=== PATIENT | female | born 1960 | race Caucasian/White ===

== ENCOUNTER 2020-06-19 17:15 | Inpatient (IN) | payer MEDICARE, MEDICAID, SELFPAY ==
[2020-06-19] VITALS (10 sets, daily range): BP systolic 106–139; BP diastolic 81–97; PULSE 94–121; RESP 14–32; TEMP 36.6–36.9; O2SAT 96–100; BMI 25.1
--- NOTE | 2020-06-19 17:27 | XR_ITS ---
WS: [id number] Portable AP upright chest, 06/19/2020 Clinical Data: sob Comparison: Portable chest, 05/18/2018. Findings: No nodules, masses or effusions are seen. The heart is normal. The pulmonary vascularity is not increased. No pneumonia or pneumothorax is seen. The diaphragms are flattened. There are monitor leads on the chest wall. XR/XR chest 1V portable 24040 Impression: Hyperinflation.
--- NOTE | 2020-06-19 17:27 | ECG_ITS ---
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 Measurements Intervals [place] Rate: 121 P: 87 DE: 108 QRS: 75 QRSD: 74 T: 73 QT: 271 QTc: 386 Interpretive Statements SINUS TACHYCARDIA WITH SHORT DE INTERVAL ABNORMAL RHYTHM ECG Compared to ECG 05/18/2018 16:02:32 Short DE interval now present Sinus rhythm no longer present Electronically Signed On 06-20-2020 11:33:59 CDT by Desi Aguirre M.D. [id number] f
--- NOTE | 2020-06-19 17:29 | ED_ITS ---
Documented by User: VARGAS [place] 06/19/20 18:56 HPI - SOB/Dyspnea General: Chief Complaint: Shortness of Breath/Dyspnea Stated Complaint: SOB Time Seen by Provider: 06/19/20 17:17 History of Present Illness: HPI Narrative: Patient is a 59-year-old female comes to the ED with shortness of breath. Patient has a past medical history of COPD and is on 3 L of O2 at home and has inhalers at home for treatment. Patient says symptoms started suddenly approximately 2 to 3 hours ago. She tried using some of her inhalers at home and that did not provide any relief. Denies any recent illness or upper respiratory infection symptoms. Patient denies any increased coughing, fever, chills, chest pain, nausea/vomiting, abdominal pain, diarrhea, constipation, dysuria or hematuria. Associated symptoms: Deny abdominal pain, chest pain, fever(s), nausea, orthopnea, palpitations or vomiting Review of Systems Const: Denies: fever(s), chills or fatigue Eyes: Denies: change in vision or eye discomfort ENMT: Denies: throat pain, odynophagia, nasal discharge or nasal congestion Card: Denies: chest pain, palpitations, edema, swelling of feet/ankles, dyspnea on exertion or orthopnea Resp: Reports: dyspnea and non-productive cough (chronic- unchanged); Denies: productive cough GI: Denies: abdominal pain, nausea, vomiting, diarrhea, constipation or hematochezia : Denies: flank pain, dysuria or hematuria Musc: Denies: neck pain, back pain or extremity swelling Skin/Breast: Denies: rash or new lesions Neuro: Denies: headache(s), numbness in extremities or weakness in extremities PFSH ED PFSH: Medical History (Updated 06/19/20 @ 21:25 by lAie Infante) Asthma COPD (chronic obstructive pulmonary disease) Oxygen dependent Surgical History (Updated 06/19/20 @ 21:09 by Dimple Nunez MD) No pertinent past surgical history Family History (Updated 06/19/20 @ 21:11 by Dimple Nunez MD) Mother Rheumatoid arthritis Father Cancer lung cancer Other CAD (coronary artery disease) Social History (Updated 06/19/20 @ 21:13 by Dimple Nunez MD) Smoking and tobacco status: current every day smoker Alcohol intake: never Substance/Drug Use: never Lives independently: Yes Housing: House Marital status: / Physical Exam Const: COMMON NORMALS: patient oriented x3 and alert GENERAL APPEARANCE: cooperative, comfortable and in distress (tachypnea) HENMT: COMMON NORMALS: normocephalic HEAD & SCALP: normocephalic MOUTH: Normal oral and palatal mucosa present THROAT: posterior oropharynx normal and uvula midline Eye: COMMON NORMALS: Equal, round and reactive pupils present PUPIL: Yes Equal, round and reactive pupils present Neck/C-Spine: COMMON NORMALS: supple GENERAL: Yes normal visual inspection Resp: COMMON NORMALS: normal respiratory effort, No retractions and No use of accessory muscles EFFORT & INSPECTION: Yes tachypneic, Yes respiratory distress, Yes labored and Yes uses accessory muscles AUSCULTATION: wheezes expiratory wheezes and throughout and diminished lung sounds diffuse Cardio: COMMON NORMALS: regular rhythm, S1 normal heart sound present, S2 normal heart sound present, No gallops present (Cardio), No clicks present (Cardio), No murmurs present (Cardio) and Peripheral pulses 2+ throughout RATE: tachycardic RHYTHM: regular rhythm HEART SOUNDS: S1 normal heart sound present and S2 normal heart sound present PERIPHERAL PULSES: Peripheral pulses 2+ throughout GI: COMMON NORMALS: Normal to inspection, nondistended, normoactive bowel sounds present, Soft to palpation, non-tender and no masses PALPATION: Yes Soft to palpation : COMMON NORMALS: Yes no CVA tenderness BLADDER/KIDNEY EXAM: Yes no CVA tenderness Back/Pelvis: COMMON NORMALS: no CVA tenderness Extremity: COMMON NORMALS: normal to inspection and no pedal edema Neuro: COMMON NORMALS: patient oriented x3 and moves all extremities SENSORIUM/ORIENTATION: Yes alert Skin: COMMON NORMALS: no rashes or lesions noted GENERAL SKIN EXAM: no rashes or lesions noted and dry skin Course Vital Signs: Vital signs: Vital Signs Temperature 98.5 F 06/19/20 17:16 Pulse Rate 94 06/19/20 20:22 Respiratory Rate 20 H 06/19/20 20:22 Blood Pressure 106/82 06/19/20 20:22 Pulse Oximetry 98 06/19/20 20:22 MDM - SOB/Dyspnea MDM Narrative: Medical decision making narrative: Patient is a 59 year-old female comes to the ED with shortness of breath. She has a past medical history of COPD and is on 3 L of O2 at home. I performed the initial history and physical exam and lab work-up of patient. Physical exam showed a patient that is tachypnea and lung sounds were diminished throughout and there were also some expiratory wheezing throughout lungs. ABG- ph 7.31 PCO2 62.2, O2 sat 91.8%. I ordered multiple DuoNeb breathing treatments for patient and 125 mg Solu-Medrol. I went and spoke with Dr. Infante about patient and due to severity of patient's illness and likely admission Dr. Lan will be taking over care. Lab Data: Attestation: I reviewed the patient's lab results. Labs: Lab Results 06/19/20 06/19/20 06/19/20 Range/Units 18:22 18:22 18:22 WBC 15.7 H (4.0-10.0) 10^3/ uL RBC 4.58 (4.1-5.3) 10^6/u L Hgb 13.6 (11.5-15.3) g/dL Hct 45.1 (37.0-47.0) % MCV 98.5 (81-99) fL MCH 29.7 (28.0-34.0) pg MCHC 30.2 (30.0-36.0) g/dL RDW 12.9 (12.1-15.1) % Plt Count 206 (130-400) 10^3/c mm MPV 10.7 H (7.4-10.4) fL Neut % (Auto) 85.6 % Lymph % (Auto) 7.8 % [place] % (Auto) 5.7 % Eos % (Auto) 0.3 % Baso % (Auto) 0.3 % Neut # (Auto) 13.48 H (1.8-7.7) 10^3/u L Lymph # (Auto) 1.2 (0.8-4.8) 10^3/u L [place] # (Auto) 0.9 (0.2-0.9) 10^3/u L Eos # (Auto) 0.0 (0.0-0.8) 10^3/u L Baso # (Auto) 0.1 (0.0-0.1) 10^3/u L Nucleated RBC % (a uto) 0 % Nucleated RBCs # 0.0 /100WBC D-Dimer 0.33 (0-0.59) ug/mIFE U Specimen Type Sample Site ABG pH (7.35-7.45) ABG pCO2 (35-45) mmHg ABG pO2 (80.0-100.0) mmH g ABG HCO3 (22-26) mmol/L ABG O2 Saturation ABG Base Excess (-2.0-2.0) mmol/ L Sohail Test A-a O2 Gradient (5-10) mmHg Hematocrit (37-47) % Hgb O2 Saturation (95-100) % Carboxyhemoglobin (0.4-20.1) %THgb Methemoglobin (0.4-1.5) % Total Hemoglobin (12-16) g/dL Ionized Calcium (1.1-1.4) mmol/L O2 Delivery Device O2 Liters/Min % FiO2 % Demolition Expert ID Sodium 138 (136-145) mmol/L Potassium 4.2 (3.5-5.1) mmol/L Chloride 99 (98-107) mmol/L Carbon Dioxide 32 H (22-29) mmol/L Anion Gap 11.2 (5-19) BUN 13 (6-20) mg/dL Creatinine 0.5 (0.5-0.9) mg/dL GFR Calculation 126.7 (90-130) mL/min Glucose 120 H (65-115) mg/dL Calculated Osmolal ity 283 L (285-295) mOsm/k g Lactic Acid (0.5-2.2) mmol/L Calcium 9.7 (8.5-10.5) mg/dL Magnesium 2.1 (1.7-2.3) mg/dL Total Bilirubin 0.3 (0.15-1.2) mg/dL AST 32 (0-32) U/L ALT 20 (0-33) U/L Alkaline Phosphata se 92 (35-105) IU/L Troponin T Baselin e (0-10) ng/L NT-Pro-B Natriuret Pep 27 (0-125) pg/mL Total Protein 7.3 (6.6-8.7) g/dL Albumin 4.4 (3.5-5.2) g/dL Globulin 2.9 (1.3-4.6) g/dL SARS-CoV-2 Ag (Rap id) (Negative) 06/19/20 06/19/20 06/19/20 Range/Units 18:22 18:22 18:27 WBC (4.0-10.0) 10^3/ uL RBC (4.1-5.3) 10^6/u L Hgb (11.5-15.3) g/dL Hct (37.0-47.0) % MCV (81-99) fL MCH (28.0-34.0) pg MCHC (30.0-36.0) g/dL RDW (12.1-15.1) % Plt Count (130-400) 10^3/c mm MPV (7.4-10.4) fL Neut % (Auto) % Lymph % (Auto) % [place] % (Auto) % Eos % (Auto) % Baso % (Auto) % Neut # (Auto) (1.8-7.7) 10^3/u L Lymph # (Auto) (0.8-4.8) 10^3/u L [place] # (Auto) (0.2-0.9) 10^3/u L Eos # (Auto) (0.0-0.8) 10^3/u L Baso # (Auto) (0.0-0.1) 10^3/u L Nucleated RBC % (a uto) % Nucleated RBCs # /100WBC D-Dimer (0-0.59) ug/mIFE U Specimen Type Arterial Sample Site Radial, right ABG pH 7.31 L (7.35-7.45) ABG pCO2 62.2 H* (35-45) mmHg ABG pO2 96.4 (80.0-100.0) mmH g ABG HCO3 31.3 H (22-26) mmol/L ABG O2 Saturation 98.2 ABG Base Excess 3.2 H (-2.0-2.0) mmol/ L Sohail Test Pos A-a O2 Gradient 7.1 (5-10) mmHg Hematocrit 43.5 (37-47) % Hgb O2 Saturation 91.8 L (95-100) % Carboxyhemoglobin 5.6 (0.4-20.1) %THgb Methemoglobin 0.9 (0.4-1.5) % Total Hemoglobin 14.2 (12-16) g/dL Ionized Calcium 1.3 (1.1-1.4) mmol/L O2 Delivery Device Nc O2 Liters/Min 3.0 % FiO2 32.0 % Demolition Expert ID Ed Sodium 142.0 (136-145) mmol/L Potassium 4.3 (3.5-5.1) mmol/L Chloride (98-107) mmol/L Carbon Dioxide (22-29) mmol/L Anion Gap (5-19) BUN (6-20) mg/dL Creatinine (0.5-0.9) mg/dL GFR Calculation (90-130) mL/min Glucose 123.0 H (65-115) mg/dL Calculated Osmolal ity (285-295) mOsm/k g Lactic Acid 1.0 (0.5-2.2) mmol/L Calcium (8.5-10.5) mg/dL Magnesium (1.7-2.3) mg/dL Total Bilirubin (0.15-1.2) mg/dL AST (0-32) U/L ALT (0-33) U/L Alkaline Phosphata se (35-105) IU/L Troponin T Baselin e 407 H* (0-10) ng/L NT-Pro-B Natriuret Pep (0-125) pg/mL Total Protein (6.6-8.7) g/dL Albumin (3.5-5.2) g/dL Globulin (1.3-4.6) g/dL SARS-CoV-2 Ag (Rap id) (Negative) 06/19/20 06/19/20 Range/Units 19:31 20:25 WBC (4.0-10.0) 10^3/ uL RBC (4.1-5.3) 10^6/u L Hgb (11.5-15.3) g/dL Hct (37.0-47.0) % MCV (81-99) fL MCH (28.0-34.0) pg MCHC (30.0-36.0) g/dL RDW (12.1-15.1) % Plt Count (130-400) 10^3/c mm MPV (7.4-10.4) fL Neut % (Auto) % Lymph % (Auto) % [place] % (Auto) % Eos % (Auto) % Baso % (Auto) % Neut # (Auto) (1.8-7.7) 10^3/u L Lymph # (Auto) (0.8-4.8) 10^3/u L [place] # (Auto) (0.2-0.9) 10^3/u L Eos # (Auto) (0.0-0.8) 10^3/u L Baso # (Auto) (0.0-0.1) 10^3/u L Nucleated RBC % (a uto) % Nucleated RBCs # /100WBC D-Dimer (0-0.59) ug/mIFE U Specimen Type Arterial Sample Site Radial, left ABG pH 7.44 (7.35-7.45) ABG pCO2 43.4 (35-45) mmHg ABG pO2 92.3 (80.0-100.0) mmH g ABG HCO3 29.2 H (22-26) mmol/L ABG O2 Saturation ABG Base Excess 4.3 H (-2.0-2.0) mmol/ L S[place]ail Test Pos A-a O2 Gradient (5-10) mmHg Hematocrit 43.8 (37-47) % Hgb O2 Saturation (95-100) % Carboxyhemoglobin (0.4-20.1) %THgb Methemoglobin (0.4-1.5) % Total Hemoglobin (12-16) g/dL Ionized Calcium (1.1-1.4) mmol/L O2 Delivery Device Bipap O2 Liters/Min % FiO2 30.0 % Demolition Expert ID [id number] Sodium (136-145) mmol/L Potassium (3.5-5.1) mmol/L Chloride (98-107) mmol/L Carbon Dioxide (22-29) mmol/L Anion Gap (5-19) BUN (6-20) mg/dL Creatinine (0.5-0.9) mg/dL GFR Calculation (90-130) mL/min Glucose (65-115) mg/dL Calculated Osmolal ity (285-295) mOsm/k g Lactic Acid (0.5-2.2) mmol/L Calcium (8.5-10.5) mg/dL Magnesium (1.7-2.3) mg/dL Total Bilirubin (0.15-1.2) mg/dL AST (0-32) U/L ALT (0-33) U/L Alkaline Phosphata se (35-105) IU/L Troponin T Baselin e (0-10) ng/L NT-Pro-B Natriuret Pep (0-125) pg/mL Total Protein (6.6-8.7) g/dL Albumin (3.5-5.2) g/dL Globulin (1.3-4.6) g/dL SARS-CoV-2 Ag (Rap id) Negative (Negative) Imaging Data^: CXR: Attestation: I personally reviewed and interpreted this imaging study as follows: My impression: Chest x-ray showed hyperinflated lungs which is consistent with her COPD diagnosis. No other infiltrates or acute lung findings. EKG Data^: EKG 1: Attestation: I personally reviewed and interpreted this EKG as follows: EKG Interpretation Date: 06/19/20 Interpretation: Sinus tachycardia, 121 bpm, no ST segment elevation or depression seen. Discharge Plan Discharge Patient Disposition: Placed in Observation Clinical Impression: NSTEMI (non-ST elevated myocardial infarction), Acute hypercapnic respiratory failure Condition: Stable Prescriptions: No Action bupropion HCl 150 mg tablet sustained-release 12 hr See Rx Instructions .ROUTE .COMPLEX RF: 0 ipratropium-albuterol 0.5 mg-3 mg(2.5 mg base)/3 mL solution for nebulization See Rx Instructions .ROUTE .COMPLEX RF: 0 pantoprazole 40 mg tablet,delayed release (DR/EC) 40 mg PO DAILY RF: 0 albuterol sulfate 90 mcg/actuation HFA aerosol inhaler See Rx Instructions .ROUTE .COMPLEX RF: 0 Bevespi Aerosphere 9-4.8 mcg HFA aerosol inhaler See Rx Instructions .ROUTE .COMPLEX RF: 0 Referrals: Mery Durham DO [Primary Care Provider] - Sign Out Sign Out Data: Patient Sign Out occurred on 06/19/20 at 18:48. Patient's care was discussed, and care was transferred from to Alie Infante. 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 Exam Comprehensive Documented by User: Alie Infante 06/19/20 21:25 HPI - SOB/Dyspnea General: Chief Complaint: Shortness of Breath/Dyspnea Stated Complaint: SOB Time Seen by Provider: 06/19/20 17:17 [facility] ED PFSH: Medical History (Updated 06/19/20 @ 21:25 by Alie Infante) Asthma COPD (chronic obstructive pulmonary disease) Oxygen dependent Surgical History (Updated 06/19/20 @ 21:09 by Dimple Nunez MD) No pertinent past surgical history Family History (Updated 06/19/20 @ 21:11 by Dimple Nunez MD) Mother Rheumatoid arthritis Father Cancer lung cancer Other CAD (coronary artery disease) Social History (Updated 06/19/20 @ 21:13 by Dimple Nunez MD) Smoking and tobacco status: current every day smoker Alcohol intake: never Substance/Drug Use: never Lives independently: Yes Housing: House Marital status: / Course Vital Signs: Vital signs: Vital Signs Temperature 98.5 F 06/19/20 17:16 Pulse Rate 94 06/19/20 20:22 Respiratory Rate 20 H 06/19/20 20:22 Blood Pressure 106/82 06/19/20 20:22 Pulse Oximetry 98 06/19/20 20:22 MDM - SOB/Dyspnea MDM Narrative: Medical decision making narrative: Case inherited by me from VARGAS [place]. Patient is on BiPAP and stable. She is having no chest pain. 2 EKGs are normal but her first troponin was abnormal. She was treated with Lovenox and aspirin. The patient's repeat ABG is improved. I reviewed the case in full with Dr. Nunez and he agrees to admit for further evaluation and care. Lab Data: Attestation: I reviewed the patient's lab results. Labs: Lab Results 06/19/20 06/19/20 06/19/20 Range/Units 18:22 18:22 18:22 WBC 15.7 H (4.0-10.0) 10^3/ uL RBC 4.58 (4.1-5.3) 10^6/u L Hgb 13.6 (11.5-15.3) g/dL Hct 45.1 (37.0-47.0) % MCV 98.5 (81-99) fL MCH 29.7 (28.0-34.0) pg MCHC 30.2 (30.0-36.0) g/dL RDW 12.9 (12.1-15.1) % Plt Count 206 (130-400) 10^3/c mm MPV 10.7 H (7.4-10.4) fL Neut % (Auto) 85.6 % Lymph % (Auto) 7.8 % [place] % (Auto) 5.7 % Eos % (Auto) 0.3 % Baso % (Auto) 0.3 % Neut # (Auto) 13.48 H (1.8-7.7) 10^3/u L Lymph # (Auto) 1.2 (0.8-4.8) 10^3/u L [place] # (Auto) 0.9 (0.2-0.9) 10^3/u L Eos # (Auto) 0.0 (0.0-0.8) 10^3/u L Baso # (Auto) 0.1 (0.0-0.1) 10^3/u L Nucleated RBC % (a uto) 0 % Nucleated RBCs # 0.0 /100WBC D-Dimer 0.33 (0-0.59) ug/mIFE U Specimen Type Sample Site ABG pH (7.35-7.45) ABG pCO2 (35-45) mmHg ABG pO2 (80.0-100.0) mmH g ABG HCO3 (22-26) mmol/L ABG O2 Saturation ABG Base Excess (-2.0-2.0) mmol/ L S[place]ail Test A-a O2 Gradient (5-10) mmHg Hematocrit (37-47) % Hgb O2 Saturation (95-100) % Carboxyhemoglobin (0.4-20.1) %THgb Methemoglobin (0.4-1.5) % Total Hemoglobin (12-16) g/dL Ionized Calcium (1.1-1.4) mmol/L O2 Delivery Device O2 Liters/Min % FiO2 % Demolition Expert ID Sodium 138 (136-145) mmol/L Potassium 4.2 (3.5-5.1) mmol/L Chloride 99 (98-107) mmol/L Carbon Dioxide 32 H (22-29) mmol/L Anion Gap 11.2 (5-19) BUN 13 (6-20) mg/dL Creatinine 0.5 (0.5-0.9) mg/dL GFR Calculation 126.7 (90-130) mL/min Glucose 120 H (65-115) mg/dL Calculated Osmolal ity 283 L (285-295) mOsm/k g Lactic Acid (0.5-2.2) mmol/L Calcium 9.7 (8.5-10.5) mg/dL Magnesium 2.1 (1.7-2.3) mg/dL Total Bilirubin 0.3 (0.15-1.2) mg/dL AST 32 (0-32) U/L ALT 20 (0-33) U/L Alkaline Phosphata se 92 (35-105) IU/L Troponin T Baselin e (0-10) ng/L NT-Pro-B Natriuret Pep 27 (0-125) pg/mL Total Protein 7.3 (6.6-8.7) g/dL Albumin 4.4 (3.5-5.2) g/dL Globulin 2.9 (1.3-4.6) g/dL SARS-CoV-2 Ag (Rap id) (Negative) 06/19/20 06/19/20 06/19/20 Range/Units 18:22 18:22 18:27 WBC (4.0-10.0) 10^3/ uL RBC (4.1-5.3) 10^6/u L Hgb (11.5-15.3) g/dL Hct (37.0-47.0) % MCV (81-99) fL MCH (28.0-34.0) pg MCHC (30.0-36.0) g/dL RDW (12.1-15.1) % Plt Count (130-400) 10^3/c mm MPV (7.4-10.4) fL Neut % (Auto) % Lymph % (Auto) % [place] % (Auto) % Eos % (Auto) % Baso % (Auto) % Neut # (Auto) (1.8-7.7) 10^3/u L Lymph # (Auto) (0.8-4.8) 10^3/u L [place] # (Auto) (0.2-0.9) 10^3/u L Eos # (Auto) (0.0-0.8) 10^3/u L Baso # (Auto) (0.0-0.1) 10^3/u L Nucleated RBC % (a uto) % Nucleated RBCs # /100WBC D-Dimer (0-0.59) ug/mIFE U Specimen Type Arterial Sample Site Radial, right ABG pH 7.31 L (7.35-7.45) ABG pCO2 62.2 H* (35-45) mmHg ABG pO2 96.4 (80.0-100.0) mmH g ABG HCO3 31.3 H (22-26) mmol/L ABG O2 Saturation 98.2 ABG Base Excess 3.2 H (-2.0-2.0) mmol/ L S[place]ail Test Pos A-a O2 Gradient 7.1 (5-10) mmHg Hematocrit 43.5 (37-47) % Hgb O2 Saturation 91.8 L (95-100) % Carboxyhemoglobin 5.6 (0.4-20.1) %THgb Methemoglobin 0.9 (0.4-1.5) % Total Hemoglobin 14.2 (12-16) g/dL Ionized Calcium 1.3 (1.1-1.4) mmol/L O2 Delivery Device Nc O2 Liters/Min 3.0 % FiO2 32.0 % Demolition Expert ID Ed Sodium 142.0 (136-145) mmol/L Potassium 4.3 (3.5-5.1) mmol/L Chloride (98-107) mmol/L Carbon Dioxide (22-29) mmol/L Anion Gap (5-19) BUN (6-20) mg/dL Creatinine (0.5-0.9) mg/dL GFR Calculation (90-130) mL/min Glucose 123.0 H (65-115) mg/dL Calculated Osmolal ity (285-295) mOsm/k g Lactic Acid 1.0 (0.5-2.2) mmol/L Calcium (8.5-10.5) mg/dL Magnesium (1.7-2.3) mg/dL Total Bilirubin (0.15-1.2) mg/dL AST (0-32) U/L ALT (0-33) U/L Alkaline Phosphata se (35-105) IU/L Troponin T Baselin e 407 H* (0-10) ng/L NT-Pro-B Natriuret Pep (0-125) pg/mL Total Protein (6.6-8.7) g/dL Albumin (3.5-5.2) g/dL Globulin (1.3-4.6) g/dL SARS-CoV-2 Ag (Rap id) (Negative) 06/19/20 06/19/20 Range/Units 19:31 20:25 WBC (4.0-10.0) 10^3/ uL RBC (4.1-5.3) 10^6/u L Hgb (11.5-15.3) g/dL Hct (37.0-47.0) % MCV (81-99) fL MCH (28.0-34.0) pg MCHC (30.0-36.0) g/dL RDW (12.1-15.1) % Plt Count (130-400) 10^3/c mm MPV (7.4-10.4) fL Neut % (Auto) % Lymph % (Auto) % [place] % (Auto) % Eos % (Auto) % Baso % (Auto) % Neut # (Auto) (1.8-7.7) 10^3/u L Lymph # (Auto) (0.8-4.8) 10^3/u L [place] # (Auto) (0.2-0.9) 10^3/u L Eos # (Auto) (0.0-0.8) 10^3/u L Baso # (Auto) (0.0-0.1) 10^3/u L Nucleated RBC % (a uto) % Nucleated RBCs # /100WBC D-Dimer (0-0.59) ug/mIFE U Specimen Type Arterial Sample Site Radial, left ABG pH 7.44 (7.35-7.45) ABG pCO2 43.4 (35-45) mmHg ABG pO2 92.3 (80.0-100.0) mmH g ABG HCO3 29.2 H (22-26) mmol/L ABG O2 Saturation ABG Base Excess 4.3 H (-2.0-2.0) mmol/ L Sohail Test Pos A-a O2 Gradient (5-10) mmHg Hematocrit 43.8 (37-47) % Hgb O2 Saturation (95-100) % Carboxyhemoglobin (0.4-20.1) %THgb Methemoglobin (0.4-1.5) % Total Hemoglobin (12-16) g/dL Ionized Calcium (1.1-1.4) mmol/L O2 Delivery Device Bipap O2 Liters/Min % FiO2 30.0 % Demolition Expert ID [id number] Sodium (136-145) mmol/L Potassium (3.5-5.1) mmol/L Chloride (98-107) mmol/L Carbon Dioxide (22-29) mmol/L Anion Gap (5-19) BUN (6-20) mg/dL Creatinine (0.5-0.9) mg/dL GFR Calculation (90-130) mL/min Glucose (65-115) mg/dL Calculated Osmolal ity (285-295) mOsm/k g Lactic Acid (0.5-2.2) mmol/L Calcium (8.5-10.5) mg/dL Magnesium (1.7-2.3) mg/dL Total Bilirubin (0.15-1.2) mg/dL AST (0-32) U/L ALT (0-33) U/L Alkaline Phosphata se (35-105) IU/L Troponin T Baselin e (0-10) ng/L NT-Pro-B Natriuret Pep (0-125) pg/mL Total Protein (6.6-8.7) g/dL Albumin (3.5-5.2) g/dL Globulin (1.3-4.6) g/dL SARS-CoV-2 Ag (Rap id) Negative (Negative) EKG Data^: EKG 1: Attestation: I personally reviewed and interpreted this EKG as follows: EKG Interpretation Date: 06/19/20 EKG interpretation time: 17:21 Interpretation: Normal sinus rhythm at 121 beats a minute, significant baseline artifact present, normal axis, probable T wave inversions in aVL, otherwise no acute findings. Confirmed with Dr. Timothy WOLFG 2: Attestation: I personally reviewed and interpreted this EKG as follows: EKG Interpretation Date: 06/19/20 EKG interpretation time: 19:11 Interpretation: Sinus tachycardia at 112 beats a minute, T wave inversions aVL, no with acute ST-T wave changes. Confirm with Dr. Aguirre. Discharge Plan Discharge Patient Disposition: Placed in Observation Clinical Impression: NSTEMI (non-ST elevated myocardial infarction), Acute hypercapnic respiratory failure Condition: Stable Prescriptions: No Action bupropion HCl 150 mg tablet sustained-release 12 hr See Rx Instructions .ROUTE .COMPLEX RF: 0 ipratropium-albuterol 0.5 mg-3 mg(2.5 mg base)/3 mL solution for nebulization See Rx Instructions .ROUTE .COMPLEX RF: 0 pantoprazole 40 mg tablet,delayed release (DR/EC) 40 mg PO DAILY RF: 0 albuterol sulfate 90 mcg/actuation HFA aerosol inhaler See Rx Instructions .ROUTE .COMPLEX RF: 0 Bevespi Aerosphere 9-4.8 mcg HFA aerosol inhaler See Rx Instructions .ROUTE .COMPLEX RF: 0 Referrals: Mery Durham DO [Primary Care Provider] - Sign Out Sign Out Data: Patient Sign Out occurred on 06/19/20 at 18:48. Patient's care was discussed, and care was transferred from to Alie Cecil [facility]. Coding Level of Care Code ED [employer] for Meryl Bradley Exam Comprehensive
[2020-06-19] MEDS: ipratropium-albuterol 3 mL Neb 6 ML INHALATION (18:16)
[2020-06-19 18:37] LABS: ABG PH Result 7.31 (7.35-7.45); Alveolar-Arterial Oxygen Gradi 7.1 mmHg (5-10); Arterial Blood Gas Hematocrit 43.5 % (37-47); Base Excess ABG 3.2 mmol/L (-2.0-2.0); Blood Gas Allen Test Pos; Blood Gas Operator Identificat ED; Blood Gas Sample Site Radial, right; Blood Gas Sample Type Arterial; Carboxyhemoglobin 5.6 %THgb (0.4-20.1); HCO3 ABG 31.3 mmol/L (22-26); HGB O2 Sat 91.8 % (95-100); Ionized Calcium Level - ABG 1.3 mmol/L (1.1-1.4); Methemoglobin 0.9 % (0.4-1.5); Oxygen Device NC; Oxygen Saturation ABG 98.2; PO2 ABG 96.4 mmHg (80.0-100.0); Potassium Level - ABG 4.3 mmol/L (3.5-5.0); Total Hemoglobin 14.2 g/dL (12-16)
[2020-06-19 18:37] LABS: Basophils # 0.1 10^3/uL (0.0-0.1); Basophils % 0.3 %; Eosinophils % 0.3 %; Hematocrit 45.1 % (37.0-47.0); Hemoglobin 13.6 g/dL (11.5-15.3); Lymphocytes # 1.2 10^3/uL (0.8-4.8); Lymphocytes % 7.8 %; Mean Corpuscular HGB Conc 30.2 g/dL (30.0-36.0); Mean Corpuscular Hemoglobin 29.7 pg (28.0-34.0); Mean Corpuscular Volume 98.5 fL (81-99); Mean Platelet Volume 10.7 fL (7.4-10.4); Monocytes # 0.9 10^3/uL (0.2-0.9); Monocytes % 5.7 %; Neutrophils # 13.48 10^3/uL (1.8-7.7); Neutrophils % 85.6 %; Nucleated Red Blood Cells % 0 %; Platelet Count 206 10^3/cmm (130-400); Red Blood Count 4.58 10^6/uL (4.1-5.3); Red Cell Distribution Width 12.9 % (12.1-15.1); White Blood Count 15.7 10^3/uL (4.0-10.0)
[2020-06-19 18:38] LABS: ABG PCO2 62.2 mmHg (35-45)
[2020-06-19 18:51] LABS: D Dimer 0.33 ug/mIFEU (0-0.59)
[2020-06-19] MEDS: ipratropium-albuterol 3 mL Neb INHALATION (18:59)
[2020-06-19 19:05] LABS: Alanine Aminotransferase 20 U/L (0-33); Albumin Level 4.4 g/dL (3.5-5.2); Alkaline Phosphatase 92 IU/L (35-105); Anion Gap 11.2 (5-19); Aspartate Amino Transferase 32 U/L (0-32); Blood Urea Nitrogen 13 mg/dL (6-20); Calcium 9.7 mg/dL (8.5-10.5); Carbon Dioxide 32 mmol/L (22-29); Chloride 99 mmol/L (98-107); Globulin 2.9 g/dL (1.3-4.6); Glomerular Filtration Rate 126.7 mL/min (90-130); Glucose 120 mg/dL (65-115); Magnesium 2.1 mg/dL (1.7-2.3); NT Pro B Type Natriuretic Pept 27 pg/mL (0-125); Osmolality Calculated 283 mOsm/kg (285-295); Potassium 4.2 mmol/L (3.5-5.1); Sodium 138 mmol/L (136-145); Total Bilirubin 0.3 mg/dL (0.15-1.2); Total Protein 7.3 g/dL (6.6-8.7)
[2020-06-19 19:06] LABS: Troponin(5th) Baseline 407 ng/L (0-10)
--- NOTE | 2020-06-19 19:27 | ECG_ITS ---
[facility] Test Date: 2020-06-19 Pat Name: Dahlia Shah Department: Room: Gender: Female Clinical Research Nurse: : 1960 Requested By: Timothy Castaneda Order Number: [id number] Limon MD: Desi Aguirre M.D. Measurements Intervals [place] Rate: 112 P: 87 NV: 127 QRS: 73 QRSD: 87 T: 82 QT: 305 QTc: 416 Interpretive Statements SINUS TACHYCARDIA RIGHT ATRIAL ENLARGEMENT [0.3mV P WAVE] Compared to ECG 05/18/2018 16:02:32 Atrial abnormality now present Sinus rhythm no longer present Electronically Signed On 06-20-2020 20:54:19 CDT by Desi Aguirre M.D. [email or web address]
[2020-06-19 20:32] LABS: ABG PCO2 43.4 mmHg (35-45); ABG PH Result 7.44 (7.35-7.45); Arterial Blood Gas Hematocrit 43.8 % (37-47); Base Excess ABG 4.3 mmol/L (-2.0-2.0); Blood Gas Allen Test Pos; Blood Gas Sample Site Radial, left; Blood Gas Sample Type Arterial; HCO3 ABG 29.2 mmol/L (22-26); Oxygen Device BIPAP; PO2 ABG 92.3 mmHg (80.0-100.0)
[2020-06-19 20:42] LABS: SARS Covid-2 Antigen Negative (Negative)
--- NOTE | 2020-06-19 21:02 | PM.HP ---
Providers/Chief Complaint Primary Care Provider: Mery Durham DO Chief Complaint: SOB History of Present Illness Dahlia Shah is a 59 year old female who carries history of oxygen dependent COPD, uses trelogy at night, active smoker came in with chief complaint of worsening shortness of breath. Patient is stating that at baseline she is not very active, slightest bit of activities such as carrying basket to her laundry would make her experience chest pain, mostly at rest would relieve her pain, she is denying previous history of UT, stroke, heart disease. Today she went to her mother's home to spend some time with her, her home conditions were really humid she started experiencing worsening of her shortness of breath, she did not experience any chest pain, nausea, vomiting, fever, productive cough, diarrhea or dysuria. Her shortness of breath was getting worse hence decided to come to the hospital for further evaluation. No recent sick contacts. She is smoking 3 cigarettes a day. Diagnostics in the ER revealed hypercarbic respiratory failure, improved with BiPAP, tachycardic, tachypneic, d-dimer not high, EKG is sinus rhythm without ischemic or infarctive changes, significant delta troponin, I asked ER physician to start N STEMI protocol. At the time of my evaluation patient was chest pain-free, she was experiencing pursed lip breathing. Chest ray is showing concerning changes in left lung base with vascular prominence, meet sepsis criteria with tachycardia, tachypnea, leukocytosis, I would go ahead and start her on p.o. Levaquin Review of Systems Const: Reports: body aches, change in appetite, fatigue and malaise; Denies: fever(s) or chills Eyes: Denies: change in vision ENMT: Denies: throat pain Card: Reports: chest pain and dyspnea on exertion; Denies: palpitations, irregular heart rhythm, syncope, pre-syncope or orthopnea Resp: Reports: dyspnea and non-productive cough GI: Denies: abdominal pain or nausea : Denies: flank pain Musc: Denies: neck pain Skin/Breast: Denies: rash Neuro: Denies: headache(s) Psych: Reports: anxiety Endo: Denies: polyuria Joshua/Lymph: Denies: easy bruising All/Imm: Denies: urticaria Medications/Allergies Home Medications Medication Instructions Recorded Confirmed Last Taken Type albuterol sulfate See Rx Instructions .ROUTE .COMPLEX 06/19/20 06/19/20 06/19/20 History bupropion HCl See Rx Instructions .ROUTE .COMPLEX 06/19/20 06/19/20 06/18/20 History glycopyrrolate-formoterol [Bevespi See Rx Instructions .ROUTE .COMPLEX 06/19/20 06/19/20 06/19/20 History Aerosphere] ipratropium-albuterol See Rx Instructions .ROUTE .COMPLEX 06/19/20 06/19/20 06/19/20 History pantoprazole 40 mg PO DAILY 06/19/20 06/19/20 06/17/20 History Allergies Allergy/AdvReac Type Severity Reaction Status Date / Time codeine Allergy Unknown Unknown Verified 06/19/20 18:12 PFSH Acute PFSH: Medical History (Updated 06/19/20 @ 23:12 by Dimple Nunez MD) Asthma COPD (chronic obstructive pulmonary disease) Oxygen dependent Surgical History (Updated 06/19/20 @ 21:09 by Dimple Nunez MD) No pertinent past surgical history Family History (Updated 06/19/20 @ 21:11 by Dimple Nunez MD) Mother Rheumatoid arthritis Father Cancer lung cancer Other CAD (coronary artery disease) Social History (Updated 06/19/20 @ 21:13 by Dimple Nunez MD) Smoking and tobacco status: current every day smoker Alcohol intake: never Substance/Drug Use: never Lives independently: Yes Housing: House Marital status: / Vitals/I&O/Wt Last Vital Signs Temp 98.5 F 06/19/20 17:16 Pulse 94 06/19/20 20:22 Resp 20 H 06/19/20 20:22 BP 106/82 06/19/20 20:22 Pulse Ox 98 06/19/20 20:22 Weight last 48 hrs Weight 68.492 kg Physical Exam Narrative: EXAM NARRATIVE: Patient sitting in her bed with pursed lip breathing pattern Prolonged expiratory phase No lip cyanosis noticed Patient was put on BiPAP after taking HPI Diminished breath sounds with wheezing S1, S2 no murmur or signs of heart failure Abdomen soft nontender bowel sound present No lower extremity edema EOMI, PERRLA Appropriate mood and affect No lower extremity gangrene ulcer Multiple skin tattoos Data : 06/19/20 18:22 06/19/20 18:22 Micro: Microbiology 06/19/20 18:22 Blood Culture - Preliminary Blood SPECIMEN COLLECTED A&P Assessment and plan (1) NSTEMI (non-ST elevated myocardial infarction): Status: Acute (2) Community acquired pneumonia: Status: Acute (3) Sepsis: Status: Acute (4) Acute hypercapnic respiratory failure: Status: Acute Additional A&P Information Non-ST segment elevation UT Significant delta troponin without ischemic or infarctive changes, 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 Started Lovenox, loading dose of aspirin and Plavix given, started high-dose statin along lisinopril Echo in the morning, Patient is endorsing unstable angina symptoms, no previous history of UT or heart failure, her symptoms could very well be secondary to worsening of her COPD with underlying pneumonia but will like to rule out coronary etiology with stress test in the morning Left lower lobe pneumonia Prominent vascular markings BNP not high Most likely patient has pulmonary hypertension, follow-up on echo Started on Levaquin Urine antigens ordeered Sepsis criteria met due to tachypnea, tachycardia, leukocytosis, lactic acid normal, secondary to community-acquired pneumonia Acute on chronic hypercapnic respiratory failure Currently doing well on BiPAP, Continue BiPAP overnight settings 14 and 8, respiratory rate 10, FiO2 30% Blood gas in the PE ruled out Needs extensive counseling to quit smoking currently smoking 3 cigarettes a day Patient is full code Cardiac diet, n.p.o. after midnight for cardiac stress test in the morning DVT prophylaxis not needed as patient is currently on full dose Lovenox Attestations Medical Necessity Statement*: Anticipating stay in the hospital cross more than 2 midnights currently need management for NSTEMI and community-acquired pneumonia Time Spent in Patient Care: 50 minutes Coding Level of Care Code Acute Senior Dentist for [facility] Fwd Diagnoses NSTEMI (non-ST elevated myocardial infarction) I21.4 Community acquired pneumonia J18.9 Sepsis A41.9 Acute hypercapnic respiratory failure J96.02
[2020-06-19] MEDS: aspirin 325 mg Tablet PO (21:31)
[2020-06-19] MEDS: enoxaparin 80 mg/0.8 mL Syringe 68 MG SUBCUT (21:31)
[2020-06-19 21:38] LABS: Troponin 5 2HR 557.1 ng/L (0-10); Troponin 5 2HR Delta 150.1 ABS# (0-10)
--- NOTE | 2020-06-19 22:25 | PC.NURSE ---
Patient received to floor from ED via wheelchair. Patient ambulated to bathroom with noted increased SOB. Patient c/o chest pain 4/10 with deep inspiration. Patient reports having copd and using 3L nc Oxygen at home. Admission completed as documented.
[2020-06-19] MEDS: clopidogrel 300 mg Tablet PO (22:50)
--- NOTE | 2020-06-19 23:27 | ECG_ITS ---
[facility] Test Date: 2020-06-19 Pat Name: Dahlia Shah Department: Room: 102 Gender: Female Freight Separator: yovana ANNE: 1960 Requested By: Timothy Castaneda Order Number: [id number] Braxton MD: Desi Aguirre M.D. Measurements Intervals [place] Rate: 91 P: 83 AR: 132 QRS: 76 QRSD: 89 T: 75 QT: 348 QTc: 430 Interpretive Statements SINUS RHYTHM Compared to ECG 06/19/2020 19:11:42 Sinus tachycardia no longer present Atrial abnormality no longer present Electronically Signed On 06-20-2020 20:52:03 CDT by Desi Aguirre M.D. [id number]
[2020-06-20] VITALS (15 sets, daily range): BP systolic 92–138; BP diastolic 63–95; PULSE 84–110; RESP 16–24; TEMP 36.4–36.8; O2SAT 86–98
[2020-06-20] MEDS: ipratropium-albuterol 3 mL Neb INHALATION ×5 (00:06→20:02)
[2020-06-20] MEDS: levoFLOXacin 750 mg Tablet PO (00:18)
[2020-06-20 02:39] LABS: Basophils % 0.1 %; Hematocrit 41.7 % (37.0-47.0); Lymphocytes # 0.4 10^3/uL (0.8-4.8); Lymphocytes % 4.7 %; Mean Corpuscular HGB Conc 31.2 g/dL (30.0-36.0); Mean Corpuscular Volume 96.3 fL (81-99); Mean Platelet Volume 11.1 fL (7.4-10.4); Monocytes # 0.1 10^3/uL (0.2-0.9); Monocytes % 0.8 %; Neutrophils # 7.27 10^3/uL (1.8-7.7); Neutrophils % 94.1 %; Nucleated Red Blood Cells % 0 %; Platelet Count 170 10^3/cmm (130-400); Red Blood Count 4.33 10^6/uL (4.1-5.3); Red Cell Distribution Width 12.8 % (12.1-15.1); White Blood Count 7.7 10^3/uL (4.0-10.0)
[2020-06-20 03:04] LABS: Anion Gap 11.9 (5-19); Blood Urea Nitrogen 18 mg/dL (6-20); Carbon Dioxide 34 mmol/L (22-29); Chloride 97 mmol/L (98-107); Glomerular Filtration Rate 102.7 mL/min (90-130); Glucose 235 mg/dL (65-115); Osmolality Calculated 290 mOsm/kg (285-295); Potassium 4.9 mmol/L (3.5-5.1); Sodium 138 mmol/L (136-145)
[2020-06-20 03:15] LABS: Troponin 5 6HR 640.4 ng/L (0-10); Troponin 5 6HR Delta 233.4 ng/L (0-12)
--- NOTE | 2020-06-20 03:57 | ECG_ITS ---
[facility] Test Date: 2020-06-20 Pat Name: Dahlia Shah Department: Room: 102 Gender: Female Shop Manager: yoavna ANNE: 1960 Requested By: Dimple Nunez Order Number: [id number] Braxton MD: Desi Aguirre M.D. Measurements Intervals [place] Rate: 87 P: 75 AL: 135 QRS: 76 QRSD: 102 T: 70 QT: 362 QTc: 436 Interpretive Statements SINUS RHYTHM WITH OCCASIONAL SUPRAVENTRICULAR PREMATURE COMPLEXES NONSPECIFIC T-WAVE ABNORMALITY Compared to ECG 06/19/2020 23:40:08 T-wave abnormality now present Electronically Signed On 06-20-2020 20:51:46 CDT by Desi Aguirre M.D. [id number]
--- NOTE | 2020-06-20 08:34 | PC.NURSE ---
STRESS TEST NOTE NUCLEAR MEDICINE NOTIFIED XENIA ADKINS RN, THAT THE PATIENT COULD NOT TOLERATE THE NUCLEAR IMAGING SCANS. THE TEST WAS CANCELED.
[2020-06-20] MEDS: pantoprazole DR 40 mg Tablet PO (09:17)
[2020-06-20] MEDS: atorvastatin 40 mg Tablet 80 MG PO (09:17)
[2020-06-20] MEDS: buPROPion SR (12 HR) 150 mg Tablet PO (09:17)
[2020-06-20] MEDS: clopidogrel 75 mg Tablet PO (09:17)
[2020-06-20] MEDS: enoxaparin 80 mg/0.8 mL Syringe 70 MG SUBCUT ×2 (09:18→20:54)
[2020-06-20] MEDS: lisinopril 5 mg Tablet PO (09:18)
[2020-06-20] MEDS: aspirin 81 mg EC Tablet PO (09:18)
--- NOTE | 2020-06-20 09:46 | PC.RESP ---
SMOKING CESSATION AND PULMONARY REHAB INFORMATION SENT TO PATIENT.
--- NOTE | 2020-06-20 11:39 | PM.PN ---
Subjective Subjective: Interval history: Patient reports breathing easier. Denies any shortness of breath or chest pain while on BiPAP this morning. Denies abdominal pain. She was unable to have stress test performed this morning because she cannot lay flat. She reports dry cough Vitals/I&O/Wt Last Vital Signs Temp 97.9 F 06/20/20 07:09 Pulse 95 06/20/20 09:02 Resp 20 H 06/20/20 09:02 BP 138/95 06/20/20 07:09 Pulse Ox 97 06/20/20 09:02 06/19/20 06/20/20 06/20/20 22:59 06:59 14:59 Intake Total 240 / 240 640 / 640 Output Total 100 / 100 Balance 140 / 140 640 / 640 Weight last 48 hrs Weight 70.398 kg Weight 68.492 kg Physical Exam Const: COMMON NORMALS: no acute distress and patient oriented x3 Resp: COMMON NORMALS: normal respiratory effort OTHER: Left upper zone inspiratory wheezing and overall decreased air movement throughout. Cardio: COMMON NORMALS: regular rate, regular rhythm and S2 normal heart sound present RATE: regular rate RHYTHM: regular rhythm HEART SOUNDS: S2 normal heart sound present OTHER: No lower extremity edema GI: COMMON NORMALS: Normal to inspection, nondistended, normoactive bowel sounds present, Soft to palpation and non-tender PALPATION: Yes Soft to palpation Neuro: COMMON NORMALS: patient oriented x3 and no focal motor deficits Data : 06/20/20 02:00 06/20/20 02:00 Micro: Microbiology 06/20/20 01:04 Legionella Urinary Antigen - Final Urine,Voided Bacterial Antigens - Final 06/19/20 18:22 Blood Culture - Preliminary Blood SPECIMEN COLLECTED A&P Assessment and plan (1) NSTEMI (non-ST elevated myocardial infarction): Status: Acute (2) Community acquired pneumonia: Status: Acute (3) Sepsis: Status: Acute (4) Acute hypercapnic respiratory failure: Status: Acute Additional A&P Information Non-ST segment elevation PA Significant delta troponin without ischemic or infarctive changes, 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 Started Lovenox, loading dose of aspirin and Plavix given, started high-dose statin along lisinopril Echo in the morning, Patient is endorsing unstable angina symptoms, no previous history of PA or heart failure, her symptoms could very well be secondary to worsening of her COPD with underlying pneumonia but will like to rule out coronary etiology with stress test in the morning Left lower lobe pneumonia Prominent vascular markings BNP not high Most likely patient has pulmonary hypertension, follow-up on echo Started on Levaquin Urine antigens ordeered Sepsis criteria met due to tachypnea, tachycardia, leukocytosis, lactic acid normal, secondary to community-acquired pneumonia Acute on chronic hypercapnic respiratory failure Currently doing well on BiPAP, Continue BiPAP overnight settings 14 and 8, respiratory rate 10, FiO2 30% Blood gas in the PE ruled out Needs extensive counseling to quit smoking currently smoking 3 cigarettes a day Patient is full code Cardiac diet, n.p.o. after midnight for cardiac stress test in the morning DVT prophylaxis not needed as patient is currently on full dose Lovenox PLAN: Continue with therapeutic anticoagulation and antiplatelet medications. Case discussed with Dr. Lambert will see patient in consultation. With her lifelong smoking history and inspiratory wheezing in the left upper lobe I will proceed with CT of the chest with contrast. Attestations Medical Necessity Statement*: Patient with respite failure requires close inpatient monitoring and treatment. Time Spent in Patient Care: 16 - 35 minutes Coding Level of Care Code Acute Mail Clerks Supervisor for g Fwd Diagnoses NSTEMI (non-ST elevated myocardial infarction) I21.4 Community acquired pneumonia J18.9 Sepsis A41.9 Acute hypercapnic respiratory failure J96.02
--- NOTE | 2020-06-20 13:23 | PM.CONSULT ---
Providers/Reason For Consult Consulting Physican/Specialty*: ROD Lambert MD/cardiology Reason for Consult*: Patient with elevated troponin T and shortness of breath Attending Physician: Marcus Barrios MD Primary Care Provider: Mery Durham DO History of Present Illness History of Present Illness Dahlia Shah is a 59 year old female with a history of smoking abuse/COPD, is admitted to hospital through the emergency room where she presented with rather acute worsening of the shortness of breath. According the patient, she is known to have COPD and is on home oxygen for the last few years. Yesterday afternoon, she became acutely short of breath. Patient attributes this to the humidity. She has feeling of chest tightness more or less constant with no worsening yesterday. She did not have any fever or chills. No significant cough. Because of the worsening of the shortness of breath, she decided to come to the hospital. Since the admission, the breathing seems to be slowly improving with the treatment. She has no abdominal pain or dysuria. She has no history for coronary artery disease, myocardial infarction or congestive heart failure. She has been compliant with the medication. She continues to smoke and in the process of quitting. The troponin T was 407 with a baseline which went up to 557 at 120 minutes and 16 and 40 at 6 hours. The 2-hour delta was 150 and the 6-hour delta was 233. Her BNP was 27. Her mother and maternal grandfather had myocardial infarction in their 70s. No other relevant family history. She has several siblings with no documented coronary artery disease Review of Systems Narrative: CONSTITUTIONAL: No fever or chills. EYES: No blurring of vision or other visual disturbances lately. ENT: No hoarseness of voice, auditory disturbances or sore throat. CARDIOVASCULAR: As mentioned above. RESPIRATORY: Shortness of breath/COPD as mentioned above. GASTROINTESTINAL: No hematemesis or melena. GENITOURINARY: No dysuria or hematuria. INTEGUMENTARY: No skin rashes or history of skin cancer. NEURO: No transient ischemic attacks or amaurosis. PSYCHIATRIC: No history of psychosis or major depression. HEMATOLOGIC: No bleeding disorders or significant anemia. ENDOCRINE: No history of polyuria or polydipsia. MUSCULOSKELETAL: No recent joint pain or swelling. ALLERGY/IMMUNOLOGY: As mentioned above. Meds/Allergies Home Medications and Allergies Home Medications Medication Instructions Recorded Confirmed Last Taken Type albuterol sulfate See Rx Instructions .ROUTE .COMPLEX 06/19/20 06/19/20 06/19/20 History bupropion HCl See Rx Instructions .ROUTE .COMPLEX 06/19/20 06/19/20 06/18/20 History glycopyrrolate-formoterol [Bevespi See Rx Instructions .ROUTE .COMPLEX 06/19/20 06/19/20 06/19/20 History Aerosphere] ipratropium-albuterol See Rx Instructions .ROUTE .COMPLEX 06/19/20 06/19/20 06/19/20 History pantoprazole 40 mg PO DAILY 06/19/20 06/19/20 06/17/20 History Allergies Allergy/AdvReac Type Severity Reaction Status Date / Time codeine Allergy Unknown Unknown Verified 06/19/20 18:12 Current Medications Current Medications Generic Name Dose Route Start Last Admin Trade Name Freq PRN Reason Stop Dose Admin Albuterol/Ipratropium 3 ml 06/19/20 22:20 06/20/20 13:04 Duoneb INHALATION 3 ml Q6H.RESPIRATORY PRN Administration SHORTNESS OF BREATH Aspirin 81 mg 06/20/20 09:00 06/20/20 09:18 Aspirin Ec PO 81 mg DAILY ADDY Administration Atorvastatin Calcium 80 mg 06/20/20 09:00 06/20/20 09:17 Lipitor PO 80 mg DAILY ADDY Administration Bupropion HCl 150 mg 06/20/20 09:00 06/20/20 09:17 Wellbutrin Sr (12 Hr) PO 150 mg DAILY ADDY Administration Clopidogrel Bisulfate 75 mg 06/20/20 09:00 06/20/20 09:17 Plavix PO 75 mg DAILY ADDY Administration Enoxaparin Sodium 70 mg 06/20/20 09:00 06/20/20 09:18 Lovenox SUBCUT 70 mg Q12H ADDY Administration Lisinopril 5 mg 06/20/20 09:00 06/20/20 09:18 Prinivil PO 5 mg DAILY ADDY Administration Pantoprazole Sodium 40 mg 06/20/20 09:00 06/20/20 09:17 Protonix PO 40 mg DAILY ADDY Administration PFSH Acute PFSH: Medical History Asthma COPD (chronic obstructive pulmonary disease) Oxygen dependent Surgical History No pertinent past surgical history Family History Mother Rheumatoid arthritis Father Cancer lung cancer Other CAD (coronary artery disease) Social History Smoking and tobacco status: current every day smoker Alcohol intake: never Substance/Drug Use: never Lives independently: Yes Housing: House Marital status: / Vitals/I&O/Wt Last Vital Signs Temp 98.3 F 06/20/20 11:40 Pulse 100 06/20/20 13:04 Resp 20 H 06/20/20 13:04 BP 113/78 06/20/20 11:40 Pulse Ox 96 06/20/20 13:04 06/19/20 06/20/20 06/20/20 22:59 06:59 14:59 Intake Total 240 / 240 640 / 640 Output Total 100 / 100 Balance 140 / 140 640 / 640 Weight last 48 hrs Weight 155 lb 3.2 oz Weight 151 lb Physical Exam Narrative: EXAM NARRATIVE: GENERAL: The patient is alert and oriented times three. Not in any acute distress. Slightly tachypneic HEENT: No significant pallor, icterus or lymphadenopathy. The pupils are reactant to light. Oral cavity: There are no mucous membrane lesions. Funduscopic examination: The disk margins appear to be sharp with no exudates or hemorrhages. NECK: Trachea appears to be central. No masses noted. Neck veins are slightly prominent. No thyromegaly appreciated. No carotid bruit. RESPIRATORY: Chest is symmetrical. No intercostals muscle retraction or any accessory muscle activation. There is no chest wall tenderness. Breath sounds are heard bilaterally. Bilateral extensive expiratory wheezing. Diminished intensity of breath sounds in the bases. HEART: The PMI is not palpated. No palpable precordial events. S1 and S2 are normal. No S3 or S4 heard. No pericardial rub or any click heard. ABDOMEN: No vessel pulsations or distention. No tenderness. No organomegaly appreciated. No abdominal bruit. Bowel sounds are normally heard. : Deferred. RECTAL: Deferred. LYMPHATIC: No lymphadenopathy noted in the neck or groin. EXTREMITIES: No edema or cyanosis. No clubbing. The pulses are symmetrical bilaterally. The radial, femoral, dorsalis pedis and the posterior tibial pulses are palpated and found to be in good volume and amplitude. MUSCULOSKELETAL: No acute joint deformities or swelling SKIN: There are no significant scars or skin rash noted. NEUROPSYCHIATRIC: The patient is alert and oriented x3. Appears to be in a good mood. The higher functions are grossly within normal limits. No tremors or rigidity noted. Data Labs: Other Labs: Laboratory Last Values WBC 7.7 10^3/uL (4.0- 10.0) 06/20/20 02:00 RBC 4.33 10^6/uL (4.1 -5.3) 06/20/20 02:00 Hgb 13.0 g/dL (11.5-1 5.3) 06/20/20 02:00 Hct 41.7 % (37.0-47.0 ) 06/20/20 02:00 MCV 96.3 fL (81-99) 06/20/20 02:00 MCH 30.0 pg (28.0-34. 0) 06/20/20 02:00 MCHC 31.2 g/dL (30.0-3 6.0) 06/20/20 02:00 RDW 12.8 % (12.1-15.1 ) 06/20/20 02:00 Plt Count 170 10^3/cmm (130 -400) 06/20/20 02:00 MPV 11.1 fL (7.4-10.4 ) H 06/20/20 02:00 Neut % (Auto) 94.1 % 06/20/20 02:00 Lymph % (Auto) 4.7 % 06/20/20 02:00 [place] % (Auto) 0.8 % 06/20/20 02:00 Eos % (Auto) 0.0 % 06/20/20 02:00 Baso % (Auto) 0.1 % 06/20/20 02:00 Neut # (Auto) 7.27 10^3/uL (1.8 -7.7) 06/20/20 02:00 Lymph # (Auto) 0.4 10^3/uL (0.8- 4.8) L 06/20/20 02:00 [place] # (Auto) 0.1 10^3/uL (0.2- 0.9) L 06/20/20 02:00 Eos # (Auto) 0.0 10^3/uL (0.0- 0.8) 06/20/20 02:00 Baso # (Auto) 0.0 10^3/uL (0.0- 0.1) 06/20/20 02:00 Nucleated RBC % (a uto) 0 % 06/20/20 02:00 Nucleated RBCs # 0.0 /100WBC 06/20/20 02:00 D-Dimer 0.33 ug/mIFEU (0- 0.59) 06/19/20 18:22 Specimen Type Arterial 06/19/20 20:25 Sample Site Radial, left 06/19/20 20:25 ABG pH 7.44 (7.35-7.45) 06/19/20 20: ABG pCO2 43.4 mmHg (35-45) 06/19/20 20: ABG pO2 92.3 mmHg (80.0-1 00.0) 06/19/20 20: ABG HCO3 29.2 mmol/L (22-2 6) H 06/19/20 20:25 ABG O2 Saturation 98.2 06/19/20 18: ABG Base Excess 4.3 mmol/L (-2.0- 2.0) H 06/19/20 20:25 Sohail Test Pos 06/19/20 20:25 A-a O2 Gradient 7.1 mmHg (5-10) 06/19/20 18: Hematocrit 43.8 % (37-47) 06/19/20 20:25 Hgb O2 Saturation 91.8 % (95-100) L 06/19/20 18: Carboxyhemoglobin 5.6 %THgb (0.4-20 .1) 06/19/20 18: Methemoglobin 0.9 % (0.4-1.5) 06/19/20 18: Total Hemoglobin 14.2 g/dL (12-16) 06/19/20 18: Sodium 142.0 mmol/L (131 -143) 06/19/20 18: Potassium 4.3 mmol/L (3.5-5 .0) 06/19/20 18: Glucose 123.0 mg/dL (70-1 15) H 06/19/20 18:27 Ionized Calcium 1.3 mmol/L (1.1-1 .4) 06/19/20 18:27 O2 Delivery Device Bipap 06/19/20 20:25 O2 Liters/Min 3.0 % 06/19/20 18:27 FiO2 30.0 % 06/19/20 20:25 Leveler Helper ID [id number] 06/19/20 20:25 Sodium 138 mmol/L (136-1 45) 06/20/20 02:00 Potassium 4.9 mmol/L (3.5-5 .1) 06/20/20 02:00 Chloride 97 mmol/L (98-107 ) L 06/20/20 02:00 Carbon Dioxide 34 mmol/L (22-29) H 06/20/20 02:00 Anion Gap 11.9 (5-19) 06/20/20 02:00 BUN 18 mg/dL (6-20) 06/20/20 02:00 Creatinine 0.6 mg/dL (0.5-0. 9) 06/20/20 02:00 GFR Calculation 102.7 mL/min (90- 130) 06/20/20 02:00 Glucose 235 mg/dL (65-115 ) H 06/20/20 02:00 Calculated Osmolal ity 290 mOsm/kg (285- 295) 06/20/20 02:00 Lactic Acid 1.0 mmol/L (0.5-2 .2) 06/19/20 18:22 Calcium 10.0 mg/dL (8.5-1 0.5) 06/20/20 02:00 Magnesium 2.1 mg/dL (1.7-2. 3) 06/19/20 18:22 Total Bilirubin 0.3 mg/dL (0.15-1 .2) 06/19/20 18:22 AST 32 U/L (0-32) 06/19/20 18:22 ALT 20 U/L (0-33) 06/19/20 18:22 Alkaline Phosphata se 92 IU/L (35-105) 06/19/20 18:22 Troponin T Baselin e 407 ng/L (0-10) H* 06/19/20 18:22 Troponin T 120 Min [place] 557.1 ng/L (0-10) H 06/19/20 20:45 Delta Troponin T 150.1 ABS# (0-10) H* 06/19/20 20:45 Troponin T Hi Sens 6Hr 640.4 ng/L (0-10) H 06/20/20 02:00 Troponin T Hi Sens 6Hr Delta 233.4 ng/L (0-12) H* 06/20/20 02:00 NT-Pro-B Natriuret Pep 27 pg/mL (0-125) 06/19/20 18:22 Total Protein 7.3 g/dL (6.6-8.7 ) 06/19/20 18:22 Albumin 4.4 g/dL (3.5-5.2 ) 06/19/20 18:22 Globulin 2.9 g/dL (1.3-4.6 ) 06/19/20 18:22 SARS-CoV-2 Ag (Rap id) Negative (Negati ve) 06/19/20 19:31 Micro: Micro: Microbiology 06/20/20 01:04 Legionella Urinary Antigen - Final Urine,Voided Bacterial Antigens - Final 06/19/20 18:22 Blood Culture - Pr eliminary Blood SPECIMEN [facility] Imaging^: Echo: My impression: Severe diffuse hypokinesia of the mid and apical septum, anteroseptal, inferior and inferolateral wall segments. The LV apex is dilated. Left ventricular ejection fraction is around 37%.Grade I/IV diastolic dysfunction (abnormal relaxation filling pattern), normal to mildly elevated filling pressures. Thickened aortic and mitral valves Trace tricuspid valve regurgitation. Estimated pulmonary artery peak systolic pressure was 31 mmHg. There is no pericardial effusion. There are no intracardiac masses. No previous study is available for comparison. CXR: My impression: Emphysematous chest. No acute infiltrate. A&P Assessment and plan (1) NSTEMI (non-ST elevated myocardial infarction): Patient's clinical features may suggest a non-ST elevation myocardial infarction. The echocardiographic appearance may suggest Takotsubo syndrome. However in view of her risk factors, possibility of her having underlying coronary artery disease causing the myocardial infarction is a strong consideration especially with the significantly elevated troponin T. Patient may be treated with subcu Lovenox, aspirin, Plavix, low-dose of beta-marisela and KHURRAM inhibitor, as the blood pressure tolerates Status: Acute (2) Left ventricular systolic dysfunction: Possibility of a Takotsubo syndrome versus severe coronary artery disease causing the LV dysfunction are considerations. Patient apparently could not tolerate a stress test. For further evaluation of her coronary status, a cardiac catheterization would be appropriate. We may consider this, once her respiratory status is stabilized. Status: Acute (3) COPD exacerbation: Optimizing the bronchodilator treatment as per the primary. Status: Acute Additional A&P Information I may check her thyroid profile and lipid profile. Based on the clinical progress and the results of the above, further recommendations will be made. Thank you for the opportunity to evaluate this patient make these recommendations. Consult Attestations Medical Necessity Statement: Patient requires continued hospital stay for close monitoring and further management Coding Level of Care Code Acute [facility] for [facility] Diagnoses NSTEMI (non-ST elevated myocardial infarction) I21.4 Left ventricular systolic dysfunction I51.9 COPD exacerbation J44.1
[2020-06-20 18:15] LABS: Chol HDL Ratio 3.98 mg/dL (0.0-4.40); Cholesterol 235 mg/dL (0-200); HDL Cholesterol 59 mg/dL (60-100); LDL Cholesterol Calculated 167 mg/dL (50-129); LDL HDL Ratio 2.83 RATIO (0.00-3.22); Thyroid Stimulating Hormone 0.32 uIU/mL (0.27-4.20); Triglycerides 46 mg/dL (0-150)
--- NOTE | 2020-06-20 19:17 | PC.NURSE ---
Contacted Dr. Lambert regarding new order for cardiac catherization tomorrow and to notify him we have a pending CT with contrast to be done today. Dr. Lambert states he has been in consult with Dr. Stark and we will hold off on CT scan for now. Dr. Lambert will come & discuss heart cath with patient.
--- NOTE | 2020-06-20 22:20 | USCV_ITS ---
Dahlia Shah Age: 59 Gender: F : 1960 Exam Date: 06/20/2020 06:03 Ordering Phys: Dimple Nunez MD Technologist: Jing Hinojosa Exam Location: [facility] Indication: NSTEMI BP: 102 / 78 HR: 90 Rhythm: Sinus Technical Quality: Adequate MEASUREMENTS (Male / Female) Normal Values 2D ECHO LV Diastolic Diameter PLAX 5.1 cm 4.2 - 5.9 / 3.9 - 5.3 cm LV Systolic Diameter PLAX 4.2 cm LV Chamber Size 4.6 cm IVS Diastolic Thickness 1.1 cm 0.6 - 1.0 / 0.6 - 0.9 cm IVS Systolic Thickness 1.4 cm LVPW Diastolic Thickness 1.0 cm 0.6 - 1.0 / 0.6 - 0.9 cm LVPW Systolic Thickness 1.1 cm RV Chamber Size 3.1 cm LVOT Diameter 2.0 cm LV Ejection Fraction 2D Teich 37.5 % LV Ejection Fraction MOD 2C 24.8 % LV Ejection Fraction 2C AL 24.3 % LA Diameter 3.7 cm LA Width 2.8 cm LA Height 3.0 cm RA Width 3.6 cm RA Height 2.8 cm Aorta at Sinotubular Diameter 2.8 cm M-MODE LV Diastolic Diameter MM 4.8 cm 4.2 - 5.9 / 3.9 - 5.3 cm LV Systolic Diameter MM 3.8 cm LV Ejection Fraction MM Teich 44.9 % IVS Diastolic Thickness MM 1.0 cm 0.6 - 1.0 / 0.6 - 0.9 cm IVS Systolic Thickness MM 1.4 cm LVPW Diastolic Thickness MM 1.0 cm 0.6 - 1.0 / 0.6 - 0.9 cm LVPW Systolic Thickness MM 1.3 cm RV Diastolic Diameter MM 1.6 cm Aortic Annulus Diameter 2.7 cm LA Ao Ratio MM 1.4 MV E Point Septal Separation 0.7 cm DOPPLER AV Peak Velocity 147.0 cm/s LVOT Peak Velocity 92.0 cm/s AV Area Cont Eq vti 2.0 cm squared AV Area Cont Eq pk 2.1 cm squared MV Area PHT 4.0 cm squared Mitral E to A Ratio 1.0 MV E' Velocity 11.0 cm/s Mitral E to MV E' Ratio 7.4 Mitral E to LV E' Lateral Ratio 6.7 Mitral E to LV E' Septal Ratio 8.3 TR Peak Velocity 237.5 cm/s TR Peak Gradient 22.6 mmHg TR Mean Velocity 187.7 cm/s TR Mean Gradient 15.2 mmHg TR Velocity Time Integral 53.9 cm TV Peak E Velocity 78.0 cm/s Right Atrial Pressure 8.0 mmHg Pulmonary Artery Systolic Pressu 30.6 mmHg PV Peak Velocity 60.0 cm/s RV Acceleration Time 0.2 s RV Ejection Time 0.4 s RV AcT/ET 0.5 FINDINGS Left Ventricle Severe diffuse hypokinesia of the mid and apical septum, anteroseptal, inferior and inferolateral wall segments. The LV apex is dilated. Left ventricular ejection fraction is around 37%.Grade I/IV diastolic dysfunction (abnormal relaxation filling pattern), normal to mildly elevated filling pressures. Right Ventricle Normal right ventricular size and systolic function. Right Atrium Normal right atrial size. Left Atrium Normal left atrial size. Mitral Valve Thickened mitral valve. Aortic Valve Thickened aortic valve. Tricuspid Valve Trace tricuspid valve regurgitation. Pulmonic Valve No gross abnormalities noted Pericardium No pericardial effusion. Aorta Normal aortic annulus size. CONCLUSIONS Severe diffuse hypokinesia of the mid and apical septum, anteroseptal, inferior and inferolateral wall segments. The LV apex is dilated. Left ventricular ejection fraction is around 37%.Grade I/IV diastolic dysfunction (abnormal relaxation filling pattern), normal to mildly elevated filling pressures. Thickened aortic and mitral valves Trace tricuspid valve regurgitation. Estimated pulmonary artery peak systolic pressure was 31 mmHg. There is no pericardial effusion. There are no intracardiac masses. No previous study is available for comparison. Dr Cathy Lambert MD FAC (Electronically Signed) Final Date: 20 June 2020 16:04 S
[2020-06-21] VITALS (19 sets, daily range): BP systolic 84–118; BP diastolic 64–85; PULSE 75–108; RESP 16–32; TEMP 36.4–36.8; O2SAT 91–98
[2020-06-21] MEDS: ipratropium-albuterol 3 mL Neb INHALATION ×7 (00:36→23:50)
[2020-06-21] MEDS: levoFLOXacin 750 mg Tablet PO (06:31)
--- NOTE | 2020-06-21 08:45 | PC.NURSE ---
Reviewed morning meds scheduled for [address] Rodriguez. Order to hold lovenox only.
--- NOTE | 2020-06-21 09:00 | PC.NURSE ---
patient reports bllod in urine . Urine is noted to be pink without clots. Dr. Lambert present on unit. Notified him of patient concerns. Order received for urinalysis. New specimen collected whish was pale red, agai with no clots was taken to lab.
[2020-06-21] MEDS: buPROPion SR (12 HR) 150 mg Tablet PO (09:02)
[2020-06-21] MEDS: clopidogrel 75 mg Tablet PO (09:02)
[2020-06-21] MEDS: lisinopril 5 mg Tablet PO (09:02)
[2020-06-21] MEDS: pantoprazole DR 40 mg Tablet PO (09:02)
[2020-06-21] MEDS: aspirin 81 mg EC Tablet PO (09:04)
[2020-06-21] MEDS: atorvastatin 40 mg Tablet 80 MG PO (09:05)
[2020-06-21] MEDS: diphenhydrAMINE 50 mg Capsule PO (09:06)
[2020-06-21] MEDS: sodium chloride 0.9% 1,000 ML 50 ML IV (09:23)
--- NOTE | 2020-06-21 09:25 | ECG_ITS ---
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 Measurements Intervals [place] Rate: 95 P: 81 PA: 128 QRS: 75 QRSD: 86 T: 247 QT: 365 QTc: 460 Interpretive Statements SINUS RHYTHM WITH SINUS ARRHYTHMIA MODERATE T-WAVE ABNORMALITY, CONSIDER LATERAL ISCHEMIA [-0.1+ mV T WAVE IN I/aVL/V5/V6] MODERATE T-WAVE ABNORMALITY, CONSIDER INFERIOR ISCHEMIA [-0.1+ mV T WAVE IN II/aVF] INTERPRETATION BASED ON A DEFAULT AGE OF 40 YEARS Compared to ECG 06/20/2020 04:35:16 Possible ischemia now present T-wave abnormality still present Electronically Signed On 06-23-2020 0:21:42 CDT by Cathy Lambert M.D. [id number] f
--- NOTE | 2020-06-21 09:26 | P.PN_ITS ---
Subjective Subjective: Interval history: Patient's shortness of breath is much better now. She is noticed a blood in the urine this morning. She had a CT of the abdomen and pelvis and was found to have 6 mm size nonobstructive kidney stone. Her urinalysis showed evidence of UTI. She denies any chest pain. No fever, chills or cough. Medications: Reviewed: Yes Medication Review Details: Current Medications Albuterol/Ipratropium (Duoneb) 3 ml INHALATION Q6H.RESPIRATORY PRN PRN Reason: SHORTNESS OF BREATH Last Admin: 06/20/20 13:04 Dose: 3 ml Documented by: Albuterol/Ipratropium (Duoneb) 3 ml INHALATION Q4H.RESPIRATORY [facility] Last Admin: 06/21/20 07:43 Dose: 3 ml Documented by: Aspirin (Aspirin Ec) 81 mg PO DAILY [facility] Last Admin: 06/21/20 09:04 Dose: 81 mg Documented by: Atorvastatin Calcium (Lipitor) 80 mg PO DAILY [facility] Last Admin: 06/21/20 09:05 Dose: 80 mg Documented by: Bupropion HCl (Wellbutrin Sr (12 Hr)) 150 mg PO DAILY [facility] Last Admin: 06/21/20 09:02 Dose: 150 mg Documented by: Clopidogrel Bisulfate (Plavix) 75 mg PO DAILY [facility] Last Admin: 06/21/20 09:02 Dose: 75 mg Documented by: Enoxaparin Sodium (Lovenox) 70 mg SUBCUT Q12H [facility] Last Admin: 06/20/20 20:54 Dose: 70 mg Documented by: Sodium Chloride (Sodium Chloride 0.9%) 1,000 mls @ 50 mls/hr IV .Q20H ONE Stop: 06/21/20 13:48 Last Admin: 06/21/20 09:10 Dose: Not Given Documented by: Sodium Chloride (Sodium Chloride 0.9%) 1,000 mls @ 50 mls/hr IV .Q20H ONE Stop: 06/22/20 04:14 Last Admin: 06/21/20 09:23 Dose: 50 mls/hr Documented by: Levofloxacin (Levaquin) 750 mg PO Q24H [facility]; Protocol Last Admin: 06/21/20 06:31 Dose: 750 mg Documented by: Lisinopril (Prinivil) 5 mg PO DAILY [facility] Last Admin: 06/21/20 09:02 Dose: 5 mg Documented by: Methylprednisolone Sodium Succinate (Solu-Medrol) 40 mg IVP Q12H [facility] Last Admin: 06/21/20 06:32 Dose: 40 mg Documented by: Morphine Sulfate (Morphine) 2 mg IVP Q4H PRN PRN 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 Pantoprazole Sodium (Protonix) 40 mg PO DAILY [facility] Last Admin: 06/21/20 09:02 Dose: 40 mg Documented by: Fluticasone/Salmeterol (Advair Diskus 250-50) 1 puff INHALATION BID.RESPIRATORY [facility] Last Admin: 06/21/20 07:43 Dose: 1 puff Documented by: Vitals/I&O/Wt Last Vital Signs Temp 97.6 F 06/21/20 07:24 Pulse 105 H 06/21/20 07:51 Resp 18 06/21/20 07:45 BP 106/76 06/21/20 07:24 Pulse Ox 97 06/21/20 07:45 06/20/20 06/21/20 06/21/20 22:59 06:59 14:59 Intake Total 360 / 1220 0 / 1220 Output Total 125 / 125 125 / 250 Balance 235 / 1095 -125 / 970 Weight last 48 hrs Weight 156 lb 3.2 oz Weight 155 lb 3.2 oz Weight 151 lb Physical Exam Narrative: EXAM NARRATIVE: GENERAL: The patient is alert and oriented times three. Not in any acute distress. Slightly tachypneic HEENT: No significant pallor, icterus or lymphadenopathy. NECK: Trachea appears to be central. No masses noted. Neck veins are slightly prominent. No thyromegaly appreciated. No carotid bruit. RESPIRATORY: Chest is symmetrical. No intercostals muscle retraction or any accessory muscle activation. There is no chest wall tenderness. Breath sounds are heard bilaterally. Occasional expiratory wheezing. No evidence of consolidation. HEART: The PMI is not palpated. No palpable precordial events. S1 and S2 are normal. No S3 or S4 heard. No pericardial rub or any click heard. ABDOMEN: No vessel pulsations or distention. No tenderness. No organomegaly sofiya reciated. No abdominal bruit. Bowel sounds are normally heard. : Deferred. RECTAL: Deferred. LYMPHATIC: No lymphadenopathy noted in the neck or groin. EXTREMITIES: No edema or cyanosis. No clubbing. The pulses are symmetrical bilaterally. The radial, femoral, dorsalis pedis and the posterior tibial pulses are palpated and found to be in good volume and amplitude. MUSCULOSKELETAL: No acute joint deformities or swelling SKIN: There are no significant scars or skin rash noted. NEUROPSYCHIATRIC: The patient is alert and oriented x3. Appears to be in a good mood. The higher functions are grossly within normal limits. No tremors or rigidity noted. Data : 06/20/20 02:00 06/20/20 02:00 Micro: Microbiology 06/19/20 18:22 Blood Culture - Preliminary Blood NEGATIVE TO DATE 06/20/20 01:04 Legionella Urinary Antigen - Final Urine,Voided Bacterial Antigens - Final A&P Assessment and plan (1) NSTEMI (non-ST elevated myocardial infarction): Patient's clinical features may suggest a non-ST elevation myocardial infarction. The echocardiographic appearance may suggest Takotsubo syndrome. However in view of her risk factors, possibility of her having underlying coronary artery disease causing the myocardial infarction is a strong consideration especially with the significantly elevated troponin T. Because of the hematuria, the therapeutic dose of Lovenox may be changed to DVT prophylaxis dose Status: Acute (2) Left ventricular systolic dysfunction: Currently she has no evidence of any cardiac decompensation. We will continue on the current medications. Status: Acute (3) COPD exacerbation: Optimizing the bronchodilator treatment as per the primary. Status: Acute Additional A&P Information The LDL level is 163. TSH was within normal limits. Patient I started on IV antibiotic. I may hold off on the cardiac catheterization today. Will reevaluate in the morning and consider possible cardiac catheterization tomorrow sometime in the afternoon. We will repeat the CBC and a BMP in the morning Attestations Medical Necessity Statement*: Patient requires continued hospital stay for close monitoring and further management Coding Level of Care Code Acute [place] for [facility] Diagnoses NSTEMI (non-ST elevated myocardial infarction) I21.4 Left ventricular systolic dysfunction I51.9 COPD exacerbation J44.1
--- NOTE | 2020-06-21 09:33 | CTR_ITS ---
PROCEDURE INFORMATION: Exam: CT Abdomen And Pelvis Without Contrast Exam date and time: 06/21/2020 9:36 AM Age: 59 years old Clinical indication: Other: Low back pain; Additional info: Hematuria, h/o kidney stones TECHNIQUE: Imaging protocol: Computed tomography of the abdomen and pelvis without contrast. Radiation optimization: All CT scans at this facility use at least one of these dose optimization techniques: automated exposure control; mA and/or kV adjustment per patient size (includes targeted exams where dose is matched to clinical indication); or iterative reconstruction. COMPARISON: CT abdomen pelvis con [id number] 05/18/2018 2:03 PM RADIATION DOSE METRICS: Total DLP (mGy-cm): 579.11 FINDINGS: Detailed evaluation of the abdominal and pelvic viscera is somewhat limited in the absence of intravenous contrast. Lungs: Emphysematous change and interstitial prominence. 2 mm subpleural left lower lobe nodule (series 2: Image 4). For patients at low risk (minimal or absent history of smoking and of other known risk factors), no routine follow-up is indicated. For patients at high risk (history of smoking or of other known risk factors), consider optional CT Chest at 12 months. Sylvester Aguirre, Fleischner Society, 2017. Liver: No focal hepatic mass. Gallbladder and bile ducts: Questionable cholelithiasis which can be better evaluated with ultrasound if clinically indicated. No biliary ductal dilatation. Pancreas: No pancreatic mass or ductal dilatation. Spleen: No splenomegaly. Adrenals: Unremarkable adrenals. Kidneys and ureters: Nonobstructing 6 mm left renal calculus. Stomach and bowel: Combined small bowel and colonic dilatation, with prominent stool. Diverticula, without pericolonic inflammation. Appendix: No acute appendicitis. Intraperitoneal space: No free fluid. Vasculature: Prominent vascular calcification. No abdominal aortic aneurysm. Lymph nodes: No enlarged lymph nodes. Bladder: Nondistended bladder. Reproductive: Unremarkable as visualized. Bones/joints: Osteopenia and mild degenerative change. Soft tissues: Localized infiltration of subcutaneous fat and subcutaneous emphysema in the right anterior lateral abdominal wall. CT/CT abdomen pelvis con [id number] IMPRESSION: 1. Questionable cholelithiasis which can be better evaluated with ultrasound if clinically indicated. 2. Nonobstructing 6 mm left renal calculus. 3. Combined small bowel and colonic dilatation, with prominent stool. 4 . Additional findings as described above. Radiation Dose CTDIVOL = (mGy): DLP = 579.11 (mGy-cm)
--- NOTE | 2020-06-21 09:34 | PM.PN ---
Subjective Subjective: Interval history: Patient reports breathing easier. Denies shortness of breath or chest pain this morning. Reports that she noted to have hematuria this morning and had some nonspecific low back pain, across involving left and right side. Reports previous history of kidney stones. Patient's urine is rere/pink-colored but otherwise no evidence of gross hematuria. UA was obtained and currently awaiting for results. Medications: Reviewed: Yes Medication Review Details: Current Medications Albuterol/Ipratropium (Duoneb) 3 ml INHALATION Q6H.RESPIRATORY PRN PRN Reason: SHORTNESS OF BREATH Last Admin: 06/20/20 13:04 Dose: 3 ml Documented by: Albuterol/Ipratropium (Duoneb) 3 ml INHALATION Q4H.RESPIRATORY [facility] Last Admin: 06/21/20 07:43 Dose: 3 ml Documented by: Aspirin (Aspirin Ec) 81 mg PO DAILY [facility] Last Admin: 06/21/20 09:04 Dose: 81 mg Documented by: Atorvastatin Calcium (Lipitor) 80 mg PO DAILY [facility] Last Admin: 06/21/20 09:05 Dose: 80 mg Documented by: Bupropion HCl (Wellbutrin Sr (12 Hr)) 150 mg PO DAILY [facility] Last Admin: 06/21/20 09:02 Dose: 150 mg Documented by: Clopidogrel Bisulfate (Plavix) 75 mg PO DAILY [facility] Last Admin: 06/21/20 09:02 Dose: 75 mg Documented by: Enoxaparin Sodium (Lovenox) 70 mg SUBCUT Q12H [facility] Last Admin: 06/20/20 20:54 Dose: 70 mg Documented by: Sodium Chloride (Sodium Chloride 0.9%) 1,000 mls @ 50 mls/hr IV .Q20H ONE Stop: 06/21/20 13:48 Last Admin: 06/21/20 09:10 Dose: Not Given Documented by: Sodium Chloride (Sodium Chloride 0.9%) 1,000 mls @ 50 mls/hr IV .Q20H ONE Stop: 06/22/20 04:14 Last Admin: 06/21/20 09:23 Dose: 50 mls/hr Documented by: Levofloxacin (Levaquin) 750 mg PO Q24H [facility]; Protocol Last Admin: 06/21/20 06:31 Dose: 750 mg Documented by: Lisinopril (Prinivil) 5 mg PO DAILY [facility] Last Admin: 06/21/20 09:02 Dose: 5 mg Documented by: Methylprednisolone Sodium Succinate (Solu-Medrol) 40 mg IVP Q12H [facility] Last Admin: 06/21/20 06:32 Dose: 40 mg Documented by: Morphine Sulfate (Morphine) 2 mg IVP Q4H PRN PRN 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 Pantoprazole Sodium (Protonix) 40 mg PO DAILY [facility] Last Admin: 06/21/20 09:02 Dose: 40 mg Documented by: Fluticasone/Salmeterol (Advair Diskus 250-50) 1 puff INHALATION BID.RESPIRATORY [facility] Last Admin: 06/21/20 07:43 Dose: 1 puff Documented by: Vitals/I&O/Wt Last Vital Signs Temp 97.6 F 06/21/20 07:24 Pulse 105 H 06/21/20 07:51 Resp 18 06/21/20 07:45 BP 106/76 06/21/20 07:24 Pulse Ox 97 06/21/20 07:45 06/20/20 06/21/20 06/21/20 22:59 06:59 14:59 Intake Total 360 / 1220 0 / 1220 Output Total 125 / 125 125 / 250 Balance 235 / 1095 -125 / 970 Weight last 48 hrs Weight 70.851 kg Weight 70.398 kg Weight 68.492 kg Physical Exam Const: COMMON NORMALS: no acute distress and patient oriented x3 Resp: COMMON NORMALS: normal respiratory effort OTHER: Clear with overall decreased air movement. Cardio: COMMON NORMALS: regular rate, regular rhythm and S2 normal heart sound present RATE: regular rate RHYTHM: regular rhythm HEART SOUNDS: S2 normal heart sound present OTHER: No lower extremity edema GI: COMMON NORMALS: Normal to inspection, nondistended, normoactive bowel sounds present, Soft to palpation and non-tender PALPATION: Yes Soft to palpation Neuro: COMMON NORMALS: patient oriented x3 and no focal motor deficits Data : 06/20/20 02:00 06/20/20 02:00 Micro: Microbiology 06/19/20 18:22 Blood Culture - Preliminary Blood NEGATIVE TO DATE 06/20/20 01:04 Legionella Urinary Antigen - Final Urine,Voided Bacterial Antigens - Final A&P Assessment and plan (1) NSTEMI (non-ST elevated myocardial infarction): Status: Acute (2) Community acquired pneumonia: Status: Acute (3) Sepsis: Status: Acute (4) Acute hypercapnic respiratory failure: Status: Acute Additional A&P Information Non-ST segment elevation WA Significant delta troponin without ischemic or infarctive changes, discuss EKG changes with sonar subsystem equipment operator as well Started Lovenox, loading dose of aspirin and Plavix given, started high-dose statin along lisinopril Echo in the morning, Patient is endorsing unstable angina symptoms, no previous history of WA or heart failure, her symptoms could very well be secondary to worsening of her COPD with underlying pneumonia but will like to rule out coronary etiology with stress test in the morning Left lower lobe pneumonia Prominent vascular markings BNP not high Most likely patient has pulmonary hypertension, follow-up on echo Started on Levaquin Urine antigens ordeered Sepsis criteria met due to tachypnea, tachycardia, leukocytosis, lactic acid normal, secondary to community-acquired pneumonia Acute on chronic hypercapnic respiratory failure Currently doing well on BiPAP, Continue BiPAP overnight settings 14 and 8, respiratory rate 10, FiO2 30% Blood gas in the PE ruled out Needs extensive counseling to quit smoking currently smoking 3 cigarettes a day Patient is full code Cardiac diet, n.p.o. after midnight for cardiac stress test in the morning DVT prophylaxis not needed as patient is currently on full dose Lovenox PLAN: Discussed with Dr. Lambert and we will go ahead and proceed with further evaluation of hematuria with abdominal/pelvis CT. Awaiting UA. Lovenox was held and patient is currently on aspirin and Plavix. If no significant findings I think it is safe to proceed with coronary angiogram for further evaluation. We just have to avoid avoid anticoagulation for now. Attestations Medical Necessity Statement*: Patient with WA requires close inpatient monitoring, treatment and evaluation. 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
[2020-06-21 10:22] LABS: Urine Appearance Bloody (CLEAR); Urine Color Red (Yellow)
[2020-06-21 10:23] LABS: Add Urine Microscopic? YES; Bilirubin Urine Neg (NEGATIVE); Blood Urine 3+ (Negative); Glucose Urine UA Norm (Normal); Ketones Urine Negative (Negative); Leukocyte Esterase Urine 2+ (Negative); Nitrate Urine Negative (Negative); Protein Urine 1+ (Negative); Urobilinogen Urine Norm (Negative); pH Urine 7 (5-7)
[2020-06-21 10:25] LABS: Amorphous Sediment Urine 1+; Bacteria Urine 2+; Mucus Urine 1+; RBC Urine TOO NUMEROUS TO CNT /hpf (0-2); WBC Urine 40-55 /hpf (0-5)
[2020-06-21 10:26] LABS: Add Urine Culture? Yes
[2020-06-21] MEDS: cefTRIAXone 1,000 MG in sodium chloride 0.9% (plus) 50 ML 100 MG IV (12:10)
[2020-06-22] VITALS (103 sets, daily range): BP systolic 89–136; BP diastolic 58–97; PULSE 71–124; RESP 16–32; TEMP 36.4–36.8; O2SAT 84–100
[2020-06-22] MEDS: levoFLOXacin 750 mg Tablet PO ×2 (01:02→23:53)
[2020-06-22] MEDS: ipratropium-albuterol 3 mL Neb INHALATION ×5 (03:02→19:42)
[2020-06-22 04:56] LABS: Basophils % 0.1 %; Hematocrit 41.5 % (37.0-47.0); Hemoglobin 13.1 g/dL (11.5-15.3); Lymphocytes # 0.8 10^3/uL (0.8-4.8); Lymphocytes % 7.7 %; Mean Corpuscular HGB Conc 31.6 g/dL (30.0-36.0); Mean Corpuscular Hemoglobin 30.6 pg (28.0-34.0); Mean Platelet Volume 10.8 fL (7.4-10.4); Monocytes # 0.6 10^3/uL (0.2-0.9); Monocytes % 5.3 %; Neutrophils # 9.05 10^3/uL (1.8-7.7); Neutrophils % 86.5 %; Nucleated Red Blood Cells % 0 %; Platelet Count 201 10^3/cmm (130-400); Red Blood Count 4.28 10^6/uL (4.1-5.3); Red Cell Distribution Width 13.6 % (12.1-15.1); White Blood Count 10.5 10^3/uL (4.0-10.0)
[2020-06-22 05:14] LABS: Anion Gap 13.2 (5-19); Blood Urea Nitrogen 20 mg/dL (6-20); Calcium 9.5 mg/dL (8.5-10.5); Carbon Dioxide 31 mmol/L (22-29); Chloride 99 mmol/L (98-107); Glomerular Filtration Rate 102.7 mL/min (90-130); Glucose 134 mg/dL (65-115); Osmolality Calculated 287 mOsm/kg (285-295); Potassium 4.2 mmol/L (3.5-5.1); Sodium 139 mmol/L (136-145)
--- NOTE | 2020-06-22 08:37 | PM.PN ---
Subjective Subjective: Interval history: Patient reports feeling much better this morning. Reports that her breathing is currently at baseline. Reports that at home for long period of time she could not ambulate short distances without getting dyspneic. Her urine cleared up. Reports that she has been fighting UTIs for long period of time off-and-on. She is planned for coronary angiogram today. Vitals/I&O/Wt Last Vital Signs Temp 97.8 F 06/22/20 07:14 Pulse 88 06/22/20 07:53 Resp 18 06/22/20 07:49 BP 116/74 06/22/20 07:14 Pulse Ox 95 06/22/20 07:49 06/21/20 06/22/20 06/22/20 22:59 06:59 14:59 Intake Total 480 / 480 300 / 780 Output Total 125 / 125 Balance 355 / 355 300 / 655 Weight last 48 hrs Weight 71.668 kg Weight 70.851 kg Physical Exam Const: COMMON NORMALS: no acute distress and patient oriented x3 Resp: COMMON NORMALS: normal respiratory effort OTHER: Clear with overall decreased air movement. Cardio: COMMON NORMALS: regular rate, regular rhythm and S2 normal heart sound present RATE: regular rate RHYTHM: regular rhythm HEART SOUNDS: S2 normal heart sound present OTHER: No lower extremity edema GI: COMMON NORMALS: Normal to inspection, nondistended, normoactive bowel sounds present, Soft to palpation and non-tender PALPATION: Yes Soft to palpation Neuro: COMMON NORMALS: patient oriented x3 and no focal motor deficits Data : 06/22/20 03:50 06/22/20 03:50 Micro: Microbiology 06/21/20 09:10 Urine Culture - Preliminary Urine,Clean Catch A&P Assessment and plan (1) NSTEMI (non-ST elevated myocardial infarction): Status: Acute (2) Community acquired pneumonia: Status: Acute (3) Sepsis: Status: Acute (4) Acute hypercapnic respiratory failure: Status: Acute (5) COPD exacerbation: Present on admission. Status: Acute Additional A&P Information Non-ST segment elevation CT Significant delta troponin without ischemic or infarctive changes, discuss EKG changes with senior front end engineer as well Started Lovenox, loading dose of aspirin and Plavix given, started high-dose statin along lisinopril Echo in the morning, Patient is endorsing unstable angina symptoms, no previous history of CT or heart failure, her symptoms could very well be secondary to worsening of her COPD with underlying pneumonia but will like to rule out coronary etiology with stress test in the morning Left lower lobe pneumonia ruled out. Prominent vascular markings BNP not high Most likely patient has pulmonary hypertension, follow-up on echo Started on Levaquin Urine antigens ordeered Sepsis criteria met due to tachypnea, tachycardia, leukocytosis, lactic acid normal, secondary to community-acquired pneumonia Acute on chronic hypercapnic respiratory failure Currently doing well on BiPAP, Continue BiPAP overnight settings 14 and 8, respiratory rate 10, FiO2 30% Blood gas in the PE ruled out Needs extensive counseling to quit smoking currently smoking 3 cigarettes a day Patient is full code Cardiac diet, n.p.o. after midnight for cardiac stress test in the morning DVT prophylaxis not needed as patient is currently on full dose Lovenox PLAN: Continue current monitoring and treatment. Awaiting coronary angiography. Awaiting culture results. We will switch Solu-Medrol to prednisone 40 mg daily. Continue bronchodilators. Consider chest CT with contrast after coronary angiography was performed. This could be done on outpatient basis. Patient's inspiratory wheezing resolved and likely was due to mucous plug. Patient continues to have significant decreased air movement throughout. I have again discussed regarding importance of smoking cessation. Patient voiced understanding but does not want any pharmacological help. She thinks she can quit without. Attestations Medical Necessity Statement*: Patient with COPD exacerbation and non-ST elevation CT requires close inpatient monitoring, treatment and evaluation. 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
[2020-06-22] MEDS: clopidogrel 75 mg Tablet PO (09:13)
[2020-06-22] MEDS: predniSONE 20 mg Tablet 40 MG PO (09:13)
[2020-06-22] MEDS: buPROPion SR (12 HR) 150 mg Tablet PO (09:14)
[2020-06-22] MEDS: pantoprazole DR 40 mg Tablet PO (09:14)
[2020-06-22] MEDS: atorvastatin 40 mg Tablet 80 MG PO (09:14)
[2020-06-22] MEDS: lisinopril 5 mg Tablet PO (09:15)
[2020-06-22] MEDS: aspirin 81 mg EC Tablet PO (09:15)
--- NOTE | 2020-06-22 10:00 | PC.NURSE ---
Willi held for lab analyst procedure today. Cleared with Dr. Lambert.
--- NOTE | 2020-06-22 10:30 | PC.SOCIAL ---
IMM Update Pg. 2 of IMM explained to patient, who verbalized understanding. Copy provided to patient.
[2020-06-22] MEDS: cefTRIAXone 1,000 MG in sodium chloride 0.9% (plus) 50 ML 100 MG IV (12:03)
--- NOTE | 2020-06-22 12:54 | P.PN_ITS ---
Subjective Subjective: Interval history: According the patient, she is feeling better today. Her urine is clear today. Denies any fever or chills. Vitals are fairly stable. No new symptoms. Medications: Reviewed: Yes Medication Review Details: Current Medications Albuterol/Ipratropium (Duoneb) 3 ml INHALATION Q6H.RESPIRATORY PRN PRN Reason: SHORTNESS OF BREATH Last Admin: 06/20/20 13:04 Dose: 3 ml Documented by: Albuterol/Ipratropium (Duoneb) 3 ml INHALATION Q4H.RESPIRATORY [facility] Last Admin: 06/22/20 11:29 Dose: 3 ml Documented by: Aspirin (Aspirin Ec) 81 mg PO DAILY [facility] Last Admin: 06/22/20 09:15 Dose: 81 mg Documented by: Atorvastatin Calcium (Lipitor) 80 mg PO DAILY [facility] Last Admin: 06/22/20 09:14 Dose: 80 mg Documented by: Bupropion HCl (Wellbutrin Sr (12 Hr)) 150 mg PO DAILY [facility] Last Admin: 06/22/20 09:14 Dose: 150 mg Documented by: Clopidogrel Bisulfate (Plavix) 75 mg PO DAILY [facility] Last Admin: 06/22/20 09:13 Dose: 75 mg Documented by: Enoxaparin Sodium (Lovenox) 70 mg SUBCUT Q12H [facility] Last Admin: 06/22/20 11:53 Dose: Not Given Documented by: Ceftriaxone Sodium 1,000 mg/ (Sodium Chloride) 50 mls @ 100 mls/hr IV Q24H [facility]; Protocol Last Admin: 06/22/20 12:03 Dose: 100 mls/hr Documented by: Sodium Chloride (Sodium Chloride 0.9%) 1,000 mls @ 50 mls/hr IV .Q20H [facility] Levofloxacin (Levaquin) 750 mg PO Q24H [facility]; Protocol Last Admin: 06/22/20 01:02 Dose: 750 mg Documented by: Lisinopril (Prinivil) 5 mg PO DAILY [facility] Last Admin: 06/22/20 09:15 Dose: 5 mg Documented by: Morphine Sulfate (Morphine) 2 mg IVP Q4H PRN PRN 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 Pantoprazole Sodium (Protonix) 40 mg PO DAILY [facility] Last Admin: 06/22/20 09:14 Dose: 40 mg Documented by: Prednisone (Prednisone) 40 mg PO DAILY [facility] Last Admin: 06/22/20 09:13 Dose: 40 mg Documented by: Fluticasone/Salmeterol (Advair Diskus 250-50) 1 puff INHALATION BID.RESPIRATORY [facility] Last Admin: 06/22/20 07:44 Dose: 1 puff Documented by: Vitals/I&O/Wt Last Vital Signs Temp 97.7 F 06/22/20 12:00 Pulse 91 06/22/20 12:00 Resp 16 06/22/20 12:00 BP 95/74 06/22/20 12:00 Pulse Ox 94 06/22/20 12:00 06/21/20 06/22/20 06/22/20 22:59 06:59 14:59 Intake Total 480 / 530 300 / 830 Output Total 125 / 125 Balance 355 / 405 300 / 705 Weight last 48 hrs Weight 158 lb Weight 156 lb 3.2 oz Physical Exam Narrative: EXAM NARRATIVE: GENERAL: The patient is alert and oriented times three. Not in any acute distress. Slightly tachypneic HEENT: No significant pallor, icterus or lymphadenopathy. NECK: Trachea appears to be central. No masses noted. Neck veins are slightly prominent. No thyromegaly appreciated. No carotid bruit. RESPIRATORY: Chest is symmetrical. No intercostals muscle retraction or any accessory muscle activation. There is no chest wall tenderness. Breath sounds are heard bilaterally. Occasional expiratory wheezing. No evidence of consolidation. HEART: The PMI is not palpated. No palpable precordial events. S1 and S2 are normal. No S3 or S4 heard. No pericardial rub or any click heard. ABDOMEN: No vessel pulsations or distention. No tenderness. No organomegaly appreciated. No abdominal bruit. Bowel sounds are normally heard. : Deferred. RECTAL: Deferred. LYMPHATIC: No lymphadenopathy noted in the neck or groin. EXTREMITIES: No edema or cyanosis. No clubbing. The pulses are symmetrical bilaterally. The radial, femoral, dorsalis pedis and the posterior tibial pulses are palpated and found to be in good volume and amplitude. MUSCULOSKELETAL: No acute joint deformities or swelling SKIN: There are no significant scars or skin rash noted. NEUROPSYCHIATRIC: The patient is alert and oriented x3. Appears to be in a good mood. The higher functions are grossly within normal limits. No tremors or rigidity noted. Data : 06/22/20 03:50 06/22/20 03:50 Micro: Microbiology 06/21/20 09:10 Urine Culture - Preliminary Urine,Clean Catch A&P Assessment and plan (1) NSTEMI (non-ST elevated myocardial infarction): Patient's clinical features may suggest a non-ST elevation myocardial infarction. The echocardiographic appearance may suggest Takotsubo syndrome. However in view of her risk factors, possibility of her having underlying coronary artery disease causing the myocardial infarction is a strong consideration especially with the significantly elevated troponin T. She is scheduled for a cardiac catheterization today. Based on the angiogram findings, further recommendations will be made. Status: Acute (2) Left ventricular systolic dysfunction: Currently she has no evidence of any cardiac decompensation. We will continue on the current medications. Status: Acute (3) COPD exacerbation: Patient was started on steroids. Her symptoms are sniffily improved. May continue on the current medications. Status: Acute (4) Urinary tract infection: Patient had a hematuria yesterday. Her urine is clear today. Denies any abdominal pain. The elevated white cell count, could be related to the steroids. Status: Acute Additional A&P Information The LDL level is 163. TSH was within normal limits. The patient is remaining afebrile.'s mild leukocytosis, most like related to the steroids. Her urine is clear. At this point, it may be appropriate to go ahead with the cardiac catheterization. The risk of bleeding, hematoma, vascular injury, myocardial infarction, CVA, renal failure and other concomitant complications were explained in detail. Patient understood this well and consented to proceed. Based on the angiogram findings, further recommendations will be made. 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
--- NOTE | 2020-06-22 12:59 | W.PM.OPSUD ---
Surgery/Procedure H&P Update DATE OF PROCEDURE: June 22, 2020 DATE H&P PERFORMED: 06/20/20 H&P UPDATE INFORMATION: I have reviewed H&P completed within last 30 days, I have examined patient prior to procedure and No changes to prior documentation PREOP DIAGNOSIS: Non-ST elevation myocardial infarction/cardiomyopathy PLANNED PROCEDURE: Operation Date: 06/21/20 10:00 Proposed Procedures p Cardiac Catheterization(Left) - Cathy Lambert MD Operation Date: 06/22/20 13:00 Proposed Procedures p Cardiac Catheterization(Not Applicable) - Cathy Lambert MD PHYSICAL EXAM: alert, clear to auscultation bilaterally (Occasional expiratory wheezing) and regular rate & rhythm AIRWAY EVAL/ANESTHESIA PLAN: normal airway, ASA III, Local Anesthesia, Risks, benefits & alternatives of sedation and/or procedure discussed and Patient agrees to continue as planned
--- NOTE | 2020-06-22 13:00 | XACV_ITS ---
Exam Room: [facility] Ht: 165 cm Wt: 71 kg BSA: 1.82 m2 Gender: Female : 1960 Any Known Allergies: Codeine Exam Priority: Routine Procedure(s): Procedure Description: Diagnostic procedure Diagnostic Cath Status: Elective Diagnostic Findings The left main is a medium caliber vessel with no significant stenotic lesion. The left artery descending artery is a medium caliber vessel which appears to wrap around the LV apex . Right after the first diagonal branch, there is a segmental narrowing from 30%. Minimal plaques were noted at the mid segment of the artery no other significant stenotic lesions were noted. The left circumflex artery is a medium caliber nondominant vessel which was found to have around 30% eccentric narrowing in the midsegment. No other significant stenotic lesions were seen. The right coronary artery is a medium caliber dominant vessel which was found to have minimal intimal irregularities proximally with no significant stenotic lesions. Conclusions This is a 59-year-old white female with history of smoking abuse and COPD, presented to the hospital with acute worsening of the shortness of breath and features of COPD exacerbation. She had elevated troponin T, suggestive of a non-ST relation myocardial infarction. EKG showed some nonspecific ST-T changes. Echocardiogram revealed severe hypokinesia of the mid and apical septum, anteroseptal and the apical segments. In view of her presenting symptoms, risk factors and the abnormal objective findings, in order to further evaluate the coronary status, a cardiac catheterization was recommended. Patient underwent left heart catheterization with a left and right coronary angiogram and LV angiogram today. The findings are as follows. Mild coronary artery disease involving all the vessels. The wall motion abnormalities and reduced left ventricular ejection fraction are suggestive of a Takotsubo syndrome. Elevated LVEDP of 19 mmHg. Based on these findings, patient will be treated medically. She was transferred to the medical floor in stable condition. Recommendations Continue current medical management and risk factor modification. Diagnostic RX Recommendation: medical therapy and/or counseling LV EDP: 19 mmHg Ejection Fraction: 35.0 % Left Ventriculography Findings: LV gram was performed the HERNANDEZ position. The LV cavity appears to be mildly dilated. There was diffuse hypokinesia of the LV apex with an ejection fraction of around 35 to 40%. There was no filling defects. No significant mitral valve prolapse or mitral regurgitation. LVEDP was 19 mmHg. Pressures Phase:Rest AO : 89 mmHg / 62 mmHg ( 72 mmHg ) @ 8:18:00 AM 104 mmHg / 67 mmHg ( 83 mmHg ) @ 8:29:00 AM 105 mmHg / 68 mmHg ( 83 mmHg ) @ 8:29:00 AM LV : 119 mmHg / 0 mmHg / @ 8:28:00 AM 123 mmHg / 3 mmHg / @ 8:28:00 AM 124 mmHg / 4 mmHg / @ 8:29:00 AM Valves Phase:DefaultPhase AV : 21.0 mmHg @ 1:38:47 PM AV Mean Gradient: 11.0 mmHg @ 1:38:47 PM Clinical Evaluation EBL: 5mL-10mL Procedural Details Procedure Consent Obtained. Pre-Procedure Time Out. Identified patient by full name and date of as verbalized by the patient/guarantor. Does the consent match the physician's order: Yes. Accurate & Complete Informed Consent: Yes. Inpatient/Outpatient History & Physical on Chart: Yes. If H&P is completed, is and addenduem needed: No; If yes, is the addendum complete: N/A. Visualize and Verify Site with Patient/Guarantor: N/A. Relevant Radiology Images available: Yes. Pre-op teaching completed and patient verbalized understanding. The risks, benefits, and alternatives of sedation and/or procedure were discussed by physician. The patient agrees to continue. Procedure started. Correct patient, site and procedure confirmed by cath team. Current diagnosis: Shortness of Breath. PERRLA. Strong, equal hand tile applicator bilaterally. Lungs clear x 5 lobes. IV Site on Arrival: 18 gauge in the left anticubital. IV Fluids: 0.9% NaCl at KVO. 0 mL infused prior to dental laboratory supervisor. Pre Procedural Pulses: left dorsalis pedis was 2+. Pre Procedural Pulses: right dorsalis pedis was 3+. Pre Procedural Pulses: bilateral posterior tibial was 3+. Pre Procedural Pulses: bilateral radial was 3+. Oxygen started at 2liters/min via nasal canula. bilateral groins was prepped with chloroprep then draped in the usual sterile fashion. right radial was prepped with chloroprep then draped in the usual sterile fashion. Physician notified. Baseline sample Acquired. HR: 114 BPM. Equipment: 6F - Radial. Anpro21 Manifold Kit Model BT 2000. Cardiac Cath Pack. Heparinized Saline (2 units/mL), 1000 mL bag. Physician arrived. Physician scrubbed in. Immediate Pre-Procedure Time Out. Correct Patient: Yes; Correct Procedure: Yes; Correct Site: Yes; Correct Patient Position: Yes; Correct Supplies: Yes; Dried Flammable Prep: Yes; Blood Products Available: No;. Lidocaine 1% infiltrated to the right radial. Arterial access obtained. A 5 russian Dustin catheter in over wire. Multiple views taken of left coronary artery. Catheter redirected to the RCA. Catheter out. A 5 russian JR4 catheter in over wire. Fluid bolus stopped, maintenance fluids running at 75cc's per hour. Multiple views taken of right coronary artery. Catheter out. A 5 russian Angled Pig catheter in over wire. EDP Sample taken: LV 119/0,19; HR: 102 BPM; SpO2: 97%. LV gram performed in HERNANDEZ @ 10 mL/second for a total of 30 mL. EDP Sample taken: LV 123/3,23; HR: 101 BPM; SpO2: 97%. Pullback taken: LV 124/4,23; AO 104/67(83); Mean: 11mmHg, Peak to Peak: 21mmHg, SEP: 22sec/min; HR: 100 BPM; SpO2: 97%. Catheter out. TR band placed. Hemostasis obtained. A TR Band was successful obtaining hemostatsis at the Right Radial artery insertion site. Post Procedure: Pulses reassessed and unchanged. PERRLA. Strong, equal hand tile applicator bilaterally. No VTE prophylaxis required. Contrast type used: Omnipaque 300 mgI/mL, 500 mL bottle. Omnipaque 117mL. Medication's Wasted: Lidocaine 1% = 18 mL. Medication's Wasted: Nitro = 49.8 mg. Medication's Wasted: Heparin = 1000 units mL. Total IV fluids: 125 mL. Fluoro: 5:10. Post-op diagnosis: Takotsubo, mild cad. Complications: None. [facility] Clinical Fraility Score: 4: Vulnerable. Pricing Specialist Indications: Suspected CAD. Pricing Specialist Indications: Cardiomyopathy. Chest Pain Symptom Assessment: Atypical Angina. Cardiovascular Instability: No. Estimated blood loss: 5mL-10mL. Vital chart was stopped. Procedure completed. Patient transferred by bed to 1st floor. Site: Right Radial artery Sheath Size: 6 Fr Hemostasis Method: TR Band Hemostasis Success: Successful Procedure Medications Start: 1:04 PM Stop: 1:04 PM Medication: Fentanyl Amount: 50 mcg Route: I.V. Start: 1:11 PM Stop: 1:11 PM Medication: Versed Amount: 1 mg Route: I.V. Start: 1:11 PM Stop: 1:11 PM Medication: Fentanyl Amount: 50 mcg Route: I.V. Start: 1:14 PM Stop: 1:14 PM Medication: Versed Amount: 1 mg Route: I.V. Start: 1:15 PM Stop: 1:15 PM Medication: Verapamil Amount: 5 mg Route: I.V. Start: 1:16 PM Stop: 1:16 PM Medication: Nitrogylcerin Amount: 200 mcg Route: I.A. Start: 1:17 PM Stop: 1:17 PM Medication: Heparin Amount: 5000 units Route: I.V. Start: 1:07 PM Stop: 1:07 PM Medication: Darryll Amount: 50 mg Route: I.V. Start: 1:18 PM Stop: 1:18 PM Medication: 0.9% Saline Amount: 250 ml Route: I.V. bolus I, the attending physician, have reviewed and verified all procedure medications. Yes, all medications given per verbal order History/Risk Factors Hypertension: No Dyslipidemia: No Peripheral Arterial Disease (PAD): No Myocardial Infarction (SC): No Obesity: No Renal Disease: No Tobacco Use: Current/Recent(w/in 1 year) Prior Interventions PCI: No CABG: No Valve Surgery: No Report Signatures Finalized by:Dr Cathy Lambert MD [facility] on 06/22/2020 5:08:11 PM
--- NOTE | 2020-06-22 15:00 | PC.NURSE ---
Removed 5 ml of air from TR band and puncture site under TR band began oozing immedicately. 5 ml returned to TRband and oozing stopped.
--- NOTE | 2020-06-22 20:07 | PC.NURSE ---
Spoke with Dr. Lambert about Lovenox being due tonight on this post-cath patient. Ordered to discontinue Lovenox order.
--- NOTE | 2020-06-22 20:20 | PC.NURSE ---
Dr. Lambert ordered to start Lovenox 40 mg once daily starting tomorrow in AM.
[2020-06-23] VITALS (39 sets, daily range): BP systolic 91–116; BP diastolic 61–77; PULSE 72–112; RESP 16–26; TEMP 36.6; O2SAT 96–100
[2020-06-23] MEDS: ipratropium-albuterol 3 mL Neb INHALATION ×5 (07:43→19:52)
[2020-06-23] MEDS: enoxaparin 40 mg/0.4 mL Syringe SUBCUT (08:02)
[2020-06-23] MEDS: pantoprazole DR 40 mg Tablet PO (08:02)
[2020-06-23] MEDS: clopidogrel 75 mg Tablet PO (08:02)
[2020-06-23] MEDS: predniSONE 20 mg Tablet 40 MG PO (08:02)
[2020-06-23] MEDS: atorvastatin 40 mg Tablet 80 MG PO (08:02)
[2020-06-23] MEDS: aspirin 81 mg EC Tablet PO (08:03)
[2020-06-23] MEDS: lisinopril 5 mg Tablet PO (08:03)
[2020-06-23] MEDS: buPROPion SR (12 HR) 150 mg Tablet PO (08:03)
--- NOTE | 2020-06-23 09:33 | PM.PN ---
Subjective Subjective: Interval history: Patient is feeling okay with no chest pain or palpitations. As of breath is significantly improved. Vital signs are remaining stable. No fever or chills. No other specific complaints. Medications: Reviewed: Yes Medication Review Details: Current Medications Acetaminophen (Tylenol) 650 mg PO Q6H PRN PRN Reason: MILD PAIN Al Hydrox/Mg Hydrox/Simethicone (Maalox) 30 ml PO Q15M PRN PRN Reason: INDIGESTION Albuterol/Ipratropium (Duoneb) 3 ml INHALATION Q6H.RESPIRATORY PRN PRN Reason: SHORTNESS OF BREATH Last Admin: 06/20/20 13:04 Dose: 3 ml Documented by: Albuterol/Ipratropium (Duoneb) 3 ml INHALATION Q4H.RESPIRATORY [facility] Last Admin: 06/23/20 07:43 Dose: 3 ml Documented by: Alprazolam (Xanax) 0.25 mg PO TID PRN PRN Reason: ANXIETY Aspirin (Aspirin Ec) 81 mg PO DAILY [facility] Last Admin: 06/23/20 08:03 Dose: 81 mg Documented by: Atorvastatin Calcium (Lipitor) 80 mg PO DAILY [facility] Last Admin: 06/23/20 08:02 Dose: 80 mg Documented by: Bupropion HCl (Wellbutrin Sr (12 Hr)) 150 mg PO DAILY [facility] Last Admin: 06/23/20 08:03 Dose: 150 mg Documented by: Clopidogrel Bisulfate (Plavix) 75 mg PO DAILY [facility] Last Admin: 06/23/20 08:02 Dose: 75 mg Documented by: Enoxaparin Sodium (Lovenox) 40 mg SUBCUT Q24H [facility] Last Admin: 06/23/20 08:02 Dose: 40 mg Documented by: Ceftriaxone Sodium 1,000 mg/ (Sodium Chloride) 50 mls @ 100 mls/hr IV Q24H [facility]; Protocol Last Admin: 06/22/20 12:03 Dose: 100 mls/hr Documented by: Sodium Chloride (Sodium Chloride 0.9%) 1,000 mls @ 50 mls/hr IV .Q20H [facility] Last Admin: 06/23/20 09:16 Dose: Not Given Documented by: Levofloxacin (Levaquin) 750 mg PO Q24H [facility]; Protocol Last Admin: 06/22/20 23:53 Dose: 750 mg Documented by: Lisinopril (Prinivil) 5 mg PO DAILY [facility] Last Admin: 06/23/20 08:03 Dose: 5 mg Documented by: Magnesium Hydroxide (Milk Of Magnesia) 30 ml PO DAILY PRN PRN Reason: CONSTIPATION Morphine Sulfate (Morphine) 2 mg IVP Q4H PRN PRN 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 Naloxone HCl (Narcan) 0.1 mg IVP Q2M PRN PRN Reason: RESPIRATORY RATE < 8/MIN Nitroglycerin (Nitrostat) 0.4 mg SUBLINGUAL Q5M PRN PRN Reason: CHEST PAIN Pantoprazole Sodium (Protonix) 40 mg PO DAILY [facility] Last Admin: 06/23/20 08:02 Dose: 40 mg Documented by: Prednisone (Prednisone) 40 mg PO DAILY [facility] Last Admin: 06/23/20 08:02 Dose: 40 mg Documented by: Fluticasone/Salmeterol (Advair Diskus 250-50) 1 puff INHALATION BID.RESPIRATORY [facility] Last Admin: 06/23/20 07:43 Dose: 1 puff Documented by: Temazepam (Restoril) 15 mg PO BEDTIME PRN PRN Reason: INSOMNIA Vitals/I&O/Wt Last Vital Signs Temp 97.9 F 06/23/20 07:36 Pulse 86 06/23/20 07:45 Resp 16 06/23/20 07:38 BP 93/67 06/23/20 07:36 Pulse Ox 98 06/23/20 07:38 06/22/20 06/23/20 06/23/20 22:59 06:59 14:59 Intake Total 480 / 480 200 / 680 240 / 240 Output Total 125 / 125 Balance 355 / 355 200 / 555 240 / 240 Weight last 48 hrs Weight 158 lb Physical Exam Narrative: EXAM NARRATIVE: GENERAL: The patient is alert and oriented times three. Not in any acute distress. Slightly tachypneic HEENT: No significant pallor, icterus or lymphadenopathy. NECK: Trachea appears to be central. No masses noted. Neck veins are slightly prominent. No thyromegaly appreciated. No carotid bruit. RESPIRATORY: Chest is symmetrical. No intercostals muscle retraction or any accessory muscle activation. There is no chest wall tenderness. Breath sounds are heard bilaterally. Occasional expiratory wheezing. No evidence of consolidation. HEART: The PMI is not palpated. No palpable precordial events. S1 and S2 are normal. No S3 or S4 heard. No pericardial rub or any click heard. ABDOMEN: No vessel pulsations or distention. No tenderness. No organomegaly appreciated. No abdominal bruit. Bowel sounds are normally heard. : Deferred. RECTAL: Deferred. LYMPHATIC: No lymphadenopathy noted in the neck or groin. EXTREMITIES: The radial artery puncture site has no hematoma or bleeding MUSCULOSKELETAL: No acute joint deformities or swelling SKIN: There are no significant scars or skin rash noted. NEUROPSYCHIATRIC: The patient is alert and oriented x3. Appears to be in a good mood. The higher functions are grossly within normal limits. No tremors or rigidity noted. Const: COMMON NORMALS: alert Resp: COMMON NORMALS: clear to auscultation bilaterally (Occasional expiratory wheezing) AUSCULTATION: clear to auscultation bilaterally (Occasional expiratory wheezing) Neuro: SENSORIUM/ORIENTATION: Yes alert Data : 06/22/20 03:50 06/22/20 03:50 Micro: Microbiology 06/21/20 09:10 Urine Culture - Final Urine,Clean Catch A&P Assessment and plan (1) NSTEMI (non-ST elevated myocardial infarction): Patient status post cardiac authorization. She was found to have mild diffuse coronary artery disease. The LV dysfunction most likely related to Takotsubo syndrome. The Lovenox is discontinued. Status: Acute (2) Left ventricular systolic dysfunction: Currently she has no evidence of any cardiac decompensation. We will continue on the current medications. Since the blood pressure is running in the low normal side, I may hold off on any medication changes. Try to gradually advance the afterload reducing agents, as the blood pressure tolerates Status: Acute (3) COPD exacerbation: Patient was started on steroids. Her symptoms are sniffily improved. May continue on the current medications. Status: Acute (4) Urinary tract infection: Currently has no fever or chills. No more hematuria. May continue on the current medications Status: Acute Qualifiers: Hematuria presence: with hematuria Urinary tract infection type: acute cystitis Qualified Code(s): N30.01 - Acute cystitis with hematuria Additional A&P Information If the patient continues remain stable, may be discharged home from a cardiac standpoint. She need to be seen in the [facility] clinic next week by the nurse practitioner. I may see him in the office in 1 month. The aspirin may be discontinued. Continue on the Plavix and the other current medications Coding Level of Care Code Acute Hand Sewer for Chg Fwd Exam Expanded Problem Focused Diagnoses NSTEMI (non-ST elevated myocardial infarction) I21.4 Left ventricular systolic dysfunction I51.9 COPD exacerbation J44.1 Urinary tract infection N30.01 Hematuria presence: with hematuria Urinary tract infection type: acute cystitis
--- NOTE | 2020-06-23 11:06 | PM.DCS ---
Discharge Providers Date of Admission: 06/19/20 21:19 Date of Discharge: June 23, 2020 Attending Provider at Admission: Dimple Nunez MD Attending Provider at Discharge: Gordon Lopez MD Consults: Cardiology: Dr. Lambert Primary Care Provider: Mery Durham DO Diagnoses at Discharge Discharge Diagnosis (1) Takotsubo cardiomyopathy: Status: Acute (2) Left ventricular systolic dysfunction: Status: Acute (3) COPD exacerbation: Status: Acute (4) Urinary tract infection: Status: Acute Qualifiers: Hematuria presence: with hematuria Urinary tract infection type: acute cystitis Qualified Code(s): N30.01 - Acute cystitis with hematuria Reason for Visit Reason for Visit: SOB Hospital Course Discharge Summary: Dahlia Shah is a 59 year old female with a history of smoking abuse/COPD, is admitted to hospital through the emergency room where she presented with rather acute worsening of the shortness of breath. According the patient, she is known to have COPD and is on home oxygen for the last few years. Yesterday afternoon, she became acutely short of breath. Patient attributes this to the humidity. She has feeling of chest tightness more or less constant with no worsening yesterday. She did not have any fever or chills. No significant cough. Because of the worsening of the shortness of breath, she decided to come to the hospital. Since the admission, the breathing seems to be slowly improving with the treatment. She has no abdominal pain or dysuria. She has no history for coronary artery disease, myocardial infarction or congestive heart failure. She has been compliant with the medication. She continues to smoke and in the process of quitting. The troponin T was 407 with a baseline which went up to 557 at 120 minutes and 16 and 40 at 6 hours. The 2-hour delta was 150 and the 6-hour delta was 233. Her BNP was 27. Her mother and maternal grandfather had myocardial infarction in their 70s. No other relevant family history. She has several siblings with no documented coronary artery disease. Echocardiogram was done which showed appearance of possible Takotsubo syndrome with LVEF of 35%. However in view of her risk factors, possibility of her having underlying coronary artery disease causing the myocardial infarction is a strong consideration especially with the significantly elevated troponin T. She underwent cardiac angiogram on June 22 which revealed mild diffuse coronary artery disease. Her cardiac medications are being optimized. At present she is on low-dose lisinopril and low-dose metoprolol has been added along with as needed Lasix. Home O2 evaluation has been asked. She is been discharged in hemodynamically stable condition as she feels she is at her baseline oxygen requirement and work of breathing. Physical Exam Narrative: EXAM NARRATIVE: Patient sitting in her bed with pursed lip breathing pattern Prolonged expiratory phase No lip cyanosis noticed Patient was put on BiPAP after taking HPI Diminished breath sounds with wheezing S1, S2 no murmur or signs of heart failure Abdomen soft nontender bowel sound present No lower extremity edema EOMI, PERRLA Appropriate mood and affect No lower extremity gangrene ulcer Multiple skin tattoos Discharge Data Data Completed and Pending: Completed Studies During Hospitalization Category Date Time Status CT abdomen pelvis wo con [id number] Urge nt Cat Scan 06/21/20 09:33 Completed LEASING PROPERTY MANAGER request for service Routin e Exams 06/22/20 13:00 Completed XR chest 1V galilea ble [id number] Stat Exams 06/19/20 17:27 Completed CV echo complete* [id number] Routine Ultrasound 06/20/20 22:20 Completed Pending at discharge Category Date Time Status Sestamibi Stress Test Request Routi ne Exams 06/19/20 23:16 Stop Req Blood Culture Sta t Lab 06/19/20 18:22 Results Vitals: Last Vital Signs Temp 97.8 F 06/23/20 10:48 Pulse 112 H 06/23/20 10:48 Resp 19 H 06/23/20 10:48 BP 102/72 06/23/20 10:54 Pulse Ox 98 06/23/20 07:38 Discharge Plan Discharge Patient Disposition: Home Condition: Stable Prescriptions: New atorvastatin 40 mg Tablet 80 mg PO DAILY Qty: 30 RF: 0 prednisone 20 mg Tablet 40 mg PO DAILY Qty: 5 RF: 0 clopidogrel 75 mg Tablet 75 mg PO DAILY Qty: 30 RF: 0 Milk of Magnesia 400 mg/5 mL Suspension 30 ml PO DAILY PRN (Reason: Constipation) Qty: 150 RF: 0 lisinopril 5 mg Tablet 5 mg PO DAILY Qty: 30 RF: 0 metoprolol tartrate 25 mg tablet 12.5 mg PO BID Qty: 30 RF: 0 Lasix 20 mg tablet 20 mg PO DAILY PRN (Reason: edema) Qty: 10 RF: 0 Continued bupropion HCl 150 mg tablet sustained-release 12 hr See Rx Instructions .ROUTE .COMPLEX RF: 0 ipratropium-albuterol 0.5 mg-3 mg(2.5 mg base)/3 mL solution for nebulization See Rx Instructions .ROUTE .COMPLEX RF: 0 pantoprazole 40 mg tablet,delayed release (DR/EC) 40 mg PO DAILY RF: 0 albuterol sulfate 90 mcg/actuation HFA aerosol inhaler See Rx Instructions .ROUTE .COMPLEX RF: 0 Bevespi Aerosphere 9-4.8 mcg HFA aerosol inhaler See Rx Instructions .ROUTE .COMPLEX RF: 0 Discharge Orders: Discharge Order (Routine); Ordered 06/23/20 Ordered By: Gordon Lopez Referrals: Yvonne [Outside] Josie Welch FNP [Nurse Practitioner] - 1 week (You have a post procedure followup with ERNESTO Salguero at [facility] on Tuesday, July 02 at 9:00am ) Mery Durham DO [Primary Care Provider] - 2 weeks (Dr. Durham's office will be calling to schedule a hospital followup to be seen in approx. 2 weeks. If you don't hear from them by Tuesday, please give them a call. Thank you) Discharge Diet: Cardiac Discharge Activity: Resume usual activity Patient Instructions: COPD, Lisinopril (By mouth), Prednisone (By mouth), Atorvastatin (By mouth), Clopidogrel (By mouth), Left Heart Catheterization (DC), Urinary Tract Infection in Women (GEN), COPD Stoplight, Chest Pain Stoplight, Post Angiogram Home Care Instructions Activity Restrictions/Additional Instructions: Please check your weight every day. If your weight goes more than 10 pounds of her weight today you can take Lasix 20 mg as needed. Please follow-up with your primary care provider and Josie Welch in next 1 week. Please make sure that you do not intake more than 1.2 to 1.5 L of fluid every day Discharge Attestations Time Spent in Discharge Care*: greater than 30 min Specific Discharge Activities: Specific discharge activities: educating patient, discussing with pcp/other providers, discussing with gearcase assembler/social workers/dc planners, documenting/other paperwork and evaluating patient/reviewing data Status at Discharge: Cognitive status at discharge: cognitively intact, Behavioral status at discharge: cooperative, Functional status at discharge: independent ambulation Overall status at discharge: patient is back to baseline Quality Metrics Clinical Quality Measures During this hospital stay, did patient experience: None Coding Level of Care Code Acute Client Account Representative for Chg Fwd Diagnoses Takotsubo cardiomyopathy I51.81 Left ventricular systolic dysfunction I51.9 COPD exacerbation J44.1 Urinary tract infection N30.01 Hematuria presence: with hematuria Urinary tract infection type: acute cystitis
--- NOTE | 2020-06-23 12:45 | PC.NURSE ---
patient increased sob and requiring in creased o2 when ambulating
[2020-06-23] MEDS: FUROsemide 10 mg/mL SDV 2mL 20 MG IVP (13:33)
--- NOTE | 2020-06-23 13:34 | PC.NURSE ---
Dr martinez on unit instructions to hold discharge at this time also to give 20mg IVP lasix once now
--- NOTE | 2020-06-23 14:28 | XRR_ITS ---
PROCEDURE INFORMATION: Exam: XR Chest, 2 Views Exam date and time: 06/23/2020 2:50 PM Age: 59 years old Clinical indication: Shortness of breath; Patient HX: Copd; Additional info: Increased SOB TECHNIQUE: Imaging protocol: XR of the chest Views: 2 views. COMPARISON: CR XR chest 1V portable [id number] 06/19/2020 5:41 PM FINDINGS: Lungs: Unremarkable. No consolidation. Pleural space: Unremarkable. No pleural effusion. No pneumothorax. Heart/Mediastinum: Unremarkable. No cardiomegaly. Bones/joints: Unremarkable. XR/XR chest 2V* [id number] IMPRESSION: No acute findings.
[2020-06-23 18:19] LABS: NT Pro B Type Natriuretic Pept 3077 pg/mL (0-125)
[2020-06-23] MEDS: levoFLOXacin 750 mg Tablet PO (23:56)
[2020-06-24] VITALS (11 sets, daily range): BP systolic 94–101; BP diastolic 57–67; PULSE 87–103; RESP 17–24; TEMP 36.4–36.8; O2SAT 86–100
[2020-06-24] MEDS: ipratropium-albuterol 3 mL Neb INHALATION ×3 (03:05→12:37)
[2020-06-24 04:26] LABS: Basophils % 0.2 %; Eosinophils % 0.2 %; Hematocrit 39.5 % (37.0-47.0); Hemoglobin 12.2 g/dL (11.5-15.3); Lymphocytes # 2.7 10^3/uL (0.8-4.8); Lymphocytes % 23.3 %; Mean Corpuscular HGB Conc 30.9 g/dL (30.0-36.0); Mean Corpuscular Hemoglobin 29.6 pg (28.0-34.0); Mean Corpuscular Volume 95.9 fL (81-99); Mean Platelet Volume 10.4 fL (7.4-10.4); Monocytes # 1.1 10^3/uL (0.2-0.9); Monocytes % 9.6 %; Neutrophils # 7.65 10^3/uL (1.8-7.7); Neutrophils % 66.4 %; Nucleated Red Blood Cells % 0 %; Platelet Count 177 10^3/cmm (130-400); Red Blood Count 4.12 10^6/uL (4.1-5.3); Red Cell Distribution Width 13.7 % (12.1-15.1); White Blood Count 11.5 10^3/uL (4.0-10.0)
[2020-06-24 05:03] LABS: Alanine Aminotransferase 27 U/L (0-33); Alkaline Phosphatase 58 IU/L (35-105); Anion Gap 14.9 (5-19); Aspartate Amino Transferase 21 U/L (0-32); Blood Urea Nitrogen 27 mg/dL (6-20); Calcium 8.9 mg/dL (8.5-10.5); Carbon Dioxide 28 mmol/L (22-29); Chloride 99 mmol/L (98-107); Globulin 2.3 g/dL (1.3-4.6); Glomerular Filtration Rate 126.7 mL/min (90-130); Glucose 87 mg/dL (65-115); Osmolality Calculated 282 mOsm/kg (285-295); Potassium 3.9 mmol/L (3.5-5.1); Sodium 138 mmol/L (136-145); Total Bilirubin 0.3 mg/dL (0.15-1.2); Total Protein 6.3 g/dL (6.6-8.7)
[2020-06-24] MEDS: pantoprazole DR 40 mg Tablet PO (08:06)
[2020-06-24] MEDS: atorvastatin 40 mg Tablet 80 MG PO (08:06)
[2020-06-24] MEDS: buPROPion SR (12 HR) 150 mg Tablet PO (08:06)
[2020-06-24] MEDS: predniSONE 20 mg Tablet 40 MG PO (08:06)
[2020-06-24] MEDS: enoxaparin 40 mg/0.4 mL Syringe SUBCUT (08:06)
[2020-06-24] MEDS: clopidogrel 75 mg Tablet PO (08:06)
[2020-06-24] MEDS: lisinopril 5 mg Tablet PO (08:06)
--- NOTE | 2020-06-24 10:11 | P.PN_ITS ---
Subjective Subjective: Interval history: Patient discharge was canceled yesterday because she was requiring more oxygen supplementation to keep her saturation normal. She was given an extra dose of Lasix yesterday and monitor for 24 hours because of borderline blood pressures. Last 24 hours she has put out 1700 cc of urine after getting Lasix. Blood pressures have remained stable. Today morning examination patient stating she is feeling better than yesterday. She states she would like to go home. Home O2 evaluation has been done again. She denies of having any nausea, vomiting, headache, palpitation, dizziness. Overnight telemetry has remained stable as well. Medications: Reviewed: Yes Vitals/I&O/Wt Last Vital Signs Temp 98.3 F 06/24/20 07:39 Pulse 101 H 06/24/20 09:04 Resp 17 06/24/20 08:59 BP 94/67 06/24/20 07:39 Pulse Ox 100 06/24/20 08:59 06/23/20 06/24/20 06/24/20 22:59 06:59 14:59 Intake Total 360 / 960 354 / 354 Output Total 1000 / 1400 300 / 1700 Balance -640 / -440 -300 / -740 354 / 354 Physical Exam Narrative: EXAM NARRATIVE: General: No acute distress, AO x3 HEENT: PERRLA, pupils bilaterally equal and reactive Chest: Normal vesicular breath sounds, bilateral rhonchi present all over the lung field, crackles in lower zone bilaterally getting better than yesterday CVS: S1-S2 regular, soft pansystolic murmur at the apex, no tachycardia, no gallops, no rubs, JVD mildly elevated Abdomen: Soft, nontender, no organomegaly, bowel sounds present Neuro: No focal deficits, no facial deformity, AO x3, power 5/5 in all limbs Data : 06/24/20 03:00 06/24/20 03:00 Micro: Microbiology 06/21/20 09:10 Urine Culture - Final Urine,Clean Catch A&P Assessment and plan (1) Takotsubo cardiomyopathy: Status: Acute (2) Left ventricular systolic dysfunction: Status: Acute (3) COPD exacerbation: Present on admission. Status: Acute (4) Urinary tract infection: Status: Acute Qualifiers: Urinary tract infection type: acute cystitis Hematuria presence: with hematuria Qualified Code(s): N30.01 - Acute cystitis with hematuria Additional A&P Information Please look at my discharge summary from yesterday. Patient to check body weight at home with target body weight 10 pounds lower than today. She is to take Lasix 20 mg daily till she achieves a body weight afterwards, only as needed whenever her body weight would increase the target range. She is to follow-up with heart care services within next 4 to 7 days for further adjustment of diuretics and her cardiac regimen. Attestations Medical Necessity Statement*: COPD,Takotsubol cardiomyopathy Time Spent in Patient Care: Greater than 35 minutes (>than 50% of time spent in counselling and/or direct pt care on unit) . Coding Level of Care Code Acute Foster Care Social Worker for Meryl Bradley Diagnoses Takotsubo cardiomyopathy I51.81 Left ventricular systolic dysfunction I51.9 COPD exacerbation J44.1 Urinary tract infection N30.01 Urinary tract infection type: acute cystitis Hematuria presence: with hematuria
--- NOTE | 2020-06-24 10:43 | PC.SOCIAL ---
IMM Updated Updated pt on Pg 2 IMM. Provided pt a copy. No questions voiced. Signed, dated, & timed copy in chart.
--- NOTE | 2020-06-24 14:12 | PC.NURSE ---
Discharge to home with caregiver Instructed pt to follow-up with pcp and electrical and radio mock up mechanic. Educated pt on her new meds actions, dosing, timing, frequency and possible S/E. Discuss pt on chf stoplight. DME: O2 [employer] tank in room. Discuss th importance of daily weights, blood pressure checks, fluid restriction and low salt diet. pt verbalizes understanding. Discharge packet provided to pt.
== END 2020-06-24 14:12 | disposition home or self-care (01) | DRG 871 ==
LOC: ER 21:25 → CSU 21:27
PROVIDERS: Internal Medicine Cardiovascular Disease; Physician Assistant; Admitting Provider Internal Medicine; Emergency Provider Emergency Medicine; PCP Family Medicine; Visit Provider Student in an Organized Health Care Education/Training Program
PROC: 4A023N7 Measurement of Cardiac Sampling and Pressure, Left Heart, Percutaneous Approach (ICD-10-PCS; principal; 2020-06-22 13:00)
DX: A41.9 Sepsis, unspecified organism (principal); I21.4 Non-ST elevation (NSTEMI) myocardial infarction; J18.9 Pneumonia, unspecified organism; J96.22 Acute and chronic respiratory failure with hypercapnia; J44.0 Chronic obstructive pulmonary disease with (acute) lower respiratory infection; I51.81 Takotsubo syndrome; J44.1 Chronic obstructive pulmonary disease with (acute) exacerbation; N30.01 Acute cystitis with hematuria; Z99.81 Dependence on supplemental oxygen; F17.210 Nicotine dependence, cigarettes, uncomplicated; Z87.442 Personal history of urinary calculi
CPT/HCPCS: 12345; 36415; 36600; 71045; 71046; 74176; 80048; 80051; 80053; 80061; 81001; 82803; 82810; 83605; 83735; 83880; 83986; 84443; 84484; 85025; 85378; 86403; 87040; 87086; 87426; 87449; 93005; 93306; 93452; 94640; 94660; 96372; 96375; 99284; C1769; C1887; C1894; J0696; J1200; J1644; J1650; J1940; J2250; J2920; J2930; J3010; J3490; J7030; J7512; Q0163; Q9967

== ENCOUNTER → 2020-07-02 09:24 | Outpatient (BNVA) | payer MEDICARE, MEDICAID, SELFPAY | PROVIDERS: PCP Family Medicine; Visit Provider Nurse Practitioner Family | DX: I51.81 Takotsubo syndrome (principal) | CPT/HCPCS: 80048 ==

== ENCOUNTER → 2021-03-26 14:48 | Outpatient (BNVA) | payer MEDICARE, MEDICAID, SELFPAY | PROVIDERS: PCP Family Medicine; Visit Provider Internal Medicine Cardiovascular Disease | DX: R06.02 Shortness of breath (principal); I50.33 Acute on chronic diastolic (congestive) heart failure; R07.89 Other chest pain; R07.9 Chest pain, unspecified; I21.4 Non-ST elevation (NSTEMI) myocardial infarction; I51.81 Takotsubo syndrome | CPT/HCPCS: 80048; 83880 ==

== ENCOUNTER 2022-09-17 12:21 | Emergency (ER) | payer MEDICARE, MEDICAID, SELFPAY ==
[2022-09-17] VITALS (7 sets, daily range): BP systolic 119–129; BP diastolic 69–86; PULSE 100–110; RESP 19–22; TEMP 36.8; O2SAT 95–97; BMI 28.0
--- NOTE | 2022-09-17 12:26 | ECG_ITS ---
[facility] Test Date: 2022-09-17 Pat Name: Dahlia Shah Department: Room: Gender: Female User Experience Team Lead: : 1960 Requested By: Francisco Solorio Order Number: [id number] Braxton MD: Damien Downey M.D. Measurements Intervals [facility] Rate: 104 P: 37 MA: 101 QRS: 76 QRSD: 81 T: 74 QT: 319 QTc: 421 Interpretive Statements SINUS TACHYCARDIA WITH SHORT MA INTERVAL Compared to ECG 06/21/2020 09:50:10 Short MA interval now present Sinus rhythm no longer present Sinus arrhythmia no longer present T-wave abnormality no longer present Possible ischemia no longer present Electronically Signed On 09-18-2022 11:02:27 INFORMATION RESOURCES MANAGER by Damien Downey M.D. [email or web address]
--- NOTE | 2022-09-17 12:26 | XRR_ITS ---
PROCEDURE INFORMATION: Exam: XR Chest Exam date and time: 09/17/2022 1:30 PM Age: 61 years old Clinical indication: Cough and dyspnea; Additional info: Dyspnea/cough TECHNIQUE: Imaging protocol: Radiologic exam of the chest. Views: 1 view. COMPARISON: CR XR chest 2V* [id number] 06/23/2020 2:45 PM FINDINGS: Lungs: Unremarkable. No consolidation. Pleural spaces: Unremarkable. No pleural effusion. No pneumothorax. Heart/Mediastinum: Unremarkable. No cardiomegaly. Bones/joints: Unremarkable. XR/XR chest 1V portable [id number] IMPRESSION: No acute findings.
--- NOTE | 2022-09-17 12:44 | ED_ITS ---
HPI - SOB/Dyspnea General: Chief Complaint: Shortness of Breath/Dyspnea Stated Complaint: Resp distress Time Seen by Provider: 09/17/22 12:26 Source: patient Mode of arrival: ambulatory History of Present Illness: HPI Narrative: 61-year-old female who presents emergency room is a history of COPD is chroni dell on oxygen at 3 L/min. She has had progressive increasing shortness of breath the last 3 days nonproductive cough albuterol nebulizers to help some. She generally has not been feeling well has had subjective low-grade fever cough is been nonproductive she is also complaining of some chest discomfort. She has had a history of coronary artery disease in the past. MD elicited complaint: shortness of breath and cough Pertinent past history: COPD Onset (ago): day(s) Timing: constant Severity: moderate Exacerbating factors: lying flat, exertion and coughing Relieving factors: bronchodilators Known history of: COPD Associated symptoms: Reports chest congestion, chest pain and cough; Deny abdominal pain, diaphoresis, dizziness, extremity pain, fever(s), lightheadedness, myalgias, nausea, orthopnea, palpitations, paresthesias, polydipsia, rash, sense of impending doom, syncope or vomiting Treatment prior to arrival: oxygen and bronchodilator Review of Systems Const: Reports: chills; Denies: fever(s), fatigue, malaise or diaphoresis ENMT: Denies: throat pain, ear or mastoid pain, nasal discharge or nasal congestion Card: Reports: chest pain; Denies: palpitations, irregular heart rhythm, lightheadedness, syncope or orthopnea Resp: Reports: dyspnea, non-productive cough, wheezing and chest congestion; Denies: productive cough GI: Denies: abdominal pain, nausea or vomiting : Denies: flank pain, difficulty voiding, dysuria, urinary frequency or urinary urgency Musc: Denies: extremity pain Skin/Breast: Denies: rash or pruritus Neuro: Denies: dizziness Endo: Denies: polydipsia [facility] ED PFSH: Medical History (Updated 09/17/22 @ 14:11 by Francisco Pollack DO) Asthma COPD (chronic obstructive pulmonary disease) Oxygen dependent Surgical History No pertinent past surgical history Family History Mother Rheumatoid arthritis Father Cancer lung cancer Other CAD (coronary artery disease) Social History Smoking and tobacco status: current every day smoker Alcohol intake: never Lives independently: Yes Housing: House Marital status: / Physical Exam Const: COMMON NORMALS: no acute distress GENERAL APPEARANCE: cooperative and comfortable ORIENTATION/CONSCIOUSNESS: Yes awake, Yes oriented to person, Yes oriented to place and Yes oriented to time HENMT: COMMON NORMALS: normocephalic, atraumatic and hearing grossly normal bilaterally HEAD & SCALP: normocephalic and atraumatic Resp: COMMON NORMALS: No retractions and No use of accessory muscles AUSCULTATION: rhonchi and wheezes Cardio: COMMON NORMALS: regular rate, regular rhythm and No murmurs present (Cardio) RATE: regular rate RHYTHM: regular rhythm GI: COMMON NORMALS: Soft to palpation and No hepatosplenomegaly present AUSCULTATION: Yes normoactive bowel sounds PALPATION: Yes Soft to palpation, No Tenderness to palpation present (GI), No Guarding due to palpation present (GI) and Yes No hepatosplenomegaly present Extremity: COMMON NORMALS: normal to inspection, capillary refill normal, no clubbing, cyanosis or edema, no calf tenderness and no pedal edema Neuro: SENSORIUM/ORIENTATION: Yes oriented to person, Yes oriented to place and Yes oriented to time Skin: COMMON NORMALS: no rashes or lesions noted GENERAL SKIN EXAM: no rashes or lesions noted Course Vital Signs: Vital signs: Vital Signs Temperature 98.2 F 09/17/22 12:23 Pulse Rate 104 H 09/17/22 15:02 Respiratory Rate 20 H 09/17/22 15:02 Blood Pressure 129/79 09/17/22 15:02 Pulse Oximetry 97 09/17/22 15:02 Oxygen Delivery Me thod 09/17/22 14:14 Oxygen Flow Rate 3 09/17/22 14:14 MDM - SOB/Dyspnea Medical Decision Making Labs and imaging reviewed. EKGs have no acute changes troponins negative patient improved with interventions with nebulizers we will discharge patient home treat as exacerbation COPD. Follow-up with primary care complete course of steroid taper and doxycycline. Medical Records I reviewed the patient's medical records. Lab Data I reviewed the patient's lab results. 09/17/22 12:44 09/17/22 12:44 Labs/Radiology: Radiology Impressions Chest X-Ray 09/17/22 12:26 IMPRESSION: No acute findings. Laboratory Results WBC 11.8 10^3/uL (4.0-10.0) H 09/17/22 12:44 RBC 3.79 10^6/uL (4.1-5.3) L 09/17/22 12:44 Hgb 10.6 g/dL (11.5-15.3) L 09/17/22 12:44 Hct 34.3 % (37.0-47.0) L 09/17/22 12:44 MCV 90.5 fl (81-99) 09/17/22 12:44 MCH 28.0 pg (28.0-34.0) 09/17/22 12:44 MCHC 30.9 g/dL (30.0-36.0) 09/17/22 12:44 RDW 13.4 % (12.1-15.1) 09/17/22 12:44 Plt Count 264 10^3/cmm (130-400) 09/17/22 12:44 MPV 10.2 fL (7.4-10.4) 09/17/22 12:44 Neut % (Auto) 82.7 % 09/17/22 12:44 Lymph % (Auto) 8.2 % 09/17/22 12:44 [place] % (Auto) 8.2 % 09/17/22 12:44 Eos % (Auto) 0.3 % 09/17/22 12:44 Baso % (Auto) 0.3 % 09/17/22 12:44 Neut # (Auto) 9.77 10^3/uL (1.8-7.7) H 09/17/22 12:44 Lymph # (Auto) 1.0 10^3/uL (0.8-4.8) 09/17/22 12:44 [place] # (Auto) 1.0 10^3/uL (0.2-0.9) H 09/17/22 12:44 Eos # (Auto) 0.0 10^3/uL (0.0-0.8) 09/17/22 12:44 Baso # (Auto) 0.0 10^3/uL (0.0-0.1) 09/17/22 12:44 Nucleated RBC % (auto) 0 % 09/17/22 12:44 Nucleated RBCs # 0.0 /100WBC 09/17/22 12:44 Sodium 140 mmol/L (136-145) 09/17/22 12:44 Potassium 3.8 mmol/L (3.5-5.1) 09/17/22 12:44 Chloride 96 mmol/L (98-107) L 09/17/22 12:44 Carbon Dioxide 32 mmol/L (22-29) H 09/17/22 12:44 Anion Gap 15.8 (5-19) 09/17/22 12:44 BUN 13 mg/dL (8-23) 09/17/22 12:44 Creatinine 0.2 mg/dL (0.5-0.9) L 09/17/22 12:44 GFR Calculation 362.3 mL/min (90-130) H 09/17/22 12:44 Glucose 114 mg/dL (65-115) 09/17/22 12:44 Calculated Osmolality 291 mOsm/kg (285-295) 09/17/22 12:44 Calcium 9.4 mg/dL (8.5-10.5) 09/17/22 12:44 Total Bilirubin 0.4 mg/dL (0.15-1.2) 09/17/22 12:44 AST 56 U/L (0-32) H 09/17/22 12:44 ALT 48 U/L (0-33) H 09/17/22 12:44 Alkaline Phosphatase 159 U/L (35-105) H 09/17/22 12:44 Troponin T Baseline 6 ng/L (0-10) 09/17/22 12:44 Troponin T 120 Minute 7.67 ng/L (0-10) 09/17/22 14:11 Delta Troponin T 1.67 ABS# (0-10) 09/17/22 14:11 Total Protein 6.7 g/dL (6.6-8.7) 09/17/22 12:44 Albumin 3.9 g/dL (3.5-5.2) 09/17/22 12:44 Globulin 2.8 g/dL (1.3-4.6) 09/17/22 12:44 Discharge Plan Discharge Patient Disposition: Home Clinical Impression: COPD exacerbation Condition: Stable Prescriptions: New doxycycline hyclate 100 mg capsule 100 mg PO BID 10 Days Qty: 20 0RF prednisone 20 mg tablet 20 mg PO TID Qty: 15 0RF Rx Instructions: 1 p.o. 3 times daily x3 days, 1 p.o. twice daily x2 days, 1 p.o. daily x2 days ipratropium-albuterol 0.5 mg-3 mg(2.5 mg base)/3 mL solution for nebulization 3 ml inhalation Q4H PRN (Reason: shortness of breath or wheezing) Qty: 90 0RF Rx Instructions: until breathing returns to target peak flow/parameters No Action budesonide 0.5 mg/2 mL suspension for nebulization 0.5 mg INHALATION BID Daliresp 250 mcg tablet 250 mcg PO DAILY aspirin 81 mg tablet,chewable 81 mg PO DAILY Qty: 90 3RF lisinopril 5 mg tablet 5 mg PO DAILY Qty: 30 1RF metoprolol tartrate 25 mg tablet See Rx Instructions .ROUTE .COMPLEX Qty: 90 1RF Dose Instruction: TAKE 1/2 TABLET BY MOUTH TWICE DAILY. Rx Instructions: TAKE 1/2 TABLET BY MOUTH TWICE DAILY. bupropion HCl 150 mg tablet sustained-release 12 hr See Rx Instructions .ROUTE .COMPLEX Rx Instructions: 150 mg orally TAKE 1 TAB PO DAILY FOR 3 DAYS THEN TAKE 1 PO BID. pantoprazole 40 mg tablet,delayed release (DR/EC) 40 mg PO DAILY albuterol sulfate 90 mcg/actuation HFA aerosol inhaler See Rx Instructions .ROUTE .COMPLEX Rx Instructions: inhaled 2 PUFF Q6H PRN SHORTNESS OF BREATH atorvastatin 40 mg Tablet 80 mg PO DAILY Qty: 30 0RF Milk of Magnesia 400 mg/5 mL Suspension 30 ml PO DAILY PRN (Reason: Constipation) Qty: 150 0RF Lasix 20 mg tablet 20 mg PO DAILY Qty: 30 0RF Discharge Orders: Discharge ED (Routine); Ordered 09/17/22 Ordered By: Francisco Pollack Referrals: Hallie Esposito [Primary Care Provider] - Discharge Diet: Usual diet Discharge Activity: Resume usual activity Patient Instructions: Opioid Safety, Pain Management Activity Restrictions/Additional Instructions: You are seen today in the emergency room for increasing shortness of breath. Your chest x-ray was normal your exam is suggestive of an exacerbation of COPD EKG does not show anything acute. We will start you on doxycycline for 10 days, start oral steroid taper tomorrow. Use albuterol ipratropium nebulizers every 2-4 hours as needed to improve your breathing if not improving follow-up with your primary care doctor. Coding Level of Care Code ED Pie Icer Machine for Chg Fwd Exam Detailed
--- NOTE | 2022-09-17 12:50 | PC.NURSE ---
PT PLACED ON CONTINUOUS NIBP, SPO2, AND CM
[2022-09-17 13:01] LABS: Basophils % 0.3 %; Eosinophils % 0.3 %; Hematocrit 34.3 % (37.0-47.0); Hemoglobin 10.6 g/dL (11.5-15.3); Lymphocytes % 8.2 %; Mean Corpuscular HGB Conc 30.9 g/dL (30.0-36.0); Mean Corpuscular Volume 90.5 fl (81-99); Mean Platelet Volume 10.2 fL (7.4-10.4); Monocytes % 8.2 %; Neutrophils # 9.77 10^3/uL (1.8-7.7); Neutrophils % 82.7 %; Nucleated Red Blood Cells % 0 %; Platelet Count 264 10^3/cmm (130-400); Red Blood Count 3.79 10^6/uL (4.1-5.3); Red Cell Distribution Width 13.4 % (12.1-15.1); White Blood Count 11.8 10^3/uL (4.0-10.0)
[2022-09-17 13:20] LABS: Alanine Aminotransferase 48 U/L (0-33); Albumin Level 3.9 g/dL (3.5-5.2); Alkaline Phosphatase 159 U/L (35-105); Anion Gap 15.8 (5-19); Aspartate Amino Transferase 56 U/L (0-32); Blood Urea Nitrogen 13 mg/dL (8-23); Calcium 9.4 mg/dL (8.5-10.5); Carbon Dioxide 32 mmol/L (22-29); Chloride 96 mmol/L (98-107); Globulin 2.8 g/dL (1.3-4.6); Glomerular Filtration Rate 362.3 mL/min (90-130); Glucose 114 mg/dL (65-115); Osmolality Calculated 291 mOsm/kg (285-295); Potassium 3.8 mmol/L (3.5-5.1); Sodium 140 mmol/L (136-145); Total Bilirubin 0.4 mg/dL (0.15-1.2); Total Protein 6.7 g/dL (6.6-8.7)
[2022-09-17 13:21] LABS: Troponin(5th) Baseline 6 ng/L (0-10)
[2022-09-17] MEDS: ipratropium-albuterol 3 mL Neb INHALATION (14:13)
[2022-09-17 14:50] LABS: Troponin 5 2HR 7.67 ng/L (0-10)
[2022-09-17 14:56] LABS: Troponin 5 2HR Delta 1.67 ABS# (0-10)
== END 2022-09-17 15:02 | disposition home or self-care (01) ==
PROVIDERS: Emergency Provider Family Medicine; PCP Registered Nurse
DX: J44.1 Chronic obstructive pulmonary disease with (acute) exacerbation (principal)
CPT/HCPCS: 36415; 71045; 80053; 84484; 85025; 93005; 94640; 96374; 99285; J2930

== ENCOUNTER 2022-11-10 09:33 | Emergency (ER) | payer MEDICARE, MEDICAID, SELFPAY ==
[2022-11-10 09:36] VITALS: BMI 26.6
--- NOTE | 2022-11-10 09:37 | ED_ITS ---
HPI - Abdominal Pain General: Chief Complaint: Abdominal Pain Stated Complaint: ABD PAIN Time Seen by Provider: 11/10/22 09:36 History of Present Illness: Ms Shah is a 61-year-old lady with history of CAD, NSTEMI, COPD with chronic hypoxic respiratory failure presenting to the emergency department due to abdominal pain. Reports intermittent episodes of the past few weeks however symptoms of been more constant and painful since approximately 2 AM. Symptoms woke her up from sleep. Nausea but no vomiting. She does endorse some decreased urine output. No changes in bowel habit. Intensity symptoms is moderate to severe, primarily in the epigastric region though she does describe some aching bilateral radiation of the lower quadrants as well. No other specific changes in health, exacerbating, or alleviating factors identified. Onset (ago): hour(s) Pain Consistency: constant Location: Epigastric Severity: moderate Quality: aching Radiation: LLQ, RLQ and suprapubic Exacerbating factors: nothing Relieving factors: nothing Associated Symptoms: Reports nausea Review of Systems General: Reports: 10 or more systems reviewed and unremarkable except in HPI and below GI: Reports: nausea PFSH ED PFSH: Medical History Asthma COPD (chronic obstructive pulmonary disease) Oxygen dependent Right ureteral calculus Surgical History No pertinent past surgical history Family History Mother Rheumatoid arthritis CHF (congestive heart failure) Father , AT AGE 56 Cancer lung cancer Other CAD (coronary artery disease) Social History Smoking and tobacco status: former smoker Alcohol intake: never Lives independently: Yes Housing: House Marital status: / Current occupational status: disabled History of recent travel: No Physical Exam Const: COMMON NORMALS: alert GENERAL APPEARANCE: cooperative and well developed HENMT: COMMON NORMALS: normocephalic and atraumatic HEAD & SCALP: normocephalic and atraumatic Eye: COMMON NORMALS: conjunctivae normal CONJUNCTIVA: Yes conjunctivae normal SCLERA: sclerae normal Neck/C-Spine: COMMON NORMALS: supple GENERAL: Yes trachea midline Resp: COMMON NORMALS: normal respiratory effort EFFORT & INSPECTION: Yes able to speak in complete sentences AUSCULTATION: diminished lung sounds OTHER: Baseline supplemental oxygen Cardio: COMMON NORMALS: regular rate and regular rhythm RATE: regular rate RHYTHM: regular rhythm GI: COMMON NORMALS: Soft to palpation PALPATION: Yes Soft to palpation, Yes Tenderness to palpation present (GI), No Guarding due to palpation present (GI) and No Rigid due to palpation PERCUSSION: normal to percussion Extremity: GENERAL: Yes normal exam except as noted and No edema Neuro: COMMON NORMALS: moves all extremities SENSORIUM/ORIENTATION: Yes alert and No Orientation impaired Psych: COMMON NORMALS: mental status grossly normal and Normal thought process present THOUGHT PROCESS: Normal thought process present Course Vital Signs: Vital signs: Vital Signs Temperature 98.2 F 11/10/22 13:39 Pulse Rate 95 11/10/22 13:39 Respiratory Rate 16 11/10/22 13:39 Blood Pressure 147/102 11/10/22 13:39 Pulse Oximetry 96 11/10/22 13:39 Oxygen Delivery Me thod 11/10/22 13:39 Oxygen Flow Rate 3 11/10/22 13:39 MDM - Abdominal Pain Medical Decision Making 61-year-old lady presenting with abdominal symptoms. Exam as above. Abdominal exam with tenderness without evidence of acute surgical abdomen. EKG shows sinus tachycardia, normal intervals, normal axis, no STEMI. The previously noted short MI interval is not present on this EKG.. Labs notable for leukocytosis which is increased from prior, near baseline normocytic anemia, normal platelet count. Metabolic panel without acute electrolyte derangement requiring intervention, transaminitis has resolved. Lipase is normal. No evidence of urinary tract infection, mild squamous epithelial contamination. CT imaging warranted given physical exam findings and patient provides clinical history. CT notable for moderate to severe left hydroureteronephrosis with a proximal ureteral calcification. Other incidental findings noted. The patient feels improved with analgesia and also was treated with Flomax. Pain is adequately controlled and she is able to tolerate oral intake. Most likely etiology of patient's symptoms is obstructing proximal ureteral stone. Plan to have close outpatient follow-up with urology and strict return precautions. The results of ED evaluation were discussed with the patient including pres criptions and/or symptomatic cares (if applicable) including appropriate and responsible use, followup plan, and return precautions. The patient verbalized understanding and felt safe for discharge. Medical Records I reviewed the patient's medical records. Lab Data I reviewed the patient's lab results. 11/10/22 10:05 11/10/22 10:05 Labs/Radiology: Radiology Impressions Abdomen/Pelvis CT 11/10/22 09:51 IMPRESSION: 1. Moderate to severe LEFT hydroureteronephrosis secondary to a proximal ureteral calcification. Obstruction secondary to an 8 x 8 mm calcification. 2. Delayed enhancement of the LEFT kidney with perinephric stranding. 3. Moderate atherosclerosis aorta. 4. Chronic emphysema. 5. Distal colonic diverticulosis. Laboratory Results WBC 13.1 10^3/uL (4.0-10.0) H 11/10/22 10:05 RBC 4.15 10^6/uL (4.1-5.3) 11/10/22 10:05 Hgb 11.1 g/dL (11.5-15.3) L 11/10/22 10:05 Hct 37.6 % (37.0-47.0) 11/10/22 10:05 MCV 90.6 fl (81-99) 11/10/22 10:05 MCH 26.7 pg (28.0-34.0) L 11/10/22 10:05 MCHC 29.5 g/dL (30.0-36.0) L 11/10/22 10:05 RDW 14.4 % (12.1-15.1) 11/10/22 10:05 Plt Count 301 10^3/cmm (130-400) 11/10/22 10:05 MPV 10.8 fL (7.4-10.4) H 11/10/22 10:05 Neut % (Auto) 86.2 % 11/10/22 10:05 Lymph % (Auto) 7.5 % 11/10/22 10:05 [place] % (Auto) 5.6 % 11/10/22 10:05 Eos % (Auto) 0.1 % 11/10/22 10:05 Baso % (Auto) 0.2 % 11/10/22 10:05 Neut # (Auto) 11.31 10^3/uL (1.8-7.7) H 11/10/22 10:05 Lymph # (Auto) 1.0 10^3/uL (0.8-4.8) 11/10/22 10:05 [place] # (Auto) 0.7 10^3/uL (0.2-0.9) 11/10/22 10:05 Eos # (Auto) 0.0 10^3/uL (0.0-0.8) 11/10/22 10:05 Baso # (Auto) 0.0 10^3/uL (0.0-0.1) 11/10/22 10:05 Nucleated RBC % (auto) 0 % 11/10/22 10:05 Nucleated RBCs # 0.0 /100WBC 11/10/22 10:05 Sodium 142 mmol/L (136-145) 11/10/22 10:05 Potassium 4.9 mmol/L (3.5-5.1) 11/10/22 10:05 Chloride 102 mmol/L (98-107) 11/10/22 10:05 Carbon Dioxide 29 mmol/L (22-29) 11/10/22 10:05 Anion Gap 15.9 (5-19) 11/10/22 10:05 BUN 9 mg/dL (8-23) 11/10/22 10:05 Creatinine 0.5 mg/dL (0.5-0.9) 11/10/22 10:05 GFR Calculation 125.9 mL/min (90-130) 11/10/22 10:05 Glucose 111 mg/dL (65-115) 11/10/22 10:05 Calculated Osmolality 293 mOsm/kg (285-295) 11/10/22 10:05 Lactate 0.8 mmol/L (0.5-2.2) 11/10/22 10:05 Calcium 9.3 mg/dL (8.5-10.5) 11/10/22 10:05 Total Bilirubin 0.4 mg/dL (0.15-1.2) 11/10/22 10:05 AST 15 U/L (0-32) 11/10/22 10:05 ALT 9 U/L (0-33) 11/10/22 10:05 Alkaline Phosphatase 104 U/L (35-105) 11/10/22 10:05 Total Protein 7.0 g/dL (6.6-8.7) 11/10/22 10:05 Albumin 4.0 g/dL (3.5-5.2) 11/10/22 10:05 Globulin 3.0 g/dL (1.3-4.6) 11/10/22 10:05 Lipase 10 U/L (13-60) L 11/10/22 10:05 Urine Color Yellow (Yellow) 11/10/22 10:55 Urine Appearance Hazy (CLEAR) A 11/10/22 10:55 Urine pH 8 (5-7) H 11/10/22 10:55 Ur Specific Cable 1.015 (1.005-1.030) 11/10/22 10:55 Urine Protein Neg (Negative) 11/10/22 10:55 Urine Glucose (UA) Norm (Normal) 11/10/22 10:55 Urine Ketones 1+ (Negative) H 11/10/22 10:55 Urine Blood Neg (Negative) 11/10/22 10:55 Urine Nitrate Negative (Negative) 11/10/22 10:55 Urine Bilirubin Neg (Negative) 11/10/22 10:55 Prot Sulfosalicylic Acd Negative (Negative) 11/10/22 10:55 Urine Urobilinogen Neg mg/dL (Negative) 11/10/22 10:55 Ur Leukocyte Esterase Negative (Negative) 11/10/22 10:55 Urine RBC Rare /hpf (0-2) 11/10/22 10:55 Urine WBC None /hpf (0-5) 11/10/22 10:55 Ur Squamous Epith Cells 5-10 /hpf (0-5) H 11/10/22 10:55 Amorphous Sediment Not Reportable 11/10/22 10:55 Urine Bacteria None /hpf (NONE) 11/10/22 10:55 Discharge Plan Discharge Patient Disposition: Home Clinical Impression: Abdominal pain, Ureteral calculus, Hydronephrosis Condition: Stable Prescriptions: New ondansetron 4 mg tablet,disintegrating 4 mg PO Q8H PRN (Reason: nausea and vomiting) Qty: 15 0RF tamsulosin [Flomax] 0.4 mg capsule 0.4 mg PO DAILY Qty: 20 0RF No Action budesonide 0.5 mg/2 mL suspension for nebulization 0.5 mg INHALATION BID aspirin 81 mg tablet,chewable 81 mg PO DAILY Qty: 90 3RF pantoprazole 40 mg tablet,delayed release (DR/EC) 40 mg PO BID Trelegy Ellipta 200-62.5-25 mcg blister with device 1 inh inhalation DAILY hydrocodone-acetaminophen 5-325 mg tablet 1 tab PO Q6H PRN (Reason: Renal colic) 3 Days Qty: 12 0RF promethazine 12.5 mg suppository 12.5 mg MI TID PRN (Reason: allergy symptoms) Qty: 6 0RF Rx Instructions: do not give 3rd daily dose after evening meal or within 4hr before bed lisinopril 5 mg tablet 5 mg PO DAILY Qty: 30 1RF albuterol sulfate 90 mcg/actuation HFA aerosol inhaler 2 puff inhalation Q6H PRN (Reason: Shortness Of Breath Or Wheezing) magnesium hydroxide [Milk of Magnesia] 400 mg/5 mL Suspension 30 ml PO DAILY PRN (Reason: Constipation) Qty: 150 0RF ipratropium-albuterol 0.5 mg-3 mg(2.5 mg base)/3 mL solution for nebulization 3 ml inhalation Q4H PRN (Reason: shortness of breath or wheezing) Qty: 90 0RF Rx Instructions: until breathing returns to target peak flow/parameters aripiprazole 2 mg tablet 2 mg PO DAILY roflumilast 500 mcg tablet 500 mcg PO DAILY furosemide [Lasix] 20 mg tablet 20 mg PO EVERY OTHER DAY metoprolol tartrate 25 mg tablet 12.5 mg PO BID Discharge Orders: Discharge ED (Routine); Ordered 11/10/22 Ordered By: Lyle Gordon Referrals: Hallie Esposito [Primary Care Provider] - Discharge Diet: Usual diet Discharge Activity: Increase activity as tolerated Patient Instructions: Abdominal Pain (ED), Ureteral Stones (ED), Opioid Safety, Pain Management Activity Restrictions/Additional Instructions: Thank you for visiting the emergency department. You were seen and evaluated for abdominal pain and associated symptoms. The exact cause of your symptoms is unclear though may be related to a ureteral stone. Given improvement in symptoms this can closely be followed in the outpatient setting. I will message case management for close follow-up with urology. You may use orof-iid-kegazta medications such as acetaminophen and ibuprofen for pain however please do not exceed the daily recommended dosage as listed on the packaging and please keep in mind that many namebrand medications contain the same active ingredients. Please avoid these medications if previously instructed to do so by another physician due to other underlying medical condition. I will prescribe antinausea medication, Flomax to increase likelihood of stone passage, and oxycodone. Please use this cautiously as it is an opioid. Return to the emergency department for uncontrolled symptoms or anything else that you are concerned about a feel needs emergency department evaluation. Coding Level of Care Code ED Bereavement Program Coordinator for Meryl Bradley Exam Comprehensive
--- NOTE | 2022-11-10 09:51 | CT_ITS ---
WS: [id number] CT ABDOMEN AND PELVIS WITH CONTRAST HISTORY: epigastric abd pain, worsening since 2 am, nausea, urinary TECHNIQUE: Imaging performed of the abdomen and pelvis with IV contrast. Single phase imaging of the abdomen. Coronal and sagittal reformats are submitted. All CT scans at [facility] use at [address] one of these dose optimization techniques: automated exposure control; mA and/or kV adjustment per patient size (includes targeted exams where dose is matched to clinical indication); or iterative re construction. IV CONTRAST: Omnipaque 350; 100 mL IV. Oral contrast: No DLP: 540.80 mGy.cm COMPARISON: 06/21/2020 Lower thorax: Chronic emphysema. Heart is normal size. No hiatal hernia. Liver/biliary system: Normal size with no intrahepatic dilatation. Gallbladder: Normal. No gallstones or wall thickening. No pericholecystic fluid. Pancreas: Normal size pancreas and pancreatic duct. No adjacent inflammation. Spleen: Normal size spleen. No mass or infarct. Adrenal glands: Normal. Right kidney: Normal. Left kidney: Abnormal LEFT kidney. Decreased enhancement and delayed excretion. Moderate to severe hy dronephrosis secondary to calcification in the proximal ureter measuring 8 x 8 mm. Ureter distal to t his calcification is small caliber. No additional calcifications in the renal pelvis. Moderate perine phric stranding. Aorta: Moderate atherosclerosis with no aneurysm. Lymphadenopathy: None. Free fluid: None. GI tract: Nondistended stomach. No small bowel obstruction. Normal appendix. Mild diffuse constipatio n. Distal colonic diverticulosis. No acute diverticulitis. Abdominal wall: Unremarkable abdominal wall. No hernia. Pelvis: No free fluid or adenopathy within the pelvis. Negative uterus and ovaries. No mass. Bones: Mild anterior wedging and loss of height involving L2. No retropulsion. CT/CT abdomen pelvis w con* [id number] IMPRESSION: 1. Moderate to severe LEFT hydroureteronephrosis secondary to a proximal urete ral calcification. Obstruction secondary to an 8 x 8 mm calcification. 2. Delayed enhancement of the LEFT kidney with perinephric stranding. 3. Moderate atherosclerosis aorta. 4. Chronic emphysema. 5. Distal colonic diverticulosis.
--- NOTE | 2022-11-10 09:59 | ECG_ITS ---
[facility] Test Date: 2022-11-10 Pat Name: Dahlia Shah Department: Room: Gender: Female Cloth Bale Header: : 1960 Requested By: Lyle Gordon Order Number: [id number] Braxton MD: Desi Aguirre M.D. Measurements Intervals [place] Rate: 110 P: 81 NE: 138 QRS: 70 QRSD: 73 T: 70 QT: 304 QTc: 412 Interpretive Statements SINUS TACHYCARDIA POSSIBLE RIGHT ATRIAL ENLARGEMENT [0.25mV P-WAVE] POSSIBLE LEFT ATRIAL ENLARGEMENT [-0.1mV P-WAVE IN V1/V2] ABNORMAL RHYTHM ECG Compared to ECG 09/17/2022 12:37:45 Short NE interval no longer present Electronically Signed On 11-11-2022 10:06:20 PAINTER SIGN MAINTENANCE by Desi Aguirre M.D. [id number]
[2022-11-10 10:02] VITALS: BP 142/102; PULSE 109; RESP 16; TEMP 36.9; O2SAT 96
[2022-11-10 10:15] LABS: Basophils % 0.2 %; Eosinophils % 0.1 %; Hematocrit 37.6 % (37.0-47.0); Hemoglobin 11.1 g/dL (11.5-15.3); Lymphocytes % 7.5 %; Mean Corpuscular HGB Conc 29.5 g/dL (30.0-36.0); Mean Corpuscular Hemoglobin 26.7 pg (28.0-34.0); Mean Corpuscular Volume 90.6 fl (81-99); Mean Platelet Volume 10.8 fL (7.4-10.4); Monocytes # 0.7 10^3/uL (0.2-0.9); Monocytes % 5.6 %; Neutrophils # 11.31 10^3/uL (1.8-7.7); Neutrophils % 86.2 %; Nucleated Red Blood Cells % 0 %; Platelet Count 301 10^3/cmm (130-400); Red Blood Count 4.15 10^6/uL (4.1-5.3); Red Cell Distribution Width 14.4 % (12.1-15.1); White Blood Count 13.1 10^3/uL (4.0-10.0)
[2022-11-10 10:34] LABS: Alanine Aminotransferase 9 U/L (0-33); Alkaline Phosphatase 104 U/L (35-105); Anion Gap 15.9 (5-19); Aspartate Amino Transferase 15 U/L (0-32); Blood Urea Nitrogen 9 mg/dL (8-23); Calcium 9.3 mg/dL (8.5-10.5); Carbon Dioxide 29 mmol/L (22-29); Chloride 102 mmol/L (98-107); Glomerular Filtration Rate 125.9 mL/min (90-130); Glucose 111 mg/dL (65-115); Lipase 10 U/L (13-60); Osmolality Calculated 293 mOsm/kg (285-295); Potassium 4.9 mmol/L (3.5-5.1); Sodium 142 mmol/L (136-145); Total Bilirubin 0.4 mg/dL (0.15-1.2)
[2022-11-10 10:35] LABS: Lactate (Lactic Acid level) 0.8 mmol/L (0.5-2.2)
[2022-11-10] MEDS: iohexol 350 mg/mL 500 mL Btl (per mL) IV (11:11)
[2022-11-10 11:15] LABS: Add Urine Microscopic? YES; Bilirubin Urine Neg (Negative); Blood Urine Neg (Negative); Glucose Urine UA Norm (Normal); Ketones Urine 1+ (Negative); Leukocyte Esterase Urine Negative (Negative); Nitrate Urine Negative (Negative); Protein Urine Neg (Negative); Specific Gravity, Urine 1.015 (1.005-1.030); Sulfosalicylic Acid Urine Negative (Negative); Urine Appearance Hazy (CLEAR); Urine Color Yellow (Yellow); Urobilinogen Urine Neg (Negative); pH Urine 8 (5-7)
[2022-11-10 11:16] LABS: Add Urine Culture? No; RBC Urine RARE /hpf (0-2)
[2022-11-10] MEDS: ketorolac 30 mg/mL INJ 15 MG IVP (11:57)
[2022-11-10] MEDS: tamsulosin 0.4 mg Capsule PO (12:55)
[2022-11-10] MEDS: oxyCODONE 5 mg IR Tab/Cap PO (12:55)
[2022-11-10 13:39] VITALS: BP 147/102; PULSE 95; RESP 16; TEMP 36.8; O2SAT 96
--- NOTE | 2022-11-10 15:29 | DCPLANNER ---
Addendum entered by Audrey Zaldivar 11/12/22 10:49: Patient had a follow up appointment scheduled for 11.12.[address] Ochoa at urology - patient did attend appointment. Original Note: information technology program manager had message to schedule a follow up appointment for patient with urology. information technology program manager sent patients information to the front office staff at urology. Patients information will be printed and reviewed. Clinic will call patient with appointment information.
== END 2022-11-10 14:05 | disposition home or self-care (01) ==
PROVIDERS: Emergency Provider Emergency Medicine; PCP Registered Nurse
DX: N13.2 Hydronephrosis with renal and ureteral calculous obstruction (principal); Z79.82 Long term (current) use of aspirin; J44.9 Chronic obstructive pulmonary disease, unspecified; Z99.81 Dependence on supplemental oxygen; Z87.442 Personal history of urinary calculi; Z87.891 Personal history of nicotine dependence
CPT/HCPCS: 74177; 80053; 81001; 83605; 83690; 85025; 93005; 96374; 99285; J1885; Q9967

== ENCOUNTER 2022-11-12 07:04 | Outpatient (CLI) | payer MEDICARE, MEDICAID, SELFPAY ==
--- NOTE | 2022-11-12 07:23 | XR_ITS ---
WS: [id number] XR KUB [id number] REASON FOR EXAM: stones FINDINGS: 8 to 10 mm calculus adjacent to the left transverse process of L4 congruent with the left ureteral pe lvic junction calculus seen on the CT scan of 11/10/2022. No change in position. No other urinary tract calculi identified. No other significant abnormality of the abdomen. XR/XR KUB [id number] IMPRESSION: Left ureteral pelvic junction calculus as above.
== END 2022-11-12 07:05 | disposition home or self-care (01) ==
LOC: RAD 07:07
PROVIDERS: PCP Registered Nurse; Visit Provider Urology
DX: N20.1 Calculus of ureter (principal)
CPT/HCPCS: 74018

== ENCOUNTER → 2022-11-12 13:31 | Day surgery (SDC) | payer MEDICARE, MEDICAID, SELFPAY | PROVIDERS: PCP Registered Nurse; Visit Provider Urology | DX: N20.1 Calculus of ureter (principal) | CPT/HCPCS: 74018; 81003; 99204 ==

== ENCOUNTER 2022-11-15 07:39 | Day surgery (SDC) | payer MEDICARE, MEDICAID, SELFPAY ==
--- NOTE | 2022-11-15 | SC_ITS ---
WS: [id number] C-ARM RADIOGRAPHS ABDOMEN; 5 IMAGES HISTORY: HUMAIRA PICS COMPARISON: 11/10/2022 Injection of the LEFT ureter with intraoperative imaging during retrograde evaluation and placement o f a double pigtail stent. SC/C-arm FL for Urology IMPRESSION: Intraoperative imaging during LEFT double pigtail stent placement.
--- NOTE | 2022-11-15 08:14 | ANES.PREANE2 ---
Pre-Anesthetic Assessment Height/Weight: Height 1.65 m Weight 74.843 kg Preop Diagnosis: Left UPJ stone with obstruction Operation Date: 11/15/22 09:25 Proposed Procedures p CYSTOSCOPY LEFT RETROGRADE URETEROSCOPY LASER STENT 19196 MODIFIER 26 43054,N20.1,N13.30(Not Applicable) - Bernabe Ochoa MD s Retrograde Pyelogram(Left) - MD papo Granger Ureteroscopy(Left) - Bernabe Ochoa MD s Laser Lithotripsy(Left) - Bernabe Ochoa MD s Ureteral Stent Placement(Left) - Bernabe Ochoa MD Familial anesthetic complications: NOne Was Beta Lenora taken within 24 hours: Yes Was Clonidine taken within 24 hours: N/A Last intake: > 8hrs Social No alcohol and No tobacco former smoker Exam alert, oriented x 3, clear to auscultation bilaterally and regular rate & rhythm diminished b/l Airway Mallampati: Class II Dentition: other (no teeth) Pulmonary Asthma, Chronic Obstructive Pulmonary Disease (3 L NC baseline, up to 6 L/min with exertion), Exertional Dyspnea and Shortness of Breath CV/HEM Coronary Artery Disease (mild) and Myocardial Infarction (NSTEMI) hx takotsubo cardiomyopathy in 2019 w/ EF 37% - managed with metoprolol, lisinopril, lasix Anesthetic Plan ASA status: 4 Anesthesia: General Risk of > 500 ml blood loss (7ml/kg in children): No Medications/Allergies Home Medications Medication Instructions Recorded Confirmed Last Taken Type albuterol sulfate 90 mcg/actuation 2 puff inhalation Q6H PRN 06/19/20 11/15/22 11/11/22 History aerosol inhaler Shortness Of Breath Or Wheezing magnesium hydroxide 400 mg/5 mL 30 ml PO DAILY PRN Constipation 06/23/20 11/12/22 Unknown Rx oral suspension (Milk of Magnesia) #150 mL budesonide 0.5 mg/2 mL suspension 0.5 mg inhalation BID 07/02/20 11/12/22 11/14/22 History for nebulization lisinopril 5 mg tablet 5 mg PO DAILY #30 tabs 12/15/20 11/12/22 11/14/22 Rx aspirin 81 mg chewable tablet 81 mg PO DAILY #90 tabs 03/26/21 11/15/22 11/11/22 Rx ipratropium 0.5 mg-albuterol 3 mg 3 ml inhalation Q4H PRN shortness 09/17/22 11/12/22 11/12/22 Rx (2.5 mg base)/3 mL nebulization of breath or wheezing #90 mL soln aripiprazole 2 mg tablet 2 mg PO DAILY 11/10/22 11/12/22 11/14/22 History furosemide 20 mg tablet (Lasix) 20 mg PO EVERY OTHER DAY 11/10/22 11/12/22 11/10/22 History metoprolol tartrate 25 mg tablet 12.5 mg PO BID 11/10/22 11/12/22 11/14/22 History ondansetron 4 mg disintegrating 4 mg PO Q8H PRN nausea and 11/10/22 11/12/22 11/14/22 Rx tablet vomiting #15 tabs roflumilast 500 mcg tablet 500 mcg PO DAILY 11/10/22 11/12/22 11/14/22 History tamsulosin 0.4 mg capsule (Flomax) 0.4 mg PO DAILY #20 caps 11/10/22 11/12/22 11/14/22 Rx fluticasone fur. 200 mcg-umeclid 1 inh inhalation DAILY 11/12/22 11/12/22 11/14/22 History 62.5 mcg-vilant 25 mcg inhalat.powder (Trelegy Ellipta) hydrocodone 5 mg-acetaminophen 325 1 tab PO Q6H PRN Renal colic 3 11/12/22 11/15/22 11/14/22 Rx mg tablet days #12 tabs pantoprazole 40 mg tablet,delayed 40 mg PO BID 11/12/22 11/12/22 11/13/22 History release promethazine 12.5 mg rectal 12.5 mg OR TID PRN allergy 11/12/22 11/12/22 Unknown Rx suppository symptoms #6 ea Allergies Allergy/AdvReac Type Severity Reaction Status Date / Time codeine Allergy Intermediate ADR-Headach Verified 11/12/22 13:43 e [facility] Anesthesia Medical History (Updated 11/12/22 @ 08:07 by Bernabe Ochoa MD) Asthma COPD (chronic obstructive pulmonary disease) Oxygen dependent Right ureteral calculus Surgical History No pertinent past surgical history Family History Mother Rheumatoid arthritis CHF (congestive heart failure) Father , AT AGE 56 Cancer lung cancer Other CAD (coronary artery disease) Social History Smoking and tobacco status: former smoker Alcohol intake: never Lives independently: Yes Housing: House Marital status: / Current occupational status: disabled History of recent travel: No Data Anesthesia Cardiac Studies: Echocardiogram Ultrasound 06/20/20
[2022-11-15] MEDS: sodium chloride 0.9% 1,000 ML 30 ML IV (08:27)
[2022-11-15 08:36] VITALS: BP 158/90; PULSE 100; RESP 20; TEMP 37.2; O2SAT 97
--- NOTE | 2022-11-15 09:13 | W.PM.OPSUD ---
Surgery/Procedure H&P Update DATE OF PROCEDURE: November 15, 2022 DATE H&P PERFORMED: 11/12/22 H&P UPDATE INFORMATION: I have reviewed H&P completed within last 30 days, I have examined patient prior to procedure, No changes to prior documentation and H&P is in [facility] EMR on date indicated PREOP DIAGNOSIS: Left UPJ stone with obstruction PLANNED PROCEDURE: Operation Date: 11/15/22 09:25 Proposed Procedures p CYSTOSCOPY LEFT RETROGRADE URETEROSCOPY LASER STENT 8[address]30 [facility] 26 03900,N20.1,N13.30(Not Applicable) - Bernabe Ochoa MD s Retrograde Pyelogram(Left) - MD papo Granger Ureteroscopy(Left) - MD papo Granger Laser Lithotripsy(Left) - Bernabe Ochoa MD s Ureteral Stent Placement(Left) - Bernabe Ochoa MD
[2022-11-15] MEDS: levofloxacin-dextrose 5 % 500 MG/100 ML PREMIX 100 MG IV (09:25)
--- NOTE | 2022-11-15 10:01 | SUR.OPER ---
OMNIPAQUE 350MGI/ML LOT [id number] EXP 11/30/24. 6ML USED
--- NOTE | 2022-11-15 11:03 | PM.OP ---
Operative Report Date of procedure: November 15, 2022 Pre-op diagnosis: Left UPJ stone with obstruction Post-op diagnosis: Left UPJ stone with obstruction Procedure done: 1. Cystoscopy, LEFT retrograde ureteropyelogram 2. LEFT ureteroscopy, laser lithotripsy 3. Left ureteral stent: 7 Martiniquais by 28 cm double-pigtail no string Implants: Left ureteral stent Specimens removed/disposition: Stone fragments Pathology: Stone fragments Surgeon: Gabriela Estimated blood loss: Minimal Urine output: Not measured Complications: None Findings: Anesthesia: General Condition: Stable Disposition: PACU Intraoperative findings: Distal ureter required dilation. UPJ appeared to be somewhat intrinsically narrowed with some inflammatory changes where the stone had been wedged. Stone completely fragmented in the lower pole calyx into sand. No substantial fragments remained. Could not secure any of the fragments with the standard baskets. 7 Martiniquais by 28 cm double-pigtail stent left indwelling. Plan on maintaining the stent for at least 2 weeks. Brief History: Dahlia is a 61-year-old white female with known history of a left renal calculus and nonobstructing position for quite some time. Over the last month she has had increasing symptoms suspicious for renal colic and ultimately had a CT scan that showed the stone was at the UPJ with obstructive changes. It was not clearly engaged in the ureter but very close. There was a concern about the possibility of a UPJ obstruction but I expect that it was secondary to the stone and not primary. An old CT scan did show slight narrowing but no evidence of dilation. We had hoped to try to do the procedure last Tuesday but while waiting to be admitted she had a grilled cheese sandwich and so therefore was postponed to today. She is also on aspirin so endoscopy was selected over ESWL. She did not want a wait until the aspirin effect had worn off. Procedure: After routine preoperative evaluation examination and obtaining of informed consent she was taken to the operating suite on 11/15/2022 where general anesthesia was administered without difficulty after appropriate timeout was performed, SCDs confirmed to be functioning, preoperative antibiotics administered, the block protocol confirmed. Prepped and draped in usual sterile fashion in dorsolithotomy position paying careful attention to avoiding pressure points. 21 Martiniquais cystoscope with 30 degree lens was introduced into the urethra meatus and advanced into the bladder to videoscopy. Bladder was systematically examined. No stones were seen. An 8 Martiniquais cone-tip catheter was intubated into the left ureteral orifice for left retrograde ureteropyelogram which showed normal course and caliber of the ureter, some narrowing at the UPJ, dilated pyelocalyceal system, filling defect consistent with the known stone. No other stones were seen. A flexible tip guidewire was then advanced up the left ureter into the upper pole calyx. Initial passage beyond the ureteral orifice was somewhat difficult due to angulation. Ultimately with use of an open-ended ureteral catheter as well as a Glidewire the wire was able to be manipulated into the ureter and then exchanged through the open-ended ureteral catheter with a typical guidewire. That point on there was no difficulty accessing the ureter. The distal ureter was dilated with a 15 Martiniquais 4 cm balloon. A second guidewire was then passed. The first was secured to the drapes as a safety wire and the second was used as a working wire. A 24 cm ureteral access sheath was advanced over the working wire to the hub. A flexible digital ureteroscope was then advanced through the ureteral access sheath over the guidewire into the proximal ureter and renal pelvis the wire was removed and the pyelocalyceal system was carefully inspected. The stone had migrated into 1 the lower pole calyces and the filling defect could be seen on the fluoroscopy. The stone was then completely fragmented with a 200 ?m thulium superpulse laser fiber into basically sand. Attempted securing some of the fragments in the basket were unsuccessful due to the very very small size. Careful inspection revealed no residual stone fragments of any consequence. The UPJ was then inspected. There did appear to be some irritation at this area. I expect that there was a natural but clinically insignificant UPJ narrowing that became more prominent with a stone located at that position It was decided to leave a stent indwelling for further healing/passive dilation both of the UPJ as well as the distal ureter where dilation was performed. The access sheath was backloaded onto the hub of the scope and then the ureter was inspected as the scope was removed. The distal ureter had some typical dilation trauma. The UPJ showed some mild intrinsic narrowing and some inflammatory changes. Cystoscope was then backloaded over the guidewire and a 7 Martiniquais by 28 cm double-pigtail stent was advanced over the guidewire through the cystoscope into appropriate position as confirmed via fluoroscopy and cystoscopy. Stent was confirmed to be draining. Bladder was drained. There is no significant fragment accumulation in the bladder. She tolerated procedure well without complications and was awakened in the operating room and returned to the recovery room in stable condition PLANS: 1. Anticipate discharge from 2. Maintain ureteral stent for at least 2 weeks for passive dilation and healing. 3. Strain urine and save any sand fragments for analysis. Stone was consistent grossly with calcium oxalate.
[2022-11-15 11:08] VITALS: BP 138/94; PULSE 96; RESP 17; TEMP 36.1; O2SAT 100
[2022-11-15 11:15] VITALS: BP 127/92; PULSE 98; RESP 20; O2SAT 100
[2022-11-15 11:20] VITALS: BP 149/118; PULSE 102; RESP 20; TEMP 36.1; O2SAT 99
[2022-11-15 11:30] VITALS: BP 159/99; PULSE 101; RESP 20; TEMP 36.2; O2SAT 94
--- NOTE | 2022-11-15 11:49 | PC.NURSE ---
sent message/task system request for followup appointment at approximately 1869
[2022-11-15] MEDS: HYDROcodone-acetaminophen 5-325 mg Tablet 1 TAB PO (11:58)
[2022-11-15 12:00] VITALS: BP 159/100; PULSE 100; RESP 20; TEMP 36.2; O2SAT 95
--- NOTE | 2022-11-15 16:28 | ANE.PACU2 ---
Inpatient post-anesthesia follow up: Airway intact: Yes Vital signs: Temperature 97.1 F Pulse Rate 100 Respiratory Rate 20 Blood Pressure 159/100 Pulse Oximetry 95 Oxygen Delivery Me thod Room Air Oxygen Flow Rate 3 Fraction of Inspir ed Oxygen Hydration adequate: Yes Nausea and vomiting: No Pain level: 1 Mental status: Baseline
== END 2022-11-15 12:25 | disposition home or self-care (01) ==
PROVIDERS: PCP Registered Nurse; Visit Provider Urology
PROC: 0TJB8ZZ Inspection of Bladder, Via Natural or Artificial Opening Endoscopic (ICD-10-PCS; CPT 52000; principal; 2022-11-15 09:15)
PROC: (CPT 74420; 2022-11-15 09:15)
PROC: 0TJ98ZZ Inspection of Ureter, Via Natural or Artificial Opening Endoscopic (ICD-10-PCS; CPT 52351; 2022-11-15 09:15)
PROC: (CPT 52356; 2022-11-15 09:15)
PROC: (CPT 50605; 2022-11-15 09:15)
DX: N20.1 Calculus of ureter (principal); N13.30 Unspecified hydronephrosis; Z79.82 Long term (current) use of aspirin; J45.909 Unspecified asthma, uncomplicated; Z99.81 Dependence on supplemental oxygen; Z87.891 Personal history of nicotine dependence
CPT/HCPCS: 52356; 76000; C2625; J1100; J1956; J2370; J2405; J2704; J3010; J3490; J7030

== ENCOUNTER 2022-12-06 14:18 | Outpatient (CLI) | payer MEDICARE, MEDICAID, SELFPAY ==
--- NOTE | 2022-12-06 14:29 | XRR_ITS ---
PROCEDURE INFORMATION: Exam: XR Abdomen Exam date and time: 12/06/2022 2:32 PM Age: 61 years old Clinical indication: Condition or disease; Kidney or ureter condition; Calculus (stone) in kidney; Prior surgery; Surgery type: Kidney stent; Additional info: Stones, jeniffer nolan 12/06/22 @ 2:15 pm appt to follow TECHNIQUE: Imaging protocol: Radiologic exam of the abdomen. Views: Frontal supine view of the abdomen. 1 View. COMPARISON: CR XR KUB [id number] 11/12/2022 7:38 AM FINDINGS: Gastrointestinal tract: Normal. No bowel dilation. Organs: No kidney stone identified. Left-sided double-J stent is in satisfactory position. Bones/joints: Degenerative changes of the spine seen. XR/XR KUB [id number] IMPRESSION: 1. No acute findings. 2. Left-sided double-J stent in satisfactory position. No kidney stone identified.
== END 2022-12-06 14:19 | disposition home or self-care (01) ==
LOC: RAD 14:22
PROVIDERS: PCP Registered Nurse; Visit Provider Urology
DX: N20.1 Calculus of ureter (principal); Z96.0 Presence of urogenital implants
CPT/HCPCS: 52310; 74018; 81003; 99213

== ENCOUNTER → 2024-01-02 11:20 | Outpatient (BNVA) | payer MEDICARE, MEDICAID, SELFPAY | PROVIDERS: PCP Registered Nurse; Visit Provider Internal Medicine Cardiovascular Disease | DX: R06.02 Shortness of breath (principal); I50.22 Chronic systolic (congestive) heart failure | CPT/HCPCS: 36415; 80048; 83880; 99214 ==

== ENCOUNTER 2024-01-11 14:47 | Outpatient (CLI) | payer MEDICARE, MEDICAID, SELFPAY ==
--- NOTE | 2024-01-11 15:15 | USCV_ITS ---
Dahlia Shah Age: 63 Gender: F : 1960 Exam Date: 01/11/2024 14:57 Ordering Phys: Cathy Lambert MD ([email or web address]) Technologist: CT Exam Location: [facility] – [place] Indication: BP: 120 / 88 HR: 91 Rhythm: Sinus Technical Quality: Adequate MEASUREMENTS (Male / Female) Normal Values 2D ECHO LVOT Diameter 2.0 cm LV Ejection Fraction MOD 2C 65.9 % LV Ejection Fraction 2C AL 65.0 % LA Diameter 2.2 cm RA Systolic Volume 4C AL 19.8 ml RA Systolic Volume 4C MOD 18.8 ml Aorta at Sinotubular Diameter 2.4 cm IVC Diameter 1.7 cm M-MODE LA Ao Ratio MM 0.9 AV Cusp Separation MM 2.3 cm DOPPLER AV Peak Velocity 158.0 cm/s LVOT Peak Velocity 118.0 cm/s AV Area Cont Eq vti 2.6 cm squared AV Area Cont Eq pk 2.5 cm squared MV Peak Velocity 83.0 cm/s MV Area PHT 3.8 cm squared Mitral E to A Ratio 0.9 TR Peak Velocity 101.0 cm/s TR Peak Gradient 4.1 mmHg TV Peak E Velocity 75.0 cm/s Right Atrial Pressure 3.0 mmHg Pulmonary Artery Systolic Pressu 7.1 mmHg PV Peak Velocity 148.8 cm/s FINDINGS Left Ventricle Normal LV size ejection fraction of 65%.no regional wall motion abnormalities. Grade I/IV diastolic dysfunction (abnormal relaxation filling pattern), normal to mildly elevated filling pressures. Right Ventricle The right ventricle is normal in size and function. Right Atrium The right atrium is normal in size. Left Atrium The left atrium is normal in size. Mitral Valve No gross abnormalities noted Aortic Valve No gross abnormalities noted Tricuspid Valve No gross abnormalities noted Pulmonic Valve No gross abnormalities noted Pericardium Normal pericardium without effusion. Aorta Normal ascending aorta dimension. IVC Normal inferior vena cava. CONCLUSIONS Normal LV size ejection fraction of 65%.no regional wall motion abnormalities. Grade I/IV diastolic dysfunction (abnormal relaxation filling pattern), normal to mildly elevated filling pressures. Normal cardiac chamber sizes. No gross valvular abnormalities. There is no pericardial effusion. There are no intracardiac masses. Compared to the study from 06/20/2020, there is marked improvement in the LV ejection fraction from 37% to 65% Dr Cathy Lambert MD FAC (Electronically Signed) Final Date: 19 January 2024 20:51 S
== END 2024-01-11 14:48 | disposition home or self-care (01) ==
LOC: RAD 14:48
PROVIDERS: PCP Registered Nurse; Visit Provider Internal Medicine Cardiovascular Disease
DX: R06.09 Other forms of dyspnea (principal); I50.22 Chronic systolic (congestive) heart failure; I51.89 Other ill-defined heart diseases
CPT/HCPCS: 93306

== ENCOUNTER → 2024-07-04 10:54 | Outpatient (BNVA) | payer MEDICARE, MEDICAID, SELFPAY | PROVIDERS: PCP Registered Nurse; Visit Provider Nurse Practitioner Family | DX: I51.81 Takotsubo syndrome (principal); I25.10 Atherosclerotic heart disease of native coronary artery without angina pectoris; Z87.891 Personal history of nicotine dependence | CPT/HCPCS: 99214 ==

== ENCOUNTER 2024-11-10 07:47 | Inpatient (IN) | payer MEDICARE, MEDICAID, SELFPAY ==
[2024-11-10] VITALS (93 sets, daily range): BP systolic 73–138; BP diastolic 55–89; PULSE 79–140; RESP 11–32; TEMP 36.7–37.2; O2SAT 90–98; BMI 29.1
--- NOTE | 2024-11-10 07:49 | ECG_ITS ---
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
--- NOTE | 2024-11-10 07:50 | XRR_ITS ---
PROCEDURE INFORMATION: Exam: XR Chest Exam date and time: 11/10/2024 7:55 AM Age: 63 years old Clinical indication: Condition or disease; Lung condition and disease; Copd; Complications not specified; Cough; Additional info: Dyspnea/cough TECHNIQUE: Imaging protocol: Radiologic exam of the chest. Views: 1 view. COMPARISON: CR XR chest 1V portable [id number] 09/17/2022 1:30 PM FINDINGS: Lungs: Patchy and reticular airspace opacities about the right perihilar region and right upper lung. Pleural spaces: No large pleural effusion. No distinct pneumothorax. Heart/Mediastinum: Cardiomediastinal silhouette is midline and normal in size. Bones/joints: No distinct acute osseous findings. XR/XR chest 1V portable [id number] IMPRESSION: Patchy and reticular airspace opacities about the right perihilar region and right upper lung. This may represent an acute infiltrate or chronic fibrotic scarring.
[2024-11-10 08:15] LABS: Basophils # 0.1 10^3/uL (0.0-0.1); Basophils % 0.3 %; Lymphocytes # 0.6 10^3/uL (0.8-4.8); Lymphocytes % 1.9 %; Mean Corpuscular HGB Conc 31.1 g/dL (30-55); Mean Corpuscular Hemoglobin 28.2 pg (27-33); Mean Corpuscular Volume 90.7 fl (85-98); Mean Platelet Volume 10.8 fL (7.4-10.4); Monocytes # 0.9 10^3/uL (0.2-0.9); Monocytes % 3.1 %; Neutrophils # 27.82 10^3/uL (1.8-7.7); Neutrophils % 93.4 %; Nucleated Red Blood Cells % 0 %; Platelet Count 236 10^3/cmm (157-399); Red Blood Count 3.97 10^6/uL (3.85-5.65); Red Cell Distribution Width 13.6 % (12.1-15.1); White Blood Count 29.78 10^3/uL (3.29-11.43)
[2024-11-10 08:23] LABS: ABG PCO2 47.6 mmHg (35-45); ABG PH Result 7.41 (7.35-7.45); Arterial Blood Gas Hematocrit 36.2 % (37-47); Base Excess ABG 4.9 mmol/L (-2.0-2.0); Blood Gas Allen Test Pos; Blood Gas LPM 3.5 %; Blood Gas Operator Identificat MONRO; Blood Gas Sample Site Radial, left; Blood Gas Sample Type Arterial; Carboxyhemoglobin 1.2 %THgb (0.4-20.1); HCO3 ABG 30.3 mmol/L (22-26); HGB O2 Sat 92.5 % (95-100); Ionized Calcium Level - ABG 1.3 mmol/L (1.1-1.4); Oxygen Device NC; Oxygen Saturation ABG 94.6; PO2 ABG 68.4 mmHg (80.0-100.0); PO2 FiO2 Ratio Arterial Blood 213; Potassium Level - ABG 3.8 mmol/L (3.5-5.0); Total Hemoglobin 11.8 g/dL (12-16)
[2024-11-10 08:31] LABS: Alanine Aminotransferase 19 U/L (0-33); Albumin Level 3.5 g/dL (3.5-5.2); Alkaline Phosphatase 128 U/L (35-105); Anion Gap 15.8 (5-19); Aspartate Amino Transferase 27 U/L (0-32); Blood Urea Nitrogen 22 mg/dL (8-23); Calcium 9.6 mg/dL (8.5-10.5); Carbon Dioxide 27 mmol/L (22-29); Chloride 97 mmol/L (98-107); Globulin 3.6 g/dL (1.3-4.6); Glomerular Filtration Rate 161.7 mL/min (90-130); Glucose 129 mg/dL (65-115); Osmolality Calculated 287 mOsm/kg (285-295); Potassium 3.8 mmol/L (3.5-5.1); Sodium 136 mmol/L (136-145); Total Bilirubin 0.8 mg/dL (0.15-1.2); Total Protein 7.1 g/dL (6.6-8.7)
[2024-11-10 08:32] LABS: Lactic Sepsis W/Reflex 1.6 mmol/L (0.5-2.2)
[2024-11-10 08:47] LABS: Covid PCR NEGATIVE (Negative); Influenza A NEGATIVE (Negative); Influenza B NEGATIVE (Negative); Respiratory Syncytial Virus Ce NEGATIVE (Negative)
[2024-11-10] MEDS: piperacillin-tazobactam 3.375 GM in sodium chloride 0.9% (plus) 50 ML IV ×2 (08:57→17:06)
[2024-11-10] MEDS: dexamethasone 10 mg/mL INJ IM (08:58)
[2024-11-10] MEDS: ipratropium-albuterol 3 mL Neb INHALATION ×3 (08:58→20:11)
[2024-11-10 09:07] LABS: Bilirubin Urine Negative (Negative); Blood Urine Trace (Negative); Glucose Urine UA Negative (Normal); Ketones Urine 1+ (Negative); Leukocyte Esterase Urine Negative (Negative); Nitrate Urine Negative (Negative); Protein Urine 2+ (Negative); Specific Gravity, Urine 1.026 (1.005-1.030); Urine Appearance Clear (CLEAR); Urine Color Dark Yellow (Yellow)
--- NOTE | 2024-11-10 09:11 | ED_ITS ---
HPI - SOB/Dyspnea 2 General: Chief Complaint: Shortness of Breath/Dyspnea Stated Complaint: sob Time Seen by Provider: 11/10/24 07:49 History of Present Illness: HPI Narrative: 63-year-old female presents emergency ro om complaining of shortness of breath wheezing and fever. She has a productive cough for the last 3 to 4 days. Patient has severe COPD and wears 3 L at baseline at times will bump up to 6 L/min when she is active. She has some mild chest pain associated with deep inspiration and cough. Associated symptoms: Deny abdominal pain, chest pain or fever(s) Related Data Home Medications Medication Instructions Recorded Confirmed albuterol sulfate 90 mcg/actuation 2 puff inhalation Q6H PRN 06/19/20 11/10/24 aerosol inhaler Shortness Of Breath Or Wheezing fluticasone fur. 200 mcg-umeclid 1 inh inhalation DAILY 11/12/22 11/10/24 62.5 mcg-vilant 25 mcg inhalat.powder (Trelegy Ellipta) pantoprazole 40 mg tablet,delayed 40 mg PO BID 11/12/22 11/10/24 release spironolactone 25 mg tablet 25 mg PO DAILY 01/02/24 11/10/24 alendronate 70 mg tablet 70 mg PO Q7D 11/10/24 11/10/24 Previous Rx's Medication Instructions Recorded ipratropium 0.5 mg-albuterol 3 mg 3 ml inhalation Q4H PRN shortness 09/17/22 (2.5 mg base)/3 mL nebulization of breath or wheezing #90 mL soln lisinopril 5 mg tablet 5 mg PO DAILY #100 tabs 04/11/24 Allergies Allergy/AdvReac Type Severity Reaction Status Date / Time codeine Allergy Intermediate ADR-Headach Verified 07/04/24 11:02 e Review of Systems 2 Const: Denies: fever(s) or chills Card: Denies: chest pain Resp: Denies: dyspnea GI: Denies: abdominal pain : Reports: dysuria; Denies: urinary frequency or urinary urgency Musc: Denies: neck pain or back pain Skin/Breast: Denies: rash PFSH ED 2 PFSH: Medical History Right ureteral calculus COPD (chronic obstructive pulmonary disease) Oxygen dependent Asthma Surgical History No pertinent past surgical history Family History Mother Rheumatoid arthritis Congestive heart failure (CHF) Father , AT AGE 56 Cancer lung cancer Other CAD (coronary artery disease) Social History Smoking and tobacco/nicotine status: former use of tobacco/nicotine Alcohol intake: never Substance/Drug Use: never Lives independently: Yes Housing: House Marital status: / Current occupational status: disabled Physical Exam 2 Const: COMMON NORMALS: no acute distress GENERAL APPEARANCE: cooperative and comfortable ORIENTATION/CONSCIOUSNESS: Yes awake, Yes oriented to person, Yes oriented to place and Yes oriented to time HENMT: COMMON NORMALS: normocephalic, atraumatic and hearing grossly normal bilaterally HEAD & SCALP: normocephalic and atraumatic Resp: EFFORT & INSPECTION: Yes tachypneic and Yes respiratory distress A USCULTATION: rhonchi and wheezes Cardio: COMMON NORMALS: regular rate, regular rhythm and No murmurs present (Cardio) RATE: regular rate RHYTHM: regular rhythm GI: COMMON NORMALS: Soft to palpation and No hepatosplenomegaly present A USCULTATION: Yes normoactive bowel sounds PALPATION: Yes Soft to palpation, No Tenderness to palpation present (GI), No Guarding due to palpation present (GI) and Yes No hepatosplenomegaly present Extremity: COMMON NORMALS: normal to inspection, capillary refill normal, no clubbing, cyanosis or edema, no calf tenderness and no pedal edema Neuro: SENSORIUM/ORIENTATION: Yes oriented to person, Yes oriented to place and Yes oriented to time Skin: COMMON NORMALS: no rashes or lesions noted GENERAL SKIN EXAM: no rashes or lesions noted Course 2 Vital Signs: Vital signs: Vital Signs Temperature 99.0 F 11/10/24 07:47 Pulse Rate 102 H 11/10/24 13:57 Respiratory Rate 20 H 11/10/24 13:54 Blood Pressure 91/55 11/10/24 12:45 Pulse Oximetry 95 11/10/24 13:56 Oxygen Delivery Me thod Nasal Cannula 11/10/24 13:56 Oxygen Flow Rate 3 11/10/24 13:56 MDM - SOB/Dyspnea Medical Decision Making Patient has a right upper lobe pneumonia with as marked leukocytosis at 30,000. Urine with cath urine shows some red blood cells but no signs of infection. Discussed with hospitalist will admit. Patient has a history of cardiomyopathy blood pressure was low and was tachycardic on arrival given 500 cc normal saline and then further fluid replacement at a much more measured pace. Tachycardia improved blood pressure improved slightly lactic acid not elevated discussed with hospitalist orders written Medical Records I reviewed the patient's medical records. Lab Data I reviewed the patient's lab results. 11/10/24 08:06 11/10/24 08:06 Labs/Radiology: Radiology Impressions Chest X-Ray 11/10/24 07:50 IMPRESSION: Patchy and reticular airspace opacities about the right perihilar region and right upper lung. This may represent an acute infiltrate or chronic fibrotic scarring. Laboratory Results WBC 29.78 10^3/uL (3.29-11.43) H 11/10/24 08:06 RBC 3.97 10^6/uL (3.85-5.65) 11/10/24 08:06 Hgb 11.20 g/dL (11.27-16.99) L 11/10/24 08:06 Hct 36.0 % (36-47) 11/10/24 08:06 MCV 90.7 fl (85-98) 11/10/24 08:06 MCH 28.2 pg (27-33) 11/10/24 08:06 MCHC 31.1 g/dL (30-55) 11/10/24 08:06 RDW 13.6 % (12.1-15.1) 11/10/24 08:06 Plt Count 236 10^3/cmm (157-399) 11/10/24 08:06 MPV 10.8 fL (7.4-10.4) H 11/10/24 08:06 Neut % (Auto) 93.4 % 11/10/24 08:06 Lymph % (Auto) 1.9 % 11/10/24 08:06 [place] % (Auto) 3.1 % 11/10/24 08:06 Eos % (Auto) 0.0 % 11/10/24 08:06 Baso % (Auto) 0.3 % 11/10/24 08:06 Neut # (Auto) 27.82 10^3/uL (1.8-7.7) H 11/10/24 08:06 Lymph # (Auto) 0.6 10^3/uL (0.8-4.8) L 11/10/24 08:06 [place] # (Auto) 0.9 10^3/uL (0.2-0.9) 11/10/24 08:06 Eos # (Auto) 0.0 10^3/uL (0.0-0.8) 11/10/24 08:06 Baso # (Auto) 0.1 10^3/uL (0.0-0.1) 11/10/24 08:06 Nucleated RBC % (auto) 0 % 11/10/24 08:06 Nucleated RBCs # 0.0 /100WBC 11/10/24 08:06 D-Dimer 1.92 ug/mLFEU (0-0.59) H 11/10/24 08:06 Specimen Type Arterial 11/10/24 08:10 Sample Site Radial, left 11/10/24 08:10 ABG pH 7.41 (7.35-7.45) 11/10/24 08:10 ABG pCO2 47.6 mmHg (35-45) H 11/10/24 08:10 ABG pO2 68.4 mmHg (80.0-100.0) L 11/10/24 08:10 ABG PO2/FiO2 Ratio 213 11/10/24 08:10 ABG HCO3 30.3 mmol/L (22-26) H 11/10/24 08:10 ABG O2 Saturation 94.6 11/10/24 08:10 ABG Base Excess 4.9 mmol/L (-2.0-2.0) H 11/10/24 08:10 [place]ail Test Pos 11/10/24 08:10 A-a O2 Gradient 13.0 mmHg (5-10) H 11/10/24 08:10 Hematocrit 36.2 % (37-47) L 11/10/24 08:10 Hgb O2 Saturation 92.5 % (95-100) L 11/10/24 08:10 Carboxyhemoglobin 1.2 %THgb (0.4-20.1) 11/10/24 08:10 Methemoglobin 1.0 % (0.4-1.5) 11/10/24 08:10 Total Hemoglobin 11.8 g/dL (12-16) L 11/10/24 08:10 Sodium 138.0 mmol/L (131-143) 11/10/24 08:10 Potassium 3.8 mmol/L (3.5-5.0) 11/10/24 08:10 Glucose 132.0 mg/dL (70-115) H 11/10/24 08:10 Ionized Calcium 1.3 mmol/L (1.1-1.4) 11/10/24 08:10 O2 Delivery Device Nc 11/10/24 08:10 O2 Liters/Min 3.5 % 11/10/24 08:10 FiO2 32.0 % 11/10/24 08:10 Igniter Assembler ID [place] 11/10/24 08:10 Sodium 136 mmol/L (136-145) 11/10/24 08:06 Potassium 3.8 mmol/L (3.5-5.1) 11/10/24 08:06 Chloride 97 mmol/L (98-107) L 11/10/24 08:06 Carbon Dioxide 27 mmol/L (22-29) 11/10/24 08:06 Anion Gap 15.8 (5-19) 11/10/24 08:06 BUN 22 mg/dL (8-23) 11/10/24 08:06 Creatinine 0.4 mg/dL (0.5-0.9) L 11/10/24 08:06 GFR Calculation 161.7 mL/min (90-130) H 11/10/24 08:06 Glucose 129 mg/dL (65-115) H 11/10/24 08:06 Calculated Osmolality 287 mOsm/kg (285-295) 11/10/24 08:06 Lactic Acid 1.6 mmol/L (0.5-2.2) 11/10/24 08:06 Calcium 9.6 mg/dL (8.5-10.5) 11/10/24 08:06 Total Bilirubin 0.8 mg/dL (0.15-1.2) 11/10/24 08:06 AST 27 U/L (0-32) 11/10/24 08:06 ALT 19 U/L (0-33) 11/10/24 08:06 Alkaline Phosphatase 128 U/L (35-105) H 11/10/24 08:06 Troponin T 5th Gen ng/L 17 ng/L (0-10) H 11/10/24 08:06 Total Protein 7.1 g/dL (6.6-8.7) 11/10/24 08:06 Albumin 3.5 g/dL (3.5-5.2) 11/10/24 08:06 Globulin 3.6 g/dL (1.3-4.6) 11/10/24 08:06 Urine Color Dark yellow (Yellow) A 11/10/24 08:55 Urine Appearance Clear (CLEAR) 11/10/24 08:55 Urine pH 6.0 (5-7) 11/10/24 08:55 Ur Specific Lissie 1.026 (1.005-1.030) 11/10/24 08:55 Urine Protein 2+ (Negative) A 11/10/24 08:55 Urine Glucose (UA) Negative (Normal) 11/10/24 08:55 Urine Ketones 1+ (Negative) H 11/10/24 08:55 Urine Blood Trace (Negative) A 11/10/24 08:55 Urine Nitrate Negative (Negative) 11/10/24 08:55 Urine Bilirubin Negative (Negative) 11/10/24 08:55 Urine Urobilinogen 2.0 mg/dL (Negative) H 11/10/24 08:55 Ur Leukocyte Esterase Negative (Negative) 11/10/24 08:55 Urine RBC 11-20 /hpf (0-2) H 11/10/24 08:55 Urine WBC 0-5 /hpf (0-5) 11/10/24 08:55 Ur Squamous Epith Cells 0-5 /hpf (0-5) 11/10/24 08:55 Amorphous Sediment Not Reportable 11/10/24 08:55 Urine Bacteria None seen /hpf (NONE) 11/10/24 08:55 Hyaline Casts 2.46 /lpf 11/10/24 08:55 Coronavirus (PCR) Negative (Negative) 11/10/24 07:56 Influenza A (PCR) Negative (Negative) 11/10/24 07:56 Influenza Type B (PCR) Negative (Negative) 11/10/24 07:56 RSV (PCR) Negative (Negative) 11/10/24 07:56 All radiology interpretation(s) finalized by discharge Discharge Plan Discharge Patient Disposition: Admitted As Inpatient Admit Provider: Krishna Bowmna Clinical Impression: COPD exacerbation, Takotsubo cardiomyopathy Urinary tract infection Qualifiers: Urinary tract infection type: acute cystitis Hematuria presence: with hematuria Qualified Code(s): N30.01 - Acute cystitis with hematuria COPD (chronic obstructive pulmonary disease) with emphysema Qualifiers: Emphysema type: other Qualified Code(s): J43.8 - Other emphysema Condition: Stable Coding Level of Care Code ED Circuit [facility] Clerk for Meryl Bradley
[2024-11-10 09:12] LABS: Add Urine Microscopic? YES; Bacteria Urine None Seen /hpf; Hyaline Casts Urine 2.46 /lpf; Squamous Epithelial Cell Urine 0-5 /hpf (0-5); WBC Urine 0-5 /hpf (0-5)
[2024-11-10 09:26] LABS: UA Slide Review UA Slide Review Perf
[2024-11-10] MEDS: morphine 4 mg/mL SDV 1 mL IVP (10:44)
[2024-11-10] MEDS: orphenadrine 30 mg/mL Inj 2 mL 60 MG IV (10:44)
--- NOTE | 2024-11-10 13:36 | P.HP_ITS ---
Providers/Chief Complaint 2 Admitting Physician: Krishna Bowman MD Primary Care Provider: ERNESTO Tang Chief Complaint: sob History of Present Illness Ms Dahlia Shah is a 63 year old woman with past medical history of COPD who presents for further evaluation of cough, worsening shortness of breath and generally feeling unwell. Patient symptoms started about 3 days ago, she also reports chest pain worse with inspiration , nausea, reduced p.o. intake and fever. She denies abdominal pain, vomiting, differential body weakness or any other symptoms. In the ER, patient was found to be tachycardic, more hypoxic compared to her baseline, tachypneic and with hypotension. Chest x-ray showed p atchy and reticular airspace opacities about the right perihilar region and right upper lung. Patient received IV fluids in the ER and had improvement in tachycardia and her blood pressure. She was given antibiotics-Zosyn Review of Systems 2 Const: Reports: fever(s) and chills Card: Reports: chest pain Resp: Denies: dyspnea GI: Denies: abdominal pain : Reports: dysuria; Denies: urinary frequency or urinary urgency Musc: Denies: neck pain or back pain Skin/Breast: Denies: rash Neuro: Denies: weakness in extremities All/Imm: Denies: acute wheezing Medications/Allergies Home Medications Medication Instructions Recorded Confirmed Last Taken Type albuterol sulfate 90 mcg/actuation 2 puff inhalation Q6H PRN 06/19/20 11/10/24 11/11/22 History aerosol inhaler Shortness Of Breath Or Wheezing ipratropium 0.5 mg-albuterol 3 mg 3 ml inhalation Q4H PRN shortness 09/17/22 11/10/24 11/12/22 Rx (2.5 mg base)/3 mL nebulization of breath or wheezing #90 mL soln fluticasone fur. 200 mcg-umeclid 1 inh inhalation DAILY 11/12/22 11/10/24 11/14/22 History 62.5 mcg-vilant 25 mcg inhalat.powder (Trelegy Ellipta) pantoprazole 40 mg tablet,delayed 40 mg PO BID 11/12/22 11/10/24 11/13/22 History release spironolactone 25 mg tablet 25 mg PO DAILY 01/02/24 11/10/24 Unknown History lisinopril 5 mg tablet 5 mg PO DAILY #100 tabs 04/11/24 11/10/24 Unknown Rx alendronate 70 mg tablet 70 mg PO Q7D 11/10/24 11/10/24 Unknown History Allergies Allergy/AdvReac Type Severity Reaction Status Date / Time codeine Allergy Intermediate ADR-Headach Verified 07/04/24 11:02 e PFSH Acute 2 PFSH: Medical History Right ureteral calculus COPD (chronic obstructive pulmonary disease) Oxygen dependent Asthma Surgical History No pertinent past surgical history Family History Mother Rheumatoid arthritis Congestive heart failure (CHF) Father , AT AGE 56 Cancer lung cancer Other CAD (coronary artery disease) Social History Smoking and tobacco/nicotine status: former use of tobacco/nicotine Alcohol intake: never Substance/Drug Use: never Lives independently: Yes Housing: House Marital status: / Current occupational status: disabled Vitals/I&O/Wt Last Vital Signs Temp 99.0 F 11/10/24 07:47 Pulse 109 H 11/10/24 12:45 Resp 20 H 11/10/24 12:45 BP 91/55 11/10/24 12:45 Pulse Ox 91 11/10/24 12:45 O2 Del Method Nasal Cannula 11/10/24 08:59 O2 Flow Rate 3.5 11/10/24 08:59 11/09/24 11/10/24 11/10/24 22:59 06:59 14:59 Intake Total 782.6 / 782.6 Balance 782.6 / 782.6 Weight last 48 hrs Weight 83.915 kg Physical Exam 2 Narrative: Awake, alert, in mild respiratory distress, wearing nasal cannula, acutely ill- appearing HENMT: COMMON NORMALS: normocephalic, atraumatic, external ears normal, Normal external nose present, moist oral mucous membranes and oropharynx normal HEAD & SCALP: normocephalic and atraumatic NOSE: Normal external nose present E XTERNAL EAR: Yes external ears normal Eye: COMMON NORMALS: Equal, round and reactive pupils present, EOMs intact bilaterally, conjunctivae normal and no scleral icterus CONJUNCTIVA: Yes conjunctivae normal PUPIL: Yes Equal, round and reactive pupils present Neck/C-Spine: COMMON NORMALS: full ROM, no lymphadenopathy and no JVD Chest: COMMONS NORMALS: normal inspection of the chest Resp: OTHER: Diminished breath sounds bilaterally, mild expiratory wheezes, no crackles Cardio: COMMON NORMALS: no JVD, regular rate, regular rhythm, S1 normal heart sound present and S2 normal heart sound present RATE: regular rate RHYTHM: regular rhythm HEART SOUNDS: S1 normal heart sound present and S2 normal heart sound present GI: COMMON NORMALS: Normal to inspection, nondistended, normoactive bowel sounds present, Soft to palpation and non-tender PALPATION: Yes Soft to palpation Extremity: COMMON NORMALS: normal to inspection and no pedal edema Neuro: COMMON NORMALS: patient oriented x3 SENSORIUM/ORIENTATION: Yes alert OTHER: No gross focal deficits Data 11/10/24 08:06 11/10/24 08:06 Micro: Microbiology 11/10/24 08:24 Blood Culture - Preliminary Blood SPECIMEN COLLECTED 11/10/24 08:27 Blood Culture - Preliminary Blood SPECIMEN COLLECTED A&P Assessment and plan (1) Acute hypercapnic respiratory failure: (2) Community acquired pneumonia: (3) Sepsis: (4) COPD exacerbation: Plan # Sepsis -Patient presented with signs of sepsis-tachycardia, tachypnea, hypotension, leukocytosis, -Chest x-ray shows pneumonia -She is receiving IV fluids cautiously due to history of heart failure -Blood cultures ordered -Antibiotics started -Continue supportive care # Acute on chronic hypoxic respiratory failure -In setting of pneumonia, COPD exacerbation -Patient uses 3 L of oxygen at baseline - Wean oxygen as tolerated -She has compensated hypercapnia on ABG # Acute COPD exacerbation -Patient sounds diminished with some wheezes -Start Solu-Medrol 40 mg every 8 hours, DuoNebs, budesonide -Continue to monitor # Community-acquired pneumonia -Chest x-ray shows patchy and reticular airspace opacities in the right perihilar and right upper lung -Continue IV Zosyn started in the ER -Check MRSA screen -Sputum culture if able # Elevated D-dimer -Patient has pleuritic chest pain which may be in the setting of pneumonia -Will get CT of the chest to rule out PE # Hypertension -Hold anti-hypertensives Attestations 2 Medical Necessity Statement*: Patient requires inpatient care for management of sepsis, pneumonia, respiratory failure. Her care will cross 2 midnights Coding Level of Care Code Acute Code for [facility] Fwd Diagnoses Acute hypercapnic respiratory failure J96.02 Community acquired pneumonia J18.9 Sepsis A41.9 COPD exacerbation J44.1
[2024-11-10 14:03] LABS: D Dimer 1.92 ug/mLFEU (0-0.59)
[2024-11-10 14:09] LABS: Troponin T (5th) Once 17 ng/L (0-10)
[2024-11-10 14:28] LABS: NT Pro B Type Natriuretic Pept 338 pg/mL (0-125)
[2024-11-10] MEDS: methylPREDNISolone sod succ 40 mg/mL INJ IVP ×2 (15:21→23:20)
--- NOTE | 2024-11-10 15:42 | CTR_ITS ---
PROCEDURE INFORMATION: Exam: CTA Chest With Contrast Exam date and time: 11/10/2024 4:31 PM Age: 63 years old Clinical indication: Abnormal findings; Abnormal diagnostic tests; Elevated d-dimer; Additional info: Elevated d. Dimer TECHNIQUE: Imaging protocol: Computed tomographic angiography of the chest with contrast. Exam focused on the arteries. 3D rendering (Not supervised by radiologist): MIP and/or 3D reconstructed images were created by the technologist. Radiation optimization: All CT scans at this facility use at least one of these dose optimization techniques: automated exposure control; mA and/or kV adjustment per patient size (includes targeted exams where dose is matched to clinical indication); or iterative reconstruction. Contrast material: OMNI 350; Contrast volume: 100 ml; Contrast route: INTRAVENOUS (IV); COMPARISON: CR (CHEST, ) 11/10/2024 7:55 AM RADIATION DOSE METRICS: Total DLP (mGy-cm): 354.73 FINDINGS: Pulmonary arteries: No pulmonary emboli. Aorta: Unremarkable. No aortic aneurysm. No aortic dissection. Lungs: Severe emphysematous changes throughout both lungs with diffuse increased septal markings and consolidative opacities in the anterior and posterior aspect of the right upper lobe and to a much lesser extent the superior segment of the right lower lobe. The right middle lobe and left lung are clear. Findings are thought likely infectious in etiology. Pleural spaces: Unremarkable. No pneumothorax. No pleural effusion. Heart: Unremarkable. No cardiomegaly. No pericardial effusion. Coronary arteries: Coronary arterial atherosclerotic calcifications are present. Lymph nodes: Unremarkable. No enlarged lymph nodes. Bones/joints: Unremarkable. No acute fracture. Soft tissues: Unremarkable. CT/CT angio chest PE protcl [id number] IMPRESSION: 1. No pulmonary emboli. 2. Severe emphysematous changes throughout both lungs with diffuse increased septal markings and consolidative opacities in the anterior and posterior aspect of the right upper lobe and to a much lesser extent the superior segment of the right lower lobe. The right middle lobe and left lung are clear. Findings are thought likely infectious in etiology. COMMENTS: The presence of pulmonary emphysema on CT is an independent risk factor for lung cancer. In the absence of a history or active diagnosis of lung cancer, it is recommended that this patient with emphysema be evaluated for enrollment in a low dose CT lung cancer screening program.
[2024-11-10] MEDS: iohexol 350 mg/mL 500 mL Btl (per mL) IV (16:43)
[2024-11-10] MEDS: pantoprazole DR 40 mg Tablet PO (17:06)
[2024-11-10] MEDS: sodium chloride 0.9% 1,000 ML 100 ML IV (17:07)
[2024-11-10 19:42] LABS: Troponin T (5th) Once 9 ng/L (0-10)
[2024-11-10 19:50] LABS: MRSA PCR OZH (swab) NOT DETECTED (Not Detecte)
[2024-11-10] MEDS: budesonide 0.5 mg/2 mL Neb INHALATION (20:11)
[2024-11-11] VITALS (36 sets, daily range): BP systolic 79–134; BP diastolic 55–86; PULSE 75–99; RESP 12–21; TEMP 36.4–37.1; O2SAT 75–100
[2024-11-11] MEDS: piperacillin-tazobactam 3.375 GM in sodium chloride 0.9% (plus) 50 ML IV ×3 (01:26→17:00)
[2024-11-11] MEDS: ipratropium-albuterol 3 mL Neb INHALATION ×4 (02:55→20:12)
[2024-11-11] MEDS: morphine 4 mg/mL SDV 1 mL 2 MG IVP ×3 (03:03→21:04)
[2024-11-11] MEDS: sodium chloride 0.9% 1,000 ML 100 ML IV ×3 (03:04→22:40)
[2024-11-11 05:13] LABS: Basophils % 0.2 %; Lymphocytes # 0.4 10^3/uL (0.8-4.8); Lymphocytes % 1.9 %; Mean Corpuscular HGB Conc 28.8 g/dL (30-55); Mean Corpuscular Hemoglobin 27.6 pg (27-33); Mean Corpuscular Volume 95.9 fl (85-98); Mean Platelet Volume 11.2 fL (7.4-10.4); Monocytes # 0.5 10^3/uL (0.2-0.9); Monocytes % 2.3 %; Neutrophils # 18.99 10^3/uL (1.8-7.7); Neutrophils % 95.1 %; Nucleated Red Blood Cells % 0 %; Platelet Count 197 10^3/cmm (157-399); Red Blood Count 3.44 10^6/uL (3.85-5.65); Red Cell Distribution Width 14.2 % (12.1-15.1); White Blood Count 19.94 10^3/uL (3.29-11.43)
[2024-11-11 05:40] LABS: Blood Urea Nitrogen 16 mg/dL (8-23); Calcium 8.8 mg/dL (8.5-10.5); Carbon Dioxide 24 mmol/L (22-29); Chloride 100 mmol/L (98-107); Creatinine Clr Calc Pharmacy 202.6079; Glomerular Filtration Rate 225.4 mL/min (90-130); Glucose 140 mg/dL (65-115); Osmolality Calculated 287 mOsm/kg (285-295); Sodium 137 mmol/L (136-145)
[2024-11-11 05:49] LABS: Anion Gap 17.3 (5-19); Potassium 4.3 mmol/L (3.5-5.1)
[2024-11-11] MEDS: methylPREDNISolone sod succ 40 mg/mL INJ IVP ×2 (06:48→14:27)
[2024-11-11] MEDS: budesonide 0.5 mg/2 mL Neb INHALATION ×2 (07:57→20:12)
[2024-11-11] MEDS: pantoprazole DR 40 mg Tablet PO ×2 (08:16→17:00)
--- NOTE | 2024-11-11 09:27 | P.PN_ITS ---
Subjective 2 Subjective: Patient reports that she is feeling some better today. She does continue to complain of some back pain, that she says has worsened from being in bed so much. Says that her work of breathing is better. She does not feel quite as sick, but she is still very tired. She denies having much of an appetite. Medications: Reviewed: Yes Vitals/I&O/Wt Last Vital Signs Temp 97.9 F 11/11/24 09:00 Pulse 98 11/11/24 09:00 Resp 16 11/11/24 07:55 BP 112/73 11/11/24 09:00 Pulse Ox 89 L 11/11/24 09:00 O2 Del Method Nasal Cannula 11/11/24 09:00 O2 Flow Rate 3 11/11/24 07:55 11/10/24 11/11/24 11/11/24 22:59 06:59 14:59 Intake Total 671.667 / 6203.591 8803 / 2979.267 240 / 240 Output Total 350 / 350 440 / 790 Balance 321.667 / 1584.267 605 / 2189.267 240 / 240 Weight last 48 hrs Weight 174 lb 2.643 oz Weight 174 lb 2.643 oz Weight 175 lb 5 oz Weight 185 lb Physical Exam 2 Narrative: General: Cooperative patient in no apparent distress. Well developed. HEENT: Normocephalic, Atraumatic. External ears normal. Nasal passages patent without drainage. MMM. Heart: Slightly tachycardic with regular rhythm. Respiratory: No acute respiratory distress. There are bibasilar crackles and rhonchi. Abd: Soft, non-tender. Non-distended. Extremities: No edema. Skin: No rash or lesions on exposed areas. Data 11/11/24 05:02 11/11/24 05:02 Micro: Microbiology 11/10/24 08:24 Blood Culture - Preliminary Blood NEGATIVE TO DATE 11/10/24 08:27 Blood Culture - Preliminary Blood NEGATIVE TO DATE 11/10/24 09:29 Gram Stain - Final Sputum - Expectorated Sputum A&P Assessment and plan (1) Acute hypercapnic respiratory failure: (2) Community acquired pneumonia: (3) Sepsis: (4) COPD exacerbation: Plan 63-year-old female admitted for sepsis secondary to pneumonia, acute on chronic hypoxic respiratory failure, COPD exacerbation, and elevated D-dimer. Continue close inpatient monitoring. Will transfer from ICU to [facility] today. Sputum culture is growing gram-positive cocci in clusters, pairs, and chains, heavy gram-negative rods and few gram-positive rods. Currently on Zosyn. White blood cell count has trended down from 29 to 19. Continue Solu-Medrol 40 mg every 8 hours, and will titrate down later today or tomorrow. Blood cultures negative to date. Her current oxygen requirement is at 3 L, which is her baseline. Oxygen sats in the mid 90s. MRSA screen was negative. Will slowly add back hypertensive once her pressures are stable. Continue Lovenox now for VTE prophylaxis. Chest CT showed no pulmonary embolism. Continue RAAT, O2 protocol, Duonebs, budesonide. Continue cardiac monitoring. Will continue pain medication for now given her back pain. PT to eval and treat. Code Status: Full code IVF: NS at 100 DVT PPx: Lovenox GI PPx: Protonix ABx: Zosyn Diet: Cardiac Discharge plan: Home when able Attestations 2 Medical Necessity Statement*: Patient requires inpatient care for management of sepsis, pneumonia, respiratory failure. Her care will cross 2 midnights Coding Level of Care Code Acute Code for [facility]g Fwd Moderate MDM includes number and complexity of problems actively addressed during encounter, amount and/or complexity of data reviewed/ordered and described risk of complication, morbidity or mortality of management as documented Diagnoses Acute hypercapnic respiratory failure J96.02 Community acquired pneumonia J18.9 Sepsis A41.9 COPD exacerbation J44.1
[2024-11-11] MEDS: enoxaparin 40 mg/0.4 mL Syringe SUBCUT (14:27)
[2024-11-12] VITALS (31 sets, daily range): BP systolic 92–162; BP diastolic 67–99; PULSE 71–130; RESP 13–23; TEMP 36.5–37.1; O2SAT 90–100
[2024-11-12] MEDS: piperacillin-tazobactam 3.375 GM in sodium chloride 0.9% (plus) 50 ML IV ×3 (00:23→17:15)
[2024-11-12] MEDS: methylPREDNISolone sod succ 40 mg/mL INJ IVP ×3 (00:24→17:15)
--- NOTE | 2024-11-12 01:34 | ECG_ITS ---
[facility] Date[facility] 2024-[facility]12 Pat Name: Dahlia Shah Department: Room: [facility] Gender: Female Manager Cleaning: : 1960 Requested By: Timothy Henderson Order Number: [id number] Reading MD: ARTURO CASTORENA Measurements Intervals [place] Rate: 118 P: 0 HI: 0 QRS: 62 QRSD: 83 T: 53 QT: 269 QTc: 378 Interpretive Statements ATRIAL FIBRILLATION WITH RAPID VENTRICULAR RESPONSE SEPTAL MYOCARDIAL INFARCTION , OF INDETERMINATE AGE [40+ ms Q WAVE IN V1/V2] Compared to ECG 11/10/2024 07:56:42 Myocardial infarct finding now present T-wave abnormality no longer present Electronically Signed On 11-12-2024 23:12:23 BUSINESS ANALYSIS CONSULTANT by ARTURO CASTORENA [email or web address]
[2024-11-12] MEDS: metoprolol tartrate 1 mg/1 mL SDV 5 mL 2.5 MG IVP ×2 (01:53→07:04)
[2024-11-12] MEDS: ipratropium-albuterol 3 mL Neb INHALATION ×2 (02:05→08:00)
[2024-11-12] MEDS: LORazepam 0.5 mg Tablet PO (02:17)
[2024-11-12] MEDS: budesonide 0.5 mg/2 mL Neb INHALATION ×2 (08:00→19:34)
[2024-11-12 08:17] LABS: Glucose Point of Care 130 mg/dL (70-110)
[2024-11-12] MEDS: pantoprazole DR 40 mg Tablet PO ×2 (08:29→17:16)
[2024-11-12] MEDS: spironolactone 25 mg Tablet PO (08:29)
[2024-11-12] MEDS: sodium chloride 0.9% 1,000 ML 100 ML IV (08:30)
[2024-11-12] MEDS: lisinopril 5 mg Tablet PO (08:30)
[2024-11-12 09:29] LABS: Basophils % 0.3 %; Hematocrit 33.3 % (36-47); Lymphocytes # 0.6 10^3/uL (0.8-4.8); Lymphocytes % 4.5 %; Mean Corpuscular HGB Conc 29.1 g/dL (30-55); Mean Corpuscular Hemoglobin 28.3 pg (27-33); Mean Corpuscular Volume 97.1 fl (85-98); Mean Platelet Volume 10.5 fL (7.4-10.4); Monocytes # 0.6 10^3/uL (0.2-0.9); Monocytes % 4.5 %; Neutrophils # 11.73 10^3/uL (1.8-7.7); Nucleated Red Blood Cells % 0.2 %; Platelet Count 197 10^3/cmm (157-399); Red Blood Count 3.43 10^6/uL (3.85-5.65); Red Cell Distribution Width 14.4 % (12.1-15.1); White Blood Count 13.19 10^3/uL (3.29-11.43)
[2024-11-12 09:50] LABS: Alanine Aminotransferase 53 U/L (0-33); Albumin Level 2.7 g/dL (3.5-5.2); Alkaline Phosphatase 138 U/L (35-105); Aspartate Amino Transferase 52 U/L (0-32); Blood Urea Nitrogen 22 mg/dL (8-23); Calcium 9.1 mg/dL (8.5-10.5); Carbon Dioxide 22 mmol/L (22-29); Chloride 106 mmol/L (98-107); Creatinine Clr Calc Pharmacy 201.8774; Globulin 3.6 g/dL (1.3-4.6); Glomerular Filtration Rate 225.4 mL/min (90-130); Glucose 128 mg/dL (65-115); Osmolality Calculated 291 mOsm/kg (285-295); Sodium 138 mmol/L (136-145); Total Bilirubin 0.2 mg/dL (0.15-1.2); Total Protein 6.3 g/dL (6.6-8.7)
[2024-11-12 09:53] LABS: Anion Gap 14.7 (5-19); Potassium 4.7 mmol/L (3.5-5.1)
[2024-11-12] MEDS: ALPRAZolam 0.5 mg Tablet PO ×2 (12:13→19:40)
[2024-11-12] MEDS: metoprolol tartrate 1 mg/1 mL SDV 5 mL 5 MG IVP (12:14)
[2024-11-12 12:56] LABS: Procalcitonin 1.36 ng/mL (0-0.5); Thyroid Stimulating Hormone 0.18 uIU/mL (0.27-4.20); Vitamin B12 765 pg/mL (232-1245)
[2024-11-12 13:11] LABS: Iron 83 ug/dL (37-145)
[2024-11-12 13:46] LABS: Percent Saturation 40.8 % (20-50); Total Iron Binding Capacity 203 mcg/dl; Unsaturated Iron Binding 120 ug/dL (112-347)
--- NOTE | 2024-11-12 13:52 | PC.SOCIAL ---
IMM Update pg 2 of IMM updated and reviewed w/ patient. Copy provided and copy dated, initialed and placed in chart.
[2024-11-12] MEDS: ipratropium 0.5 mg/2.5 mL Neb INHALATION ×2 (13:56→19:34)
[2024-11-12] MEDS: levalbuterol 0.63 mg/3 mL Neb INHALATION ×2 (13:56→19:34)
[2024-11-12 14:08] LABS: Free T4 Free Thyroxine 0.95 ng/dL (0.82-1.77); T3 Free 1.3 PG/ML (2.0-4.4)
[2024-11-12 14:18] LABS: Estmated Average Glucose 111; Hemoglobin A1C 5.5 % (4.0-6.0)
[2024-11-12] MEDS: enoxaparin 40 mg/0.4 mL Syringe SUBCUT (14:47)
--- NOTE | 2024-11-12 16:31 | P.PN_ITS ---
Subjective 2 Subjective: Hospital course, labs appreciated. On examination patient laying comfortably in bed. States he is feeling anxious because of being in hospital. Denies any nausea, vomiting, headache. Complaining of feeling of palpitations. Has been on A-fib with RVR since last night for which she required to doses of IV metoprolol. Saturating more than 95% on 3 L. Appreciate urine out Medications: Reviewed: Yes Vitals/I&O/Wt Last Vital Signs Temp 98.7 F 11/12/24 09:00 Pulse 113 H 11/12/24 14:03 Resp 18 11/12/24 13:56 BP 98/79 11/12/24 13:00 Pulse Ox 99 11/12/24 13:56 O2 Del Method Nasal Cannula 11/12/24 13:56 O2 Flow Rate 3 11/12/24 13:56 11/12/24 11/12/24 11/12/24 06:59 14:59 22:59 Intake Total 0 / 2780 1083.333 / 1083.333 Balance 0 / 2330 1083.333 / 1083.333 Weight last 48 hrs Weight 78.925 kg Weight 78.925 kg Weight 79 kg Weight 79 kg Physical Exam 2 Narrative: General: Cooperative patient in no apparent distress. Well developed. HEENT: Normocephalic, Atraumatic. External ears normal. Nasal passages patent without drainage. MMM. Heart: Slightly tachycardic with regular rhythm. Respiratory: No acute respiratory distress. There are bibasilar crackles and rhonchi. Abd: Soft, non-tender. Non-distended. Extremities: No edema. Skin: No rash or lesions on exposed areas. Data 11/12/24 09:00 11/12/24 09:00 Micro: Microbiology 11/10/24 09:29 Gram Stain - Final Sputum - Expectorated Sputum Sputum Culture - Final A&P Assessment and plan (1) Acute hypercapnic respiratory failure: Oxygen supplementation keeping saturation over 90%. Most likely in combination of COPD exacerbation, right upper and middle lobe pneumonia. Low concerns of congestive heart failure. Supplementation keeping saturation over 90%. Out of bed to chair. Incentive spirometry. (2) Community acquired pneumonia: Appreciate CTA. Follow-up sputum culture, MRSA swab, blood culture. Sputum culture not yet collected. For now continue with IV Zosyn and oral azithromycin. If MRSA swab is positive will add vancomycin. (3) Sepsis: Present on admission. Resolving. (4) COPD exacerbation: Pulmicort twice daily, switch DuoNeb to ipratropium, Xopenex every 6 hours. Wean Solu-Medrol 40 mg IV every 12 hourly. Will plan for weaning further within next 24 hours. (5) Hypertension: Goal blood pressure less than 140/90 mmHg. Blood pressure trending down since RVR. Stop lisinopril. (6) Takotsubo cardiomyopathy: Past history. Last echocardiogram from December 2023 showed an improvement on EF to 65% with grade 1 diastolic dysfunction from 37% in the past. IV Lasix 40 mg one-time. (7) Atrial fibrillation with RVR: Check TSH. If abnormal will check free T3 and free T4. Metoprolol 25 mg oral twice daily. Blood pressure soft. Holding off on lisinopril. Amiodarone 150 mg bolus followed by drip. Plan Code Status: Full code IVF: Stop IV fluids. Lasix as above DVT PPx: Lovenox GI PPx: Protonix ABx: Zosyn, add azithromycin Diet: Cardiac Discharge plan: Home when able Care discussed in detail with patient's daughter over the phone. All the questions were answered. Transfer to [facility]. Attestations 2 Medical Necessity Statement*: Requires further hospitalization for management of A-fib with RVR, hypoxia in setting of community-acquired pneumonia in a patient with history of Takotsubo with improvement in EF, COPD exacerbation with Diagnoses Acute hypercapnic respiratory failure J96.02 Community acquired pneumonia J18.9 Sepsis A41.9 COPD exacerbation J44.1 Hypertension I10 Takotsubo cardiomyopathy I51.81 Atrial fibrillation with RVR I48.91
--- NOTE | 2024-11-12 16:34 | USR_ITS ---
PROCEDURE INFORMATION: Exam: US Soft Tissue Head and Neck, Thyroid Exam date and time: 11/12/2024 5:50 PM Age: 63 years old Clinical indication: Abnormal findings; Abnormal thyroid lab test; Additional info: Hyperthyroid , check for vascularity TECHNIQUE: Imaging protocol: Real-time ultrasound scan of the neck with image documentation. Exam focused on the thyroid. COMPARISON: CT angio chest PE protcl [id number] 11/10/2024 4:31 PM FINDINGS: Right thyroid lobe: The right thyroid gland measures 1.3 x 4.0 x 1.6 cm. Involving the inferior right thyroid is a well-defined hypoechoic, solid nodule measuring 0.7 x 0.9 x 0.7 cm (TR 3). There is a peripherally calcified thyroid nodule posterior to the thyroid gland measuring 0.8 x 0.9 x 1.2 cm. Presence of peripheral calcification limits evaluation of the internal echotexture of this nodule. This nodule is solid hypoechoic (TR 4). Left thyroid lobe: The left thyroid gland measures 1.8 x 1.1 x 3.9 cm. There is a small well-defined, mixed cystic/solid, isoechoic nodule in the inferior left thyroid measuring 0.6 x 0.7 x 0.9 cm (TR 2). Isthmus: The isthmus measures 4 mm in thickness. US/US thyroid [id number] IMPRESSION: Moderately suspicious peripherally calcified right thyroid nodule as detailed. This nodule meets size criteria for follow-up imaging in 12 months. The additional identified thyroid nodules do not meet criteria for follow-up or biopsy.
[2024-11-12] MEDS: amiodarone 150 MG/100 ML PREMIX 400 MG IV (17:15)
[2024-11-12] MEDS: FUROsemide 10 mg/mL SDV 4mL 40 MG IVP (17:15)
[2024-11-12] MEDS: azithromycin 250 mg Tablet 500 MG PO (17:16)
[2024-11-12] MEDS: metoprolol tartrate 25 mg Tablet PO (20:35)
[2024-11-13] VITALS (31 sets, daily range): BP systolic 95–136; BP diastolic 68–98; PULSE 82–115; RESP 14–24; TEMP 36.2–36.9; O2SAT 90–100
[2024-11-13] MEDS: acetaminophen 325 mg Tablet 650 MG PO ×3 (00:26→22:26)
[2024-11-13] MEDS: piperacillin-tazobactam 3.375 GM in sodium chloride 0.9% (plus) 50 ML IV ×3 (00:51→18:08)
[2024-11-13] MEDS: levalbuterol 0.63 mg/3 mL Neb INHALATION ×4 (02:28→19:42)
[2024-11-13] MEDS: ipratropium 0.5 mg/2.5 mL Neb INHALATION ×4 (02:28→19:42)
[2024-11-13 03:52] LABS: Basophils % 0.4 %; Lymphocytes # 0.7 10^3/uL (0.8-4.8); Mean Corpuscular HGB Conc 29.4 g/dL (30-55); Mean Corpuscular Hemoglobin 28.2 pg (27-33); Mean Corpuscular Volume 95.8 fl (85-98); Mean Platelet Volume 10.5 fL (7.4-10.4); Monocytes # 0.9 10^3/uL (0.2-0.9); Monocytes % 7.5 %; Neutrophils # 9.16 10^3/uL (1.8-7.7); Neutrophils % 81.1 %; Nucleated Red Blood Cells % 0 %; Platelet Count 254 10^3/cmm (157-399); Red Blood Count 3.55 10^6/uL (3.85-5.65); Red Cell Distribution Width 14.4 % (12.1-15.1)
[2024-11-13 04:19] LABS: Alanine Aminotransferase 98 U/L (0-33); Albumin Level 2.9 g/dL (3.5-5.2); Alkaline Phosphatase 175 U/L (35-105); Anion Gap 12.8 (5-19); Aspartate Amino Transferase 73 U/L (0-32); Blood Urea Nitrogen 27 mg/dL (8-23); Calcium 9.4 mg/dL (8.5-10.5); Carbon Dioxide 30 mmol/L (22-29); Chloride 103 mmol/L (98-107); Creatinine Clr Calc Pharmacy 121.1264; Globulin 2.9 g/dL (1.3-4.6); Glucose 140 mg/dL (65-115); Osmolality Calculated 299 mOsm/kg (285-295); Potassium 4.8 mmol/L (3.5-5.1); Sodium 141 mmol/L (136-145); Total Bilirubin 0.2 mg/dL (0.15-1.2); Total Protein 5.8 g/dL (6.6-8.7)
[2024-11-13 04:23] LABS: Chol HDL Ratio 6.14 mg/dL (0.0-4.40); Cholesterol 221 mg/dL (0-200); HDL Cholesterol 36 mg/dL (60-100); LDL Cholesterol Calculated 164 mg/dL (50-129); Magnesium 2.4 mg/dL (1.7-2.3); Triglycerides 104 mg/dL (0-150); VLDL Cholestrol Calculation 21 mg/dL (0-30)
[2024-11-13 04:31] LABS: Folate Level 9.6 ng/mL (4.8-37.3)
[2024-11-13] MEDS: morphine 4 mg/mL SDV 1 mL 2 MG IVP (07:49)
[2024-11-13] MEDS: metoprolol tartrate 25 mg Tablet PO ×2 (09:15→21:59)
[2024-11-13] MEDS: methylPREDNISolone sod succ 40 mg/mL INJ IVP ×2 (09:15→18:07)
[2024-11-13] MEDS: pantoprazole DR 40 mg Tablet PO ×2 (09:15→18:08)
[2024-11-13] MEDS: azithromycin 250 mg Tablet 500 MG PO (09:15)
[2024-11-13] MEDS: budesonide 0.5 mg/2 mL Neb INHALATION ×2 (09:26→19:42)
[2024-11-13] MEDS: enoxaparin 80 mg/0.8 mL Syringe SUBCUT ×2 (09:55→22:28)
[2024-11-13] MEDS: ALPRAZolam 0.5 mg Tablet PO (11:04)
--- NOTE | 2024-11-13 15:20 | P.PN_ITS ---
Subjective 2 Subjective: No acute events overnight. Patient has remained with. Heart rate better controlled. States breathing is better but she feels very tired today. Denies any nausea, vomiting, headache. Appetite appropriate. Denies any chest pain. Saturating more than 95% on 3 L. Medications: Reviewed: Yes Vitals/I&O/Wt Last Vital Signs Temp 98.5 F 11/13/24 08:00 Pulse 109 H 11/13/24 14:30 Resp 17 11/13/24 14:20 BP 116/77 11/13/24 13:00 Pulse Ox 97 11/13/24 14:20 O2 Del Method Nasal Cannula 11/13/24 14:20 O2 Flow Rate 3 11/13/24 14:20 11/13/24 11/13/24 11/13/24 06:59 14:59 22:59 Intake Total 250 / 2033.333 644.761 / 644.761 Output Total 1200 / 2950 Balance -950 / -916.667 644.761 / 644.761 Weight last 48 hrs Weight 80.331 kg Weight 80.331 kg Weight 78.925 kg Weight 78.925 kg Physical Exam 2 Narrative: General: Cooperative patient in no apparent distress. Well developed. HEENT: Normocephalic, Atraumatic. External ears normal. Nasal passages patent without drainage. MMM. Heart: Slightly tachycardic with regular rhythm. Respiratory: No acute respiratory distress. There are bibasilar crackles and rhonchi. Abd: Soft, non-tender. Non-distended. Extremities: No edema. Skin: No rash or lesions on exposed areas. Data 11/13/24 03:09 11/13/24 03:09 Micro: Microbiology 11/10/24 09:29 Gram Stain - Final Sputum - Expectorated Sputum Sputum Culture - Final A&P Assessment and plan (1) Acute hypercapnic respiratory failure: Oxygen supplementation keeping saturation over 90%. Most likely in combination of COPD exacerbation, right upper and middle lobe pneumonia. Low concerns of congestive heart failure. Supplementation keeping saturation over 90%. Out of bed to chair. Incentive spirometry. (2) Community acquired pneumonia: Appreciate CTA. Follow-up sputum culture, MRSA swab, blood culture. Sputum culture not yet collected. For now continue with IV Zosyn and oral azithromycin. If MRSA swab is positive will add vancomycin. (3) Sepsis: Present on admission. Resolving. (4) COPD exacerbation: Pulmicort twice daily, switch DuoNeb to ipratropium, Xopenex every 6 hours. Wean Solu-Medrol 40 mg IV every 12 hourly. Will plan for weaning further within next 24 hours. (5) Hypertension: Goal blood pressure less than 140/90 mmHg. Blood pressure trending down since RVR. Stop lisinopril. (6) Takotsubo cardiomyopathy: Past history. Last echocardiogram from December 2023 showed an improvement on EF to 65% with grade 1 diastolic dysfunction from 37% in the past. IV Lasix 40 mg one-time. (7) Atrial fibrillation with RVR: Check TSH. If abnormal will check free T3 and free T4. Metoprolol 25 mg oral twice daily. Blood pressure soft. Holding off on lisinopril. Amiodarone 150 mg bolus followed by drip. Plan Code Status: Full code IVF: Stop IV fluids. Lasix as above DVT PPx: Lovenox GI PPx: Protonix ABx: Zosyn, add azithromycin Diet: Cardiac Discharge plan: Home when able Care discussed in detail with patient's daughter over the phone. All the questions were answered. Transfer to [facility]. Plan for the day: Altered improving. Continue with amiodarone drip. Switch to 200 mg oral twice daily once 24-hour protocol finished. Continue with metoprolol 25 mg oral twice daily. Will uptitrate if heart rate still more than 100. Patient remains in A-fib. Discussion today with the patient regarding possible need for anticoagulation for stroke prevention. [id number] score: 4 given history of CHF, female, history of hypertension, CAD. Patient is agreeable. Start on Lovenox 1 mg/kg body weight every 12 hourly. Will plan to transition to Eliquis on discharge. Goal blood pressure less than 140/90 mmHg with mean over 65. Continue to monitor. Continue Zosyn to finish a 5-day course. Continue with Solu-Medrol 40 mg IV twice daily. Will plan to titrate down further within next 24 hours. Oxygen supplementation keeping saturation over 90%. Oral Lasix 40 mg one-time. Out of bed to chair. Continue with aggressive pulmonary toilet. Physical therapy. BiPAP nightly. Discharge plan: Plan to discharge in next 24 to 48 hours depending on oxygen supplementation and heart rate control. Discussed about SNF versus home with home health. Patient wants to set up home with home health. Case management alerted. Attestations 2 Medical Necessity Statement*: Requires further hospitalization for management of A-fib with RVR, hypoxic respiratory failure in setting of community-acquired pneumonia, COPD exacerbation Diagnoses Acute hypercapnic respiratory failure J96.02 Community acquired pneumonia J18.9 Sepsis A41.9 COPD exacerbation J44.1 Hypertension I10 Takotsubo cardiomyopathy I51.81 Atrial fibrillation with RVR I48.91
[2024-11-13] MEDS: ondansetron 2 mg/ML SDV 2 mL 4 MG IVP ×2 (17:40→23:41)
[2024-11-13] MEDS: FUROsemide 40 mg Tablet PO (18:08)
[2024-11-13] MEDS: amiodarone 200 mg Tablet PO (18:08)
[2024-11-14] VITALS (30 sets, daily range): BP systolic 113–181; BP diastolic 72–120; PULSE 76–115; RESP 12–23; TEMP 36.5–36.9; O2SAT 92–100
[2024-11-14] MEDS: piperacillin-tazobactam 3.375 GM in sodium chloride 0.9% (plus) 50 ML IV ×3 (01:05→15:46)
[2024-11-14] MEDS: ipratropium 0.5 mg/2.5 mL Neb INHALATION ×4 (02:41→19:50)
[2024-11-14] MEDS: levalbuterol 0.63 mg/3 mL Neb INHALATION ×4 (02:41→19:50)
[2024-11-14 03:41] LABS: Basophils # 0.1 10^3/uL (0.0-0.1); Basophils % 0.4 %; Lymphocytes # 0.6 10^3/uL (0.8-4.8); Lymphocytes % 5.3 %; Mean Corpuscular HGB Conc 29.5 g/dL (30-55); Mean Corpuscular Hemoglobin 27.4 pg (27-33); Mean Corpuscular Volume 92.9 fl (85-98); Mean Platelet Volume 10.3 fL (7.4-10.4); Monocytes # 0.8 10^3/uL (0.2-0.9); Neutrophils # 9.03 10^3/uL (1.8-7.7); Neutrophils % 80.8 %; Nucleated Red Blood Cells % 0.2 %; Platelet Count 328 10^3/cmm (157-399); Red Blood Count 4.09 10^6/uL (3.85-5.65); Red Cell Distribution Width 14.2 % (12.1-15.1); White Blood Count 11.18 10^3/uL (3.29-11.43)
[2024-11-14] MEDS: acetaminophen 325 mg Tablet 650 MG PO (03:53)
[2024-11-14 04:02] LABS: Alanine Aminotransferase 98 U/L (0-33); Alkaline Phosphatase 131 U/L (35-105); Anion Gap 9.8 (5-19); Aspartate Amino Transferase 56 U/L (0-32); Blood Urea Nitrogen 24 mg/dL (8-23); Calcium 9.3 mg/dL (8.5-10.5); Carbon Dioxide 39 mmol/L (22-29); Chloride 97 mmol/L (98-107); Creatinine Clr Calc Pharmacy 152.7027; Globulin 2.9 g/dL (1.3-4.6); Glomerular Filtration Rate 161.7 mL/min (90-130); Glucose 149 mg/dL (65-115); Magnesium 2.1 mg/dL (1.7-2.3); Osmolality Calculated 299 mOsm/kg (285-295); Potassium 4.8 mmol/L (3.5-5.1); Sodium 141 mmol/L (136-145); Total Bilirubin 0.2 mg/dL (0.15-1.2); Total Protein 5.9 g/dL (6.6-8.7)
[2024-11-14 04:38] LABS: Slide Review Slide Review Perform
[2024-11-14] MEDS: budesonide 0.5 mg/2 mL Neb INHALATION ×2 (08:12→19:50)
[2024-11-14] MEDS: ondansetron 2 mg/ML SDV 2 mL 4 MG IVP ×2 (08:34→12:43)
[2024-11-14] MEDS: amiodarone 200 mg Tablet PO ×2 (08:35→17:18)
[2024-11-14] MEDS: azithromycin 250 mg Tablet 500 MG PO (08:35)
[2024-11-14] MEDS: methylPREDNISolone sod succ 40 mg/mL INJ IVP (08:35)
[2024-11-14] MEDS: pantoprazole DR 40 mg Tablet PO ×2 (08:35→17:18)
[2024-11-14] MEDS: metoprolol tartrate 25 mg Tablet PO ×2 (08:35→21:41)
[2024-11-14] MEDS: ALPRAZolam 0.5 mg Tablet PO ×2 (08:36→19:51)
[2024-11-14] MEDS: enoxaparin 80 mg/0.8 mL Syringe SUBCUT ×2 (08:45→21:41)
--- NOTE | 2024-11-14 14:09 | P.PN_ITS ---
Subjective 2 Subjective: No acute vents overnight. Morning patient states she is feeling very tired. Complaining of nausea. No episode of vomiting. Back in normal sinus rhythm today. Remains on 2 to 3 L of oxygen saturating more than 92%. Medications: Reviewed: Yes Vitals/I&O/Wt Last Vital Signs Temp 97.7 F 11/14/24 08:00 Pulse 87 11/14/24 08:13 Resp 16 11/14/24 08:13 BP 131/96 11/14/24 06:00 Pulse Ox 96 11/14/24 08:13 O2 Del Method Nasal Cannula 11/14/24 08:13 O2 Flow Rate 3 11/14/24 08:13 11/13/24 11/14/24 11/14/24 22:59 06:59 14:59 Intake Total 150 / 794.761 250 / 1044.761 Output Total 1475 / 1475 1450 / 2925 Balance -1325 / -680.239 -1200 / -1880.239 Weight last 48 hrs Weight 80.5 kg Weight 80.331 kg Weight 80.331 kg Physical Exam 2 Narrative: General: Cooperative patient in no apparent distress. Well developed. HEENT: Normocephalic, Atraumatic. External ears normal. Nasal passages patent without drainage. MMM. Heart: Slightly tachycardic with regular rhythm. Respiratory: No acute respiratory distress. There are bibasilar crackles and rhonchi. Abd: Soft, non-tender. Non-distended. Extremities: No edema. Skin: No rash or lesions on exposed areas. Data 11/14/24 03:25 11/14/24 03:25 A&P Assessment and plan (1) Acute hypercapnic respiratory failure: Oxygen supplementation keeping saturation over 90%. Most likely in combination of COPD exacerbation, right upper and middle lobe pneumonia. Low concerns of congestive heart failure. Supplementation keeping saturation over 90%. Out of bed to chair. Incentive spirometry. (2) Community acquired pneumonia: Appreciate CTA. Follow-up sputum culture, MRSA swab, blood culture. Sputum culture not yet collected. For now continue with IV Zosyn and oral azithromycin. If MRSA swab is positive will add vancomycin. (3) Sepsis: Present on admission. Resolving. (4) COPD exacerbation: Pulmicort twice daily, switch DuoNeb to ipratropium, Xopenex every 6 hours. Wean Solu-Medrol 40 mg IV every 12 hourly. Will plan for weaning further within next 24 hours. (5) Hypertension: Goal blood pressure less than 140/90 mmHg. Blood pressure trending down since RVR. Stop lisinopril. (6) Takotsubo cardiomyopathy: Past history. Last echocardiogram from December 2023 showed an improvement on EF to 65% with grade 1 diastolic dysfunction from 37% in the past. IV Lasix 40 mg one-time. (7) Atrial fibrillation with RVR: Check TSH. If abnormal will check free T3 and free T4. Metoprolol 25 mg oral twice daily. Blood pressure soft. Holding off on lisinopril. Amiodarone 150 mg bolus followed by drip. Plan Code Status: Full code IVF: Stop IV fluids. Lasix as above DVT PPx: Lovenox GI PPx: Protonix ABx: Zosyn, add azithromycin Diet: Cardiac Discharge plan: Home when able Care discussed in detail with patient's daughter over the phone. All the questions were answered. Transfer to [facility]SU. Plan for the day: Back in normal sinus rhythm. Continue with amiodarone 200 mg twice daily, metoprolol 25 mg twice daily. Continue with full dose anticoagulation with Lovenox 1 mg/kg body weight every 12 hourly. RINA-Vasc score 4. Check echocardiogram. Wean Solu-Medrol to 40 mg IV daily. Out of bed to chair. Continue with Protonix daily. Zofran as needed. Check abdominal x-ray. Discharge plan: Plan to discharge in next 24 to 48 hours depending on oxygen supplementation and heart rate control. Discussed about SNF versus home with home health. Patient wants to set up home with home health. Case management alerted. Attestations 2 Medical Necessity Statement*: Requires further hospitalization for management of hypoxic respiratory failure in setting of pneumonia COPD exacerbation, A-fib while safe discharge planning is sought Diagnoses Acute hypercapnic respiratory failure J96.02 Community acquired pneumonia J18.9 Sepsis A41.9 COPD exacerbation J44.1 Hypertension I10 Takotsubo cardiomyopathy I51.81 Atrial fibrillation with RVR I48.91
--- NOTE | 2024-11-14 14:14 | USCV_ITS ---
Dahlia Shah Age: 63 Gender: F : 1960 Exam Date: 11/14/2024 21:28 Ordering Phys: Gordon Lopez MD Technologist: LOIDA [place] [facility] [place] Afib, history of COPD O2-dependent 3L BP: 150 / 112 HR: 87 Rhythm: Sinus Technical Quality: Adequate MEASUREMENTS (Male / Female) Normal Values 2D ECHO LV Diastolic Diameter PLAX 4.6 cm 4.2 - 5.9 / 3.9 - 5.3 cm IVS Diastolic Thickness 0.9 cm 0.6 - 1.0 / 0.6 - 0.9 cm IVS Systolic Thickness 1.2 cm LVPW Diastolic Thickness 0.9 cm 0.6 - 1.0 / 0.6 - 0.9 cm LVPW Systolic Thickness 1.4 cm LVOT Diameter 1.9 cm LV Ejection Fraction 2D Teich 51.8 % LV Ejection Fraction MOD 4C 58.9 % LV Ejection Fraction MOD 2C 59.9 % LV Ejection Fraction 2C AL 60.7 % LA Diameter 3.0 cm Aorta at Sinotubular Diameter 2.9 cm IVC Diameter 2.3 cm M-MODE LA Ao Ratio MM 1.2 AV Cusp Separation MM 1.6 cm DOPPLER AV Peak Velocity 155.0 cm/s LVOT Peak Velocity 101.0 cm/s AV Area Cont Eq vti 1.6 cm squared AV Area Cont Eq pk 1.9 cm squared MV Peak Velocity 100.0 cm/s MV Area PHT 4.7 cm squared Mitral E to A Ratio 0.9 TV Peak Velocity 295.5 cm/s TR Peak Velocity 300.0 cm/s TR Peak Gradient 36.0 mmHg TV Peak E Velocity 39.0 cm/s PV Peak Velocity 127.0 cm/s FINDINGS Left Ventricle Normal left ventricular size, systolic function and wall thickness, with no regional wall motion abnormalities. Left ventricular ejection fraction is estimated at 55%. Grade I/IV diastolic dysfunction (abnormal relaxation filling pattern), normal to mildly elevated filling pressures. Right Ventricle The right ventricle is normal in size and function. Right Atrium The right atrium is normal in size. Left Atrium The left atrium is normal in size. Mitral Valve Structurally normal mitral valve without significant stenosis or prolapse. There is trace mitral regurgitation. Aortic Valve Structurally normal aortic valve without significant sclerosis or stenosis. There is trace aortic regurgitation. Tricuspid Valve Structurally normal tricuspid valve without significant stenosis or regurgitation. Pulmonary artery systolic pressure is normal. Pulmonic Valve Structurally normal pulmonic valve without significant stenosis. There is no pulmonic regurgitation. Pericardium Normal pericardium without effusion. Aorta Normal ascending aorta dimension. IVC The inferior vena cava appears normal. CONCLUSIONS Normal left ventricular size, systolic function and wall thickness, with no regional wall motion abnormalities. Left ventricular ejection fraction is estimated at 55%. Grade I/IV diastolic dysfunction (abnormal relaxation filling pattern), normal to mildly elevated filling pressures. No significant valve abnormalities. There is no pericardial effusion. Right atrial pressure is around 5 mm of mercury. Dimple Suresh MD (Electronically Signed) Final Date: 15 November 2024 09:42 S
--- NOTE | 2024-11-14 14:16 | XR_ITS ---
WS: [id number] KUB, AP supine, 11/14/2024 Clinical Data: Ileus Comparison: None. Findings: No abnormal intraabdominal masses or calcifications are seen. There is no dilatated small bowel or ev idence of obstruction. There is moderate fecal material throughout the colon. XR/XR abdomen 1V* [id number] Impression: Moderate fecal material in the colon.
--- NOTE | 2024-11-14 14:38 | PC.SOCIAL ---
IMM Update pg 2 of IMM updated and reviewed w/ patient. Copy provided and copy dated, initialed and placed in chart.
[2024-11-14] MEDS: magnesium hydroxide 30 mL UDC PO ×2 (15:46→21:41)
--- NOTE | 2024-11-14 19:39 | PC.NURSE ---
amiodarone drip turned of on day shift. Not infusing at shift change.
[2024-11-15] VITALS (14 sets, daily range): BP systolic 114–149; BP diastolic 72–89; PULSE 71–90; RESP 16–25; TEMP 36.6–36.8; O2SAT 95–100
[2024-11-15] MEDS: ALPRAZolam 0.5 mg Tablet PO (01:05)
[2024-11-15] MEDS: piperacillin-tazobactam 3.375 GM in sodium chloride 0.9% (plus) 50 ML IV ×2 (01:05→09:31)
[2024-11-15] MEDS: ipratropium 0.5 mg/2.5 mL Neb INHALATION ×2 (01:14→07:46)
[2024-11-15] MEDS: levalbuterol 0.63 mg/3 mL Neb INHALATION ×2 (01:14→07:46)
[2024-11-15 05:44] LABS: Basophils # 0.1 10^3/uL (0.0-0.1); Basophils % 0.4 %; Eosinophils % 0.2 %; Hematocrit 37.8 % (36-47); Lymphocytes # 2.2 10^3/uL (0.8-4.8); Lymphocytes % 17.2 %; Mean Corpuscular HGB Conc 29.9 g/dL (30-55); Mean Corpuscular Volume 93.6 fl (85-98); Mean Platelet Volume 9.9 fL (7.4-10.4); Monocytes # 1.1 10^3/uL (0.2-0.9); Monocytes % 9.1 %; Neutrophils # 8.55 10^3/uL (1.8-7.7); Neutrophils % 68.2 %; Nucleated Red Blood Cells % 0 %; Platelet Count 320 10^3/cmm (157-399); Red Blood Count 4.04 10^6/uL (3.85-5.65); White Blood Count 12.53 10^3/uL (3.29-11.43)
[2024-11-15 06:13] LABS: Alanine Aminotransferase 71 U/L (0-33); Albumin Level 2.9 g/dL (3.5-5.2); Alkaline Phosphatase 109 U/L (35-105); Anion Gap 6.3 (5-19); Aspartate Amino Transferase 27 U/L (0-32); Blood Urea Nitrogen 22 mg/dL (8-23); Chloride 98 mmol/L (98-107); Creatinine Clr Calc Pharmacy 152.8583; Globulin 2.6 g/dL (1.3-4.6); Glomerular Filtration Rate 161.7 mL/min (90-130); Glucose 89 mg/dL (65-115); Osmolality Calculated 299 mOsm/kg (285-295); Potassium 4.3 mmol/L (3.5-5.1); Sodium 143 mmol/L (136-145); Total Bilirubin 0.3 mg/dL (0.15-1.2); Total Protein 5.5 g/dL (6.6-8.7)
[2024-11-15 06:14] LABS: Magnesium 2.3 mg/dL (1.7-2.3)
[2024-11-15 06:18] LABS: Carbon Dioxide 43 mmol/L (22-29)
[2024-11-15] MEDS: budesonide 0.5 mg/2 mL Neb INHALATION (07:46)
--- NOTE | 2024-11-15 08:59 | PM.DCS ---
Discharge Providers Date of Admission: 11/10/24 10:24 Date of Discharge: November 15, 2024 Attending Provider at Admission: Krishna Bowman MD Attending Provider at Discharge: Gordon Lopez MD Primary Care Provider: ERNESTO Tang Diagnoses at Discharge Discharge Diagnosis (1) Acute hypercapnic respiratory failure: Status: Acute (2) Community acquired pneumonia: Status: Acute (3) Sepsis: Status: Acute (4) COPD exacerbation: Status: Acute (5) Hypertension: Status: Acute (6) Takotsubo cardiomyopathy: Status: Acute Permanent problem details: 01/11/2024: LVEF 65% (7) Atrial fibrillation with RVR: Status: Acute Reason for Visit Reason for Visit: sob Brief History: History as per HPI: Ms Dahlia Shah is a 63 year old woman with past medical history of COPD who presents for further evaluation of cough, worsening shortness of breath and generally feeling unwell. Patient symptoms started about 3 days ago, she also reports chest pain worse with inspiration , nausea, reduced p.o. intake and fever. She denies abdominal pain, vomiting, differential body weakness or any other symptoms. In the ER, patient was found to be tachycardic, more hypoxic compared to her baseline, tachypneic and with hypotension. Chest x-ray showed patchy and reticular airspace opacities about the right perihilar region and right upper lung. Patient received IV fluids in the ER and had improvement in tachycardia and her blood pressure. She was given antibiotics-Zosyn Hospital Course Hospital Course Patient was admitted to the hospital further evaluation and management of acute on chronic hypercapnic respiratory failure, sepsis in setting of community-acquired pneumonia leading to COPD exacerbation. On admission CTA was done which ruled out PE. She was started on broad-spectrum antibiotics, steroids and nebulization treatment. During hospitalization her blood cultures remain negative. Patient responded well to the treatment and has been back to her baseline oxygen supplementation for last 3 days. Her hospitalization was complicated by her developing A-fib with RVR which was managed with IV amiodarone drip and has been transition over to oral amiodarone. Because of persistent tachycardia TSH was checked which was concerning for hyperthyroidism. Thyroid ultrasound showed calcified right thyroid nodule. Is back in normal sinus rhythm for last 48 hours both at rest on exertion. She has also been experiencing severe anxiety. She states she used to take Ativan in the past but is not on that anymore. She has been started on Lexapro 10 mg daily along with Xanax 0.25 mg twice daily as needed. Safe discharge planning were discussed in detail with the patient with possibility of transition to SNF versus home with home health. Patient wanted to go back home with home with home health which is being arranged. She has been discharged in hemodynamically stable condition on oral Augmentin and Levaquin for next 3 days. She will be on steroid taper. She has to repeat a thyroid panel in 1 month with a thyroid ultrasound in 6 months. Physical Exam Narrative: General: Cooperative patient in no apparent distress. Well developed. HEENT: Normocephalic, Atraumatic. External ears normal. Nasal passages patent without drainage. MMM. Heart: Slightly tachycardic with regular rhythm. Respiratory: No acute respiratory distress. There are bibasilar crackles and rhonchi. Abd: Soft, non-tender. Non-distended. Extremities: No edema. Skin: No rash or lesions on exposed areas. Discharge Data Studies Completed and Pending Completed Studies During Hospitalization Category Date Time Status CT angio chest PE protcl [id number] Routine Cat Scan 11/10/24 15:42 Completed XR abdomen 1V* [id number] Routine Exams 11/14/24 14:16 Completed XR chest 1V portable [id number] Stat Exams 11/10/24 07:50 [place] thyroid [id number] Routine Ultrasound 11/12/24 16:34 Completed Pending at discharge Category Date Time Status Blood Culture Stat Lab 11/10/24 08:24 Results Sputum Culture Routine Lab 11/10/24 16:05 Uncollected CV. echo complete* [id number] Routine Ultrasound 11/14/24 14:14 Taken Radiology Impressions Chest X-Ray 11/10/24 07:50 IMPRESSION: Patchy and reticular airspace opacities about the right perihilar region and right upper lung. This may represent an acute infiltrate or chronic fibrotic scarring. Chest CTA 11/10/24 15:42 IMPRESSION: 1. No pulmonary emboli. 2. Severe emphysematous changes throughout both lungs with diffuse increased septal markings and consolidative opacities in the anterior and posterior aspect of the right upper lobe and to a much lesser extent the superior segment of the right lower lobe. The right middle lobe and left lung are clear. Findings are thought likely infectious in etiology. COMMENTS: The presence of pulmonary emphysema on CT is an independent risk factor for lung cancer. In the absence of a history or active diagnosis of lung cancer, it is recommended that this patient with emphysema be evaluated for enrollment in a low dose CT lung cancer screening program. Thyroid Ultrasound 11/12/24 16:34 IMPRESSION: Moderately suspicious peripherally calcified right thyroid nodule as detailed. This nodule meets size criteria for follow-up imaging in 12 months. The additional identified thyroid nodules do not meet criteria for follow-up or biopsy. Abdomen X-Ray 11/14/24 14:16 Impression: Moderate fecal material in the colon. Laboratory Results WBC 12.53 10^3/uL (3.29-11.43) H 11/15/24 05:25 RBC 4.04 10^6/uL (3.85-5.65) 11/15/24 05:25 Hgb 11.30 g/dL (11.27-16.99) 11/15/24 05:25 Hct 37.8 % (36-47) 11/15/24 05:25 MCV 93.6 fl (85-98) 11/15/24 05:25 MCH 28.0 pg (27-33) 11/15/24 05:25 MCHC 29.9 g/dL (30-55) L 11/15/24 05:25 RDW 14.0 % (12.1-15.1) 11/15/24 05:25 Plt Count 320 10^3/cmm (157-399) 11/15/24 05:25 MPV 9.9 fL (7.4-10.4) 11/15/24 05:25 Neut % (Auto) 68.2 % 11/15/24 05:25 Lymph % (Auto) 17.2 % 11/15/24 05:25 Wright % (Auto) 9.1 % 11/15/24 05:25 Eos % (Auto) 0.2 % 11/15/24 05:25 Baso % (Auto) 0.4 % 11/15/24 05:25 Neut # (Auto) 8.55 10^3/uL (1.8-7.7) H 11/15/24 05:25 Lymph # (Auto) 2.2 10^3/uL (0.8-4.8) 11/15/24 05:25 Wright # (Auto) 1.1 10^3/uL (0.2-0.9) H 11/15/24 05:25 Eos # (Auto) 0.0 10^3/uL (0.0-0.8) 11/15/24 05:25 Baso # (Auto) 0.1 10^3/uL (0.0-0.1) 11/15/24 05:25 Nucleated RBC % (auto) 0 % 11/15/24 05:25 Nucleated RBCs # 0.0 /100WBC 11/15/24 05:25 D-Dimer 1.92 ug/mLFEU (0-0.59) H 11/10/24 08:06 Specimen Type Arterial 11/10/24 08:10 Sample Site Radial, left 11/10/24 08:10 ABG pH 7.41 (7.35-7.45) 11/10/24 08:10 ABG pCO2 47.6 mmHg (35-45) H 11/10/24 08:10 ABG pO2 68.4 mmHg (80.0-100.0) L 11/10/24 08:10 ABG PO2/FiO2 Ratio 213 11/10/24 08:10 ABG HCO3 30.3 mmol/L (22-26) H 11/10/24 08:10 ABG O2 Saturation 94.6 11/10/24 08:10 ABG Base Excess 4.9 mmol/L (-2.0-2.0) H 11/10/24 08:10 Sohail Test Pos 11/10/24 08:10 A-a O2 Gradient 13.0 mmHg (5-10) H 11/10/24 08:10 Hematocrit 36.2 % (37-47) L 11/10/24 08:10 Hgb O2 Saturation 92.5 % (95-100) L 11/10/24 08:10 Carboxyhemoglobin 1.2 %THgb (0.4-20.1) 11/10/24 08:10 Methemoglobin 1.0 % (0.4-1.5) 11/10/24 08:10 Total Hemoglobin 11.8 g/dL (12-16) L 11/10/24 08:10 Sodium 138.0 mmol/L (131-143) 11/10/24 08:10 Potassium 3.8 mmol/L (3.5-5.0) 11/10/24 08:10 Glucose 132.0 mg/dL (70-115) H 11/10/24 08:10 Ionized Calcium 1.3 mmol/L (1.1-1.4) 11/10/24 08:10 O2 Delivery Device Nc 11/10/24 08:10 O2 Liters/Min 3.5 % 11/10/24 08:10 FiO2 32.0 % 11/10/24 08:10 Soldering Machine Feeder ID [place] 11/10/24 08:10 Sodium 143 mmol/L (136-145) 11/15/24 05:25 Potassium 4.3 mmol/L (3.5-5.1) 11/15/24 05:25 Chloride 98 mmol/L (98-107) 11/15/24 05:25 Carbon Dioxide 43 mmol/L (22-29) H* 11/15/24 05:25 Anion Gap 6.3 (5-19) 11/15/24 05:25 BUN 22 mg/dL (8-23) 11/15/24 05:25 Creatinine 0.4 mg/dL (0.5-0.9) L 11/15/24 05:25 GFR Calculation 161.7 mL/min (90-130) H 11/15/24 05:25 Glucose 89 mg/dL (65-115) 11/15/24 05:25 POC Glucose 130 mg/dL (70-110) H 11/12/24 08:14 Estimat Average Glucose 111 11/12/24 09:00 Hemoglobin A1c 5.5 % (4.0-6.0) 11/12/24 09:00 Calculated Osmolality 299 mOsm/kg (285-295) H 11/15/24 05:25 Lactic Acid 1.6 mmol/L (0.5-2.2) 11/10/24 08:06 Calcium 9.0 mg/dL (8.5-10.5) 11/15/24 05:25 Magnesium 2.3 mg/dL (1.7-2.3) 11/15/24 05:25 Iron 83 ug/dL (37-145) 11/12/24 09:00 TIBC 203 mcg/dl 11/12/24 09:00 % Saturation 40.8 % (20-50) 11/12/24 09:00 Unsat Iron Binding 120 ug/dL (112-347) 11/12/24 09:00 Total Bilirubin 0.3 mg/dL (0.15-1.2) 11/15/24 05:25 AST 27 U/L (0-32) 11/15/24 05:25 ALT 71 U/L (0-33) H 11/15/24 05:25 Alkaline Phosphatase 109 U/L (35-105) H 11/15/24 05:25 Troponin T 5th Gen ng/L 9 ng/L (0-10) 11/10/24 19:00 NT-Pro-B Natriuret Pep 338 pg/mL (0-125) H 11/10/24 08:06 Total Protein 5.5 g/dL (6.6-8.7) L 11/15/24 05:25 Albumin 2.9 g/dL (3.5-5.2) L 11/15/24 05:25 Globulin 2.6 g/dL (1.3-4.6) 11/15/24 05:25 Triglycerides 104 mg/dL (0-150) 11/13/24 03:09 Cholesterol 221 mg/dL (0-200) H 11/13/24 03:09 LDL Cholesterol, Calc 164 mg/dL (50-129) H 11/13/24 03:09 Total VLDL Cholesterol 21 mg/dL (0-30) 11/13/24 03:09 HDL Cholesterol 36 mg/dL (60-100) L 11/13/24 03:09 Cholesterol/HDL Ratio 6.14 mg/dL (0.0-4.40) H 11/13/24 03:09 Vitamin B12 765 pg/mL (232-1245) 11/12/24 09:00 Folate 9.6 ng/mL (4.8-37.3) 11/13/24 03:09 Procalcitonin 1.36 ng/mL (0-0.5) H 11/12/24 09:00 TSH 0.18 uIU/mL (0.27-4.20) L 11/12/24 09:00 Free T4 0.95 ng/dL (0.82-1.77) 11/12/24 09:00 Free T3 1.3 PG/ML (2.0-4.4) L 11/12/24 09:00 Urine Color Dark yellow (Yellow) A 11/10/24 08:55 Urine Appearance Clear (CLEAR) 11/10/24 08:55 Urine pH 6.0 (5-7) 11/10/24 08:55 Ur Specific [place] 1.026 (1.005-1.030) 11/10/24 08:55 Urine Protein 2+ (Negative) A 11/10/24 08:55 Urine Glucose (UA) Negative (Normal) 11/10/24 08:55 Urine Ketones 1+ (Negative) H 11/10/24 08:55 Urine Blood Trace (Negative) A 11/10/24 08:55 Urine Nitrate Negative (Negative) 11/10/24 08:55 Urine Bilirubin Negative (Negative) 11/10/24 08:55 Urine Urobilinogen 2.0 mg/dL (Negative) H 11/10/24 08:55 Ur Leukocyte Esterase Negative (Negative) 11/10/24 08:55 Urine RBC 11-20 /hpf (0-2) H 11/10/24 08:55 Urine WBC 0-5 /hpf (0-5) 11/10/24 08:55 Ur Squamous Epith Cells 0-5 /hpf (0-5) 11/10/24 08:55 Amorphous Sediment Not Reportable 11/10/24 08:55 Urine Bacteria None seen /hpf (NONE) 11/10/24 08:55 Hyaline Casts 2.46 /lpf 11/10/24 08:55 Nasal MRSA (PCR) Not detected (Not Detecte) 11/10/24 17:40 Coronavirus (PCR) Negative (Negative) 11/10/24 07:56 Influenza A (PCR) Negative (Negative) 11/10/24 07:56 Influenza Type B (PCR) Negative (Negative) 11/10/24 07:56 RSV (PCR) Negative (Negative) 11/10/24 07:56 Vitals Last Vital Signs Temp 97.8 F 11/15/24 00:00 Pulse 86 11/15/24 07:48 Resp 16 11/15/24 07:48 BP 149/88 11/15/24 06:00 Pulse Ox 95 11/15/24 07:48 O2 Del Method Nasal Cannula 11/15/24 07:48 O2 Flow Rate 2 11/15/24 07:48 Discharge Plan Discharge Patient Disposition: Home Health Service Condition: Stable Prescriptions: New amiodarone [Pacerone] 200 mg Tablet 200 mg PO BID Qty: 60 2RF Rx Instructions: twice daily for 1 week followed by once daily metoprolol tartrate 25 mg Tablet 25 mg PO BID@0900,2100 30 Days Qty: 60 0RF prednisone 10 mg tablet See Taper PO DIRECTED Qty: 42 0RF Taper: predniSONE 60-10 60 mg Daily for 2 Days and 0 Hour 50 mg Daily for 2 Days and 0 Hour 40 mg Daily for 2 Days and 0 Hour 30 mg Daily for 2 Days and 0 Hour 20 mg Daily for 2 Days and 0 Hour 10 mg Daily for 2 Days and 0 Hour Rx Instructions: see taper instructions ondansetron HCl 8 mg tablet 8 mg PO BID PRN (Reason: nausea and vomiting) 5 Days Qty: 10 0RF Eliquis 5 mg tablet 5 mg PO BID Qty: 60 4RF escitalopram oxalate [Lexapro] 10 mg tablet 10 mg PO DAILY Qty: 30 0RF alprazolam [Xanax] 0.25 mg tablet 0.25 mg PO BID PRN (Reason: anxiety) Qty: 14 0RF levofloxacin 750 mg tablet 750 mg PO Q24H 3 Days Qty: 3 0RF amoxicillin-pot clavulanate 875-125 mg tablet 1 tab PO BID Qty: 6 0RF Continued pantoprazole 40 mg tablet,delayed release (DR/EC) 40 mg PO BID Trelegy Ellipta 200-62.5-25 mcg blister with device 1 inh inhalation DAILY lisinopril 5 mg tablet 5 mg PO DAILY Qty: 100 3RF albuterol sulfate 90 mcg/actuation HFA aerosol inhaler 2 puff inhalation Q6H PRN (Reason: Shortness Of Breath Or Wheezing) alendronate 70 mg tablet 70 mg PO Q7D Changed ipratropium-albuterol 0.5 mg-3 mg(2.5 mg base)/3 mL solution for nebulization 3 ml inhalation Q8H Qty: 90 0RF Rx Instructions: until breathing returns to target peak flow/parameters Discontinued spironolactone 25 mg tablet 25 mg PO DAILY Patient Comments: 1/2 tab twice daily Discharge Orders: Discharge Order (Routine); Ordered 11/15/24 Ordered By: Gordon Lopez Referrals: [facility] [Outside] Valerie Senior [Registered Nurse] - 11/19/24 1:40 pm (This appointment has been scheduled at [facility] [phone] ) Discharge Diet: Cardiac Discharge Activity: Resume usual activity and Increase activity as tolerated Patient Instructions: Metoprolol (By mouth) (Lopressor, Toprol XL), Alprazolam (By mouth) (Xanax, Xanax XR, alprazolam Intensol, Gabazolamin), Amiodarone (By mouth) (Cordarone, Pacerone), Ondansetron (By mouth) (Zofran, Zofran ODT, Zuplenz), Escitalopram (By mouth) (Lexapro), Apixaban (By mouth) (Eliquis), A-fib (Atrial Fibrillation) (DC), Community Acquired Pneumonia (DC), COPD Stoplight, Opioid Safety Activity Restrictions/Additional Instructions: Follow-up with primary provider within next 1 to 3 days. Do not take spironolactone anymore. Instead take metoprolol 25 mg twice daily. You will be on amiodarone 200 mg twice daily for next 1 week followed by 200 mg daily for A-fib. Eliquis is a blood thinner which is supposed to take 5 mg twice daily. You should have a repeat thyroid panel done in 1 month. Repeat thyroid ultrasound in 6 months. Discharge Attestations Time Spent in Discharge Care*: greater than 30 min Specific Discharge Activities: educating patient, discussing with pcp/other providers, discussing with sample case porter/social workers/dc planners, documenting/other paperwork and evaluating patient/reviewing data Status at Discharge: Cognitive status at discharge: cognitively intact, Behavioral status at discharge: cooperative, Functional status at discharge: independent ambulation, Overall status at discharge: patient is progressing back to baseline Quality Metrics Clinical Quality Measures [ No reported AMI, CVA or VTE this stay] Coding Level of Care Code 87707 Total time (in minutes) for Discharge: 60 Diagnoses Acute hypercapnic respiratory failure J96.02 Community acquired pneumonia J18.9 Sepsis A41.9 COPD exacerbation J44.1 Hypertension I10 Takotsubo cardiomyopathy I51.81 Atrial fibrillation with RVR I48.91
[2024-11-15] MEDS: pantoprazole DR 40 mg Tablet PO (09:30)
[2024-11-15] MEDS: amiodarone 200 mg Tablet PO (09:30)
[2024-11-15] MEDS: acetaZOLAMIDE 250 mg Tablet PO ×2 (09:30→10:17)
[2024-11-15] MEDS: methylPREDNISolone sod succ 40 mg/mL INJ IVP (09:31)
[2024-11-15] MEDS: enoxaparin 80 mg/0.8 mL Syringe SUBCUT (09:32)
--- NOTE | 2024-11-15 09:35 | PC.NURSE ---
Pt states she is unable to go home without something for anxiety. Alprazolam D/C. Asked what triggered the anxiety. States she is nervous about going home, getting sick again, then having to return to the hospital. Discussed coping mechanisms and thought process but still requesting anxiety meds. Dr Lopez notified. Alprazolam 0.25 PO x 1 at discharge order received.
[2024-11-15] MEDS: metoprolol tartrate 25 mg Tablet PO (09:41)
--- NOTE | 2024-11-15 10:00 | PC.NURSE ---
Pt has discharge instructions. [facility] won't be available to transport pt home until noon.
--- NOTE | 2024-11-15 11:37 | PC.NURSE ---
[facility] requested clarification regarding Prednisone order. Read Prednisone 10mg PO taper directions listed in physician's Discharge summary. No further questions.
[2024-11-15] MEDS: ALPRAZolam 0.5 mg Tablet 0.25 MG PO (12:17)
== END 2024-11-15 11:45 | disposition home health service (06) | DRG 871 ==
LOC: ER 09:12 → ICU 14:30
PROVIDERS: Family Medicine; Admitting Provider Student in an Organized Health Care Education/Training Program; Emergency Provider Family Medicine; PCP Registered Nurse; Visit Provider Student in an Organized Health Care Education/Training Program
DX: A41.9 Sepsis, unspecified organism (principal); J18.9 Pneumonia, unspecified organism; J96.21 Acute and chronic respiratory failure with hypoxia; J44.0 Chronic obstructive pulmonary disease with (acute) lower respiratory infection; J44.1 Chronic obstructive pulmonary disease with (acute) exacerbation; I10 Essential (primary) hypertension; I48.91 Unspecified atrial fibrillation; F41.9 Anxiety disorder, unspecified; I95.9 Hypotension, unspecified; Z87.891 Personal history of nicotine dependence; Z99.81 Dependence on supplemental oxygen; Z86.79 Personal history of other diseases of the circulatory system
CPT/HCPCS: 36415; 36416; 36600; 71045; 71275; 74018; 76536; 80048; 80051; 80053; 80061; 81001; 82330; 82607; 82746; 82805; 82962; 83036; 83540; 83550; 83605; 83735; 83880; 84145; 84439; 84443; 84481; 84484; 85025; 85378; 87040; 87070; 87205; 87637; 93005; 93306; 94640; 94664; 96361; 96372; 96374; 96375; 96376; 97116; 97162; 97530; 99285; A4222; J0283; J1100; J1650; J1940; J2270; J2360; J2405; J2543; J2919; J3490; J7030; J7614; J7626; J7644; Q0144

== ENCOUNTER 2024-11-27 07:10 | Inpatient (IN) | payer MEDICARE, MEDICAID, SELFPAY ==
[2024-11-27] VITALS (61 sets, daily range): BP systolic 67–165; BP diastolic 46–102; PULSE 68–114; RESP 12–26; TEMP 36.8–37.1; O2SAT 92–100; BMI 27.4; BMI 28.4
--- NOTE | 2024-11-27 07:15 | ECG_ITS ---
[facility]: 2024-[facility]27 Pat Name: Dahlia Shah Department: Room: Gender: Female [employer]: : 1960 Requested By: Angella Solorio Order Number: [id number] Braxton MD: Damien Downey M.D. Measurements Intervals [place] Rate: 106 P: 85 MS: 137 QRS: 24 QRSD: 97 T: 92 QT: 293 QTc: 389 Interpretive Statements SINUS TACHYCARDIA POSSIBLE ANTERIOR MYOCARDIAL INFARCTION , OF INDETERMINATE AGE [30 ms Q WAVE IN V3/V4, OR R < 0.2 mV IN V4] Compared to ECG 11/12/2024 01:34:51 Atrial fibrillation no longer present Myocardial infarct finding still present Electronically Signed On 11-29-2024 22:04:00 MEDICAL TRANSCRIPTION by Damien Downey M.D. [email or web address]
--- NOTE | 2024-11-27 07:15 | XR_ITS ---
WS: [id number] PORTABLE CHEST HISTORY: Shortness of breath COMPARISON: 11/10/2024 Pulmonary hyperexpansion appears slightly more pronounced as compared to the prior examination due to flattening of the diaphragms. Previously described patchy reticular opacification in the RIGHT upper lobe and at the RIGHT hilum significantly improved. Minimal patchy airspace disease in the medial RIGHT lower lobe. Very mild blunting of the costophrenic angles may be due to the hyperexpansion. Cardiac size: Normal. Mediastinum/Aorta: Mild atherosclerosis aorta. No osseous abnormality seen. XR/XR chest 1V portable [id number] IMPRESSION: 1. Near complete resolution of the recently described patchy infiltrate in the RIGHT upper lobe and at the RIGHT hilum. 2. Minimal residual patchy pneumonia in the RIGHT infrahilar region. 3. New, mildly progressed hyperexpansion. 4. Chronic emphysema.
--- NOTE | 2024-11-27 07:18 | W.ED.SOB ---
HPI - SOB/Dyspnea General: Chief Complaint: Shortness of Breath/Dyspnea Stated Complaint: Resp Distress Time Seen by Provider: 11/27/24 07:14 History of Present Illness: HPI Narrative: 63-year-old With a history of COPD and chronic hypoxemic respiratory failure on 3 L nasal cannula at all times and recently diagnosed atrial fibrillation on chronic anticoagulation with Eliquis who presents to the emergency room with respiratory distress. She was recently admitted to the hospital with respiratory distress and community-acquired pneumonia. She was discharged about 10 days ago. She awoke this morning acutely short of breath. She has wheeze, chest tightness, increased work of breathing. EMS gave breathing treatments on the way to the hospital. She had some cough. No fever. Related Data Home Medications ?Medication ?Instructions ?Recorded ?Confirmed albuterol sulfate 90 mcg/actuation 2 puff inhalation Q6H PRN 06/19/20 11/27/24 aerosol inhaler Shortness Of Breath Or Wheezing fluticasone fur. 200 mcg-umeclid 1 inh inhalation DAILY 11/12/22 11/27/24 62.5 mcg-vilant 25 mcg inhalat.powder (Trelegy Ellipta) pantoprazole 40 mg tablet,delayed 40 mg PO BID 11/12/22 11/27/24 release alendronate 70 mg tablet 70 mg PO Q7D 11/10/24 11/27/24 buspirone 5 mg tablet 5 mg PO TID PRN Anxiety 11/27/24 11/27/24 ondansetron HCl 8 mg tablet 8 mg PO BID PRN Nausea And Vomiting 11/27/24 11/27/24 sertraline 50 mg tablet 50 mg PO DAILY 11/27/24 11/27/24 spironolactone 25 mg tablet 25 mg PO DAILY 11/27/24 11/27/24 Previous Rx's ?Medication ?Instructions ?Recorded lisinopril 5 mg tablet 5 mg PO DAILY #100 tabs 04/11/24 alprazolam 0.25 mg tablet (Xanax) 0.25 mg PO BID PRN anxiety #14 tabs 11/15/24 amiodarone 200 mg tablet (Pacerone) 200 mg PO BID #60 tabs 11/15/24 apixaban 5 mg tablet (Eliquis) 5 mg PO BID #60 tabs 01/23/25 escitalopram oxalate 10 mg tablet 10 mg PO DAILY #30 tabs 11/15/24 (Lexapro) ipratropium 0.5 mg-albuterol 3 mg 3 ml inhalation Q8H shortness of 11/15/24 (2.5 mg base)/3 mL nebulization breath or wheezing #90 mL soln metoprolol tartrate 25 mg tablet 25 mg PO BID@0900,2100 30 days #60 11/15/24 tabs prednisone 10 mg tablet See Taper PO DIRECTED #42 tabs 11/15/24 Allergies Allergy/AdvReac Type Severity Reaction Status Date / Time codeine Allergy Intermediate ADR-Headach Verified 07/04/24 11:02 e Review of Systems Narrative: Constitutional symptoms: Negative except as documented in HPI. Skin symptoms: Negative except as documented in HPI. Eye symptoms: Negative except as documented in HPI. ENMT symptoms: Negative except as documented in HPI. Respiratory symptoms: Negative except as documented in HPI. Cardiovascular symptoms: Negative except as documented in HPI. Gastrointestinal symptoms: Negative except as documented in HPI. Genitourinary symptoms: Negative except as documented in HPI. Musculoskeletal symptoms: Negative except as documented in HPI. Neurologic symptoms: Negative except as documented in HPI. Psychiatric symptoms: Negative except as documented in HPI. Endocrine symptoms: Negative except as documented in HPI. PFSH ED PFSH: Medical History (Updated 11/27/24 @ 09:05 by Angella Alfredo MD) Right ureteral calculus COPD (chronic obstructive pulmonary disease) Oxygen dependent Asthma Surgical History (Updated 11/12/24 @ 16:39 by Gordon Lopez MD) S/P ureteral stent placement Family History Mother Rheumatoid arthritis Congestive heart failure (CHF) Father , AT AGE 56 Cancer lung cancer Other CAD (coronary artery disease) Social History Smoking and tobacco/nicotine status: former use of tobacco/nicotine Alcohol intake: never Substance/Drug Use: never Lives independently: Yes Housing: House Marital status: / Current occupational status: disabled Physical Exam Narrative: EXAM NARRATIVE: General: Alert, moderate distress. Skin: Warm, dry. Head: Normocephalic, atraumatic. Neck: Supple, trachea midline. Eye: Extraocular movements are intact. Ears, nose, mouth and throat: Oral mucosa moist. Cardiovascular: Regular rate and rhythm, Normal peripheral perfusion. Respiratory: coarse, scattered wheeze, moderate increased wob. tachypnea, prolonged expiratory phase. breath sounds are equal, Symmetrical chest wall expansion. Gastrointestinal: Soft, Nontender, Non distended, Normal bowel sounds. Musculoskeletal: Normal ROM, no deformity. Neurological: Alert and oriented to person, place, time, and situation, No focal neurological deficit observed. Psychiatric: Cooperative, appropriate mood & affect. Course Vital Signs: Vital signs: Vital Signs Temperature 98.3 F 11/27/24 07:10 Pulse Rate 99 11/27/24 09:00 Respiratory Rate 17 11/27/24 09:00 Blood Pressure 74/50 11/27/24 09:00 Pulse Oximetry 98 11/27/24 09:00 Oxygen Delivery Me thod BiPAP 11/27/24 07:33 Fraction of Inspir ed Oxygen 35 11/27/24 07:34 MDM - SOB/Dyspnea Medical Decision Making Differential diagnosis for patient with shortness of breath includes but is not limited to and based on the above HPI, review of systems and physical exam: Pneumonia. Bronchitis. Asthma or COPD with acute exacerbation. Acute coronary syndrome / IA. Pulmonary embolism. Anxiety. Congestive heart failure. Viral infections including influenza and Covid-19. Atrial fibrillation. Anxiety. Pleural effusion. Pneumothorax. Orders placed to evaluate differential diagnosis based on the above differential, HPI and physical exam EKG: Time 7:16 AM. Rate 106. Sinus tachycardia, No ST-T changes, no ectopy, normal NC & QRS intervals, This was reviewed and interpreted by myself the ER physician at 7:20 AM AB.15/92/87 with an O2 sat of 95% on a 100% nonrebreather. Fairly severe hypercapnic respiratory failure. Lab Review: Laboratory results were reviewed and interpreted by myself the emergency room physician. Leukocytosis with white count 15,000. No renal failure. No anemia. Patient is influenza positive. Chest x-ray: Resolution of right upper lobe infiltrate but does have some right lower infiltrate now. No pneumothorax. This was reviewed and interpreted by myself the emergency room physician. I also reviewed the radiology report. I reviewed the patient's medical record. Reexamination: Patient is doing quite a bit better on BiPAP. However blood pressure is dropped and so fluids are being given. No altered mental status. She answers questions appropriately even through BiPAP. Repeat AB.26/66/107 improvement in her CO2 and pH. Consultation: I spoke with Dr. Beckham who is on-call for the hospitalist service who agrees to admission. Assessment and plan: Influenza A COPD with acute exacerbation Acute on chronic hypoxemic respiratory failure Hypercapnic respiratory failure Hypotension ?Solu-Medrol, breathing treatments, IV Levaquin, 2 L normal saline bolus, stress dose hydrocortisone. -I discussed the patient with the hospitalist on-call who is admitting the patient. - Discussed findings and plan with patient. Answered any questions. - All laboratory values were reviewed and interpreted personally by myself, the ER physician - All imaging was reviewed and interpreted personally by myself, the ER physician. - Evaluation and treatment of this problem were appropriate in the emergency setting Critical care -I spent a total of >35 minutes of critical care time managing the patient, independent of any other practitioner. -The time involved in the performance of separately reportable procedures was not counted towards critical care time. Lab Data 11/27/24 07:34 11/27/24 07:34 Labs/Radiology: Radiology Impressions Chest X-Ray 11/27/24 07:15 IMPRESSION: 1. Near complete resolution of the recently described patchy infiltrate in the RIGHT upper lobe and at the RIGHT hilum. 2. Minimal residual patchy pneumonia in the RIGHT infrahilar region. 3. New, mildly progressed hyperexpansion. 4. Chronic emphysema. Laboratory Results WBC 15.19 10^3/uL (3.29-11.43) H 11/27/24 07:34 RBC 4.23 10^6/uL (3.85-5.65) 11/27/24 07:34 Hgb 11.60 g/dL (11.27-16.99) 11/27/24 07:34 Hct 39.1 % (36-47) 11/27/24 07:34 MCV 92.4 fl (85-98) 11/27/24 07:34 MCH 27.4 pg (27-33) 11/27/24 07:34 MCHC 29.7 g/dL (30-55) L 11/27/24 07:34 RDW 15.0 % (12.1-15.1) 11/27/24 07:34 Plt Count 374 10^3/cmm (157-399) 11/27/24 07:34 MPV 10.3 fL (7.4-10.4) 11/27/24 07:34 Neut % (Auto) 88.5 % 11/27/24 07:34 Lymph % (Auto) 7.4 % 11/27/24 07:34 Elmore % (Auto) 2.6 % 11/27/24 07:34 Eos % (Auto) 0.3 % 11/27/24 07:34 Baso % (Auto) 0.3 % 11/27/24 07:34 Neut # (Auto) 13.45 10^3/uL (1.8-7.7) H 11/27/24 07:34 Lymph # (Auto) 1.1 10^3/uL (0.8-4.8) 11/27/24 07:34 Elmore # (Auto) 0.4 10^3/uL (0.2-0.9) 11/27/24 07:34 Eos # (Auto) 0.1 10^3/uL (0.0-0.8) 11/27/24 07:34 Baso # (Auto) 0.0 10^3/uL (0.0-0.1) 11/27/24 07:34 Nucleated RBC % (auto) 0 % 11/27/24 07:34 Nucleated RBCs # 0.0 /100WBC 11/27/24 07:34 Specimen Type Arterial 11/27/24 08:46 Sample Site Radial, right 11/27/24 08:46 ABG pH 7.26 (7.35-7.45) L 11/27/24 08:46 ABG pCO2 66.1 mmHg (35-45) H* 11/27/24 08:46 ABG pO2 107.0 mmHg (80.0-100.0) H 11/27/24 08:46 ABG PO2/FiO2 Ratio 305 11/27/24 08:46 ABG HCO3 29.6 mmol/L (22-26) H 11/27/24 08:46 ABG O2 Saturation 98.2 11/27/24 08:46 ABG Base Excess 1.3 mmol/L (-2.0-2.0) 11/27/24 08:46 Sohail Test Pos 11/27/24 08:46 A-a O2 Gradient 8.3 mmHg (5-10) 11/27/24 08:46 Hematocrit 34.3 % (37-47) L 11/27/24 08:46 Hgb O2 Saturation 95.9 % (95-100) 11/27/24 08:46 Carboxyhemoglobin 1.1 %THgb (0.4-20.1) 11/27/24 08:46 Methemoglobin 1.3 % (0.4-1.5) 11/27/24 08:46 Total Hemoglobin 11.2 g/dL (12-16) L 11/27/24 08:46 Sodium 133.0 mmol/L (131-143) 11/27/24 08:46 Potassium 3.3 mmol/L (3.5-5.0) L 11/27/24 08:46 Glucose 162.0 mg/dL (70-115) H 11/27/24 08:46 Ionized Calcium 1.2 mmol/L (1.1-1.4) 11/27/24 08:46 O2 Delivery Device Bipap 11/27/24 08:46 FiO2 35.0 % 11/27/24 08:46 Remote Computer Terminal Operator ID [place] 11/27/24 08:46 Sodium 134 mmol/L (136-145) L 11/27/24 07:34 Potassium 4.2 mmol/L (3.5-5.1) 11/27/24 07:34 Chloride 93 mmol/L (98-107) L 11/27/24 07:34 Carbon Dioxide 29 mmol/L (22-29) 11/27/24 07:34 Anion Gap 16.2 (5-19) 11/27/24 07:34 BUN 13 mg/dL (8-23) 11/27/24 07:34 Creatinine 0.5 mg/dL (0.5-0.9) 11/27/24 07:34 GFR Calculation 125.0 mL/min (90-130) 11/27/24 07:34 Glucose 213 mg/dL (65-115) H 11/27/24 07:34 Calculated Osmolality 284 mOsm/kg (285-295) L 11/27/24 07:34 Lactic Acid 1.7 mmol/L (0.5-2.2) 11/27/24 07:34 Calcium 9.0 mg/dL (8.5-10.5) 11/27/24 07:34 Total Bilirubin 0.7 mg/dL (0.15-1.2) 11/27/24 07:34 AST 20 U/L (0-32) 11/27/24 07:34 ALT 19 U/L (0-33) 11/27/24 07:34 Alkaline Phosphatase 79 U/L (35-105) 11/27/24 07:34 Troponin T Baseline 112 ng/L (0-10) H* 11/27/24 07:34 NT-Pro-B Natriuret Pep 493 pg/mL (0-125) H 11/27/24 07:34 Total Protein 6.8 g/dL (6.6-8.7) 11/27/24 07:34 Albumin 3.9 g/dL (3.5-5.2) 11/27/24 07:34 Globulin 2.9 g/dL (1.3-4.6) 11/27/24 07:34 Coronavirus (PCR) Negative (Negative) 11/27/24 07:34 Influenza A (PCR) Positive (Negative) 11/27/24 07:34 Influenza Type B (PCR) Negative (Negative) 11/27/24 07:34 RSV (PCR) Negative (Negative) 11/27/24 07:34 All radiology interpretation(s) finalized by discharge Discharge Plan Discharge Patient Disposition: Admitted As Inpatient Clinical Impression: Influenza A, COPD exacerbation, Hypercapnic respiratory failure, Acute on chronic hypoxic respiratory failure, Acute hypotension Condition: Stable Coding Level of Care Code ED [facility] [employer] Rental Clerk for Meryl Bradley
[2024-11-27 07:21] LABS: Arterial Blood Gas Hematocrit 35.8 % (37-47); Base Excess ABG 1.1 mmol/L (-2.0-2.0); Blood Gas Allen Test Pos; Blood Gas Operator Identificat WALCI; Blood Gas Sample Site Radial, right; Blood Gas Sample Type Arterial; Carboxyhemoglobin 1.1 %THgb (0.4-20.1); HCO3 ABG 32.1 mmol/L (22-26); HGB O2 Sat 92.8 % (95-100); Ionized Calcium Level - ABG 1.3 mmol/L (1.1-1.4); Methemoglobin 0.8 % (0.4-1.5); Oxygen Device ROOM AIR; Oxygen Saturation ABG 94.6; PO2 ABG 86.9 mmHg (80.0-100.0); PO2 FiO2 Ratio Arterial Blood 413; Potassium Level - ABG 4.3 mmol/L (3.5-5.0); Total Hemoglobin 11.7 g/dL (12-16)
[2024-11-27 07:22] LABS: ABG PCO2 91.5 mmHg (35-45); ABG PH Result 7.15 (7.35-7.45)
[2024-11-27] MEDS: methylPREDNISolone sod succ 125 mg/2 mL INJ IVP (07:30)
[2024-11-27] MEDS: albuterol 2.5 mg/3 mL Neb INHALATION (07:36)
[2024-11-27] MEDS: ipratropium-albuterol 3 mL Neb INHALATION ×3 (07:36→20:19)
--- NOTE | 2024-11-27 07:38 | PC.PHAR ---
Pt is on bipap and could only nod during med rec. Verified with last fill dates and day supply from [facility].
[2024-11-27 07:47] LABS: Basophils % 0.3 %; Eosinophils # 0.1 10^3/uL (0.0-0.8); Eosinophils % 0.3 %; Hematocrit 39.1 % (36-47); Lymphocytes # 1.1 10^3/uL (0.8-4.8); Lymphocytes % 7.4 %; Mean Corpuscular HGB Conc 29.7 g/dL (30-55); Mean Corpuscular Hemoglobin 27.4 pg (27-33); Mean Corpuscular Volume 92.4 fl (85-98); Mean Platelet Volume 10.3 fL (7.4-10.4); Monocytes # 0.4 10^3/uL (0.2-0.9); Monocytes % 2.6 %; Neutrophils # 13.45 10^3/uL (1.8-7.7); Neutrophils % 88.5 %; Nucleated Red Blood Cells % 0 %; Platelet Count 374 10^3/cmm (157-399); Red Blood Count 4.23 10^6/uL (3.85-5.65); White Blood Count 15.19 10^3/uL (3.29-11.43)
[2024-11-27 08:04] LABS: Lactic Sepsis W/Reflex 1.7 mmol/L (0.5-2.2)
[2024-11-27 08:11] LABS: Troponin(5th) Baseline 112 ng/L (0-10)
[2024-11-27 08:12] LABS: Alanine Aminotransferase 19 U/L (0-33); Albumin Level 3.9 g/dL (3.5-5.2); Alkaline Phosphatase 79 U/L (35-105); Anion Gap 16.2 (5-19); Aspartate Amino Transferase 20 U/L (0-32); Blood Urea Nitrogen 13 mg/dL (8-23); Carbon Dioxide 29 mmol/L (22-29); Chloride 93 mmol/L (98-107); Creatinine Clr Calc Pharmacy 122.3316; Globulin 2.9 g/dL (1.3-4.6); Glucose 213 mg/dL (65-115); NT Pro B Type Natriuretic Pept 493 pg/mL (0-125); Osmolality Calculated 284 mOsm/kg (285-295); Potassium 4.2 mmol/L (3.5-5.1); Sodium 134 mmol/L (136-145); Total Bilirubin 0.7 mg/dL (0.15-1.2); Total Protein 6.8 g/dL (6.6-8.7)
[2024-11-27] MEDS: doxycycline 100 MG in sodium chloride 0.9% (plus) 100 ML IV (08:18)
[2024-11-27 08:23] LABS: Influenza A POSITIVE (Negative); Influenza B NEGATIVE (Negative); Respiratory Syncytial Virus Ce NEGATIVE (Negative); SARS-CoV-2 PCR NEGATIVE (Negative)
[2024-11-27 08:57] LABS: ABG PH Result 7.26 (7.35-7.45); Alveolar-Arterial Oxygen Gradi 8.3 mmHg (5-10); Arterial Blood Gas Hematocrit 34.3 % (37-47); Base Excess ABG 1.3 mmol/L (-2.0-2.0); Blood Gas Allen Test Pos; Blood Gas Operator Identificat WALCI; Blood Gas Sample Site Radial, right; Blood Gas Sample Type Arterial; Carboxyhemoglobin 1.1 %THgb (0.4-20.1); HCO3 ABG 29.6 mmol/L (22-26); HGB O2 Sat 95.9 % (95-100); Ionized Calcium Level - ABG 1.2 mmol/L (1.1-1.4); Methemoglobin 1.3 % (0.4-1.5); Oxygen Device BIPAP; Oxygen Saturation ABG 98.2; PO2 FiO2 Ratio Arterial Blood 305; Potassium Level - ABG 3.3 mmol/L (3.5-5.0); Total Hemoglobin 11.2 g/dL (12-16)
[2024-11-27 08:58] LABS: ABG PCO2 66.1 mmHg (35-45)
[2024-11-27] MEDS: sodium chloride 0.9% 1,000 ML 999 ML IV ×2 (09:09→10:11)
--- NOTE | 2024-11-27 09:13 | PC.NURSE ---
low bp reported to provider orders entered
--- NOTE | 2024-11-27 09:15 | PC.NURSE ---
MD NOTIFIED OF LOW BLOOD PRESSURE. FLUID BOLUS ORDERED.
[2024-11-27] MEDS: oseltamivir phosphate 75 mg Capsule PO ×2 (09:26→17:05)
[2024-11-27] MEDS: hydrocortisone 100 mg/2 mL SDV IVP (09:28)
--- NOTE | 2024-11-27 10:00 | ECG_ITS ---
[facility] Test Date: 2024-11-27 Pat Name: Dahlia Shah Department: Room: EDIP Gender: Female Heel Sprayer: : 1960 Requested By: Angella Solorio Order Number: [id number] Braxton MD: Damien Downey M.D. Measurements Intervals [place] Rate: 93 P: 85 DC: 141 QRS: 72 QRSD: 98 T: 247 QT: 340 QTc: 425 Interpretive Statements SINUS RHYTHM POSSIBLE RIGHT ATRIAL ENLARGEMENT [0.25mV P-WAVE] ST DEVIATION AND MODERATE T-WAVE ABNORMALITY, CONSIDER INFERIOR ISCHEMIA [-0.1+ mV T-WAVE IN II/aVF] Compared to ECG 11/27/2024 07:16:45 T-wave abnormality now present Possible ischemia now present Sinus tachycardia no longer present Myocardial infarct finding no longer present Electronically Signed On 11-29-2024 22:22:23 CALCIMINER by Damien Downey M.D. [email or web address]
[2024-11-27] MEDS: levofloxacin-dextrose 5 % 750 MG/150 ML PREMIX 100 MG IV (10:07)
[2024-11-27 10:11] LABS: Troponin 5 2HR 315.7 ng/L (0-10)
[2024-11-27 10:12] LABS: Troponin 5 2HR Delta 203.7 ABS# (0-10)
--- NOTE | 2024-11-27 10:31 | PM.HP ---
Providers/Chief Complaint Admitting Physician: Josh Beckham Primary Care Provider: ERNESTO Tang Chief Complaint: Resp Distress History of Present Illness Pleasant 63-year-old lady with recent hospitalization for COPD exacerbation, respiratory failure, A-fib with RVR, no tenderness related to shortness of breath, malaise, body aches, chest pressure, minimally productive cough, and ER with finding of acute hypoxic and hypercapnic respiratory failure, with respiratory stenosis, requiring BiPAP support, influenza A positive. With troponin elevation, baseline 112, 2-hour 315. NT-proBNP 493. She does note having had some swelling of her legs. After recent hospitalization was discharged with amiodarone, metoprolol, Eliquis, a course of Augmentin and Levaquin as well as prednisone taper. Review of Systems Const: Reports: chills, body aches and malaise ENMT: Denies: throat pain Card: Reports: other (Earlier had chest pressure); Denies: chest pain, edema, pre-syncope or dyspnea on exertion Resp: Reports: dyspnea and productive cough; Denies: hemoptysis GI: Denies: abdominal pain, nausea, vomiting, diarrhea, constipation, hematochezia or melena : Denies: flank pain, urinary frequency or hematuria Musc: Denies: back pain, joint swelling or joint redness Skin/Breast: Denies: rash or new lesions Neuro: Denies: headache(s) or confusion Endo: Denies: polyuria or polydipsia Medications/Allergies Home Medications ?Medication ?Instructions ?Recorded ?Confirmed ?Last Taken ?Type albuterol sulfate 90 mcg/actuation 2 puff inhalation Q6H PRN 06/19/20 11/27/24 11/11/22 History aerosol inhaler Shortness Of Breath Or Wheezing fluticasone fur. 200 mcg-umeclid 1 inh inhalation DAILY 11/12/22 11/27/24 11/14/22 History 62.5 mcg-vilant 25 mcg inhalat.powder (Trelegy Ellipta) pantoprazole 40 mg tablet,delayed 40 mg PO BID 11/12/22 11/27/24 11/13/22 History release lisinopril 5 mg tablet 5 mg PO DAILY #100 tabs 04/11/24 11/27/24 Unknown Rx alendronate 70 mg tablet 70 mg PO Q7D 11/10/24 11/27/24 11/21/24 History alprazolam 0.25 mg tablet (Xanax) 0.25 mg PO BID PRN anxiety #14 tabs 11/15/24 11/27/24 Unknown Rx amiodarone 200 mg tablet (Pacerone) 200 mg PO BID #60 tabs 11/15/24 11/27/24 Unknown Rx apixaban 5 mg tablet (Eliquis) 5 mg PO BID #60 tabs 11/15/24 11/27/24 Unknown Rx escitalopram oxalate 10 mg tablet 10 mg PO DAILY #30 tabs 11/15/24 11/27/24 Unknown Rx (Lexapro) ipratropium 0.5 mg-albuterol 3 mg 3 ml inhalation Q8H shortness of 11/15/24 11/27/24 11/12/22 Rx (2.5 mg base)/3 mL nebulization breath or wheezing #90 mL soln metoprolol tartrate 25 mg tablet 25 mg PO BID@0900,2100 30 days #60 11/15/24 11/27/24 Unknown Rx tabs prednisone 10 mg tablet See Taper PO DIRECTED #42 tabs 11/15/24 11/27/24 Unknown Rx buspirone 5 mg tablet 5 mg PO TID PRN Anxiety 11/27/24 11/27/24 Unknown History ondansetron HCl 8 mg tablet 8 mg PO BID PRN Nausea And Vomiting 11/27/24 11/27/24 Unknown History sertraline 50 mg tablet 50 mg PO DAILY 11/27/24 11/27/24 Unknown History spironolactone 25 mg tablet 25 mg PO DAILY 11/27/24 11/27/24 Unknown History Allergies Allergy/AdvReac Type Severity Reaction Status Date / Time codeine Allergy Intermediate ADR-Headach Verified 07/04/24 11:02 e PFSH Acute PFSH: Medical History Paroxysmal A-fib Right ureteral calculus COPD (chronic obstructive pulmonary disease) Oxygen dependent Asthma Surgical History S/P ureteral stent placement Family History Mother Rheumatoid arthritis Congestive heart failure (CHF) Father , AT AGE 56 Cancer lung cancer Other CAD (coronary artery disease) Social History Smoking and tobacco/nicotine status: former use of tobacco/nicotine Alcohol intake: never Substance/Drug Use: never Lives independently: Yes Housing: House Marital status: / Current occupational status: disabled Vitals/I&O/Wt Last Vital Signs Temp 98.3 F 11/27/24 07:10 Pulse 94 11/27/24 10:00 Resp 22 H 11/27/24 10:00 BP 86/69 11/27/24 09:45 Pulse Ox 100 11/27/24 10:00 O2 Del Method BiPAP 11/27/24 07:33 FiO2 35 11/27/24 09:26 11/26/24 11/27/24 11/27/24 22:59 06:59 14:59 Intake Total 1100 / 1100 Balance 1100 / 1100 Weight last 48 hrs Weight 77.111 kg Physical Exam Const: COMMON NORMALS: patient oriented x3 and alert GENERAL APPEARANCE: cooperative ORIENTATION/CONSCIOUSNESS: Yes awake HENMT: COMMON NORMALS: oropharynx normal Neck/C-Spine: COMMON NORMALS: no JVD Resp: AUSCULTATION: wheezes and diminished lung sounds OTHER: BiPAP Cardio: COMMON NORMALS: no JVD, regular rhythm, S1 normal heart sound present, S2 normal heart sound present and No murmurs present (Cardio) RHYTHM: regular rhythm HEART SOUNDS: S1 normal heart sound present and S2 normal heart sound present GI: COMMON NORMALS: Normal to inspection, nondistended, normoactive bowel sounds present, Soft to palpation and non-tender PALPATION: Yes Soft to palpation Extremity: COMMON NORMALS: no joint enlargement GENERAL: Yes edema (traCE) Neuro: COMMON NORMALS: patient oriented x3 and moves all extremities SENSORIUM/ORIENTATION: Yes alert Skin: COMMON NORMALS: no rashes or lesions noted GENERAL SKIN EXAM: no rashes or lesions noted Sepsis: Is patient septic: No Focused sepsis exam performed: Yes Focused sepsis exam: Without mottling or cyanosis. She is awake and alert. Date exam was performed: 11/27/24 Time exam was performed: 10:30 Data 11/27/24 07:34 02/04/25 07:34 Micro: Microbiology 11/27/24 08:03 Blood Culture - Preliminary Blood SPECIMEN COLLECTED 11/27/24 07:34 Blood Culture - Preliminary Blood SPECIMEN COLLECTED A&P Assessment and plan (1) Acute on chronic hypoxic respiratory failure: Acute chronic hypoxic and hypercapnic respiratory failure with respiratory stenosis, influenza A infection, pneumonia, NSTEMI. Reviewed vitals, CBC, ABG, CMP, troponin, EKG, respiratory panel, chest x-ray. Reviewed ER provider note, discussed with ER provider. She is requiring BiPAP support. ABG with respiratory acidosis, pH 7.15 on presentation, CO2 91.5, O2 86.9 on 35% BiPAP. Treat COPD exacerbation, influenza infection, pneumonia. Will give Tamiflu, empiric Levaquin. Noted near complete resolution of prior infiltrates, but minimal residual patchy pneumonia in the right infrahilar region. Continue Levaquin for now. Also plan for follow-up influenza A. Solu-Medrol, antibiotic, breathing treatments for severe COPD exacerbation with dyspnea, wheezing, diminished air entry, productive cough, respiratory failure. (2) Influenza A: Severe influenza A infection with respiratory failure, severe COPD exacerbation. Tamiflu (3) NSTEMI (non-ST elevated myocardial infarction): Troponin with noted elevation, baseline 112, 2-hour troponin 315, delta 203. She had chest pressure earlier. Appears possibly type II LA related to respiratory failure. However, does have risk factors of coronary disease. Denies prior Angiogram, stenting or stress test. Recent echocardiogram. Monitor on telemetry with risk of arrhythmia. Will give aspirin. Currently without chest pain or pressure. Switch anticoagulation with Lovenox for now Will obtain limited echocardiogram to further assess for possible cardiogenic shock. With abdominal pain will additionally assess with CT abdomen pelvis. (4) COPD exacerbation: Severe exacerbation of COPD with productive cough, diminished air entry, wheezing, respiratory failure with hypoxia and respiratory cytosis. Requiring BiPAP support, reviewed settings. Continue. Wean down as tolerated. Will give breathing treatments with DuoNebs. Started treatment with Solu-Medrol. (5) Hypotension: Blood pressure low, as low as 67/51 in ER. Received 1 L fluid bolus. Pending reassessment, possibly additional bolus. Possible shock, she did take her blood pressure medications this morning. Possible adrenal insufficiency/crisis. Received Solu-Medrol, continue steroids. Hold antihypertensives. Possible toxic effect of antihypertensives in setting of reduced renal clearance. Less likely sepsis, septic shock, although does have leukocytosis 15, sinus tachycardia on presentation 114, tachypnea 20-24. Lactic acid reviewed, normal. She does report some abdominal discomfort but without other GI symptoms. Will check UA. For now empiric antibiotic coverage with Levaquin. Blood cultures have been collected. Plan Atrial fibrillation: Continue amiodarone. Hold metoprolol. Will switch from Eliquis to Lovenox for now. Monitor on telemetry. PDMP PDMP Reviewed: Not Reviewed Attestations Medical Necessity Statement*: Admission over 2 midnights anticipated for assessment management of acute on chronic hypoxic and hypercapnic respiratory failure, shock, NSTEMI. Coding Level of Care Code Critical Care >/= 30 minutes Critical care time (in minutes): 35 The high probability of a clinically significant, sudden or life threatening deterioration, as referenced in this documentation, required my full and direct attention, intervention and personal management. The critical care time shown is in addition to time spent performing any reported separately billable procedures and includes the following: [x] Data and vital sign review and interpretation [x] Patient assessment, examination and intervention [x] Medication orders and management [x] Patient/Family updates as able [x] Care Coordination and Documentation. Diagnoses Acute on chronic hypoxic respiratory failure J96.21 Influenza A J10.1 NSTEMI (non-ST elevated myocardial infarction) I21.4 COPD exacerbation J44.1 Hypotension I95.9
--- NOTE | 2024-11-27 11:28 | PC.NURSE ---
DR. RANGEL NOTIFIED OF PT BLOOD PRESSURE DROPPING TO 77/58 AND 79/54 AFTER 2 FLUID BOLUS AND PLACING PT IN REVERSE [place]. ORDERS FOR LEVOPHED. DR. RODRIGUEZ NOTIFIED OF PT CHANGE. PT WAS EXAMINED BY DR. RODRIGUEZ. BLOOD PRESSURE IMPROVED TO 92/67, MAP OF 75. VERBAL ORDERS TO KEEP MAP ABOVE 65 AT THIS TIME.
--- NOTE | 2024-11-27 11:38 | CT_ITS ---
WS: [id number] CT ABDOMEN AND PELVIS NONCONTRAST HISTORY: shock TECHNIQUE: Imaging performed through the abdomen and pelvis. Coronal and sagittal reformats are submitted. All CT scans at [facility] use at least one of these dose optimization techniques: automated exposure control; mA and/or kV adjustment per patient size (includes targeted exams where dose is matched to clinical indication); or iterative reconstruction. DLP: 565.39 mGy.cm COMPARISON: 11/10/2022 Lower thorax: Pulmonary hyperinflation with no pneumonia. Normal size heart. Liver: Normal size liver. No mass or bile duct dilatation. Gallbladder: Normal gallbladder. No pericholecystic fluid or cholelithiasis. No gallbladder wall thickening. Pancreas: Normal size and attenuation. Normal pancreatic duct. No pancreatitis or mass. Spleen: Normal. Adrenal glands: Normal. No mass. Right kidney: Normal size kidney with no mass or hydronephrosis. Left kidney: Normal size kidney with no mass or hydronephrosis. Aorta: Mild atherosclerosis. No periaortic fluid collection. No free fluid, intraperitoneal air or significant lymphadenopathy. GI tract: Normal noncontrast imaging of the stomach, small bowel and colon. No obstruction or wall thickening. Normal appendix. Abdominal wall: Negative. No hernia. Pelvis: Normal bladder. Normal uterus. No adnexal mass. Osseous structures: L2 remote compression fracture superior endplate. CT/CT abdomen pelvis wo con [id number] IMPRESSION: 1. No GI tract obstruction. No colitis. 2. No ascites or adenopathy. 3. No renal obstruction. 4. Mild atherosclerosis aorta.
--- NOTE | 2024-11-27 13:05 | ECG_ITS ---
[facility] Test Date: 2024-11-27 Pat Name: Dahlia Shah Department: Room: EDIP Gender: Female Touch Up Edger: : 1960 Requested By: Angella Solorio Order Number: [id number] Braxton MD: Damien Downey M.D. Measurements Intervals [place] Rate: 89 P: 85 [place]: 140 QRS: 74 QRSD: 88 T: 84 QT: 349 QTc: 425 Interpretive Statements SINUS RHYTHM NONSPECIFIC T-WAVE ABNORMALITY Compared to ECG 11/27/2024 10:00:53 Possible ischemia no longer present T-wave abnormality still present Electronically Signed On 11-29-2024 22:22:15 [employer]GER [employer] by Damien Downey M.D. [email or web address]
[2024-11-27 14:15] LABS: Troponin 5 6HR 407.3 ng/L (0-10); Troponin 5 6HR Delta 295.3 ng/L (0-12)
--- NOTE | 2024-11-27 15:03 | P.CONIM_ITS ---
<Statement entered by Dimple Suresh MD - 11/27/24 21:40> Patient was evaluated and cared for in conjunction with an advanced practice practitioner. I personally examined the patient and reviewed the chart and all pertinent data including imaging, telemetry, and laboratory results. I discussed the patient in detail with the advanced practice practitioner. Please see their note for complete H&P testing result and agreed upon plan of care for the patient. 63-year-old female past medical history significant for COPD history of stress- induced cardiomyopathy with recovered and improved ejection fraction in the past recently diagnosed and treated for pneumonia presented with worsening of shortness of breath hypercapnic respiratory failure was ruled in for non-ST elevation UT it is the reason we have been asked to assist in her care GENERAL: Patient is fatigued using BiPAP HEART: Regular S1 and S2. No murmur, rub or gallop. LUNGS: Decreased breath sound to auscultate bilaterally. CENTRAL NERVOUS SYSTEM: Grossly nonfocal. EXTREMITIES: Lower extremities with out edema bilaterally. Assessment and plan Hypercapnic hypoxic respiratory failure Non-ST ovation UT Atrial fibrillation Acute decompensated on chronic CHF unspecified COPD exacerbation Will ask for limited echo to rule out regional wall motion abnormality IV Lasix for decompensated acute on chronic heart failure Rate control strategy using tamara marisela/antiarrhythmic Once euvolemic and respiratory failure resolved may need left heart cath before discharge Providers/Reason For Consult 2 Consulting Physician/Specialty*: Dr. Suresh Reason for Consult*: NSTEMI Requesting Physician: Dr. Beckham Attending Physician: Josh Beckham Primary Care Provider: ERNESTO Tang History of Present Illness History of Present Illness This is a very pleasant 63-year-old female history of recently diagnosed paroxysmal A-fib with chronic anticoagulation on Eliquis 5 mg twice daily. History of diastolic heart failure, COPD oxygen dependent, hypercholesterolemia, hypertension, Takotsubo cardiomyopathy, and asthma. She was recently admitted the hospital with respiratory distress and community-acquired pneumonia. She was discharged about 10 days ago. This morning she developed severe shortness of breath with a cough and difficulty breathing. She was transferred by EMS who gave breathing treatments on the way to hospital. White cell count was elevated at 15,000. She had hypercapnic respiratory failure and CO2 was 92 on arrival. BiPAP was placed and patient's CO2 improved. She was found to be flu positive as well. She denies any chest pain at this time. She states her chest is sore from coughing. Oxygen saturation currently 99% on BiPAP. Current EKG shows sinus rhythm rates in the 90s without acute ST elevation or T wave abnormalities. Blood pressure is now stable after fluid bolus was given. It was low on arrival. Troponin was markedly elevated at [phone]. Probnp 493, which is close to baseline. Chest x-ray showed resolved RUL infiltrate now with new RLL infiltrate. No renal failure present. Patient has a hx of a heart cath that was negative for significant coronary artery stenosis in 2019. She is a former smoker. Review of Systems 2 Narrative: Consitutional: denies fever, chills, body aches, or changes in appetite, denies abnormal weight loss Eyes: Denies changes in vision Card: reports chest tenderness due to multiple coughing episodes, denies palpitations, reports history of irregular heart rhythm, reports chronic edema, denies syncope, reports shortness of breath on exertion, denies orthopnea, leg pain with exertion Resp: Denies shortness of breath, denies hemoptysis, denies cough GI: denies abdominal pain, reports nausea, denies blood in stool Musc: Denies extremity pain, denies limited range of motion or recent injury Skin: Denies rash, lesions, or wounds, denies changes to skin color Neuro: Denies nubmness in extremities, h/a, s/s of stroke Joshua: Denies easy bruiding/bleeding Medications/Allergies Home Medications ?Medication ?Instructions ?Recorded ?Confirmed ?Last Taken ?Type albuterol sulfate 90 mcg/actuation 2 puff inhalation Q 6H PRN 06/19/20 11/27/24 11/11/22 History aerosol inhaler Shortness Of Breath Or Wheez ing fluticasone fur. 200 mcg-umeclid 1 inh inhalation BERONICA Y 11/12/22 11/27/24 11/14/22 History 62.5 mcg-vilant 25 mcg inhalat.powder (Trelegy Ellipta) pantoprazole 40 mg tablet,delayed 40 mg PO BID 3 11/27/24 11/13/22 History release lisinopril 5 mg tablet 5 mg PO DAILY #100 tabs 03/2411/27/24 Unknown Rx alendronate 70 mg tablet 70 mg PO Q7D 11/10/2411/21/24 History alprazolam 0.25 mg tablet (Xanax) 0.25 mg PO BID PRN a nxiety #14 tabs 11/15/24 11/27/24 Unknown Rx amiodarone 200 mg tablet (Pacerone) 200 mg PO BID #60 tabs 11/15/24 11/27/24 Unknown Rx apixaban 5 mg tablet (Eliquis) 5 mg PO BID #60 tabs 11/27/24 Unknown Rx escitalopram oxalate 10 mg tablet 10 mg PO DAILY #30 t abs 11/15/24 11/27/24 Unknown Rx (Lexapro) ipratropium 0.5 mg-albuterol 3 mg 3 ml inhalation Q8H shortness of 11/15/24 11/27/24 11/12/22 Rx (2.5 mg base)/3 mL nebulization breath or wheezing #90 mL soln metoprolol tartrate 25 mg tablet 25 mg PO BID@0900,210 0 30 days #60 11/15/24 11/27/24 Unknown Rx tabs prednisone 10 mg tablet See Taper PO DIRECTED #42 tabs 11/15/24 11/27/24 Unknown Rx buspirone 5 mg tablet 5 mg PO TID PRN Anxiety 02/1511/27/24 Unknown History ondansetron HCl 8 mg tablet 8 mg PO BID PRN Nausea And Vomiting 11/27/24 11/27/24 Unknown History sertraline 50 mg tablet 50 mg PO DAILY 11/27/2402/15 Unknown History spironolactone 25 mg tablet 25 mg PO DAILY 11/27/24 Unknown History Allergies Allergy/AdvReac Type Severity Reaction Status Date / Time codeine Allergy Intermediate ADR-Headach Verified 07/04/24 11:02 e PFSH Acute 2 PFSH: Medical History (Updated 11/27/24 @ 15:18 by Margi Kevin NP) Paroxysmal A-fib Right ureteral calculus COPD (chronic obstructive pulmonary disease) Oxygen dependent Asthma Surgical History S/P ureteral stent placement Family History Mother Rheumatoid arthritis Congestive heart failure (CHF) Father , AT AGE 56 Cancer lung cancer Other CAD (coronary artery disease) Social History Smoking and tobacco/nicotine status: former use of tobacco/nicotine Alcohol intake: never Substance/Drug Use: never Lives independently: Yes Housing: House Marital status: / Current occupational status: disabled Vitals/I&O/Wt Last Vital Signs Temp 98.3 F 11/27/24 07:10 Pulse 94 11/27/24 15:00 Resp 17 11/27/24 14:45 BP 144/59 11/27/24 15:00 Pulse Ox 99 11/27/24 15:00 O2 Del Method BiPAP 11/27/24 12:45 FiO2 35 11/27/24 13:47 11/27/24 11/27/24 11/27/24 06:59 14:59 22:59 Intake Total 2250 / 2250 Balance 2250 / 2250 Weight last 48 hrs Weight 170 lb Physical Exam 2 Narrative: General: No apparent distress, healthy appearing, well nourished HENMT: normoceophalic Neck: No carotid bruit bilaterally Muskuloskeletal: Full ROM Respiratory: Normal respiratory effort, bilateral lower lobes diminished currently on bipap, no use of accessory muscles Cardio: No JVD, regular rate, regular rhythm, S1 S2 normal, no murmurs, peripheral pulses 2+ radial palpated bilaterally GI: obese, nondistended Extremities: Full ROM, normal, no cyanosis, 2+ pitting edema bilateral lower extremities Neuro: Alert and oriented x4, no focal motor deficits Psych: Affect normal, denies suicidal ideation, mental status grossly normal Skin: No rashes or lesions noted, no wounds Data 11/27/24 07:34 11/27/24 07:34 Micro: Microbiology 11/27/24 08:03 Blood Culture - Preliminary Blood SPECIMEN COLLECTED 11/27/24 07:34 Blood Culture - Preliminary Blood SPECIMEN COLLECTED Other data: Chest x-ray IMPRESSION: 1. Near complete resolution of the recently described patchy infiltrate in the RIGHT upper lobe and at the RIGHT hilum. 2. Minimal residual patchy pneumonia in the RIGHT infrahilar region. 3. New, mildly progressed hyperexpansion. 4. Chronic emphysema. Echo 11/14/24 CONCLUSIONS Normal left ventricular size, systolic function and wall thickness, with no regional wall motion abnormalities. Left ventricular ejection fraction is estimated at 55%. Grade I/IV diastolic dysfunction (abnormal relaxation filling pattern), normal to mildly elevated filling pressures. No significant valve abnormalities. There is no pericardial effusion. Right atrial pressure is around 5 mm of mercury 06/22/20 Left Ventriculography Findings: LV gram was performed the HERNANDEZ position. The LV cavity appears to be mildly dilated. There was diffuse hypokinesia of the LV apex with an ejection fraction of around 35 to 40%. There was no filling defects. No significant mitral valve prolapse or mitral regurgitation. LVEDP was 19 mmHg. . A&P Assessment and plan (1) NSTEMI (non-ST elevated myocardial infarction): (2) Paroxysmal A-fib: (3) Influenza A: (4) Diastolic heart failure: Qualifiers: Heart failure chronicity: chronic Qualified Code(s): I50.32 - Chronic diastolic (congestive) heart failure (5) Mild coronary artery disease: (6) SOBOE (shortness of breath on exertion): (7) Hypertension: Qualifiers: Hypertension type: primary hypertension Qualified Code(s): I10 - Essential (primary) hypertension (8) Acute hypotension: Plan At this time, patient is having no active chest pain with significantly elevated troponins. This could be type II UT due to septic shock, however we will need to rule out progressing coronary lesions. At this time, recommend obtaining limited echo to evaluate for any wall motion abnormalities as well as observe her current ejection fraction. Will continue to monitor for EKG changes. Agree with lovenox in case patient may need heart cath in the future. Patient has some chronic lower extremity edema, but no s/s of severe fluid overload. Will hold lasix for now, as patient recently had hypotensive episode. May consider gently diuresing as patient recovers. Will continue to monitor. Thank you, Dr. Beckham, for allowing us to care for this very pleasant 63 year old patient. PDMP PDMP Reviewed: Not Reviewed Consult Attestations 2 Medical Necessity Statement: Deferred to primary care. Coding Level of Care Code Acute Code for Chg Fwd Diagnoses NSTEMI (non-ST elevated myocardial infarction) I21.4 Paroxysmal A-fib I48.0 Influenza A J10.1 Chronic diastolic heart failure I50.32 Heart failure chronicity: chronic Mild coronary artery disease I25.10 SOBOE (shortness of breath on exertion) R06.02 Primary hypertension I10 Hypertension type: primary hypertension Acute hypotension I95.9
--- NOTE | 2024-11-27 15:04 | USCV_ITS ---
Dahlia Shah Age: 63 Gender: F : 1960 Exam Date: 11/27/2024 17:21 Ordering Phys: Margi Kevin NP Technologist: [place] [facility] [place]: nstemi BP: 130 / 93 HR: Rhythm: Sinus Technical Quality: Adequate MEASUREMENTS (Male / Female) Normal Values 2D ECHO LVOT Diameter 2.0 cm LV Ejection Fraction MOD 4C 33.4 % LV Ejection Fraction MOD 2C 45.2 % LV Ejection Fraction 2C AL 43.0 % LA Diameter 2.9 cm RA Systolic Volume 4C AL 23.7 ml RA Systolic Volume 4C MOD 21.8 ml LA Sys Volume AL 47.0 cm cubed LA Sys Volume Index AL 24.1 cm cubed/m squared Aorta at Sinotubular Diameter 2.3 cm M-MODE LA Ao Ratio MM 1.4 AV Cusp Separation MM 2.2 cm FINDINGS Left Ventricle Moderately increased left ventricular cavity size. Moderately decreased left ventricular systolic function. Left ventricular ejection fraction is estimated at 45 %. There appeared to be mid to distal and apical hypokinesis. Right Ventricle Right Atrium Left Atrium Mitral Valve Aortic Valve Tricuspid Valve Pulmonic Valve Pericardium Aorta IVC CONCLUSIONS Moderately increased left ventricular cavity size. Moderately decreased left ventricular systolic function. Left ventricular ejection fraction is estimated at 45 %. There appeared to be mid to distal and apical hypokinesis. There is no pericardial effusion. Dimple Suresh MD (Electronically Signed) Final Date: 27 November 2024 19:31 S
[2024-11-27] MEDS: methylPREDNISolone sod succ 40 mg/mL INJ 60 MG IVP ×2 (15:49→21:49)
[2024-11-27] MEDS: amiodarone 200 mg Tablet PO (17:05)
[2024-11-27] MEDS: aspirin 325 mg Tablet PO (17:05)
[2024-11-27] MEDS: pantoprazole DR 40 mg Tablet PO (17:05)
[2024-11-27 17:30] LABS: Bilirubin Urine Negative (Negative); Blood Urine Negative (Negative); Glucose Urine UA Negative (Normal); Ketones Urine Negative (Negative); Leukocyte Esterase Urine Negative (Negative); Nitrate Urine Negative (Negative); Protein Urine Trace (Negative); Specific Gravity, Urine 1.009 (1.005-1.030); Urine Appearance Clear (CLEAR); Urine Color Yellow (Yellow); Urobilinogen Urine 0.2 mg/dL (Negative)
[2024-11-27 17:34] LABS: Add Urine Microscopic? YES; Bacteria Urine None Seen /hpf; Hyaline Casts Urine 1.65 /lpf; RBC Urine 0-2 /hpf (0-2); Squamous Epithelial Cell Urine 0-5 /hpf (0-5); WBC Urine 0-5 /hpf (0-5)
[2024-11-27] MEDS: norepinephrine 4 MG/250 ML BAG 7.5 MG IV (18:37)
[2024-11-27] MEDS: enoxaparin 80 mg/0.8 mL Syringe SUBCUT (18:37)
[2024-11-27] MEDS: FUROsemide 10 mg/mL SDV 4mL 40 MG IVP (21:49)
[2024-11-28] VITALS (83 sets, daily range): BP systolic 67–141; BP diastolic 39–95; PULSE 60–117; RESP 11–33; TEMP 36.4–37; O2SAT 85–99
[2024-11-28] MEDS: ipratropium-albuterol 3 mL Neb INHALATION ×4 (01:35→21:59)
[2024-11-28] MEDS: methylPREDNISolone sod succ 40 mg/mL INJ 60 MG IVP ×4 (03:42→21:30)
[2024-11-28] MEDS: enoxaparin 80 mg/0.8 mL Syringe SUBCUT ×2 (07:15→19:34)
[2024-11-28] MEDS: pantoprazole DR 40 mg Tablet PO ×2 (08:36→17:48)
[2024-11-28] MEDS: escitalopram 10 mg Tablet PO (08:36)
[2024-11-28] MEDS: aspirin 325 mg Tablet PO (08:37)
[2024-11-28] MEDS: amiodarone 200 mg Tablet PO ×2 (08:37→17:48)
[2024-11-28] MEDS: oseltamivir phosphate 75 mg Capsule PO ×2 (08:37→17:48)
[2024-11-28] MEDS: FUROsemide 10 mg/mL SDV 4mL 40 MG IVP (08:38)
[2024-11-28] MEDS: levofloxacin-dextrose 5 % 750 MG/150 ML PREMIX 100 MG IV (08:39)
[2024-11-28 09:40] LABS: Basophils % 0.1 %; Hematocrit 35.8 % (36-47); Lymphocytes # 0.2 10^3/uL (0.8-4.8); Lymphocytes % 2.3 %; Mean Corpuscular HGB Conc 30.7 g/dL (30-55); Mean Corpuscular Hemoglobin 28.4 pg (27-33); Mean Corpuscular Volume 92.3 fl (85-98); Mean Platelet Volume 10.4 fL (7.4-10.4); Monocytes # 0.2 10^3/uL (0.2-0.9); Monocytes % 1.9 %; Neutrophils # 7.46 10^3/uL (1.8-7.7); Neutrophils % 94.9 %; Nucleated Red Blood Cells % 0 %; Platelet Count 225 10^3/cmm (157-399); Red Blood Count 3.88 10^6/uL (3.85-5.65); Red Cell Distribution Width 15.4 % (12.1-15.1); White Blood Count 7.86 10^3/uL (3.29-11.43)
[2024-11-28 10:05] LABS: Anion Gap 14.9 (5-19); Blood Urea Nitrogen 11 mg/dL (8-23); Calcium 9.1 mg/dL (8.5-10.5); Carbon Dioxide 31 mmol/L (22-29); Chloride 94 mmol/L (98-107); Creatinine Clr Calc Pharmacy 155.5748; Glomerular Filtration Rate 161.7 mL/min (90-130); Glucose 153 mg/dL (65-115); Osmolality Calculated 284 mOsm/kg (285-295); Potassium 3.9 mmol/L (3.5-5.1); Sodium 136 mmol/L (136-145)
[2024-11-28] MEDS: ALPRAZolam 0.5 mg Tablet PO ×2 (10:21→21:30)
--- NOTE | 2024-11-28 15:11 | P.PN_ITS ---
<Statement entered by Dimple Suresh MD - 11/29/24 00:19> Patient was evaluated and cared for in conjunction with an advanced practice practitioner. I personally examined the patient and reviewed the chart and all pertinent data including imaging, telemetry, and laboratory results. I discussed the patient in detail with the advanced practice practitioner. Please see their note for complete H&P testing result and agreed upon plan of care for the patient. Overall feeling better today appeared to be less congested breathing better still lungs are tight with next picture of more pulmonary than heart failure however patient was volume overloaded last night given IV Lasix GENERAL: Patient is alert, awake and oriented x3. HEART: Irregular S1 and S2. No murmur, rub or gallop. LUNGS: Decreased breath sounds auscultate bilaterally. CENTRAL NERVOUS SYSTEM: Grossly nonfocal. EXTREMITIES: Lower extremities with out edema bilaterally. Assessment and plan Respiratory failure COPD exacerbation Influenza Acute decompensated systolic heart failure Moderately depressed left ventricular ejection fraction with anterior septal wall motion abnormality Switch to IV Lasix 40 mg once a day from tomorrow Once blood pressure further permit will add beta-marisela 12.5 mg succinate metoprolol Following recovery of influenza and COPD exacerbation may need further exploration with left heart catheterization for drop in ejection fraction wall motion abnormality to rule out obstructive coronary artery disease. Subjective 2 Subjective: Patient is improved today. She is now off of BiPAP and on 3 L nasal cannula oxygen saturation 97%. She still slightly tachycardic. Blood pressures have been soft. She is on Lasix 40 every 12 hours. Echo showed ejection fraction 45%. She has had adequate output. Edema has resolved. Denies any chest pain at this time. Vitals/I&O/Wt Last Vital Signs Temp 97.6 F 11/28/24 04:00 Pulse 102 H 11/28/24 14:15 Resp 16 11/28/24 14:15 BP 109/71 11/28/24 14:15 Pulse Ox 97 11/28/24 14:15 O2 Del Method Nasal Cannula 11/28/24 13:52 O2 Flow Rate 3 11/28/24 13:52 FiO2 35 11/28/24 04:00 11/28/24 11/28/24 11/28/24 06:59 14:59 22:59 Intake Total 15.125 / 2301.750 220 / 220 Output Total 1250 / 2400 350 / 350 Balance -1234.875 / -98.250 -130 / -130 Weight last 48 hrs Weight 176 lb 5.917 oz Weight 170 lb Physical Exam 2 Narrative: General: No apparent distress, healthy appearing, well nourished HENMT: normoceophalic Neck: No carotid bruit bilaterally Muskuloskeletal: Full ROM Respiratory: Normal respiratory effort, bilateral lower lobes diminished currently on nasal cannula, no use of accessory muscles Cardio: No JVD, regular rate, regular rhythm, S1 S2 normal, no murmurs, peripheral pulses 2+ radial palpated bilaterally GI: obese, nondistended Extremities: Full ROM, normal, no cyanosis, no edema bilateral lower extremities Neuro: Alert and oriented x4, no focal motor deficits Psych: Affect normal, denies suicidal ideation, mental status grossly normal Skin: No rashes or lesions noted, no wounds Data 11/28/24 09:14 11/28/24 09:14 Micro: Microbiology 11/27/24 08:03 Blood Culture - Preliminary Blood NEGATIVE TO DATE 11/27/24 07:34 Blood Culture - Preliminary Blood NEGATIVE TO DATE A&P Assessment and plan (1) NSTEMI (non-ST elevated myocardial infarction): (2) Paroxysmal A-fib: (3) Influenza A: (4) Diastolic heart failure: Qualifiers: Heart failure chronicity: chronic Qualified Code(s): I50.32 - Chronic diastolic (congestive) heart failure (5) Mild coronary artery disease: (6) SOBOE (shortness of breath on exertion): (7) Hypertension: Qualifiers: Hypertension type: primary hypertension Qualified Code(s): I10 - Essential (primary) hypertension (8) Acute hypotension: Plan The plan for this patient is to continue current care decrease Lasix to 40 daily. Patient continues to improve. Once she has recovered from the flu will require a left heart cath. At this time she is still recovering. Once her blood pressure allows will add a low dose beta-marisela. PDMP PDMP Reviewed: Not Reviewed Attestations 2 Medical Necessity Statement*: Deferred to primary Coding Level of Care Code Acute Code for [facility] Diagnoses NSTEMI (non-ST elevated myocardial infarction) I21.4 Paroxysmal A-fib I48.0 Influenza A J10.1 Chronic diastolic heart failure I50.32 Heart failure chronicity: chronic Mild coronary artery disease I25.10 SOBOE (shortness of breath on exertion) R06.02 Primary hypertension I10 Hypertension type: primary hypertension Acute hypotension I95.9
--- NOTE | 2024-11-28 18:42 | P.PN_ITS ---
Subjective 2 Subjective: She is overall feeling slightly better today. Denies chest pain or pressure. She is hungry, and requesting to resume oral diet. Earlier she was able to wean off BiPAP, but did feel like she was starting get short of breath, requested BiPAP to be replaced. Although she did also report being anxious at the same time, this may have affected how she was feeling more than shortness of breath. Vitals/I&O/Wt Last Vital Signs Temp 97.6 F 11/28/24 04:00 Pulse 82 11/28/24 18:06 Resp 16 11/28/24 18:00 BP 130/74 11/28/24 18:00 Pulse Ox 96 11/28/24 18:00 O2 Del Method Nasal Cannula 11/28/24 13:52 O2 Flow Rate 3 11/28/24 13:52 FiO2 35 11/28/24 04:00 11/28/24 11/28/24 11/28/24 06:59 14:59 22:59 Intake Total 15.125 / 2301.750 220 / 220 250 / 470 Output Total 1250 / 2400 350 / 350 Balance -1234.875 / -98.250 -130 / -130 250 / 120 Weight last 48 hrs Weight 80 kg Weight 77.111 kg Physical Exam 2 Const: COMMON NORMALS: patient oriented x3 and alert GENERAL APPEARANCE: c ooperative ORIENTATION/CONSCIOUSNESS: Yes awake HENMT: COMMON NORMALS: oropharynx normal Neck/C-Spine: COMMON NORMALS: no JVD Resp: COMMON NORMALS: normal respiratory effort and clear to auscultation bilaterally AUSCULTATION: clear to auscultation bilaterally, wheezes and diminished lung sounds OTHER: BiPAP Cardio: COMMON NORMALS: no JVD, regular rhythm, S1 normal heart sound present, S2 normal heart sound present and No murmurs present (Cardio) RHYTHM: regular rhythm HEART SOUNDS: S1 normal heart sound present and S2 normal heart sound present GI: COMMON NORMALS: Normal to inspection, nondistended, normoactive bowel sounds present, Soft to palpation and non-tender PALPATION: Yes Soft to palpation Extremity: COMMON NORMALS: no joint enlargement and no pedal edema GENERAL: Yes edema (traCE) Neuro: COMMON NORMALS: patient oriented x3 and moves all extremities S ENSORIUM/ORIENTATION: Yes alert Skin: COMMON NORMALS: no rashes or lesions noted GENERAL SKIN EXAM: no rashes or lesions noted Data 11/28/24 09:14 11/28/24 09:14 Micro: Microbiology 11/27/24 08:03 Blood Culture - Preliminary Blood NEGATIVE TO DATE 11/27/24 07:34 Blood Culture - Preliminary Blood NEGATIVE TO DATE A&P Assessment and plan (1) Acute on chronic hypoxic respiratory failure: She did start feeling like she was getting shortness of breath after coming off BiPAP earlier today, but was getting anxious the same time. Will add low-dose Xanax for air hunger, reattempt weaning off BiPAP down to nasal cannula oxygen. With weaning so far has done well on reassessment. Resumed on oral diet which she has tolerated. Blood pressure so far has improved and has not required pressor. Continue treatment for influenza A, continue oseltamivir, continue breathing treatments, continue Solu-Medrol for now as well as Levaquin for COPD exacerbation. Additionally volume status is being optimized by cardiology with diuresis, IV diuretic with Lasix, monitor intake and output, weights, monitor for risk of electrolyte deficiency, MIKE. Reassess volume status, reassess chemistry, magnesium. (2) Influenza A: Severe influenza A infection with respiratory failure, severe COPD exacerbation. Continue Tamiflu (3) NSTEMI (non-ST elevated myocardial infarction): Reviewed troponin series, EKG, limited echocardiogram, noted decrease in ejection fraction down to 45%, with noted appearance of mid to distal apical hypokinesis. Reviewed cardiology note, discussed with cardiology providers, plans for further volume optimization, subsequently consideration of additional assessment with coronary angiography. She is aware and agreeable with these plans. Continue to monitor on telemetry with risk of arrhythmia. (4) COPD exacerbation: Continue Solu-Medrol, still diminished air entry. Still requiring BiPAP this morning. With air hunger added low-dose Xanax to assist with air hunger symptoms. Monitor for risk of hyperglycemia, hypertension, encephalopathy, gastritis with IV steroids. Continue Levaquin. Continue breathing treatments. (5) Hypotension: Reviewed vitals, so far hypotension has resolved. Levophed was ordered but did not end up requiring it. For now continue to withhold lisinopril, metoprolol.Reassess vitals. With possible adrenal insufficiency for now continue with IV steroid. Low likelihood of septic shock, noted leukocytosis resolved. Reviewed UA, not suggestive of UTI. For now empiric antibiotic coverage with Levaquin. Blood cultures have been collected. Plan Atrial fibrillation: Continue amiodarone. Hold metoprolol. Will switch from Eliquis to Lovenox for now. Monitor on telemetry. PDMP PDMP Reviewed: Not Reviewed Attestations 2 Medical Necessity Statement*: Continue admission for assessment management of severe exacerbation of COPD, severe influenza A infection, NSTEMI. and High MDM includes amount and/or complexity of data reviewed/ordered [ previous or external records, resulted lab(s)/test(s), ordered lab(s)/test(s) and other healthcare professional discussion] and described risk of complication, morbidity or mortality of management as documented Diagnoses Acute on chronic hypoxic respiratory failure J96.21 Influenza A J10.1 NSTEMI (non-ST elevated myocardial infarction) I21.4 COPD exacerbation J44.1 Hypotension I95.9
--- NOTE | 2024-11-28 20:00 | PC.NURSE ---
Report given by Oni jeffers day shift. Told okay to take patient to unit when cleared by unit. Received notification from unit. Patient taken to floor via bed, no distress noted.
[2024-11-28] MEDS: potassium chloride ER 20 mEq Tablet PO (21:30)
[2024-11-29] VITALS (16 sets, daily range): BP systolic 109–132; BP diastolic 61–89; PULSE 65–103; RESP 16–23; TEMP 36.4–36.7; O2SAT 95–100
[2024-11-29] MEDS: ipratropium-albuterol 3 mL Neb INHALATION ×4 (01:17→21:30)
[2024-11-29] MEDS: methylPREDNISolone sod succ 40 mg/mL INJ 60 MG IVP ×3 (04:08→16:00)
[2024-11-29 05:18] LABS: Basophils % 0.1 %; Hematocrit 33.7 % (36-47); Lymphocytes # 0.1 10^3/uL (0.8-4.8); Lymphocytes % 1.1 %; Mean Corpuscular Hemoglobin 27.9 pg (27-33); Mean Corpuscular Volume 93.1 fl (85-98); Mean Platelet Volume 10.3 fL (7.4-10.4); Monocytes # 0.3 10^3/uL (0.2-0.9); Monocytes % 3.3 %; Neutrophils % 95.1 %; Nucleated Red Blood Cells % 0 %; Platelet Count 220 10^3/cmm (157-399); Red Blood Count 3.62 10^6/uL (3.85-5.65); Red Cell Distribution Width 15.5 % (12.1-15.1); White Blood Count 9.46 10^3/uL (3.29-11.43)
[2024-11-29 05:39] LABS: Anion Gap 10.1 (5-19); Blood Urea Nitrogen 21 mg/dL (8-23); Calcium 9.4 mg/dL (8.5-10.5); Carbon Dioxide 38 mmol/L (22-29); Chloride 98 mmol/L (98-107); Creatinine Clr Calc Pharmacy 124.4598; Glucose 151 mg/dL (65-115); Osmolality Calculated 300 mOsm/kg (285-295); Potassium 4.1 mmol/L (3.5-5.1); Sodium 142 mmol/L (136-145)
[2024-11-29 05:42] LABS: Magnesium 2.2 mg/dL (1.7-2.3)
[2024-11-29] MEDS: enoxaparin 80 mg/0.8 mL Syringe SUBCUT ×2 (08:34→20:17)
[2024-11-29] MEDS: escitalopram 10 mg Tablet PO (08:35)
[2024-11-29] MEDS: oseltamivir phosphate 75 mg Capsule PO ×2 (08:35→17:35)
[2024-11-29] MEDS: pantoprazole DR 40 mg Tablet PO ×2 (08:35→17:35)
[2024-11-29] MEDS: potassium chloride ER 20 mEq Tablet PO (08:35)
[2024-11-29] MEDS: aspirin 325 mg Tablet PO (08:35)
[2024-11-29] MEDS: amiodarone 200 mg Tablet PO ×2 (08:35→17:35)
[2024-11-29] MEDS: levofloxacin-dextrose 5 % 750 MG/150 ML PREMIX 100 MG IV (08:36)
[2024-11-29] MEDS: FUROsemide 10 mg/mL SDV 4mL 40 MG IVP (08:36)
[2024-11-29] MEDS: ALPRAZolam 0.5 mg Tablet PO ×2 (08:49→20:17)
--- NOTE | 2024-11-29 17:42 | P.PN_ITS ---
Subjective 2 Subjective: She is overall feeling slightly better. She is not having chest pain currently. She is requiring oxygen, and did require BiPAP support overnight. Gets tired with exertion. Vitals/I&O/Wt Last Vital Signs Temp 97.9 F 11/29/24 11:09 Pulse 87 11/29/24 16:41 Resp 16 11/29/24 16:00 BP 112/78 11/29/24 16:00 Pulse Ox 95 11/29/24 16:00 O2 Del Method Nasal Cannula 11/29/24 16:00 O2 Flow Rate 3 11/29/24 08:00 FiO2 30 11/29/24 16:00 11/29/24 11/29/24 11/29/24 06:59 14:59 22:59 Intake Total 0 / 1070 390 / 390 Output Total 750 / 750 325 / 1075 Balance 0 / 720 -360 / -360 -325 / -685 Weight last 48 hrs Weight 80 kg Physical Exam 2 Narrative: Sitting at the edge of the bed. Const: COMMON NORMALS: patient oriented x3 and alert GENERAL APPEARANCE: c ooperative ORIENTATION/CONSCIOUSNESS: Yes awake HENMT: COMMON NORMALS: oropharynx normal Neck/C-Spine: COMMON NORMALS: no JVD Resp: COMMON NORMALS: normal respiratory effort and clear to auscultation bilaterally AUSCULTATION: clear to auscultation bilaterally, wheezes and diminished lung sounds Cardio: COMMON NORMALS: no JVD, regular rhythm, S1 normal heart sound present, S2 normal heart sound present and No murmurs present (Cardio) RHYTHM: regular rhythm HEART SOUNDS: S1 normal heart sound present and S2 normal heart sound present GI: COMMON NORMALS: Normal to inspection, nondistended, normoactive bowel sounds present, Soft to palpation and non-tender PALPATION: Yes Soft to palpation Extremity: COMMON NORMALS: no joint enlargement and no pedal edema GENERAL: Yes edema (traCE) Neuro: COMMON NORMALS: patient oriented x3 and moves all extremities S ENSORIUM/ORIENTATION: Yes alert Skin: COMMON NORMALS: no rashes or lesions noted GENERAL SKIN EXAM: no rashes or lesions noted Data 11/29/24 04:33 11/29/24 04:33 A&P Assessment and plan (1) Acute on chronic hypoxic respiratory failure: Slowly improving, has still been requiring BiPAP overnight. Still requiring 2 L of oxygen by nasal cannula. This is closer to her baseline. Gets winded/tired with exertion. Continue treatment of severe influenza A infection. Continue Tamiflu. Continue oxygen support, wean down as tolerating. As she is now coming closer oxygen baseline of 3 L by nasal cannula, will additionally assess overnight pulse ox. At this time continue IV steroid with Solu-Medrol, will decrease down to 30 mg every 6 hours. Monitor for risk of myopathy, encephalopathy, hyperglycemia, hypertension, gastritis. Discussed with top case assembler. Will obtain overnight pulse oximetry, may benefit from BiPAP at home. Continue low-dose Xanax for air hunger. With weaning so far has done well on reassessment. Resumed on oral diet which she has tolerated. Blood pressure so far has improved and has not required pressor. Continue treatment for influenza A, continue oseltamivir, continue breathing treatments, continue Solu-Medrol for now as well as Levaquin for COPD exacerbation. Additionally volume status is being optimized by cardiology with diuresis, IV diuretic with Lasix, monitor intake and output, weights, monitor for risk of electrolyte deficiency, MIKE. Reassess volume status. Currently magnesium normal 2.2. Repeat chemistry and magnesium. (2) Influenza A: Severe influenza A infection with respiratory failure, severe COPD exacerbation. Continue Tamiflu (3) NSTEMI (non-ST elevated myocardial infarction): Reviewed troponin series, EKG, limited echocardiogram, noted decrease in ejection fraction down to 45%, with noted appearance of mid to distal apical hypokinesis. Reviewed cardiology note, discussed with cardiology providers, plans for further volume optimization, subsequently consideration of additional assessment with coronary angiography. She is aware and agreeable with these plans. Continue to monitor on telemetry with risk of arrhythmia. (4) COPD exacerbation: Reduce Solu-Medrol, still diminished air entry. Still requiring BiPAP this morning. With air hunger added low-dose Xanax to assist with air hunger symptoms. Monitor for risk of hyperglycemia, hypertension, encephalopathy, gastritis with IV steroids. Continue Levaquin. Continue breathing treatments. (5) Hypotension: Reviewed vitals, so far hypotension has resolved. Levophed was ordered but did not end up requiring it. For now continue to withhold lisinopril, metoprolol.Reassess vitals. With possible adrenal insufficiency for now continue with IV steroid. Low likelihood of septic shock, noted leukocytosis resolved. Reviewed UA, not suggestive of UTI. For now empiric antibiotic coverage with Levaquin. Blood cultures have been collected. Plan Atrial fibrillation: Continue amiodarone. Hold metoprolol. Will switch from Eliquis to Lovenox for now. Monitor on telemetry. PDMP PDMP Reviewed: Not Reviewed Attestations 2 Medical Necessity Statement*: Continue admission for assessment management of severe exacerbation of COPD, severe influenza A infection, NSTEMI. and High MDM includes amount and/or complexity of data reviewed/ordered [ resulted lab(s)/test(s), ordered lab(s)/test(s) and other healthcare professional discussion] and described risk of complication, morbidity or mortality of management as documented Diagnoses Acute on chronic hypoxic respiratory failure J96.21 Influenza A J10.1 NSTEMI (non-ST elevated myocardial infarction) I21.4 COPD exacerbation J44.1 Hypotension I95.9
[2024-11-29] MEDS: guaiFENesin 600 mg Tablet 1200 MG PO (18:24)
--- NOTE | 2024-11-29 21:45 | P.PN_ITS ---
Subjective 2 Subjective: She is off BiPAP but still have some breathing Vitals/I&O/Wt Last Vital Signs Temp 98.1 F 11/29/24 20:00 Pulse 81 11/29/24 21:20 Resp 18 11/29/24 21:20 BP 109/61 11/29/24 20:00 Pulse Ox 97 11/29/24 21:20 O2 Del Method Nasal Cannula 11/29/24 21:20 O2 Flow Rate 3 11/29/24 21:20 FiO2 30 11/29/24 16:00 11/29/24 11/29/24 11/29/24 06:59 14:59 22:59 Intake Total 0 / 1070 390 / 390 100 / 490 Output Total 750 / 750 475 / 1225 Balance 0 / 720 -360 / -360 -375 / -735 Weight last 48 hrs Weight 176 lb 5.917 oz Physical Exam 2 Const: OTHER: GENERAL: Patient is alert, awake and oriented x3. HEART: Regular S1 and S2. No murmur, rub or gallop. LUNGS: Decreased breath sound bilaterally. CENTRAL NERVOUS SYSTEM: Grossly nonfocal. EXTREMITIES: Lower extremities with out edema bilaterally. Data 11/29/24 04:33 11/29/24 04:33 A&P Assessment and plan (1) NSTEMI (non-ST elevated myocardial infarction): (2) Paroxysmal A-fib: (3) Influenza A: (4) Diastolic heart failure: Qualifiers: Heart failure chronicity: chronic Qualified Code(s): I50.32 - Chronic diastolic (congestive) heart failure (5) Mild coronary artery disease: (6) SOBOE (shortness of breath on exertion): (7) Hypertension: Qualifiers: Hypertension type: primary hypertension Qualified Code(s): I10 - Essential (primary) hypertension (8) Acute hypotension: Plan Continue current management continue IV diuresis Once euvolemic and clear from droplet infection/pneumonia/COPD hypercarbic hypoxic respiratory failure may consider left heart cath which may can be done early next week or as an outpatient PDMP PDMP Reviewed: Not Reviewed Attestations 2 Medical Necessity Statement*: Patient require continuation hospitalization for above defined care Coding Level of Care Code Acute Code for [facility] Fwd Diagnoses NSTEMI (non-ST elevated myocardial infarction) I21.4 Paroxysmal A-fib I48.0 Influenza A J10.1 Chronic diastolic heart failure I50.32 Heart failure chronicity: chronic Mild coronary artery disease I25.10 SOBOE (shortness of breath on exertion) R06.02 Primary hypertension I10 Hypertension type: primary hypertension Acute hypotension I95.9
[2024-11-29] MEDS: methylPREDNISolone sod succ 40 mg/mL INJ 30 MG IVP (22:32)
[2024-11-30] VITALS (11 sets, daily range): BP systolic 101–144; BP diastolic 69–99; PULSE 74–108; RESP 16–20; TEMP 36.4–36.9; O2SAT 92–99; BMI 27.0
[2024-11-30] MEDS: ipratropium-albuterol 3 mL Neb INHALATION ×3 (02:29→13:45)
[2024-11-30] MEDS: methylPREDNISolone sod succ 40 mg/mL INJ 30 MG IVP ×4 (04:01→23:18)
[2024-11-30 05:34] LABS: Hematocrit 34.3 % (36-47); Lymphocytes # 0.1 10^3/uL (0.8-4.8); Lymphocytes % 1.2 %; Mean Corpuscular Hemoglobin 27.7 pg (27-33); Mean Corpuscular Volume 92.2 fl (85-98); Mean Platelet Volume 10.6 fL (7.4-10.4); Monocytes # 0.2 10^3/uL (0.2-0.9); Monocytes % 2.7 %; Neutrophils # 8.44 10^3/uL (1.8-7.7); Neutrophils % 95.3 %; Nucleated Red Blood Cells % 0 %; Platelet Count 187 10^3/cmm (157-399); Red Blood Count 3.72 10^6/uL (3.85-5.65); Red Cell Distribution Width 15.3 % (12.1-15.1); White Blood Count 8.86 10^3/uL (3.29-11.43)
[2024-11-30 06:05] LABS: Anion Gap 9.2 (5-19); Blood Urea Nitrogen 30 mg/dL (8-23); Calcium 9.2 mg/dL (8.5-10.5); Carbon Dioxide 37 mmol/L (22-29); Chloride 97 mmol/L (98-107); Creatinine Clr Calc Pharmacy 124.4598; Glucose 144 mg/dL (65-115); Osmolality Calculated 297 mOsm/kg (285-295); Potassium 4.2 mmol/L (3.5-5.1); Sodium 139 mmol/L (136-145)
[2024-11-30 06:06] LABS: Magnesium 2.2 mg/dL (1.7-2.3)
[2024-11-30] MEDS: enoxaparin 80 mg/0.8 mL Syringe SUBCUT ×2 (08:21→19:58)
[2024-11-30] MEDS: oseltamivir phosphate 75 mg Capsule PO ×2 (08:22→17:19)
[2024-11-30] MEDS: levofloxacin-dextrose 5 % 750 MG/150 ML PREMIX 100 MG IV (08:22)
[2024-11-30] MEDS: ALPRAZolam 0.5 mg Tablet PO ×2 (08:22→20:06)
[2024-11-30] MEDS: pantoprazole DR 40 mg Tablet PO ×2 (08:22→17:20)
[2024-11-30] MEDS: guaiFENesin 600 mg Tablet 1200 MG PO ×2 (08:22→17:19)
[2024-11-30] MEDS: potassium chloride ER 20 mEq Tablet PO (08:23)
[2024-11-30] MEDS: escitalopram 10 mg Tablet PO (08:23)
[2024-11-30] MEDS: FUROsemide 10 mg/mL SDV 4mL 40 MG IVP (08:23)
[2024-11-30] MEDS: aspirin 325 mg Tablet PO (08:23)
[2024-11-30] MEDS: amiodarone 200 mg Tablet PO ×2 (08:23→17:19)
--- NOTE | 2024-11-30 12:44 | PC.SOCIAL ---
IMM Updated Updated pt on IMM. No questions voiced. Provided pt a copy. Initialed, dated, & timed a copy & placed in chart.
--- NOTE | 2024-11-30 15:21 | P.PN_ITS ---
<Statement entered by Dimple Suresh MD - 11/30/24 20:13> Patient was evaluated and cared for in conjunction with an advanced practice practitioner. I personally examined the patient and reviewed the chart and all pertinent data including imaging, telemetry, and laboratory results. I discussed the patient in detail with the advanced practice practitioner. Please see their note for complete H&P testing result and agreed upon plan of care for the patient. GENERAL: Patient is alert, awake and oriented x3. HEART: Regular S1 and S2. No murmur, rub or gallop. LUNGS: Clear to auscultate bilaterally. CENTRAL NERVOUS SYSTEM: Grossly nonfocal. EXTREMITIES: Lower extremities with out edema bilaterally. Assessment and plan (1) NSTEMI (non-ST elevated myocardial infarction): (2) Paroxysmal A-fib: (3) Influenza A: Switching to p.o. Lasix continue current management Once recovered from influenza we will proceed with left heart cath for non-ST elevation UT to rule out underlying coronary artery disease Subjective 2 Subjective: At this time patient is still having a lot of chest tightness with her breathing and some shortness of breath. Her oxygen saturations are 96% on 3 L nasal cannula. She appears well compensated from a heart failure standpoint. She has -1200 ml out over 24 hours currently on lasix 40 mg iv. Vitals/I&O/Wt Last Vital Signs Temp 97.6 F 11/30/24 12:00 Pulse 108 H 11/30/24 13:58 Resp 20 H 11/30/24 13:47 BP 139/86 11/30/24 12:00 Pulse Ox 96 11/30/24 13:47 O2 Del Method Nasal Cannula 11/30/24 13:47 O2 Flow Rate 3 11/30/24 13:47 FiO2 30 11/29/24 16:00 11/30/24 11/30/24 11/30/24 06:59 14:59 22:59 Intake Total 150 / 150 Output Total 300 / 1525 750 / 750 Balance -300 / -1035 -600 / -600 Weight last 48 hrs Weight 167 lb 5 oz Weight 176 lb 5.917 oz Physical Exam 2 Narrative: General: No apparent distress, healthy appearing, well nourished HENMT: normoceophalic Neck: No carotid bruit bilaterally Muskuloskeletal: Full ROM Respiratory: Normal respiratory effort, bilateral lower lobes diminished currently on nasal cannula, no use of accessory muscles Cardio: No JVD, regular rate, regular rhythm, S1 S2 normal, no murmurs, peripheral pulses 2+ radial palpated bilaterally GI: obese, nondistended Extremities: Full ROM, normal, no cyanosis, no edema bilateral lower extremities Neuro: Alert and oriented x4, no focal motor deficits Psych: Affect normal, denies suicidal ideation, mental status grossly normal Skin: No rashes or lesions noted, no wounds Data 11/30/24 04:57 11/30/24 04:57 A&P Assessment and plan (1) NSTEMI (non-ST elevated myocardial infarction): (2) Paroxysmal A-fib: (3) Influenza A: (4) Diastolic heart failure: Qualifiers: Heart failure chronicity: chronic Qualified Code(s): I50.32 - Chronic diastolic (congestive) heart failure (5) Mild coronary artery disease: (6) SOBOE (shortness of breath on exertion): (7) Hypertension: Qualifiers: Hypertension type: primary hypertension Qualified Code(s): I10 - Essential (primary) hypertension (8) Acute hypotension: Plan I discussed case with patient and hospitalist. Patient most likely expected to stay throughout the weekend. She would like to proceed with heart cath prior to discharge. At this time I recommend once euvolemic and clear from droplet infection/pneumonia/COPD hypercarbic hypoxic respiratory failure may consider left heart cath which may can be done early next week. Continue lasix 40 daily. PDMP PDMP Reviewed: Not Reviewed Attestations 2 Medical Necessity Statement*: Deferred to primary care. Coding Level of Care Code Acute Code for [facility] Fwd Diagnoses NSTEMI (non-ST elevated myocardial infarction) I21.4 Paroxysmal A-fib I48.0 Influenza A J10.1 Chronic diastolic heart failure I50.32 Heart failure chronicity: chronic Mild coronary artery disease I25.10 SOBOE (shortness of breath on exertion) R06.02 Primary hypertension I10 Hypertension type: primary hypertension Acute hypotension I95.9
--- NOTE | 2024-11-30 16:30 | P.PN_ITS ---
Subjective 2 Subjective: She has been still having malaise, exertional fatigue. Easily getting out of breath. At rest oxygen saturation overall has improved and she is weaned down to baseline oxygen. However, still diminished air entry, reduced air movement. Vitals/I&O/Wt Last Vital Signs Temp 98.1 F 11/30/24 16:00 Pulse 97 11/30/24 16:00 Resp 19 H 11/30/24 16:00 BP 140/93 11/30/24 16:00 Pulse Ox 92 11/30/24 16:00 O2 Del Method Nasal Cannula 11/30/24 16:00 O2 Flow Rate 3 11/30/24 13:47 FiO2 30 11/29/24 16:00 11/30/24 11/30/24 11/30/24 06:59 14:59 22:59 Intake Total 150 / 150 Output Total 300 / 1525 750 / 750 Balance -300 / -1035 -600 / -600 Weight last 48 hrs Weight 75.892 kg Weight 80 kg Physical Exam 2 Narrative: Sitting at the edge of the bed. Const: COMMON NORMALS: patient oriented x3 and alert GENERAL APPEARANCE: c ooperative ORIENTATION/CONSCIOUSNESS: Yes awake HENMT: COMMON NORMALS: oropharynx normal Neck/C-Spine: COMMON NORMALS: no JVD Resp: COMMON NORMALS: normal respiratory effort and clear to auscultation bilaterally AUSCULTATION: clear to auscultation bilaterally, wheezes and diminished lung sounds Cardio: COMMON NORMALS: no JVD, regular rhythm, S1 normal heart sound present, S2 normal heart sound present and No murmurs present (Cardio) RHYTHM: regular rhythm HEART SOUNDS: S1 normal heart sound present and S2 normal heart sound present GI: COMMON NORMALS: Normal to inspection, nondistended, normoactive bowel sounds present, Soft to palpation and non-tender PALPATION: Yes Soft to palpation Extremity: COMMON NORMALS: no joint enlargement and no pedal edema Neuro: COMMON NORMALS: patient oriented x3 and moves all extremities S ENSORIUM/ORIENTATION: Yes alert Skin: COMMON NORMALS: no rashes or lesions noted GENERAL SKIN EXAM: no rashes or lesions noted Data 11/30/24 04:57 11/30/24 04:57 A&P Assessment and plan (1) Acute on chronic hypoxic respiratory failure: Has been slow to improve, but so far has weaned off BiPAP. Overnight pulse oximeter has been completed, reviewed, he is not requiring continued BiPAP overnight after discharge. Volume status is improving, edema has resolved. Appears to be compensated now, BUN rising. Will stop IV Lasix, switch over to oral diuretic. Discussed with cabin cleaning supervisor. Reassess volume status, renal function, electrolytes, Atrisco deficiency. Monitor on telemetry at risk of arrhythmia. Still very diminished air entry, overall slightly better, but slow improvement. Continue IV steroids at current time, continue to monitor for risk of hyperglycemia, hypertension, gastritis, encephalopathy, C. difficile. Continue to reassess for ability to further taper Solu-Medrol. Continue empiric antibiotic coverage current time with Levaquin. Continue Tamiflu for influenza A. Continue oxygen support, wean down as tolerating. Currently appears to be at her baseline oxygen requirement on 3 L nasal cannula. As she states has been quite intolerant of exertion, still with symptomatic dyspnea on exertion as well as, discussion of options she would like to proceed with coronary drug-free also prior to discharge home. As per discussion with cabin cleaning supervisor plans may be made for Tuesday or Tuesday depending on her condition. Discussed with egg caser, nursing. Additionally volume status is being optimized by cardiology with diuresis, IV diuretic with Lasix, monitor intake and output, weights, monitor for risk of electrolyte deficiency, MIKE. Reassess volume status. Currently magnesium normal 2.2. Repeat chemistry (2) Influenza A: Severe influenza A infection with respiratory failure, severe COPD exacerbation. Continue Tamiflu (3) NSTEMI (non-ST elevated myocardial infarction): Given her presentation with chest pressure, as well as dyspnea, continued dyspnea on exertion/exertional fatigue/intolerance, on discussion of options she would like to proceed with further cardiac workup and management prior to discharge home once her respiratory status allows for this, with anticipated coronary angiogram possibly Tuesday or Tuesday depending on her condition. Reviewed cardiology note. Reviewed troponin series, EKG, limited echocardiogram, noted decrease in ejection fraction down to 45%, with noted appearance of mid to distal apical hypokinesis. Reviewed cardiology note, discussed with cardiology providers, plans for further volume optimization, subsequently consideration of additional assessment with coronary angiography. She is aware and agreeable with these plans. Continue to monitor on telemetry with risk of arrhythmia. (4) COPD exacerbation: Continue Solu-Medrol without further reduction at this time due to still significantly diminished air entry, still diminished air entry. Has weaned off of BiPAP so far. Continue oxygen support. Continue empiric Levaquin for now. Will check procalcitonin for the morning. May be able to discontinue antibiotic. With air hunger added low-dose Xanax to assist with air hunger symptoms. Monitor for risk of hyperglycemia, hypertension, encephalopathy, gastritis with IV steroids. Continue Levaquin. Continue breathing treatments. (5) Hypotension: Hypotension so far has resolved. Is gradually starting to become on normotensive to hypertensive side. In case of continued increase in blood pressures, consider resumption of some antihypertensives. Reviewed vitals, so far hypotension has resolved. Levophed was ordered but did not end up requiring it. For now continue to withhold lisinopril, metoprolol.Reassess vitals. With possible adrenal insufficiency on presentation for now continue with IV steroid. Low likelihood of septic shock, noted leukocytosis resolved. Reviewed UA, not suggestive of UTI. For now empiric antibiotic coverage with Levaquin. Blood cultures have been collected. Plan Atrial fibrillation: Continue amiodarone. Hold metoprolol. Will switch from Eliquis to Lovenox for now. Monitor on telemetry. PDMP PDMP Reviewed: Not Reviewed Attestations 2 Medical Necessity Statement*: Continue admission for assessment management of severe exacerbation of COPD, severe influenza A infection, NSTEMI. and High MDM includes amount and/or complexity of data reviewed/ordered [ previous or external records, resulted lab(s)/test(s), ordered lab(s)/test(s) and other healthcare professional discussion] and described risk of complication, morbidity or mortality of management as documented Diagnoses Acute on chronic hypoxic respiratory failure J96.21 Influenza A J10.1 NSTEMI (non-ST elevated myocardial infarction) I21.4 COPD exacerbation J44.1 Hypotension I95.9
[2024-12-01] VITALS (13 sets, daily range): BP systolic 127–147; BP diastolic 69–91; PULSE 72–109; RESP 17–24; TEMP 36.6–37.2; O2SAT 92–98; BMI 27.0
[2024-12-01] MEDS: ipratropium-albuterol 3 mL Neb INHALATION ×4 (03:15→21:40)
[2024-12-01] MEDS: methylPREDNISolone sod succ 40 mg/mL INJ 30 MG IVP ×2 (04:36→09:18)
[2024-12-01 04:44] LABS: Hematocrit 37.4 % (36-47); Lymphocytes # 0.2 10^3/uL (0.8-4.8); Lymphocytes % 2.1 %; Mean Corpuscular HGB Conc 29.9 g/dL (30-55); Mean Corpuscular Hemoglobin 28.1 pg (27-33); Mean Corpuscular Volume 93.7 fl (85-98); Mean Platelet Volume 10.7 fL (7.4-10.4); Monocytes # 0.3 10^3/uL (0.2-0.9); Monocytes % 3.1 %; Neutrophils % 94.2 %; Nucleated Red Blood Cells % 0 %; Platelet Count 185 10^3/cmm (157-399); Red Blood Count 3.99 10^6/uL (3.85-5.65); White Blood Count 8.28 10^3/uL (3.29-11.43)
[2024-12-01 05:10] LABS: Blood Urea Nitrogen 24 mg/dL (8-23); Calcium 9.5 mg/dL (8.5-10.5); Carbon Dioxide 37 mmol/L (22-29); Chloride 94 mmol/L (98-107); Glomerular Filtration Rate 161.7 mL/min (90-130); Glucose 134 mg/dL (65-115); Osmolality Calculated 292 mOsm/kg (285-295); Sodium 138 mmol/L (136-145)
[2024-12-01 05:12] LABS: Anion Gap 11.7 (5-19); Potassium 4.7 mmol/L (3.5-5.1); Procalcitonin 0.13 ng/mL (0-0.5)
[2024-12-01] MEDS: enoxaparin 80 mg/0.8 mL Syringe SUBCUT ×2 (09:02→21:34)
[2024-12-01] MEDS: guaiFENesin 600 mg Tablet 1200 MG PO ×2 (09:03→17:56)
[2024-12-01] MEDS: potassium chloride ER 20 mEq Tablet PO (09:03)
[2024-12-01] MEDS: ALPRAZolam 0.5 mg Tablet PO ×2 (09:03→21:35)
[2024-12-01] MEDS: FUROsemide 20 mg Tablet PO (09:03)
[2024-12-01] MEDS: aspirin 325 mg Tablet PO (09:03)
[2024-12-01] MEDS: pantoprazole DR 40 mg Tablet PO ×2 (09:03→17:56)
[2024-12-01] MEDS: oseltamivir phosphate 75 mg Capsule PO ×2 (09:03→17:56)
[2024-12-01] MEDS: amiodarone 200 mg Tablet PO ×2 (09:03→17:56)
[2024-12-01] MEDS: escitalopram 10 mg Tablet PO (09:03)
[2024-12-01] MEDS: levofloxacin-dextrose 5 % 750 MG/150 ML PREMIX 100 MG IV (09:18)
--- NOTE | 2024-12-01 15:24 | P.PN_ITS ---
Subjective 2 Subjective: Patient was seen this morning, continues to complain of weakness, does have a cough, shortness of breath Vitals/I&O/Wt Last Vital Signs Temp 97.9 F 12/01/24 12:00 Pulse 109 H 12/01/24 14:39 Resp 20 H 12/01/24 14:39 BP 144/91 12/01/24 12:00 Pulse Ox 92 12/01/24 14:39 O2 Del Method Nasal Cannula 12/01/24 14:39 O2 Flow Rate 3 12/01/24 14:39 FiO2 30 11/29/24 16:00 12/01/24 12/01/24 12/01/24 06:59 14:59 22:59 Intake Total 750 / 750 Balance 750 / 750 Weight last 48 hrs Weight 75.92 kg Weight 75.892 kg Physical Exam 2 Const: COMMON NORMALS: no acute distress and patient oriented x3 Resp: COMMON NORMALS: normal respiratory effort, No retractions and No use of accessory muscles AUSCULTATION: crackles and wheezes Cardio: COMMON NORMALS: regular rate, regular rhythm, S1 normal heart sound present and S2 normal heart sound present RATE: regular rate RHYTHM: r egular rhythm HEART SOUNDS: S1 normal heart sound present and S2 normal heart sound present GI: COMMON NORMALS: Normal to inspection, nondistended, normoactive bowel sounds present and non-tender Extremity: COMMON NORMALS: no pedal edema Neuro: COMMON NORMALS: patient oriented x3 Psych: COMMON NORMALS: mental status grossly normal Data 12/01/24 02:40 12/01/24 02:40 A&P Assessment and plan (1) Acute on chronic hypoxic respiratory failure: -Secondary to COPD exacerbation, influenza A concerns for secondary bacterial pneumonia -Switch to p.o. prednisone -Switch to p.o. steroids tomorrow -Tamiflu 75 mg twice daily for 5 days (2) Influenza A: Severe influenza A infection with respiratory failure, severe COPD exacerbation. Continue Tamiflu (3) NSTEMI (non-ST elevated myocardial infarction): -limited echocardiogram, noted decrease in ejection fraction down to 45%, with noted appearance of mid to distal apical hypokinesis -Cardiology consulted -Plans on coronary angiography -Continue aspirin 325 -Continue therapeutic Lovenox -Telemetry monitoring (4) COPD exacerbation: -Monitor (5) Hypotension: - Resolved Plan Atrial fibrillation: -Continue amiodarone PDMP PDMP Reviewed: Not Reviewed Attestations 2 Medical Necessity Statement*: Patient requires hospitalization for acute hypoxic respiratory failure, NSTEMI, plans on coronary angiography Diagnoses Acute on chronic hypoxic respiratory failure J96.21 Influenza A J10.1 NSTEMI (non-ST elevated myocardial infarction) I21.4 COPD exacerbation J44.1 Hypotension I95.9
--- NOTE | 2024-12-01 16:23 | P.PN_ITS ---
Subjective 2 Subjective: Continue to improve, denies any feeling better still have some breathing problem Vitals/I&O/Wt Last Vital Signs Temp 97.9 F 12/01/24 12:00 Pulse 109 H 12/01/24 14:39 Resp 20 H 12/01/24 14:39 BP 144/91 12/01/24 12:00 Pulse Ox 92 12/01/24 14:39 O2 Del Method Nasal Cannula 12/01/24 14:39 O2 Flow Rate 3 12/01/24 14:39 FiO2 30 11/29/24 16:00 12/01/24 12/01/24 12/01/24 06:59 14:59 22:59 Intake Total 750 / 750 Balance 750 / 750 Weight last 48 hrs Weight 167 lb 6 oz Weight 167 lb 5 oz Physical Exam 2 Const: OTHER: GENERAL: Patient is alert, awake and oriented x3. HEART: Regular S1 and S2. No murmur, rub or gallop. LUNGS: Decreased breath sound bilaterally. CENTRAL NERVOUS SYSTEM: Grossly nonfocal. EXTREMITIES: Lower extremities with out edema bilaterally. Data 12/01/24 02:40 12/01/24 02:40 A&P Assessment and plan (1) NSTEMI (non-ST elevated myocardial infarction): (2) Paroxysmal A-fib: (3) Influenza A: (4) Diastolic heart failure: Qualifiers: Heart failure chronicity: chronic Qualified Code(s): I50.32 - Chronic diastolic (congestive) heart failure (5) Mild coronary artery disease: (6) SOBOE (shortness of breath on exertion): (7) Hypertension: Qualifiers: Hypertension type: primary hypertension Qualified Code(s): I10 - Essential (primary) hypertension (8) Acute hypotension: Plan Patient switched to p.o. Lasix continue rest of medications. Once over flu we will proceed with left heart cath PDMP PDMP Reviewed: Not Reviewed Attestations 2 Medical Necessity Statement*: As per medicine Coding Level of Care Code Acute Code for [facility] Fwd Diagnoses NSTEMI (non-ST elevated myocardial infarction) I21.4 Paroxysmal A-fib I48.0 Influenza A J10.1 Chronic diastolic heart failure I50.32 Heart failure chronicity: chronic Mild coronary artery disease I25.10 SOBOE (shortness of breath on exertion) R06.02 Primary hypertension I10 Hypertension type: primary hypertension Acute hypotension I95.9
[2024-12-02] VITALS (129 sets, daily range): BP systolic 72–137; BP diastolic 56–95; PULSE 77–113; RESP 13–24; TEMP 36.3–37.1; O2SAT 88–100; BMI 27.6
[2024-12-02] MEDS: ipratropium-albuterol 3 mL Neb INHALATION ×4 (02:44→20:42)
[2024-12-02 06:05] LABS: Basophils % 0.1 %; Eosinophils % 0.3 %; Hematocrit 34.8 % (36-47); Lymphocytes # 0.7 10^3/uL (0.8-4.8); Mean Corpuscular HGB Conc 28.7 g/dL (30-55); Mean Corpuscular Hemoglobin 27.8 pg (27-33); Mean Corpuscular Volume 96.7 fl (85-98); Mean Platelet Volume 10.5 fL (7.4-10.4); Monocytes # 0.5 10^3/uL (0.2-0.9); Monocytes % 7.2 %; Neutrophils % 82.1 %; Nucleated Red Blood Cells % 0 %; Platelet Count 146 10^3/cmm (157-399); Red Cell Distribution Width 14.8 % (12.1-15.1); White Blood Count 7.19 10^3/uL (3.29-11.43)
[2024-12-02 06:29] LABS: Alanine Aminotransferase 16 U/L (0-33); Albumin Level 3.1 g/dL (3.5-5.2); Alkaline Phosphatase 48 U/L (35-105); Anion Gap 11.5 (5-19); Aspartate Amino Transferase 12 U/L (0-32); Blood Urea Nitrogen 26 mg/dL (8-23); Carbon Dioxide 35 mmol/L (22-29); Chloride 94 mmol/L (98-107); Creatinine Clr Calc Pharmacy 153.3841; Globulin 2.1 g/dL (1.3-4.6); Glomerular Filtration Rate 161.7 mL/min (90-130); Glucose 95 mg/dL (65-115); Magnesium 2.1 mg/dL (1.7-2.3); Osmolality Calculated 287 mOsm/kg (285-295); Phosphorus 2.9 mg/dL (2.5-4.5); Potassium 4.5 mmol/L (3.5-5.1); Sodium 136 mmol/L (136-145); Total Bilirubin 0.3 mg/dL (0.15-1.2); Total Protein 5.2 g/dL (6.6-8.7)
[2024-12-02 06:38] LABS: NT Pro B Type Natriuretic Pept 425 pg/mL (0-125)
[2024-12-02] MEDS: ondansetron 2 mg/ML SDV 2 mL 4 MG IVP ×2 (08:36→10:38)
[2024-12-02] MEDS: aspirin 325 mg Tablet PO (08:36)
[2024-12-02] MEDS: pantoprazole DR 40 mg Tablet PO (08:36)
[2024-12-02] MEDS: escitalopram 10 mg Tablet PO (08:36)
[2024-12-02] MEDS: potassium chloride ER 20 mEq Tablet PO (08:36)
[2024-12-02] MEDS: amiodarone 200 mg Tablet PO ×2 (08:36→17:56)
[2024-12-02] MEDS: oseltamivir phosphate 75 mg Capsule PO (08:36)
[2024-12-02] MEDS: guaiFENesin 600 mg Tablet 1200 MG PO ×2 (08:36→17:56)
[2024-12-02] MEDS: predniSONE 20 mg Tablet 40 MG PO (08:36)
[2024-12-02] MEDS: enoxaparin 80 mg/0.8 mL Syringe SUBCUT (08:36)
[2024-12-02] MEDS: FUROsemide 20 mg Tablet PO (08:36)
[2024-12-02] MEDS: levofloxacin-dextrose 5 % 750 MG/150 ML PREMIX 100 MG IV (08:37)
[2024-12-02] MEDS: ALPRAZolam 0.5 mg Tablet PO (08:43)
--- NOTE | 2024-12-02 09:04 | P.PN_ITS ---
Subjective 2 Subjective: Patient was seen this morning, no fevers, chills, no cough, no chest pain Vitals/I&O/Wt Last Vital Signs Temp 97.8 F 12/02/24 07:43 Pulse 99 12/02/24 07:43 Resp 20 H 12/02/24 07:43 BP 125/93 12/02/24 07:43 Pulse Ox 98 12/02/24 07:43 O2 Del Method Nasal Cannula 12/02/24 07:43 O2 Flow Rate 3 12/02/24 07:43 FiO2 30 11/29/24 16:00 12/01/24 12/02/24 12/02/24 22:59 06:59 14:59 Intake Total 240 / 990 Output Total 650 / 650 Balance -410 / 340 Weight last 48 hrs Weight 77.621 kg Weight 75.92 kg Physical Exam 2 Const: COMMON NORMALS: no acute distress and patient oriented x3 Resp: COMMON NORMALS: normal respiratory effort, No retractions, No use of accessory muscles and clear to auscultation bilaterally AUSCULTATION: clear to auscultation bilaterally Cardio: COMMON NORMALS: regular rate, regular rhythm, S1 normal heart sound present and S2 normal heart sound present RATE: regular rate RHYTHM: r egular rhythm HEART SOUNDS: S1 normal heart sound present and S2 normal heart sound present GI: COMMON NORMALS: Normal to inspection, nondistended, normoactive bowel sounds present and non-tender Extremity: COMMON NORMALS: no pedal edema Neuro: COMMON NORMALS: patient oriented x3 Psych: COMMON NORMALS: mental status grossly normal Data 12/02/24 05:58 12/02/24 05:58 Micro: Microbiology 11/27/24 08:03 Blood Culture - Final Blood NO GROWTH AFTER 5 DAYS 11/27/24 07:34 Blood Culture - Final Blood NO GROWTH AFTER 5 DAYS A&P Assessment and plan (1) Acute on chronic hypoxic respiratory failure: -Secondary to COPD exacerbation, influenza A concerns for secondary bacterial pneumonia -Switch to p.o. steroids -Switch to p.o. Levaquin, last day today -Tamiflu 75 mg twice daily for 5 days, last day today (2) Influenza A: Severe influenza A infection with respiratory failure, severe COPD exacerbation. Continue Tamiflu (3) NSTEMI (non-ST elevated myocardial infarction): -limited echocardiogram, noted decrease in ejection fraction down to 45%, with noted appearance of mid to distal apical hypokinesis -Cardiology consulted -Plans on coronary angiography possibly tomorrow -Continue aspirin 325 -Continue therapeutic Lovenox -Telemetry monitoring (4) COPD exacerbation: -Monitor (5) Hypotension: - Resolved Plan Atrial fibrillation: -Continue amiodarone Plan for today, de-escalate steroids, de-escalate Tamiflu de-escalate Levaquin, n.p.o. midnight for angiogram possibly tomorrow PDMP PDMP Reviewed: Not Reviewed Attestations 2 Medical Necessity Statement*: Patient requires hospitalization for NSTEMI proceeding with cardiac cath Diagnoses Acute on chronic hypoxic respiratory failure J96.21 Influenza A J10.1 NSTEMI (non-ST elevated myocardial infarction) I21.4 COPD exacerbation J44.1 Hypotension I95.9
--- NOTE | 2024-12-02 11:21 | PC.NURSE ---
took over pt care check on pt and pt reported being nauseated. zofran given prn as ordered.
[2024-12-02] MEDS: sodium chloride 0.9% 250 ML IV (11:45)
--- NOTE | 2024-12-02 11:50 | PC.NURSE ---
1133 AM hypotension pt reported of being nauseated and not feeling well overall. pt looked pale and diaphoretic,denies any chest pain or discomfort. had cough. BP checked-72/56, map-61. positioned pt on [place]. tolerated well. dr ruiz came in at bedside and received orders to give 250 mls ns bolus stat. 1150 AM BP-83/60 MAP-67 ongoing NS bolus. 1155 AM BP-86/63 MAP-70 ongoing NS bolus.
--- NOTE | 2024-12-02 12:06 | ECG_ITS ---
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: : 1960 Requested By: Byron Sung Order Number: [id number] Reading MD: ARTURO CASTORENA Measurements Intervals [place] Rate: 94 P: 81 FL: 104 QRS: 67 QRSD: 87 T: 200 QT: 329 QTc: 412 Interpretive Statements SINUS RHYTHM WITH SHORT FL INTERVAL MODERATE T-WAVE ABNORMALITY, CONSIDER ANTEROLATERAL ISCHEMIA [-0.1+ mV T-WAVE IN V3-V6] MODERATE T-WAVE ABNORMALITY, CONSIDER INFERIOR ISCHEMIA [-0.1+ mV T-WAVE IN II/aVF] Compared to ECG 11/27/2024 13:05:22 Short FL interval now present Possible ischemia now present T-wave abnormality still present Electronically Signed On 12-02-2024 20:48:26 PROCEDURE TECH by ARTURO CASTORENA [email or web address]
--- NOTE | 2024-12-02 12:06 | CTR_ITS ---
PROCEDURE INFORMATION: Exam: CT Abdomen And Pelvis With Contrast Exam date and time: 12/02/2024 12:44 PM Age: 63 years old Clinical indication: Nausea and vomiting; Additional info: N/v/ hypotension TECHNIQUE: Imaging protocol: Computed tomography of the abdomen and pelvis with contrast. Radiation optimization: All CT scans at this facility use at least one of these dose optimization techniques: automated exposure control; mA and/or kV adjustment per patient size (includes targeted exams where dose is matched to clinical indication); or iterative reconstruction. Contrast material: OMNI 350; Contrast volume: 100 ml; Contrast route: INTRAVENOUS (IV); COMPARISON: CT abdomen pelvis wo con [id number] 11/27/2024 1:17 PM RADIATION DOSE METRICS: Total DLP (mGy-cm): 707.53 FINDINGS: Liver: Normal. No mass. Gallbladder and biliary ducts: Normal. No calcified stones. No ductal dilation. Pancreas: Normal. No ductal dilation. Spleen: Normal. No splenomegaly. Adrenal glands: Normal. No mass. Kidneys and ureters: Normal. No hydronephrosis. Stomach and bowel: There is colonic diverticulosis without acute diverticulitis. Moderate retained fecal material is noted throughout the colon. No bowel obstruction. Appendix: No evidence of appendicitis. Intraperitoneal space: Unremarkable. No free air. No significant fluid collection. Retroperitoneal space: No retroperitoneal hemorrhage Vasculature: Unremarkable. No abdominal aortic aneurysm. Lymph nodes: Unremarkable. No enlarged lymph nodes. Urinary bladder: Unremarkable as visualized. Reproductive: Unremarkable as visualized. Bones/joints: There is a mild chronic compression deformity of the superior endplate of L2. There are mild degenerative changes of the lumbar spine. No acute fractures. No acute fracture. Soft tissues: There has been development of a large intramuscular hematoma of the right lateral abdominal wall which measures 6.6 cm in thickness by 13 cm AP by approximate 20 cm cephalocaudal with a focal area of active contrast extravasation within the anterior superficial aspect of the hematoma as seen on series 4, image 45 and series 6, image 45. There is also a moderate-sized left rectus sheath hematoma which measures 5 cm in thickness by 7.9 cm transverse by 10 cm cephalocaudal with a small area of active contrast extravasation within the mid aspect of the hematoma as seen on series 4, image 59 CT/CT abdomen pelvis w con* [id number] IMPRESSION: 1. Large intramuscular hematoma involving the right lateral abdominal wall with active contrast extravasation. 2. Moderate-sized left rectus sheath hematoma with active contrast extravasation 3. Additional nonemergent findings, as described above
--- NOTE | 2024-12-02 12:14 | PM.CCNAC ---
Critical Care Event Note The high probability of a clinically significant, sudden or life threatening deterioration of the patient's [] system(s) required my full and direct attention, intervention and personal management. The critical care time is as shown. This time is in addition to time spent performing any reported procedures but includes the following: [x] Data and vital sign review and interpretation [x] Patient assessment, examination and intervention [x] Documentation [x] Medication orders and management Critical Care Time Code activated: No Critical Care Time (min): 35 Additional information about critical care time: - Nursing staff notified me patient's maps are below 65 she is feeling nauseous, -Orders placed to place patient in Trendelenburg -Patient was examined, she is a normal sinus rhythm currently heart rates 90s, she is on nasal cannula she does not complain of respite distress alert oriented x 3, following all commands, no strokelike symptoms, no focal weakness, slurring her words, she feels nauseous, felt unwell, mild abdominal pain -No mottling of lower extremities, DP PT pulses palpable, cap refill greater than 2 seconds -Possibly patient says that she was up when this happened possibly vasovagal response -Keep Trendelenburg -Order placed for 250 mL bolus -EKG ordered, CBC, CMP, troponin series, ABG, CT scan abdomen pelvis with IV contrast -She did get Lasix this morning, did get amiodarone -Patient was reexamined she is in Trendelenburg, receiving fluid bolus blood pressures 90s over 60s MAP is greater than 65 she is alert awake following all commands no fevers, chills no cough no abdominal pain no nausea, no vomiting, no chest pain palpitation or shortness of breath no mottling present she feels better -Discussed continuing monitoring will consider further fluid boluses -If her blood pressures remain soft we we will likely move her to ICU -Start midodrine 10 every 6 hours -EKG reviewed, shows ST depressions in the lateral leads but no chest pain complaints Coding Level of Care Code Acute Code for Chg Fwd
[2024-12-02 12:38] LABS: ABG PH Result 7.34 (7.35-7.45); Arterial Blood Gas Hematocrit 26.3 % (37-47); Base Excess ABG 12.8 mmol/L (-2.0-2.0); Blood Gas Allen Test Pos; Blood Gas Operator Identificat AMH; Blood Gas Sample Site Radial, left; Blood Gas Sample Type Arterial; HCO3 ABG 40.4 mmol/L (22-26); Oxygen Device NC; PO2 FiO2 Ratio Arterial Blood 415
[2024-12-02 12:39] LABS: ABG PCO2 74.2 mmHg (35-45)
[2024-12-02] MEDS: iohexol 350 mg/mL 500 mL Btl (per mL) IV (12:51)
[2024-12-02 13:09] LABS: Lactic Sepsis W/Reflex 1.9 mmol/L (0.5-2.2); Troponin(5th) Baseline 45 ng/L (0-10)
[2024-12-02 13:15] LABS: Alanine Aminotransferase 14 U/L (0-33); Albumin Level 2.8 g/dL (3.5-5.2); Alkaline Phosphatase 41 U/L (35-105); Aspartate Amino Transferase 12 U/L (0-32); Blood Urea Nitrogen 31 mg/dL (8-23); Calcium 8.4 mg/dL (8.5-10.5); Carbon Dioxide 32 mmol/L (22-29); Chloride 95 mmol/L (98-107); Creatinine Clr Calc Pharmacy 87.6481; Globulin 1.8 g/dL (1.3-4.6); Glomerular Filtration Rate 84.8 mL/min (90-130); Glucose 155 mg/dL (65-115); Osmolality Calculated 290 mOsm/kg (285-295); Sodium 135 mmol/L (136-145); Total Bilirubin 0.4 mg/dL (0.15-1.2); Total Protein 4.6 g/dL (6.6-8.7)
[2024-12-02 13:16] LABS: Anion Gap 12.9 (5-19); Potassium 4.9 mmol/L (3.5-5.1)
--- NOTE | 2024-12-02 13:56 | PC.NURSE ---
Blood Bank called for STAT type and screen
[2024-12-02] MEDS: albumin 50 G/200 ML BAG 60 G IV (13:59)
--- NOTE | 2024-12-02 14:06 | ECG_ITS ---
[facility] Date: 2024-12-02 Pat Name: Dahlia Shah Department: Room: 104 Gender: Female Property Underwriter: : 1960 Requested By: Byron Sung Order Number: [id number] Reading MD: ARTURO CASTORENA Measurements Intervals [place] Rate: 107 P: 85 MS: 126 QRS: 64 QRSD: 77 T: 120 QT: 302 QTc: 404 Interpretive Statements SINUS TACHYCARDIA MODERATE T-WAVE ABNORMALITY, CONSIDER LATERAL ISCHEMIA [-0.1+ mV T-WAVE IN I/aVL/V5/V6] Compared to ECG 12/02/2024 12:06:46 Sinus rhythm no longer present Short MS interval no longer present T-wave abnormality still present Possible ischemia still present Electronically Signed On 12-02-2024 21:06:12 DUMP MOTORMAN by ARTURO CASTORENA [email or web address] [id number]
[2024-12-02 14:16] LABS: Basophils % 0.1 %; Hematocrit 27.4 % (36-47); Lymphocytes # 0.3 10^3/uL (0.8-4.8); Lymphocytes % 2.8 %; Mean Corpuscular HGB Conc 29.6 g/dL (30-55); Mean Corpuscular Hemoglobin 27.6 pg (27-33); Mean Corpuscular Volume 93.5 fl (85-98); Mean Platelet Volume 10.3 fL (7.4-10.4); Monocytes # 0.4 10^3/uL (0.2-0.9); Monocytes % 3.9 %; Neutrophils # 10.39 10^3/uL (1.8-7.7); Neutrophils % 92.9 %; Nucleated Red Blood Cells % 0 %; Platelet Count 170 10^3/cmm (157-399); Red Blood Count 2.93 10^6/uL (3.85-5.65); Red Cell Distribution Width 14.9 % (12.1-15.1); White Blood Count 11.18 10^3/uL (3.29-11.43)
--- NOTE | 2024-12-02 14:22 | PC.NURSE ---
Dr Lopez asked nurse to put in an order for levophed gtt and keep it at 4 while patient is on CSU but there was an existing order for levophed already in MAR
[2024-12-02] MEDS: norepinephrine 4 MG/250 ML BAG 30 MG IV (14:28)
[2024-12-02 14:33] LABS: Troponin 5 2HR 39.46 ng/L (0-10)
[2024-12-02 14:34] LABS: Troponin 5 2HR Delta -5.54 ABS# (0-10)
--- NOTE | 2024-12-02 14:41 | XRR_ITS ---
PROCEDURE INFORMATION: Exam: XR Chest Exam date and time: 12/02/2024 2:52 PM Age: 63 years old Clinical indication: Device placement; Other: Central line placement TECHNIQUE: Imaging protocol: Radiologic exam of the chest. Views: 1 view. COMPARISON: CR XR chest 1V portable [id number] 11/27/2024 7:47 AM FINDINGS: Tubes, catheters and devices: There has been placement of a right internal jugular central venous catheter with its tip in the proximal superior vena cava. Lungs: There are emphysematous changes noted. No consolidating infiltrates. Pleural spaces: Unremarkable. No pleural effusion. No pneumothorax. Heart/Mediastinum: Unremarkable. No cardiomegaly. Bones/joints: Unremarkable. XR/XR chest 1V portable [id number] IMPRESSION: 1. Interval placement of a right internal jugular central venous catheter with its tip in the proximal superior vena cava and no evidence of pneumothorax. 2. Emphysematous changes
--- NOTE | 2024-12-02 14:41 | ANES.PROC ---
Anesthesia Procedures Procedure/Date: 12/02/24 Central Venous Insert: Time Out Performed: Yes Consent: requested by attending/covering physician Central Line: New Anesthesia monitors: pulse oximetry, EKG, BP cuff and oxygen Vein cannulated: right internal jugular Ultrasound used: to identify patency to vessel Post procedure: Obtain Chest X-Ray
--- NOTE | 2024-12-02 14:54 | PM.CCNAC ---
Critical Care Event Note Responded to urgent nursing concern. Patient hypotensive with systolic 80 mmHg. Patient complaining of mild dizziness. Denies any difficulty in breathing. Currently on 2 L saturating more than 95%. Tachycardic with heart rate more than 100. On review patient had acute event of hypotension today. CT abdomen pelvis was done which showed large intramuscular hematoma with extravasation in right lateral abdominal wall along with moderate-sized left rectus sheath hematoma with active contrast extravasation. Hemoglobin acutely down to 8.1 from 10 earlier in the morning today. Plan: 1 dose of transonic acid. Patient looks clinically dehydrated. 1 L of IV fluid bolus. Already ordered 1 unit of PRBC. Yet to receive. Will order 1 more unit. Have requested anesthesia for central line placement?reviewed chest x-ray post central line placement. No concerns for pneumothorax. Hold off on anticoagulation. Continue to check hemoglobin and hematocrit every 6 hour. ICU. Maintain mean arterial pressure over 65. Start Levophed and wean accordingly. Watch for fluid overload. Recent echocardiogram shows an EF 55% grade 1 diastolic dysfunction. Transfer to ICU. The high probability of a clinically significant, sudden or life threatening deterioration of the patient's [cardiac, pulmonary, hematological] system(s) required my full and direct attention, intervention and personal management. The critical care time is as shown. This time is in addition to time spent performing any reported procedures but includes the following: [x] Data and vital sign review and interpretation [x] Patient assessment, examination and intervention [x] Documentation [x] Medication orders and management Critical Care Time Code activated: No Critical Care Time (min): 70 Coding Level of Care Code Critical Care Other Coding Information This patient has a high probability of clinically significant, sudden or life threatening deterioration of the patient's (neurological/pulmonary/cardiac/renal/ID/endocrine) systems required my full, direct attention, the highest level of physician preparedness for urgent intervention and personal management. I managed/supervised life or organ supporting interventions that required frequent physician assessment. I devoted my full attention in the ICU to the direct care of this patient for the period of time indicated above. Time I spent with family or surrogate(s) is included only if the patient was incapable of providing necessary information or participating in decision making. This time includes the following services provided: Telemetry review Hemodynamic interpretation, assessment and management Review and interpretation of CXR Review and interpretation of lab values Review and interpretation of microbiologic data and culture results Review of medications and administration Review and interpretation of Nutrition requirements and management Discussion of management with other consultants and services Clinical update to family members Time Spent (min) 70
--- NOTE | 2024-12-02 14:58 | PC.NURSE ---
[facility] with pt.
[2024-12-02] MEDS: tranexamic acid 1,000 MG/100 ML PREMIX 600 MG IV (15:11)
[2024-12-02] MEDS: sodium chloride 0.9% 1,000 ML 999 ML IV (15:17)
[2024-12-02] MEDS: sucralfate 1 gm/10 mL Oral Liq UDC PO ×2 (15:21→21:08)
[2024-12-02] MEDS: pantoprazole 40 mg SDV IVP (15:21)
--- NOTE | 2024-12-02 15:37 | PC.NURSE ---
talked to dgtr Allison informed dgtr that pt is transferred to icu 9. informed her on plans and treatment.
[2024-12-02] MEDS: sodium chloride 0.9% 1,000 ML 75 ML IV (17:46)
[2024-12-02] MEDS: midodrine 5 mg TABLET 10 MG PO (17:56)
--- NOTE | 2024-12-02 18:04 | ECG_ITS ---
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: : 1960 Requested By: Byron Sung Order Number: [id number] Reading MD: ARTURO CASTORENA Measurements Intervals [place] Rate: 99 P: 88 MA: 130 QRS: 64 QRSD: 72 T: 132 QT: 315 QTc: 404 Interpretive Statements SINUS RHYTHM MODERATE T-WAVE ABNORMALITY, CONSIDER LATERAL ISCHEMIA [-0.1+ mV T-WAVE IN I/aVL/V5/V6] Compared to ECG 12/02/2024 14:06:39 Sinus tachycardia no longer present T-wave abnormality still present Possible ischemia still present Electronically Signed On 12-02-2024 21:05:41 AUTO BODY REPAIRER by ARTURO CASTORENA [id number] [id number]
--- NOTE | 2024-12-02 18:48 | P.PN_ITS ---
Subjective 2 Subjective: Patient had bleeding and rectus sheath possibly secondary to anticoagulation injection Vitals/I&O/Wt Last Vital Signs Temp 97.8 F 12/02/24 17:57 Pulse 101 H 12/02/24 17:57 Resp 18 12/02/24 17:57 BP 104/70 12/02/24 17:57 Pulse Ox 100 12/02/24 17:57 O2 Del Method Nasal Cannula 12/02/24 17:30 O2 Flow Rate 3 12/02/24 17:30 FiO2 30 11/29/24 16:00 12/02/24 12/02/24 12/02/24 06:59 14:59 22:59 Intake Total 520 / 520 1814 / 2334 Balance 520 / 520 1814 / 2334 Weight last 48 hrs Weight 171 lb 2 oz Weight 167 lb 6 oz Physical Exam 2 Const: OTHER: GENERAL: Patient is alert, awake and oriented x3. HEART: Regular S1 and S2. No murmur, rub or gallop. LUNGS: Decreased breath sound bilaterally. CENTRAL NERVOUS SYSTEM: Grossly nonfocal. EXTREMITIES: Lower extremities with out edema bilaterally. Urinary Catheter Management: [place]: Cath Placed During This Visit: yes Reason for Continuing Indwelling Catheter: Accurate Measurement of Urinary Output in Critically Ill Patients Urinary Catheter Date of Insertion: 12/02/24 Urinary Catheter Time of Insertion: 16:48 Data 12/02/24 14:06 12/02/24 12:03 Micro: Microbiology 11/27/24 08:03 Blood Culture - Final Blood NO GROWTH AFTER 5 DAYS 11/27/24 07:34 Blood Culture - Final Blood NO GROWTH AFTER 5 DAYS A&P Assessment and plan (1) NSTEMI (non-ST elevated myocardial infarction): (2) Paroxysmal A-fib: (3) Influenza A: (4) Diastolic heart failure: Qualifiers: Heart failure chronicity: chronic Qualified Code(s): I50.32 - Chronic diastolic (congestive) heart failure (5) Mild coronary artery disease: (6) SOBOE (shortness of breath on exertion): (7) Hypertension: Qualifiers: Hypertension type: primary hypertension Qualified Code(s): I10 - Essential (primary) hypertension (8) Acute hypotension: (9) Rectus sheath hematoma: Agree with discontinuing anticoagulation Hold diuretics if needed At this point we will postpone left heart cath which is not absolutely necessary for at least 2 weeks Will continue guideline medical therapy for heart failure including amiodarone for A-fib lisinopril metoprolol and oral p.o. Lasix 40 mg once a day once patient appeared to be more stable Plan Patient switched to p.o. Lasix continue rest of medications. Once over flu we will proceed with left heart cath PDMP PDMP Reviewed: Not Reviewed Attestations 2 Medical Necessity Statement*: Patient require continuation hospitalization for above defined care Coding Level of Care Code Acute Code for g Fwd Diagnoses NSTEMI (non-ST elevated myocardial infarction) I21.4 Paroxysmal A-fib I48.0 Influenza A J10.1 Chronic diastolic heart failure I50.32 Heart failure chronicity: chronic Mild coronary artery disease I25.10 SOBOE (shortness of breath on exertion) R06.02 Primary hypertension I10 Hypertension type: primary hypertension Acute hypotension I95.9 Rectus sheath hematoma S30.1XXA
[2024-12-02 21:44] LABS: Troponin 5 6HR 36.22 ng/L (0-10); Troponin 5 6HR Delta -8.78 ng/L (0-12)
[2024-12-03] VITALS (69 sets, daily range): BP systolic 70–129; BP diastolic 37–91; PULSE 86–104; RESP 10–24; TEMP 36.1–36.9; O2SAT 85–100
[2024-12-03] MEDS: midodrine 5 mg TABLET 10 MG PO ×3 (00:41→11:29)
[2024-12-03] MEDS: ipratropium-albuterol 3 mL Neb INHALATION ×3 (01:18→14:37)
[2024-12-03 02:17] LABS: Hematocrit 23.4 % (36-47)
[2024-12-03 02:46] LABS: Hematocrit 23.2 % (36-47)
[2024-12-03] MEDS: sucralfate 1 gm/10 mL Oral Liq UDC PO ×2 (02:55→09:18)
[2024-12-03] MEDS: pantoprazole 40 mg SDV IVP (02:55)
--- NOTE | 2024-12-03 03:09 | PC.NURSE ---
Transfused PRBC's as ordered. Follow up hgb 7.7. Contacted Dr. Nunez and made aware, ordered to recheck to confirm drop, and hgb was 7.[address] Nunez aware of new result, ordered two units of PRBC's, and two of platelets.
[2024-12-03] MEDS: acetaminophen 325 mg Tablet 650 MG PO (06:11)
--- NOTE | 2024-12-03 06:35 | CTR_ITS ---
PROCEDURE INFORMATION: Exam: CTA Abdomen and Pelvis With Contrast Exam date and time: 12/03/2024 7:16 AM Age: 63 years old Clinical indication: Abnormal findings; Abnormal lab test; Other: Low hemoglobin; Additional info: Distended abd, low hemoglobin that continues to drop, PT recieving blood now. TECHNIQUE: Imaging protocol: Computed tomographic angiography of the abdomen and pelvis with contrast. Exam focused on the arteries. 3D rendering (Not supervised by radiologist): MIP and/or 3D reconstructed images were created by the technologist. Radiation optimization: All CT scans at this facility use at least one of these dose optimization techniques: automated exposure control; mA and/or kV adjustment per patient size (includes targeted exams where dose is matched to clinical indication); or iterative reconstruction. Contrast material: OMNI 350; Contrast volume: 100 ml; Contrast route: INTRAVENOUS (IV); COMPARISON: CT abdomen pelvis w con* [id number] 12/02/2024 12:44 PM RADIATION DOSE METRICS: Total DLP (mGy-cm): 725.87 FINDINGS: Aorta: No aortic aneurysm. No aortic dissection. Scattered atherosclerotic calcifications throughout. Celiac trunk and mesenteric arteries: No occlusion. Less than 50% stenosis in proximal superior mesenteric artery. Renal arteries: No occlusion or significant stenosis. Right iliac arteries: No occlusion. Atherosclerotic calcifications causing less than 50% stenosis. 50% stenosis at origin of internal iliac artery noted. Left iliac arteries: No occlusion. Atherosclerotic calcifications causing 50% stenosis in proximal internal iliac artery noted. Liver: No mass. Gallbladder and biliary ducts: Contrast noted within the gallbladder. No ductal dilation. Pancreas: Unremarkable. No mass. No ductal dilation. Spleen: Unremarkable. No splenomegaly. Adrenal glands: Unremarkable. No mass. Kidneys and ureters: Unremarkable. No solid mass. No hydronephrosis. Stomach and bowel: Diverticulosis colon noted. No obstruction. No mucosal thickening. Appendix: No evidence of appendicitis. Intraperitoneal space: No free air. Small ascites in pelvis is new finding. Lymph nodes: Unremarkable. No enlarged lymph nodes. Urinary bladder: Whelan catheter in place. Reproductive: Unremarkable as visualized. Bones/joints: No acute fracture. Stable mild compression deformity L2 vertebra superior endplate. Soft tissues: Progression of hematoma in right lateral abdominal/pelvic wall involving muscles and adjacent soft tissues, currently measures about 9.5 x 18 x 25 cm, previously measured 7 x 13 x 20 cm. Hematoma extends to right lower chest wall in current study. There is focal area of contrast extravasation in anterolateral aspect of the lower abdominal wall (series 4, image 108, series 6 image 114), measures about 5 x 14 x 15 mm. Hematoma in left rectus abdominis sheath in lower abdomen/pelvis currently measures 8 x 5 x 10 cm, not significantly changed. Small focal areas of contrast extravasation (series 4, image 144, series 6, image 115) seen. CT/CT angio abdomen pelvis [id number] IMPRESSION: 1. Progression of the large hematoma in right lateral abdominal/pelvic wall extending to lower chest wall. Focal area of contrast extravasation, active hemorrhage. 2. Hematoma in left lower abdominal/pelvic rectus sheath show small focal areas of active contrast extravasation. Overall size of the hematoma is not significantly changed. 3. Small ascites in posterior pelvis, new finding.
[2024-12-03] MEDS: ALPRAZolam 0.5 mg Tablet PO (06:52)
[2024-12-03] MEDS: iohexol 350 mg/mL 500 mL Btl (per mL) IV (07:24)
[2024-12-03] MEDS: escitalopram 10 mg Tablet PO (09:18)
[2024-12-03] MEDS: predniSONE 20 mg Tablet 40 MG PO (09:18)
[2024-12-03] MEDS: guaiFENesin 600 mg Tablet 1200 MG PO (09:18)
[2024-12-03] MEDS: amiodarone 200 mg Tablet PO (09:18)
[2024-12-03] MEDS: potassium chloride ER 20 mEq Tablet PO (09:18)
--- NOTE | 2024-12-03 09:38 | PC.NURSE ---
hematoma to RLQ noted to be palbably larger than start of shift. bp trending down patient reported feeling worse, Dr. Yanes notified advised to give ordered platelets and more blood ordered and CBC
[2024-12-03 10:08] LABS: Hematocrit 26.7 % (36-47); Lymphocytes # 0.8 10^3/uL (0.8-4.8); Lymphocytes % 8.7 %; Mean Corpuscular HGB Conc 33.7 g/dL (30-55); Mean Corpuscular Hemoglobin 29.8 pg (27-33); Mean Corpuscular Volume 88.4 fl (85-98); Mean Platelet Volume 10.7 fL (7.4-10.4); Monocytes # 0.8 10^3/uL (0.2-0.9); Monocytes % 8.1 %; Neutrophils # 7.66 10^3/uL (1.8-7.7); Neutrophils % 82.3 %; Nucleated Red Blood Cells % 0 %; Platelet Count 91 10^3/cmm (157-399); Red Blood Count 3.02 10^6/uL (3.85-5.65); Red Cell Distribution Width 14.3 % (12.1-15.1)
[2024-12-03 10:22] LABS: Alanine Aminotransferase 49 U/L (0-33); Albumin Level 2.7 g/dL (3.5-5.2); Alkaline Phosphatase 28 U/L (35-105); Anion Gap 10.7 (5-19); Aspartate Amino Transferase 43 U/L (0-32); Blood Urea Nitrogen 40 mg/dL (8-23); Calcium 7.6 mg/dL (8.5-10.5); Carbon Dioxide 31 mmol/L (22-29); Chloride 100 mmol/L (98-107); Creatinine Clr Calc Pharmacy 69.2426; Glomerular Filtration Rate 63.4 mL/min (90-130); Glucose 176 mg/dL (65-115); Osmolality Calculated 296 mOsm/kg (285-295); Phosphorus 4.1 mg/dL (2.5-4.5); Potassium 5.7 mmol/L (3.5-5.1); Sodium 136 mmol/L (136-145); Total Bilirubin 1.5 mg/dL (0.15-1.2); Total Protein 3.7 g/dL (6.6-8.7)
[2024-12-03 10:33] LABS: NT Pro B Type Natriuretic Pept 249 pg/mL (0-125)
[2024-12-03 12:23] LABS: Hematocrit 24.3 % (36-47)
[2024-12-03] MEDS: norepinephrine 4 MG/250 ML BAG 52.5 MG IV ×2 (12:41→14:58)
[2024-12-03] MEDS: lactated ringers 500 ML 999 ML IV (13:42)
--- NOTE | 2024-12-03 14:56 | PC.NURSE ---
Sent last unit of blood with Air Evac
--- NOTE | 2024-12-03 15:26 | PC.SOCIAL ---
IMM Update pg 2 of IMM Updated and reviewed w/ patient. Copy provided and copy dated, initialed and placed in chart.
--- NOTE | 2024-12-03 15:35 | P.DS_ITS ---
Discharge Providers Date of Admission: 11/27/24 09:35 Date of Discharge: December 03, 2024 Attending Provider at Admission: Josh Beckham Attending Provider at Discharge: Jorge Butcher Primary Care Provider: ERNESTO Tang Diagnoses at Discharge Discharge Diagnosis (1) NSTEMI (non-ST elevated myocardial infarction): Status: Acute (2) Paroxysmal A-fib: Status: Acute (3) Influenza A: Status: Acute (4) Diastolic heart failure: Status: Acute Qualifiers: Heart failure chronicity: chronic Qualified Code(s): I50.32 - Chronic diastolic (congestive) heart failure (5) Mild coronary artery disease: Status: Acute (6) SOBOE (shortness of breath on exertion): Status: Acute (7) Hypertension: Status: Acute Qualifiers: Hypertension type: primary hypertension Qualified Code(s): I10 - Essential (primary) hypertension (8) Acute hypotension: Status: Acute (9) Rectus sheath hematoma: Status: Acute Reason for Visit Reason for Visit: Resp Distress Hospital Course Hospital Course 63-year-old lady with recent hospitalization for COPD exacerbation, respiratory failure, A-fib with RVR, no tenderness related to shortness of breath, malaise, body aches, chest pressure, minimally productive cough, and ER with finding of acute hypoxic and hypercapnic respiratory failure, with respiratory stenosis, requiring BiPAP support, influenza A positive. With troponin elevation, baseline 112, 2-hour 315. NT-proBNP 493. She does note having had some swelling of her legs. After recent hospitalization was discharged with amiodarone, metoprolol, Eliquis, a course of Augmentin and Levaquin as well as prednisone taper. Upon admission to the hospital patient was found to have acute on chronic hypoxic respiratory failiure due to multifactorial etiology including influenza A for which she was on tamiflu, noted to ahve a positive tropinin with a delta of 203. She was started on aspirin and lovenox. cardiology was consulted. She was also started steroids, iV diuretics. Echo was done which showed ef of 45%. Plan to have possible cardiac cath following optimization of fluid status however on 12/02 paitent became hypotensive. She was started on levophed following transfer to ICU. Noted to have abdominal pain which was found to be large intramuscular hematoma involving the right lateral abdominal wall with active contrast extravasation and also a moderate sized left rectus sheath hematoma with also active contrast extravasation. Was started on midodrine as well. Hemoglobin had dropped as well. Patient was given 1 dose of txa and multiple units of PRBC transfusion. After assuming care of patient she continued to decompensate. Discussed with IR at [facility] regarding embolization to stop active bleeding given active extravasation of blood on both sides. IR would attempt this on transfer. Discussed with [facility] as well who accepted patient for transfer. Patient was transfer by helicopter. All risk vs benift of transfer were discussed with patient and family at bedside. Physical Exam Narrative: General: Alert, awake in moderate distress from abdominal pain. Resp: COMMON NORMALS: normal respiratory effort, No retractions, No use of accessory muscles and clear to auscultation bilaterally AUSCULTATION: clear to auscultation bilaterally Cardio: COMMON NORMALS: regular rate, regular rhythm, S1 normal heart sound present and S2 normal heart sound present RATE: regular rate RHYTHM: regular rhythm HEART SOUNDS: S1 normal heart sound present and S2 normal heart sound present GI: COMMON NORMALS: Normal to inspection, nondistended, normoactive bowel sounds present and non-tender Extremity: COMMON NORMALS: no pedal edema Psych: COMMON NORMALS: mental status grossly normal Urinary Catheter Management: Whelan: Cath Placed During This Visit: yes Reason for Continuing Indwelling Catheter: Accurate Measurement of Urinary Output in Critically Ill Patients Urinary Catheter Date of Insertion: 12/02/24 Urinary Catheter Time of Insertion: 16:48 Discharge Data Studies Completed and Pending Completed Studies During Hospitalization Category Date Time Status CT abdomen pelvis w con* [id number] Routine Cat Scan 12/02/24 12:[address] abdomen pelvis wo con [id number] Urgent Cat Scan 11/27/24 11:38 Completed CTA abdomen pelvis [CT angio abdomen pelvis [id number]] Stat Cat Scan 12/03/24 06:35 Completed XR chest 1V portable [id number] Stat Exams 11/27/24 07:15 Completed XR chest 1V portable [id number] Stat Exams 12/02/24 14:41 Completed CV. echo limited [id number] Routine Ultrasound 11/27/24 15:04 Completed Pending at discharge Category Date Time Status ABO/Rh Type Routine Lab 12/02/24 14:06 Results Complete Crossmatch Routine Lab 12/02/24 14:06 Results Frozen Plasma FZ <24 1st Cont Stat Lab 12/02/24 14:06 Results Platelets Leuko-Reduced Stat Lab 12/02/24 14:06 Results RED BLOOD CELLS [Leukocyte Reduced RBC] Routine Lab 12/02/24 14:06 Results Type and Screen Routine Lab 12/02/24 14:06 Results Radiology Impressions Abdomen/Pelvis CT 12/02/24 12:06 IMPRESSION: 1. Large intramuscular hematoma involving the right lateral abdominal wall with active contrast extravasation. 2. Moderate-sized left rectus sheath hematoma with active contrast extravasation 3. Additional nonemergent findings, as described above ADDENDUM: 12/02/24 1330 COMMENT: THIS REPORT CONTAINS FINDINGS THAT MAY BE CRITICAL TO PATIENT CARE. The exam findings were verbally communicated by me to SABINE ANN via telephone conference at 1:28 PM [employer]IC[employer] DRAFTING OFFICER on 12/02/2024. The findings were acknowledged and understood. Chest X-Ray 12/02/24 14:41 IMPRESSION: 1. Interval placement of a right internal jugular central venous catheter with its tip in the proximal superior vena cava and no evidence of pneumothorax. 2. Emphysematous changes Abdomen/Pelvis CTA 12/03/24 06:35 IMPRESSION: 1. Progression of the large hematoma in right lateral abdominal/pelvic wall extending to lower chest wall. Focal area of contrast extravasation, active hemorrhage. 2. Hematoma in left lower abdominal/pelvic rectus sheath show small focal areas of active contrast extravasation. Overall size of the hematoma is not significantly changed. 3. Small ascites in posterior pelvis, new finding. ADDENDUM: 12/03/24 4506 THIS REPORT CONTAINS FINDINGS THAT MAY BE CRITICAL TO PATIENT CARE. The findings were verbally communicated via telephone conference with ARTURO Dixon at 7:54 AM [employer]IC[employer] DRA[employer]ING OFFICER on 12/03/2024. The findings were acknowledged and understood. Laboratory Results WBC 9.30 10^3/uL (3.29-11.43) 12/03/24 09:58 RBC 3.02 10^6/uL (3.85-5.65) L 12/03/24 09:58 Hgb 8.10 g/dL (11.27-16.99) L 12/03/24 12:05 Hct 24.3 % (36-47) L 12/03/24 12:05 MCV 88.4 fl (85-98) D 12/03/24 09:58 MCH 29.8 pg (27-33) 12/03/24 09:58 MCHC 33.7 g/dL (30-55) D 12/03/24 09:58 RDW 14.3 % (12.1-15.1) 12/03/24 09:58 Plt Count 91 10^3/cmm (157-399) L D 12/03/24 09:58 MPV 10.7 fL (7.4-10.4) H 12/03/24 09:58 Neut % (Auto) 82.3 % 12/03/24 09:58 Lymph % (Auto) 8.7 % 12/03/24 09:58 [place] % (Auto) 8.1 % 12/03/24 09:58 Eos % (Auto) 0.0 % 12/03/24 09:58 Baso % (Auto) 0.0 % 12/03/24 09:58 Neut # (Auto) 7.66 10^3/uL (1.8-7.7) 12/03/24 09:58 Lymph # (Auto) 0.8 10^3/uL (0.8-4.8) 12/03/24 09:58 [place] # (Auto) 0.8 10^3/uL (0.2-0.9) 12/03/24 09:58 Eos # (Auto) 0.0 10^3/uL (0.0-0.8) 12/03/24 09:58 Baso # (Auto) 0.0 10^3/uL (0.0-0.1) 12/03/24 09:58 Nucleated RBC % (auto) 0 % 12/03/24 09:58 Nucleated RBCs # 0.0 /100WBC 12/03/24 09:58 Specimen Type Arterial 12/02/24 12:27 Sample Site Radial, left 12/02/24 12:27 ABG pH 7.34 (7.35-7.45) L 12/02/24 12:27 ABG pCO2 74.2 mmHg (35-45) H* 12/02/24 12:27 ABG pO2 133.0 mmHg (80.0-100.0) H 12/02/24 12:27 ABG PO2/FiO2 Ratio 415 12/02/24 12:27 ABG HCO3 40.4 mmol/L (22-26) H 12/02/24 12:27 ABG O2 Saturation 98.2 11/27/24 08:46 ABG Base Excess 12.8 mmol/L (-2.0-2.0) H 12/02/24 12:27 S[place]ail Test Pos 12/02/24 12:27 A-a O2 Gradient 8.3 mmHg (5-10) 11/27/24 08:46 Hematocrit 26.3 % (37-47) L 12/02/24 12:27 Hgb O2 Saturation 95.9 % (95-100) 11/27/24 08:46 Carboxyhemoglobin 1.1 %THgb (0.4-20.1) 11/27/24 08:46 Methemoglobin 1.3 % (0.4-1.5) 11/27/24 08:46 Total Hemoglobin 11.2 g/dL (12-16) L 11/27/24 08:46 Sodium 133.0 mmol/L (131-143) 11/27/24 08:46 Potassium 3.3 mmol/L (3.5-5.0) L 11/27/24 08:46 Glucose 162.0 mg/dL (70-115) H 11/27/24 08:46 Ionized Calcium 1.2 mmol/L (1.1-1.4) 11/27/24 08:46 O2 Delivery Device Nc 12/02/24 12:27 O2 Liters/Min 3.0 % 12/02/24 12:27 FiO2 32.0 % 12/02/24 12:27 Mold Mover ID Amh 12/02/24 12:27 Sodium 136 mmol/L (136-145) 12/03/24 09:58 Potassium 5.7 mmol/L (3.5-5.1) H 12/03/24 09:58 Chloride 100 mmol/L (98-107) 12/03/24 09:58 Carbon Dioxide 31 mmol/L (22-29) H 12/03/24 09:58 Anion Gap 10.7 (5-19) 12/03/24 09:58 BUN 40 mg/dL (8-23) H 12/03/24 09:58 Creatinine 0.9 mg/dL (0.5-0.9) 12/03/24 09:58 GFR Calculation 63.4 mL/min (90-130) L 12/03/24 09:58 Glucose 176 mg/dL (65-115) H 12/03/24 09:58 Calculated Osmolality 296 mOsm/kg (285-295) H 12/03/24 09:58 Lactic Acid 1.9 mmol/L (0.5-2.2) 12/02/24 12:03 Calcium 7.6 mg/dL (8.5-10.5) L 12/03/24 09:58 Phosphorus 4.1 mg/dL (2.5-4.5) 12/03/24 09:58 Magnesium 2.0 mg/dL (1.7-2.3) 12/03/24 09:58 Total Bilirubin 1.5 mg/dL (0.15-1.2) H 12/03/24 09:58 AST 43 U/L (0-32) H 12/03/24 09:58 ALT 49 U/L (0-33) H 12/03/24 09:58 Alkaline Phosphatase 28 U/L (35-105) L 12/03/24 09:58 Troponin T Baseline 45 ng/L (0-10) H 12/02/24 12:03 Troponin T 120 Minute 39.46 ng/L (0-10) H 12/02/24 14:06 Delta Troponin T -5.54 ABS# (0-10) L 12/02/24 14:06 Troponin T Hi Sens 6Hr 36.22 ng/L (0-10) H 12/02/24 21:13 Troponin T Hi Sens 6Hr Delta -8.78 ng/L (0-12) L 12/02/24 21:13 NT-Pro-B Natriuret Pep 249 pg/mL (0-125) H 12/03/24 09:58 Total Protein 3.7 g/dL (6.6-8.7) L 12/03/24 09:58 Albumin 2.7 g/dL (3.5-5.2) L 12/03/24 09:58 Globulin 1.0 g/dL (1.3-4.6) L 12/03/24 09:58 Procalcitonin 0.13 ng/mL (0-0.5) 12/01/24 02:40 Urine Color Yellow (Yellow) 11/27/24 17:22 Urine Appearance Clear (CLEAR) 11/27/24 17:22 Urine pH 6.0 (5-7) 11/27/24 17:22 Ur Specific [place] 1.009 (1.005-1.030) 11/27/24 17:22 Urine Protein Trace (Negative) A 11/27/24 17:22 Urine Glucose (UA) Negative (Normal) 11/27/24 17:22 Urine Ketones Negative (Negative) 11/27/24 17:22 Urine Blood Negative (Negative) 11/27/24 17:22 Urine Nitrate Negative (Negative) 11/27/24 17:22 Urine Bilirubin Negative (Negative) 11/27/24 17:22 Urine Urobilinogen 0.2 mg/dL (Negative) 11/27/24 17:22 Ur Leukocyte Esterase Negative (Negative) 11/27/24 17:22 Urine RBC 0-2 /hpf (0-2) 11/27/24 17:22 Urine WBC 0-5 /hpf (0-5) 11/27/24 17:22 Ur Squamous Epith Cells 0-5 /hpf (0-5) 11/27/24 17:22 Amorphous Sediment Not Reportable 11/27/24 17:22 Urine Bacteria None seen /hpf (NONE) 11/27/24 17:22 Hyaline Casts 1.65 /lpf 11/27/24 17:22 Coronavirus (PCR) Negative (Negative) 11/27/24 07:34 Influenza A (PCR) Positive (Negative) 11/27/24 07:34 Influenza Type B (PCR) Negative (Negative) 11/27/24 07:34 RSV (PCR) Negative (Negative) 11/27/24 07:34 Blood Type A Positive 12/02/24 14:06 Rho(D) Type Rh positive 12/02/24 14:06 Antibody Screen Negative 12/02/24 14:06 Crossmatch See Detail 12/02/24 14:06 Vitals Last Vital Signs Temp 98.4 F 12/03/24 14:55 Pulse 86 12/03/24 14:55 Resp 20 H 12/03/24 14:55 BP 89/70 12/03/24 13:53 Pulse Ox 100 12/03/24 14:40 O2 Del Method Nasal Cannula 12/03/24 14:40 O2 Flow Rate 3 12/03/24 14:40 FiO2 30 11/29/24 16:00 Discharge Plan Discharge Patient Disposition: Xfer Other Condition: Stable Prescriptions: No Action pantoprazole 40 mg tablet,delayed release (DR/EC) 40 mg PO BID Trelegy Ellipta 200-62.5-25 mcg blister with device 1 inh inhalation DAILY lisinopril 5 mg tablet 5 mg PO DAILY Qty: 100 3RF albuterol sulfate 90 mcg/actuation HFA aerosol inhaler 2 puff inhalation Q6H PRN (Reason: Shortness Of Breath Or Wheezing) buspirone 5 mg tablet 5 mg PO TID PRN (Reason: Anxiety) ondansetron HCl 8 mg tablet 8 mg PO BID PRN (Reason: Nausea And Vomiting) spironolactone 25 mg tablet 25 mg PO DAILY sertraline 50 mg tablet 50 mg PO DAILY alendronate 70 mg tablet 70 mg PO Q7D amiodarone [Pacerone] 200 mg Tablet 200 mg PO BID Qty: 60 2RF Rx Instructions: twice daily for 1 week followed by once daily metoprolol tartrate 25 mg Tablet 25 mg PO BID@0900,2100 30 Days Qty: 60 0RF prednisone 10 mg tablet See Taper PO DIRECTED Qty: 42 0RF Taper: predniSONE 60-10 60 mg Daily for 2 Days and 0 Hour 50 mg Daily for 2 Days and 0 Hour 40 mg Daily for 2 Days and 0 Hour 30 mg Daily for 2 Days and 0 Hour 20 mg Daily for 2 Days and 0 Hour 10 mg Daily for 2 Days and 0 Hour Rx Instructions: see taper instructions Eliquis 5 mg tablet 5 mg PO BID Qty: 60 4RF ipratropium-albuterol 0.5 mg-3 mg(2.5 mg base)/3 mL solution for nebulization 3 ml inhalation Q8H Qty: 90 0RF Rx Instructions: until breathing returns to target peak flow/parameters escitalopram oxalate [Lexapro] 10 mg tablet 10 mg PO DAILY Qty: 30 0RF alprazolam [Xanax] 0.25 mg tablet 0.25 mg PO BID PRN (Reason: anxiety) Qty: 14 0RF Discharge Orders: Discharge Order (Routine); Ordered 12/03/24 Ordered By: Jorge Butcher Referrals: Layla Quinones FNP [Primary Care Provider] - Discharge Attestations Time Spent in Discharge Care*: critical care time Critical Care Time (min): 65 Specific Discharge Activities: educating patient, discussing with pcp/other providers, documenting/other paperwork and evaluating patient/reviewing data Status at Discharge: Cognitive status at discharge: cognitively intact , Behavioral status at discharge: cooperative , Functional status at discharge: other (hospital transfer) , Overall status at discharge: patient is not back to baseline Quality Metrics Clinical Quality Measures [ No reported AMI, CVA or VTE this stay] Coding Level of Care Code Acute Code for Chg Fwd Diagnoses NSTEMI (non-ST elevated myocardial infarction) I21.4 Paroxysmal A-fib I48.0 Influenza A J10.1 Chronic diastolic heart failure I50.32 Heart failure chronicity: chronic Mild coronary artery disease I25.10 SOBOE (shortness of breath on exertion) R06.02 Primary hypertension I10 Hypertension type: primary hypertension Acute hypotension I95.9 Rectus sheath hematoma S30.1XXA
--- NOTE | 2024-12-03 15:40 | P.PN_ITS ---
<Statement entered by Dimple Suresh MD - 12/03/24 19:53> Patient was evaluated and cared for in conjunction with an advanced practice practitioner. I personally examined the patient and reviewed the chart and all pertinent data including imaging, telemetry, and laboratory results. I discussed the patient in detail with the advanced practice practitioner. Please see their note for complete H&P testing result and agreed upon plan of care for the patient. Patient continues to have rectus sheath bleed status posttransfusion GENERAL: Patient is fatigued but oriented x3. HEART: Regular S1 and S2. No murmur, rub or gallop. LUNGS: Clear to auscultate bilaterally. CENTRAL NERVOUS SYSTEM: Grossly nonfocal. EXTREMITIES: Lower extremities with out edema bilaterally. Assessment and plan Rectus sheath hematoma Influenza A Atrial fibrillation Non-ST elevation PR CHF acute systolic decompensated now compensated Patient has been accepted at [facility] will be transferred for ongoing bleeding with rectal sheath hematoma Lovenox was discontinued Once more stable may need left heart cath as an outpatient Discontinue aspirin, patient is rate controlled continue current regimen. Subjective 2 Subjective: Patient is requiring several units of blood. Hemoglobin 8.1 and 24.3. Platelets decreased to 91. Hematoma seems large. She is now requiring Levophed. Denies any chest pain or shortness of breath. She states she just feels weak. Vitals/I&O/Wt Last Vital Signs Temp 98.4 F 12/03/24 14:55 Pulse 86 12/03/24 14:55 Resp 20 H 12/03/24 14:55 BP 89/70 12/03/24 13:53 Pulse Ox 100 12/03/24 14:40 O2 Del Method Nasal Cannula 12/03/24 14:40 O2 Flow Rate 3 12/03/24 14:40 FiO2 30 11/29/24 16:00 12/03/24 12/03/24 12/03/24 06:59 14:59 22:59 Intake Total 480 / 3088.75 806.125 / 806.125 Output Total 250 / 250 Balance 230 / 2838.75 806.125 / 806.125 Weight last 48 hrs Weight 176 lb 14.4 oz Weight 171 lb 2 oz Physical Exam 2 Narrative: General: No apparent distress, healthy appearing, well nourished HENMT: normoceophalic Muskuloskeletal: right side of abdomen with large hematoma, hard Respiratory: Normal respiratory effort, bilateral lower lobes diminished currently on nasal cannula, no use of accessory muscles Cardio: No JVD, regular rate, regular rhythm, S1 S2 normal, no murmurs, peripheral pulses 2+ radial palpated bilaterally Extremities: Full ROM, normal, no cyanosis, no edema bilateral lower extremities Neuro: Alert and oriented x4, no focal motor deficits Psych: Affect normal, denies suicidal ideation, mental status grossly normal Skin: No rashes or lesions noted, no wounds Urinary Catheter Management: Whelan: Cath Placed During This Visit: yes Reason for Continuing Indwelling Catheter: Accurate Measurement of Urinary Output in Critically Ill Patients Urinary Catheter Date of Insertion: 12/02/24 Urinary Catheter Time of Insertion: 16:48 Data 12/03/24 12:05 12/03/24 09:58 A&P Assessment and plan (1) NSTEMI (non-ST elevated myocardial infarction): (2) Paroxysmal A-fib: (3) Influenza A: (4) Diastolic heart failure: Qualifiers: Heart failure chronicity: chronic Qualified Code(s): I50.32 - Chronic diastolic (congestive) heart failure (5) Mild coronary artery disease: (6) SOBOE (shortness of breath on exertion): (7) Hypertension: Qualifiers: Hypertension type: primary hypertension Qualified Code(s): I10 - Essential (primary) hypertension (8) Acute hypotension: (9) Rectus sheath hematoma: At this point we will postpone left heart cath which is not absolutely necessary for at least 2 weeks or longer if necessary. Continue amiodarone for A-fib, bp medications on hold due to patient requiring pressure support. PDMP PDMP Reviewed: Not Reviewed Attestations 2 Medical Necessity Statement*: Deferred to primary care team. Coding Level of Care Code Acute Code for Chg Fwd Diagnoses NSTEMI (non-ST elevated myocardial infarction) I21.4 Paroxysmal A-fib I48.0 Influenza A J10.1 Chronic diastolic heart failure I50.32 Heart failure chronicity: chronic Mild coronary artery disease I25.10 SOBOE (shortness of breath on exertion) R06.02 Primary hypertension I10 Hypertension type: primary hypertension Acute hypotension I95.9 Rectus sheath hematoma S30.1XXA
== END 2024-12-03 15:35 | disposition short-term general hospital (02) | DRG 280 ==
LOC: ER 09:20 → ER IP 09:36 → ICU 15:08 → CSU 11-28 19:58 → ICU 12-02 14:51
PROVIDERS: Family Medicine; Internal Medicine; Nurse Practitioner Family; Admitting Provider Internal Medicine; Emergency Provider Emergency Medicine; PCP Registered Nurse; Visit Provider Hospitalist
DX: I11.0 Hypertensive heart disease with heart failure (principal); I50.33 Acute on chronic diastolic (congestive) heart failure; I21.4 Non-ST elevation (NSTEMI) myocardial infarction; J18.9 Pneumonia, unspecified organism; J96.22 Acute and chronic respiratory failure with hypercapnia; J96.21 Acute and chronic respiratory failure with hypoxia; J44.0 Chronic obstructive pulmonary disease with (acute) lower respiratory infection; J44.1 Chronic obstructive pulmonary disease with (acute) exacerbation; E87.29 Other acidosis; I48.0 Paroxysmal atrial fibrillation; Z79.01 Long term (current) use of anticoagulants; J10.1 Influenza due to other identified influenza virus with other respiratory manifestations; I25.10 Atherosclerotic heart disease of native coronary artery without angina pectoris; M79.81 Nontraumatic hematoma of soft tissue; T45.515A Adverse effect of anticoagulants, initial encounter; Y92.239 Unspecified place in hospital as the place of occurrence of the external cause; Z99.81 Dependence on supplemental oxygen; Z87.891 Personal history of nicotine dependence; I95.9 Hypotension, unspecified
CPT/HCPCS: 36415; 36430; 36600; 51702; 71045; 74174; 74176; 74177; 80048; 80051; 80053; 81001; 82330; 82803; 82805; 83605; 83735; 83880; 84100; 84145; 84484; 85014; 85018; 85025; 86850; 86900; 86920; 86927; 87040; 87637; 93005; 93308; 94640; 94660; 96365; 96366; 96367; 96372; 96374; 96375; 96376; 99291; J1650; J1720; J1940; J1956; J2405; J2470; J2919; J3490; J7030; J7050; J7120; J7512; J7613; P9016; P9017; P9035; P9046